=== PATIENT | female | born 1985 | race Caucasian/White ===

== ENCOUNTER 2024-05-28 09:27 | Emergency (ER) | payer OTHER, SELFPAY ==
--- NOTE | ~2024-05-28 | CT_ITS ---
CLINICAL HISTORY: R flank pain CT of the abdomen and pelvis without intravenous contrast. No comparison. Findings: There is mild elevation of the right hemidiaphragm. The liver is enlarged. The gallbladder is distended. No definite gallstones are seen. No pericholecystic inflammatory changes are identified. No renal or ureteral stones are seen. There is no hydronephrosis. The liver is enlarged. The pancreas is unremarkable. No abdominal aortic aneurysm. There is coronary artery calcification. There has been a gastric sleeve. No diverticulitis is identified. There is moderate stool in the colon. The appendix is upper limits of normal in size without adjacent inflammatory change. There is no bowel obstruction. The bladder is nondilated. Hysterectomy. There is prominent L5-S1 degenerative disc disease. Impression: No renal or ureteral stones. Hepatosplenomegaly. Nonspecific gallbladder distention follow-up as clinically warranted. Appendix upper limits of normal in size without adjacent inflammatory change. This is likely incidental but consider follow-up if unexplained symptoms persist. This document has been electronically signed by: Callum Alvarado MD on 05/28/2024 17:38:27
[2024-05-28 09:36] VITALS: BP 146/79; PULSE 114; RESP 20; TEMP 37.8; O2SAT 100; BMI 43.9
[2024-05-28] MEDS: Ibuprofen 600 MG TABLET PO (09:44)
[2024-05-28] MEDS: Ondansetron ODT 4 MG TAB.RAPDIS TRANSLINGU (09:45)
[2024-05-28 10:14] LABS: MANUAL DIFF FLAG NO
[2024-05-28 10:17] LABS: Basophils Absolute Auto 0.1 X10*3/uL (0.0-0.2); Basophils Percent Auto 0.4 % (0-2); Eosinophils Percent Auto 0.3 % (0-4); Hematocrit 42.7 % (37.0-47.0); Hemoglobin 14.3 g/dl (12.0-16.0); Imm Gran Abs Auto 0.09 X10*3/uL (0.00-0.03); Imm Gran Pct Auto 0.7 % (0.0-0.4); Lymphocytes Absolute Auto 1.6 X10*3/uL (1.2-4.9); Lymphocytes Percent Auto 12.4 % (20-40); Mean Corpuscular HGB Conc 33.5 g/dl (31.0-35.0); Mean Corpuscular Hemoglobin 26.2 pg (27.0-33.0); Mean Corpuscular Volume 78.3 fL (80.0-98.0); Mean Platelet Volume 8.7 fL (9.4-12.3); Monocytes Absolute Auto 1.5 X10*3/uL (0.1-1.2); Monocytes Percent Auto 11.2 % (2-11); Neutrophils Absolute Auto 9.9 x10*3/uL (2.0-8.3); Platelet Count 154 X10*3/uL (160-400); Red Blood Count 5.45 X10*6/uL (4.20-5.50); Red Cell Distribution Width 13.7 % (11.0-16.0); White Blood Count 13.2 X10*3/uL (4.8-10.8)
[2024-05-28 10:50] LABS: Alanine Aminotransferase < 6 U/L (0-31); Albumin Level 4.1 g/dL (3.5-5.0); Alkaline Phosphatase 113 U/L (39-117); Anion Gap 15 (12-20); Aspartate Amino Transferase 14 U/L (5-31); Bilirubin Direct 0.3 mg/dL (0.0-0.5); Bilirubin Total 0.9 mg/dL (0.0-1.0); Blood Urea Nitrogen 13 mg/dL (9-16); Calcium 9.5 mg/dL (8.4-10.2); Carbon Dioxide 20 mmol/L (22-29); Chloride 107 mmol/L (96-108); Estimated Glomerular Filt Rate 59; Glucose Random 110 mg/dL (60-115); Lipase 9 U/L (8-78); Sodium 138 mmol/L (135-145); Total Protein 8.1 g/dL (6.5-8.0)
[2024-05-28 10:58] LABS: Influenza A PCR NEGATIVE (Negative); Influenza B PCR NEGATIVE (Negative); Resp Syncy Virus RNA Qual PCR NEGATIVE (Negative); SARS COV2 PCR INHOUSE NEGATIVE (Negative)
--- NOTE | 2024-05-28 16:05 | ED_ITS ---
HPI - Nausea/Vomiting/Diarrhea General Chief complaint: Nausea/Vomiting/Diarrhea Stated complaint: ? Kidney Infection Time Seen by Provider: 05/28/24 15:36 Source: patient and RN notes reviewed Mode of arrival: ambulatory Limitations: no limitations History of Present Illness ED Provider: Bibiana Cadet PA-C HPI Narrative: This is a 38-year-old female, with a history of fibromyalgia, depression, anxiety, ankylosing spondylitis, and hx of kidney infections, who presents emergency department with concerns for nausea, vomiting, urinary urgency, frequency, and dysuria x3 days. Patient states that 3 days ago she was with her friends when she suddenly developed acute onset of nausea, vomiting, urinary symptoms. She states that over the last several days she continues to have nausea, vomiting, and urinary symptoms. She does report some subjective fevers and chills. No chest pain or shortness for breath. She does endorse suprapubic tenderness as well as bilateral flank pain. She has a history of kidney infections in the past and symptoms feel similar. She went to [facility] yesterday however left without completing treatment as the wait time was too long. She went to an urgent care this morning and was told to report back to the emergency room. She is unsure when her last bowel movement was. She does report that she smokes marijuana, no alcohol use. MD elicited complaint: nausea, vomiting and flank pain Onset (ago): day(s) Description of diarrhea: watery Associated nausea: Yes Associated abdominal pain: Yes Location of pain: suprapubic Radiation: left flank and right flank Pain consistency: constant Severity: moderate Quality: cramping Exacerbating factors: none Relieving factors: none Related Data Previous Rx's ?Medication ?Instructions ?Recorded cefpodoxime 200 mg tablet 200 mg PO Q12H 10 days #20 tabs 05/28/24 ondansetron 4 mg disintegrating 4 mg PO Q6H PRN nausea and 05/28/24 tablet vomiting #10 tabs Allergies Allergy/AdvReac Type Severity Reaction Status Date / Time No Known Allergies Allergy Verified 05/28/24 09:38 [No Known Allergies*] Review of Systems 2 Review of Systems: Yes all other systems are reviewed and are negative Constitutional: Constitutional: Reports as per HPI Gastrointestinal: Gastrointestinal: Reports nausea PMFSH Social History Social History Advance Directives: No Advance Directives Information Provided: Yes Do you have a plan to hurt others: No Plan Physical Exam 2 Vital Signs: Vital Signs: Last Vital Signs Temp 98.8 F 05/28/24 16:20 Pulse 94 05/28/24 16:20 Resp 14 05/28/24 16:20 BP 145/94 H 05/28/24 16:20 Pulse Ox 100 05/28/24 16:20 O2 Del Method Room Air 05/28/24 16:20 BMI result Body Mass Index 43.9 Const: General: cooperative, comfortable and no acute distress O rientation/consciousness: patient oriented x3 Limitations: no limitations HEENT: Head: Yes normal to inspection, Yes normocephalic and Yes atraumatic Ears: hearing grossly normal bilaterally General nose exam: Normal external nose present Face and sinus: Yes normal facial exam Mouth: Normal oral and palatal mucosa present, oropharynx normal and moist mucous membranes Throat: Yes posterior oropharynx normal Eyes: General: appearance normal, both eyes and all related structures E yelids: Yes eyelids normal Conjunctivae: conjunctivae normal Sclerae: s clerae normal Pupils: Equal, round and reactive pupils present EOM: EOMs intact bilaterally Neck: Neck: Yes normal visual inspection, Yes full ROM and Yes no lymphadenopathy Lymphatic: no lymphadenopathy noted Chest: Chest palpation & inspection: normal inspection of the chest Resp: Effort & Inspection: normal respiratory effort and able to speak in complete sentences Auscultation: clear to auscultation bilaterally, no crackles, no rales, no rhonchi and no wheezes Cardio: Rate: regular rate Rhythm: regular rhythm Heart sounds: S1 normal heart sound present and S2 normal heart sound present GI: Other: Patient with tenderness palpation in the suprapubic region with guarding. Inspection: Yes normal to inspection : Other: Positive CVA tenderness bilaterally Skin: General skin exam: no rashes or lesions noted Trauma: no lacerations or abrasions Wounds: no wounds Neuro: General: patient oriented x3 and moves all extremities Cranial nerves: Yes Equal, round and reactive pupils present Extrem: General: Yes normal to inspection Right upper extremity: normal to inspection Left upper extremity: normal to inspection Right lower extremity: normal to inspection Left lower extremity: normal to inspection Course Course Course Narrative: orders put in by me in error please see work up from primary provider Reevaluation(s) Reevaluation #1: Patient feeling much better after receiving IV fluids, Zofran, Tylenol as well as Rocephin. She has no lactic acidosis. Will treat as pyelonephritis with course of cefpodoxime. Given strict return precautions. CT scan revealing no renal or ureteral stones, hepatosplenomegaly, nonspecific gallbladder distention, as well as upper limits of normal appendix size. This is all likely incidental. She has no right upper quadrant pain therefore no further evaluation of gallbladder is indicated at today's visit. I discussed these items with patient, she will follow-up with her PCP. She understands and agrees with plan. Patient stable for discharge. Time: 18:44 Medications Administered Discontinued Medications Generic Name Dose Route Start Last Admin Trade Name Freq PRN Reason Stop Dose Admin Ceftriaxone Sodium 1 gm 05/28/24 16:35 05/28/24 16:58 Ceftriaxone Sodium 1 Gm Vial IVPUSH 05/28/24 16:36 1 gm ONCE ONE Administration Lactated Ringer's 1,000 mls @ 999 mls/hr 05/28/24 16:36 05/28/24 17:56 Lr IV 05/28/24 17:36 Infused .Q1H1M ONE Infusion Lactated Ringer's 1,000 mls @ 999 mls/hr 05/28/24 16:36 05/28/24 17:56 Lr IV 05/28/24 17:36 Infused .Q1H1M ONE Infusion Acetaminophen 1,000 mg in 100 mls @ 400 mls/hr 05/28/24 16:37 05/28/24 17:44 Ofirmev IV 05/28/24 16:51 Infused ONCE ONE Infusion Ibuprofen 600 mg 05/28/24 09:41 05/28/24 09:44 Ibuprofen 600 Mg Tablet PO 05/28/24 09:42 600 mg ONCE ONE Administration Ondansetron HCl 4 mg 05/28/24 09:41 05/28/24 09:45 Ondansetron Odt 4 Mg Tab.Rapdis TRANSLINGU 05/28/24 09:42 4 mg ONCE ONE Administration Medical Decision Making Medical Decision Making [facility] Narrative: This is a 38-year-old female who presents emergency department complaints of nausea, vomiting, suprapubic pain, urinary symptoms. I did not assess patient until 1639. Patient already had labs performed, she does have leukocytosis at 13.2, with left shift. Chemistry with no significant electrolyte derangement. Creatinine 1.04, urine revealing small blood, positive nitrites, and moderate leuk esterases. Negative beta quant. Negative flu, RSV, and COVID. Repeat vital signs were performed at 16 20 revealing she is no longer tachycardic, afebrile. Given positive results on urinalysis with leukocytosis, she did have tachycardia earlier, will call sepsis alert at 1645. IV fluids, as well as IV Rocephin, and IV Tylenol was a ordered. Lactic acid was ordered in his pending at this time. Will continue to closely monitor. CT scan was obtained to rule out obstructive pathology. Differential Diagnosis Differential Diagnoses: The differential diagnosis associated with the presentation includes UTI, obstructive uropathy, pyelonephritis, SHANNON Lab Data MDM Lab Attestation statement: I reviewed the patient's lab results. Patient with leukocytosis at 13.2, platelet count slightly low at 154, left shift noted, chemistry with no significant electrolyte derangement. Urine with small blood, positive nitrites, leuk esterases, negative , negative flu, RSV, and COVID. 05/28/24 10:09 05/28/24 10:09 Labs: Lab Results 05/28/24 05/28/24 Range/Units 10:09 16:03 WBC 13.2 H (4.8-10.8) X10*3/uL RBC 5.45 (4.20-5.50) X10*6/uL Hgb 14.3 (12.0-16.0) g/dl Hct 42.7 (37.0-47.0) % MCV 78.3 L (80.0-98.0) fL MCH 26.2 L (27.0-33.0) pg MCHC 33.5 (31.0-35.0) g/dl RDW 13.7 (11.0-16.0) % Plt Count 154 L (160-400) X10*3/uL MPV 8.7 L (9.4-12.3) fL Immature Gran % (Auto) 0.7 H (0.0-0.4) % Neut % (Auto) 75.0 H (45-73) % Lymph % (Auto) 12.4 L (20-40) % [place] % (Auto) 11.2 H (2-11) % Eos % (Auto) 0.3 (0-4) % Baso % (Auto) 0.4 (0-2) % Lymph # (Auto) 1.6 (1.2-4.9) X10*3/uL [place] # (Auto) 1.5 H (0.1-1.2) X10*3/uL Eos # (Auto) 0.0 (0.0-0.4) X10*3/uL Baso # (Auto) 0.1 (0.0-0.2) X10*3/uL Abs Immat Gran (auto) 0.09 H (0.00-0.03) X10*3/uL Absolute Neuts (auto) 9.9 H (2.0-8.3) x10*3/uL Absolute Nucleated RBC 0.000 (0.0-0.012) X10*3/uL Nucleated RBC % (auto) 0.0 (0.0-0.2) /100WBC Sodium 138 (135-145) mmol/L Potassium 4.0 (3.3-5.1) mmol/L Chloride 107 (96-108) mmol/L Carbon Dioxide 20 L (22-29) mmol/L Anion Gap 15 (12-20) BUN 13 (9-16) mg/dL Creatinine 1.04 (0.5-1.4) mg/dL Estim Creat Clear Calc 95.0 Estimated GFR 59 Random Glucose 110 (60-115) mg/dL Lactic Acid 1.2 (0.5-2.0) mmol/L Calcium 9.5 (8.4-10.2) mg/dL Total Bilirubin 0.9 (0.0-1.0) mg/dL Direct Bilirubin 0.3 (0.0-0.5) mg/dL AST 14 (5-31) U/L ALT < 6 (0-31) U/L Alkaline Phosphatase 113 (39-117) U/L Total Protein 8.1 H (6.5-8.0) g/dL Albumin 4.1 (3.5-5.0) g/dL Lipase 9 (8-78) U/L Urine Color Dark Yellow Urine Appearance Turbid Urine pH 5.5 (5.0-9.0) Ur Specific [place] 1.025 (1.005-1.025) Urine Protein 100 (2+) H (Neg-Trace) mg/dL Urine Glucose (UA) Negative (Negative) mg/dL Urine Ketones 15 (Negative) mg/dL Urine Blood Small (1+) H (Negative) Urine Nitrite Positive H (Negative) Ur Leukocyte Esterase Moderate (2+) H (Negative) Urine RBC 0-2 (0-2) /HPF Urine WBC >50 H (0-5) /HPF Ur Squamous Epith Cells >20 (0-2) /HPF Calcium Oxalate Crystal Present Urine Bacteria 4+ (None Seen) Hyaline Casts >20 (0-2) /LPF Urine Test NEGATIVE (NEGATIVE) Influenza Type A (PCR) NEGATIVE (Negative) Influenza Type B (PCR) NEGATIVE (Negative) RSV RNA Qual (PCR) NEGATIVE (Negative) SARS-CoV-2 RNA (RT-PCR) NEGATIVE (Negative) Radiology Impression Discussion of test interpretation with radiology: I have reviewed the radiologist's reading. Radiologist Impression: CLINICAL HISTORY: R flank pain CT of the abdomen and pelvis without intravenous contrast. No comparison. Findings: There is mild elevation of the right hemidiaphragm. The liver is enlarged. The gallbladder is distended. No definite gallstones are seen. No pericholecystic inflammatory changes are identified. No renal or ureteral stones are seen. There is no hydronephrosis. The liver is enlarged. The pancreas is unremarkable. No abdominal aortic aneurysm. There is coronary artery calcification. There has been a gastric sleeve. No diverticulitis is identified. There is moderate stool in the colon. The appendix is upper limits of normal in size without adjacent inflammatory change. There is no bowel obstruction. The bladder is nondilated. Hysterectomy. There is prominent L5-S1 degenerative disc disease. Impression: No renal or ureteral stones. Hepatosplenomegaly. Nonspecific gallbladder distention follow-up as clinically warranted. Appendix upper limits of normal in size without adjacent inflammatory change. This is likely incidental but consider follow-up if unexplained symptoms persist. This document has been electronically signed by: Callum Alvarado MD on 05/28/2024 17:38:27 Discharge Plan Discharge Clinical Impression: Pyelonephritis Patient Disposition: Home, Self-Care Instructions: Kidney Infection (ED) Additional Instructions: You were seen in the emergency department today. You have concerns for a kidney infection therefore we are starting you on antibiotics. You received antibiotics here in the emergency department today. Please take cefpodoxime 200 mg twice a day for the next 10 days. Finish the entire course even if your symptoms improve. Zofran is a nausea medication, take this as needed. Continue drinking plenty of fluids getting plenty of rest. Follow-up with your primary care physician regarding this visit. Your urine sample will be sent out for further testing, we will call you if we need to change your antibiotic. If any new or worsening symptoms occur including but not limited to high fevers not responding to Tylenol or Motrin, inability to eat or drink secondary to intractable nausea and vomiting, worsening abdominal pain, please seek emergent care. Your CT scan report shows gallbladder distention, large liver and spleen, as well as an enlargement appendix. These are all likely incidental however you can follow-up with your primary care physician. Prescriptions: New cefpodoxime 200 mg tablet 200 mg PO Q12H 10 Days Qty: 20 0RF Rx Instructions: must administer with a meal/food ondansetron 4 mg tablet,disintegrating 4 mg PO Q6H PRN (Reason: nausea and vomiting) Qty: 10 0RF Print Language: Latvian
[2024-05-28 16:16] LABS: Appearance Urine Turbid; Color Urine Dark Yellow; Glucose Urine UA Negative (Negative); Leukocyte Esterase Urine Moderate (2+) (Negative); Nitrite Urine Positive (Negative); PH 5.5 (5.0-9.0); Specific Gravity - Urine 1.025 (1.005-1.025); UMIC TRIGGER UACC YES; UPreg QC Valid YES; Urine Blood Small (1+) (Negative); Urine Ketones 15 mg/dL (Negative); Urine Pregnancy NEGATIVE (NEGATIVE); Urine Protein 100 (2+) mg/dL (Neg-Trace)
[2024-05-28 16:20] VITALS: BP 145/94; PULSE 94; RESP 14; TEMP 37.1; O2SAT 100
--- NOTE | 2024-05-28 16:26 | PC.NURSE ---
re delay in fluid/abx- pt taken to CT immediately upon arrival to exam room
[2024-05-28 16:38] LABS: Bacteria Urine 4+ (None Seen); Calcium Oxalate Crystals Urine Present; Hyaline Casts Urine >20 /LPF (0-2); RBC Urine 0-2 /HPF (0-2); Squamous Epithelial Cell Urine >20 /HPF (0-2); UACC Culture Trigger YES; WBC Urine >50 /HPF (0-5)
[2024-05-28 16:50] LABS: Lactic Acid 1.2 mmol/L (0.5-2.0)
[2024-05-28] MEDS: Lactated Ringers 1,000 ML 999 ML IV ×2 (16:55)
[2024-05-28] MEDS: cefTRIAXone sodium 1 GM VIAL IVPUSH (16:58)
[2024-05-28] MEDS: Acetaminophen 1,000 MG/100 ML PIGGYBACK 400 MG IV (17:29)
[2024-05-28 19:19] VITALS: BP 139/75; PULSE 89; RESP 18; TEMP 36.6; O2SAT 98
[2024-05-28 19:47] VITALS: BP 139/75; PULSE 89; RESP 18; TEMP 36.6; O2SAT 98
== END 2024-05-28 19:48 | disposition home or self-care (01) ==
PROVIDERS: Emergency Medicine; Emergency Provider Emergency Medicine
DX: N12 Tubulo-interstitial nephritis, 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 chronic (principal); R11.2 Nausea with vomiting, unspecified; R39.15 Urgency of urination; R30.0 Dysuria; R35.0 Frequency of micturition; R50.9 Fever, unspecified; Z03.818 Encounter for observation for suspected exposure to other biological agents ruled out; Z79.899 Other long term (current) drug therapy
CPT/HCPCS: 0241U; 36415; 74176; 80048; 80076; 81001; 81025; 83605; 83690; 85025; 87040; 87086; 87088; 87186; 96361; 96374; 96375; 99284; J0131; J0696; J7120

== ENCOUNTER → 2024-05-28 15:37 | Outpatient (BNV) | payer OTHER, SELFPAY | PROVIDERS: Emergency Provider Emergency Medicine; Visit Provider Radiology Diagnostic Radiology | DX: R10.813 Right lower quadrant abdominal tenderness (principal) | CPT/HCPCS: 74176 ==

== ENCOUNTER → 2024-11-26 09:15 | Outpatient (BNV) | payer OTHER, SELFPAY | PROVIDERS: Visit Provider Psychiatry & Neurology Psychiatry | DX: F33.2 Major depressive disorder, recurrent severe without psychotic features (principal); F41.1 Generalized anxiety disorder; F90.9 Attention-deficit hyperactivity disorder, unspecified type | CPT/HCPCS: 99214 ==

== ENCOUNTER 2024-11-27 14:05 | Outpatient (REF) | payer MEDICARE, SELFPAY ==
--- OUTSIDE RECORDS SUMMARY | 2024-01-11 05:25 | XMS_ITS | Continuity of Care Document ---
Author Organization [facility] vices Address [address] [place] [address] Phone Care Team Providers Care Technical Writer Name Role Phone Armida Valderrama APRN Unavailable [...] day for hdl 5 MG - Active estradiol 0.5 mg tablet take 1 tablet by oral route every day - Active gabapentin 300 mg capsule take 2 capsule by oral route 3 times every day 600 MG - Active sertraline 100 mg tablet take 1 tablet by oral route 2 times every day 100 MG - Active methocarbamol 750 mg tablet take 1 tablet by oral route 2 times every day 750 MG - Active prazosin 2 mg capsule take 1 capsule by oral route every bedtime 2 MG - Active buspirone 15 mg tablet take 1 tablet by oral route 3 times every day 15 MG - Active Vitamin D3 50 mcg (2,000 unit) capsule take 1 by oral route every day 1 - Active oxybutynin chloride ER 10 mg tablet,extended release 24 hr take 1 tablet by oral route every day 10 MG - Active hydroxyzine HCl 50 mg tablet take 1 tablet by oral route 1-2 times daily prn - Active bupropion HCl XL 300 mg 24 hr tablet, extended release take 1 tablet by oral route every day 300 MG - Active atomoxetine 60 mg capsule take 1 capsule by oral route every day - Active Procedures Procedure Date OFFICE/OUTPT Visit, Established - Telly Andrews, 30 - 39 Minutes [...] Diagnoses Date Provider Providers Copied on Encounter [facility], [address] [place], [place], [facility], [place] tel:[phone] [facility] Adult Medicine No Information 4 Jannie Huffman. [address] [facility] [id number] [address], [address], [place]. tel:[phone] OFFICE/OUTPT Visit, Established - Mod MDM, 30 - 39 Minutes [facility], [address] [place], [place], [facility], [place] tel:[phone] [facility] Adult Medicine [place] hyperlipidemia (chief complaint)occip ital lynph node (chief complaint) Body mass index (BMI) 45.0-49.9, adultHyperlipid emia, unspecified hyperlipidemia typePalpable lymph node 4 Jannie Huffman. [address] [id number] [address], [address], [place]. tel:[phone] Telephone E/M By Provider 11-20 MIN [facility], [address] [place], [address], [place] tel:[phone] [facility] Adult Medicine [place] Telehealth (chief complaint) Iron deficiency anemia, unspecified iron deficiency anemia typeHyperlipide narendra, unspecified hyperlipidemia type 4 Jannie Lackeyyl. [address] [id number] [address], [address], [place]. tel:[phone] OFFICE/OUTPT Visit - Established - Low MDM, 20 - 29 Minutes [facility], [address] [place], [place], [facility], [place] tel:[phone] [facility] Adult Medicine [place] lymph node enlargement (chief complaint)lab results (chief complaint) Body mass index (BMI) 40.0-44.9, adultEnlarged lymph nodeEncounter to discuss test results 4 Jannie Huffman. [address] [id number] [address], [facility], [place]. tel:[phone] OFFICE/OUTPT Visit, [facility], 30 - 44 Minutes [facility], [address] [place] [address], [facility], [place] tel:[phone] [facility] Adult Medicine [place] Establish Care (chief complaint)Influ reynaldo Vaccine (chief complaint) Encounter for screening for diabetes mellitusLipid screeningBody mass index (BMI) 40.0-44.9, adultEncounter for immunizationDep ression, unspecified depression typeFibromyalgi aAnkylosing spondylitis, unspecified site of spine 3 Jannie Huffman. [address] [id number] [address] [place], [facility], [place]. tel:[phone] Family History Family Member Type Diagnosis Age At Onset No Information Immunizations Vaccine Date Status Comments Flulaval or Fluarix administered Source: New Immuniza tion Record Payers Payer name Insurance type Covered green party ID Authoriza tion(s) Aetna [id number] [place] Medicaid - Medicare [facility] [id number] Medicare Part B [id number] [facility] Medicaid - Medicare [facility] [id number] Social History Type Description Quantity Date Captured [...] and counseling completed Referral Ordered: Referrals: Location: [facility] Dental ordered Referral Ordered: Referrals: Location: [facility] ordered Referral Ordered: Referrals: Location: [facility] Optometry ordered History Of Present Illness Encounter [...] of Remicade. Area was evaluated by her clutch mechanic and a ultrasound of area was done on June 08, 2023 at [facility]. Imaging report reveals palpable abnormal corresponding [...] 5.63. Patient is followed by hematology at [facility] Dr. Lupe Osorio. Patient reports that she received iron transfusion last Sunday. Patient reports that she receives iron transfusion once a year and is followed by hematology every 6 months. Patient does not take iron supplement as it irritates her stomach and she is not able to tolerate it. Patient next appointment with acid mixer is in October 2023. Vitamin D deficiency: [...] information was recorded by Armida Valderrama APRN lab results 37-year-old ugo le in today to receive lab results. Patient's labs that were ordered 03/21/2023 were not completed. Patient reports she completed them. [facility] was checked there was no urinalysis done by urgent care. Patient reports she will going to complete the labs this week. Upon completion of labs patient has been scheduled review of labs with this provider. lymph node enlargement At today' s visit patient reports that she has been seen by acid mixer. Patient reports acid mixer did ultrasound of the lymph nodes left occipital area. Patient reports that acid mixer ask her to to have her PCP [...] see what the next steps will be. Establish Care 37 y/o female in today for a establish care visit. Pt denies any recent illness, fever or chills, CP, palpitations/irregular heartbeat or SOB. Patient reports that he recently relocated to the [facility] and is changing providers to this area. 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, ankylosing spondylosis, anxiety, ADD depression, Ruvjam-ieqlrbke-crrsuinZbmy surgical history: Patient reports total hysterectomy in [...] she is followed by heme oncology at [facility] Patient reports she has received iron infusions in the past P atient reports she gets her labs done every 6 to 8 weeks by her rheumatologistDepression: P atvickey on medication F ollowed by [facility] health: MANAGER MARKET INTELLIGENCE -telehealth- start with therapist after new 2023Fibromyalgia-[facility] officeAsthma : E xercise-induced asthma Patient reports controlled on short acting inhaler. Influenza Vaccine Patient in req uesting flu vaccine. 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 Functional Status Date Functional Assessmen t No Information Instructions Date Instruction Additional Infor emily Continue taking Isaac tor 5 mg once a day Encourage patient to continue eating well-balanced low-fat diet Patient is to get exercise in her daily routine Patient is to drink plenty of water 6 to 8 glasses a more Follow-up as needed Related to Hyperlipidemia, unspecified hyperlipidemia type Weight monitoring Related to Bod y mass index [BMI] 45.0-49.9, adult Dietary management e ducation, guidance, and counseling Related to Body mass index [BMI] 45.0-49.9, adult Dietary management [...] Encou nter for screening for diabetes mellitus Dietary management e ducation, guidance, and counseling Related to Body mass index [BMI] 40.0-44.9, adult Weight monitoring Related to Bod y mass index [BMI] 40.0-44.9, adult Assessments Type Assessment Date No Information Patient Care Teams Name Effective Dates (start - stop) Status Members No Information
--- NOTE | 2024-11-27 14:10 | ECG_ITS ---
Test Reason : ck qtc Blood Pressure : */* mmHG Vent. Rate : 88 BPM Atrial Rate : 88 BPM P-R Int : 156 ms QRS Dur : 92 ms QT Int : 398 ms P-R-T Axes : 4 50 46 degrees QTcB Int : 481 ms Normal sinus rhythm Prolonged QT Abnormal ECG No previous ECGs available Referred By: Sirisha Lawton Electronically Signed By: Daryl Mcfadden
[2024-11-27 14:39] LABS: MANUAL DIFF FLAG NO
[2024-11-27 14:47] LABS: Hematocrit 41.4 % (37.0-47.0); Hemoglobin 14.1 g/dl (12.0-16.0); Imm Gran Abs Auto 0.07 X10*3/uL (0.00-0.03); Imm Gran Pct Auto 0.6 % (0.0-0.4); Lymphocytes Absolute Auto 2.8 X10*3/uL (1.2-4.9); Mean Corpuscular HGB Conc 34.1 g/dl (31.0-35.0); Mean Corpuscular Hemoglobin 27.0 pg (27.0-33.0); Mean Corpuscular Volume 79.2 fL (80.0-98.0); NRBC Abs Auto 0.000 X10*3/uL (0.0-0.012); NRBC Pct Auto 0.0 /100WBC (0.0-0.2); Platelet Count 214 X10*3/uL (160-400); Red Blood Count 5.23 X10*6/uL (4.20-5.50); White Blood Count 12.0 X10*3/uL (4.8-10.8)
--- OUTSIDE RECORDS SUMMARY | 2024-11-27 14:54 | XMS_ITS | Encounter Summary ---
Author Organization [facility] Address [address] [place] [id number] Care Team Providers Care City Distribution Clerk Name Role Phone No, Pcp (Do Not Change Name) Primary Care Provid er Unavailable Encounter Details Date Type Department Care Team (Late Contact Info) Description 01/20/2018 Scanned Document Cardiovascular Medicine at [address] [place] [address], [place] [address] External, Provider Social History Tobacco Use Types Packs/Day Years Used Date Smoking Tobacco: Former Cigarettes 1 - 01/14/2014 Smokeless Tobacco: Never Comments:smokes for 15 years Alcohol Use Standard Drinks/Week Comments No 0 (1 standard drink = 0.6 oz pur e alcohol) Comments No Sex and Gender Information Value Date Recorded Sex Assigned at Female 06/08/2021 10:48 PM EST Legal Sex Female 10:11 PM EDT Gender Identity Genderqueer 12/01/2021 6:24 AM EDT Sexual Orientation Bisexual 12/10/2022 11 :34 AM EDT Sexual Orientation Lesbian or Dennis 12/10/2022 11 :34 AM EDT documented as of this encounter Plan of Treatment Upcoming Encounters Date Type Department Care Team (Late Contact Info) Description 12/29/2024 4:00 PM EDT Follow Up Rheumatology at [address] [place] [address] Edward Mak MD [address] [place] [address] documented as of this encounter Procedures Procedure Name Priority Date/Time Associated Diagnosis Comments CARDIAC EKG RESULT SCAN Routine 01/20/2018 documented in this encounter Results * Cardiac EKG Result Scan (01/20/2018) us Provider External CV CARDIAC REPORT (CVR) Final Result documented in this encounter Visit Diagnoses Not on filedocumented in this encounter Additional Health Concerns Infection Onset Date Last Indicated Resolved Time COVID-19 04/22/2021 04/22/2021 05/02/2021 7:19 PM EST Assessment Noted Time PHQ-9 Depression Total Score: 1 10/17/19 18 11:50 AM EDT documented as of this encounter Care Teams City Distribution Clerk Relationship Specialty Start Date End Date No, Pcp (Do Not Change Name) PCP - General 04/21/20 documented as of this encounter
--- OUTSIDE RECORDS SUMMARY | 2024-11-27 14:54 | XMS_ITS | Clinical Summary ---
Author Organization [facility] Address [address] [place] [address] Care Team Providers Care Alarm Installation Technician Name Role Phone Provider, Outside Primary Care Provider Source Comments PLEASE NOTE, if this patient is a minor, it may be UNLAWFUL to discuss sensitive information that is contained in these records (such as FAMILY PLANNING, MENTAL HEALTH or SUBSTANCE ABUSE) with the minor patient's parent or other person without the patient's specific authorization.[facility] Allergies Active Allergy Reactions Criticality Noted Date Comments House Dust Mite 08/07/2022 Mold Medium 02/02/2015 Other reaction(s): Unknown/Patient and Family Unable to Define Pollen Extracts 06/25/2020 Other reaction(s): Unknown Medications albuterol sulfate 90 mcg/actuation inhaler Inhale 2 Puffs into the lungs every 6 (six) hours as needed for shortness of breath or wheezing 8.5 Each 11 2 Active gabapentin (NEURONTIN) 600 mg tablet TAKE 1 TABLET BY MOUTH 3 TIMES DAILY WITH MEALS. 3 Active oxybutynin chloride (DITROPAN-XL) 10 mg 24 hr tablet Take 10 mg by mouth once daily 2 Active estradioL (CLIMARA) 0.05 mg/[address] 1 PATCH ONTO THE SKIN ONCE A WEEK FOR 12 DOSES. 3 Active loratadine (CLARITIN) 10 mg chew Claritin Active amoxicillin-pot clavulanate (AUGMENTIN) 875-125 mg per tabletIndications :Acute cystitis without hematuria Take 1 Tablet by mouth 2 (two) times daily 10 Tablet 3 Active sertraline (ZOLOFT) 100 mg tabletIndications :Major depressive disorder, recurrent episode, moderate (CMS & HHS-HCC),Anxiety disorder, unspecified type TAKE 2 TABLETS BY MOUTH DAILY 60 Tablet 1 3 Active busPIRone (BUSPAR) 15 mg tabletIndications :Anxiety disorder, unspecified type Take 1 Tablet by mouth 3 (three) times daily 90 Tablet 1 3 Active atomoxetine (STRATTERA) 60 mg capsuleIndication s:Attention and concentration deficit Take 1 Capsule by mouth once daily 30 Capsule 1 3 Active buPROPion HCL (WELLBUTRIN XL) 300 mg 24 hr tabletIndications :Major depressive disorder, recurrent episode, moderate (CMS & HHS-HCC) TAKE 1 TABLET BY MOUTH EVERY DAY IN THE MORNING 30 Tablet 1 3 Active prazosin (MINIPRESS) 1 mg capsule Take 1 Capsule by mouth nightly at bedtime X14 days then increase to 2 mg dose 14 Capsule 3 Active prazosin (MINIPRESS) 2 mg capsule Take 1 Capsule by mouth nightly at bedtime After completion of the 1 mg dose 30 Capsule 3 Active hydrOXYzine HCL (ATARAX) 50 mg tabletIndications :Anxiety disorder, unspecified type TAKE 1- 2 TABS NEEDED FOR SLEEP AT BEDTIME 60 Tablet 1 3 Active Active Problems Problem Noted Date Diagnosed Date Pyelonephritis 09/17/2021 Attention and concentration deficit 11/02/2020 Severe obstructive sleep apnea 06/25/2020 Agoraphobia 06/27/2019 Anemia 06/27/2019 Anxiety disorder 06/27/2019 Arthritis 06/27/2019 Sinus trouble 06/27/2019 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 Overview (06/12/2019): Overview Note: Undifferentiated spondyloarthr #[id number]# EXT_ID: [id number] MDD (major depressive disord er), recurrent episode, moderate 03/28/2018 Overview (06/12/2019): Overview Note: MDD (major depressive disorder #[id number]# EXT_ID: [id number] Fibromyalgia 01/29/2018 Overview (06/12/2019): Overview Note: Fibromyalgia #011150# EXT_ID: [id number] Fibromyalgia 01/29/2018 Irritable bowel syndrome 10/16/2012 Overview (06/12/2019): Overview Note: Irritable bowel syndrome #01721# EXT_ID: [id number] Disease of immune system ([facility]) 013 Overview (06/27/2019): Overview Note: Endometriosis #31956# EXT_ID: [id number] Asthma 10/16/2012 Overview (06/12/2019): Overview Note: Asthma #79445# EXT_ID: [id number] Ovarian cyst 10/16/2012 Overview (06/12/2019): Overview Note: Ovarian cyst #57353# EXT_ID: [id number] Immunizations Immunization Administration Dates Next Due Flu, Cell Culture based, Pre servative Free, 6m+, Flucelvax 02/05/2022 Flu, Preservative Free 03/21/2023,01/19/2020 INFLUENZA, SEASONAL, INJECTABLE, PRESERVATIVE FR EE 01/29/2018,02/14/2016 INFLUENZA, UNSPECIFIED 01/22/2024 Social History Tobacco Use Types Packs/Day Years Used Date Smoking Tobacco: Former Smokeless Tobacco: Never Tobacco Cessation:Counseling Given: Not Answered Alcohol Use Standard Drinks/Week Comments Not Currently 0 (1 standard drink = 0.6 oz pur e alcohol) Social Connections Answer Date Recorded Connectedness 0 10/23/2022 Financial Resource Strain Answer Date R ecorded Financial Resource Strain 0 2022 Stress Answer Date Recorded Stress 0 10/23/2022 Physical Activity Answer Date Recorded Physical Activity 0 06/07/2019 Food Insecurity Answer Date Recorded Food 0 10/23/2022 Transportation Needs Answer Date Record ed Transportation 0 10/23/2022 Housing Stability Answer Date Recorded Housing 0 10/23/2022 Safety and Environment Answer Date Kavon rded Safety 0 06/07/2019 Utilities Answer Date Recorded Utilities 0 06/07/2019 Employment Answer Date Recorded Stress 0 10/23/2022 Comments Unknown Sex and Gender Information Value Date Recorded Sex Assigned at Female 12/12/2019 1:15 PM PDT Legal Sex Female 10:43 PM PST Gender Identity Non-binary/genderqueer 11:23 AM PDT Sexual Orientation Queer 03/05/2020 9: 27 AM PST Last Filed Vital Signs Vital Sign Reading Time Taken Comments Blood Pressure 129/98 11/17/2022 11:04 AM EDT Pulse 98 11/17/2022 11:04 AM EDT Temperature 36.7 C (98.1 F) 05/15/2022 1:52 PM EST Respiratory Rate 18 08/24/2022 1:23 PM EDT Oxygen Saturation 100% 08/24/2022 1:23 PM EDT Inhaled Oxygen Concentration - - Weight 117 kg (258 lb) 11/17/2022 11:04 AM EDT Height 165.1 cm (5' 5 ) 05/15/2022 1:52 PM EST Body Mass Index 42.93 05/15/2022 1:52 PM EST Plan of Treatment Health Maintenance Due Date Last Done Comments Anxiety Screening 1985 HPV Screening 1985 LTBI Screening (#3) 1985 04/07/2022, 0 Tobacco Screening 1985 Syphilis Screening 11/11/1999 Relationship Safety Screening/Counseling 2000 Medicare Annual Wellness Visit 11/10/2003 Imm-DTaP/Tdap/Td (1 - Tdap) 2004 Imm-Hepatitis A (1 of 2 - Ri sk 2-dose series) 2004 Imm-Hepatitis B (1 of 3 - 19 + 3-dose series) 2004 Imm-Pneumococcal (1 of 2 - PCV) 2004 Depression Monitoring 02/16/2023 11/16/2022 , 08/24/2022, 07/21/2022, Additional history exists Pap Smear 08/26/2023 08/25/2020 Hypertension Screening (#1) 11/17/2023 Alcohol and Drug Screen 04/16/2024 Imm-Influenza (#1) 2024 01/22/2024, 1 05/22/2022, 02/05/2022, Additional history exists Cervical Cancer Screening 08/25/2025 Pap + HPV 08/25/2025 08/25/2020 Diabetes Screening 05/27/2027 05/27/2024, 0 08/18/2022, 05/24/2022, Additional history exists HIV Screening Completed 03/21/2023, 02/15, 09/15/2020 Hepatitis C Screening Completed 08/24/2023, 020 [id number] Completed 01/22/2024, 01/15, 02/18/2021, Additional history exists Cervical Ablation/Cold-Knife Conization Discontinued Cervical Cryotherapy Discontinued Colposcopy Discontinued Endometrial Biopsy Discontinued Excision/Leep Discontinued HPV Genotyping Discontinued Vaginal Pap Discontinued Vulvoscopy Discontinued Procedures Procedure Name Priority Date/Time Associated Diagnosis Comments COMPREHENSIVE METABOLIC PANEL Routine 05/24/2022 8:32 AM EST Pre-op testing PAP SMEAR W/HPV, ABSTRACTED Routine 08/25/2020 from Last 3 Months or Most Recently Relevant to Health Maintenance Results * (ABNORMAL) COMPREHENSIVE METABOLIC PANEL (05/24/2022 8:32 AM EST) GLUCOSE 105(H) 65 - 99 mg/dL [facility] Comment: Fasting reference interval For someone without known diabetes, a glucose value between 100 and 125 mg/dL is consistent with prediabetes and should be confirmed with a follow-up test. UREA NITROGEN (BUN) 9 7 - 25 mg/dL [facility] CREATININE (blood) 0.97 0.50 - 0.97 mg/dL [facility] EGFR 78 > OR = 60 mL/min/1 .73m2 [facility] Comment: The eGFR is based on the CKD-EPI 202 equation. To calculate the new eGFR from a previous Creatinine or Cystatin C result, go to https://www.kidney.org/professionals/ kdoqi/gfr%5Fcalculator BUN/CREATININE RATIO NOT APPLICABLE 6 - 22 (calc) [facility] SODIUM 136 135 - 146 mmol/L [facility] POTASSIUM 4.2 3.5 - 5.3 mmol/L [facility] CHLORIDE 102 98 - 110 mmol/L [facility] CARBON DIOXIDE 23 20 - 32 mmol/L [facility] CALCIUM 9.5 8.6 - 10.2 mg/dL [facility] PROTEIN, TOTAL 7.3 6.1 - 8.1 g/dL [facility] ALBUMIN 3.9 3.6 - 5.1 g/dL [facility] GLOBULIN 3.4 1.9 - 3.7 g/dL (calc) [facility] ALBUMIN/GLOBULI N RATIO 1.1 1.0 - 2.5 (calc) [facility] BILIRUBIN, TOTAL 0.5 0.2 - 1.2 mg/dL [facility] ALKALINE PHOSPHATASE 83 31 - 125 U/L [facility] AST 13 10 - 30 U/L [facility] ALT 6 6 - 29 U/L [facility] Blood Blood / Unknown 05/24/2022 8 :32 AM EST 05/24/2022 7:18 PM EST Cindi Burns APRN LAB - BLOOD DRAW Final Resul t [facility] [address] [id number], [facility] [address] [phone] * PAP SMEAR W/HPV (08/25/2020) PAP SMEAR INTERPRETATION [facility] 08/25/2020 Provider [facility] - PATHOLOGY AND CYTOLOGY AMB ULATORY Final Result [facility] [address] [place] [id number], from Last 3 Months or Most Recently Relevant to Health Maintenance Insurance [place] Member Subscriber Plan / Payer (Ef fective 2022-Present) Name:Martin Gloria A Relation to Subscriber:Self Name:Gloria Salazar Reg Payer ID:[id number] Group ID:Not on file Type:Medicaid Address: [address] [id number] Care Teams Alarm Installation Technician Relationship Specialty Start Date End Date Provider, Outside N/A N/A PCP - General Specialist - Other Service Providers 09/10/24
--- OUTSIDE RECORDS SUMMARY | 2024-11-27 14:54 | XMS_ITS | Clinical Summary ---
Author Organization [facility] Address [address] [id number] Care Team Providers Care Pony Roll Finisher Name Role Phone , Pcp Primary Care Provider Unavailabl e Social History Tobacco Use Types Packs/Day Years Used Date Smoking Tobacco: Never Assessed Comments Unknown Sex and Gender Information Value Date Recorded Sex Assigned at Not on file Legal Sex Female 6:02 PM EDT Gender Identity Not on file Sexual Orientation Not on file Plan of Treatment Not on file Insurance MEDICARE PART A AND B Care Teams Pony Roll Finisher Relationship Specialty Start Date End Date , Pcp PCP - General 09/09/18
--- OUTSIDE RECORDS SUMMARY | 2024-11-27 14:54 | XMS_ITS | Encounter Summary ---
Author Organization [facility] Address [address] [place] [address] Care Team Providers Care Student Life Dean Name Role Phone Donaldo Villareal MD Primary Care Provider + Donaldo Villareal MD Unavailable [phone] Alfonso George DO Unavailable [phone] Edward Mak MD Unavailable [phone] Lupe Osorio MD Unavailable Lynn Teran MD Unavailable Farhana Rojas PsyD Unavailable [phone] Services-[facility], [facility] Care Provider Dorota Carpenter MD Unavailable Pcp, No Primary Care Provider Unavailabl e System, Provider Not In Primary Care Provider Un available Pcp, No Primary Care Provider Unavailabl e Edward Mak MD Primary Care Provider [phone] Services, [facility] Primary Care Provider Nitza Dial MD Unavailable Janeth Page APRN Unavailable [phone] Encounter Details Date Type Department Care Team (Late st Contact Info) Description 09/11/2017 Scanned Document [facility] [address] [facility] [address] [place] [phone] Janeth Page, CONTRACT DESIGN AGENT [address] [address] Social History Tobacco Use Types Packs/Day Years Used Date Smoking Tobacco: Former Cigarettes Q uit: 2014 Smokeless Tobacco: Never Alcohol Use Standard Drinks/Week Comments Yes 0 (1 standard drink = 0.6 oz pur e alcohol) occasionally Comments No Sex and Gender Information Value Date Recorded Sex Assigned at Female 12/27/2022 11:07 AM EDT Legal Sex Female 3:23 PM EDT Gender Identity Female 04/28/2024 11:36 PM EST Sexual Orientation Choose not to disclose 2023 12:48 PM EDT documented as of this encounter Plan of Treatment Not on file documented as of this encounter Visit Diagnoses Not on filedocumented in this encounter Care Teams Student Life Dean Relationship Specialty Start Date End Date Donaldo Villareal MD PCP - General Family Medicine 02/06/17 07/08/20 [facility] [address] [place] [address] PCP - General 07/09/20 12/26/22 Pcp, No PCP - General General Medicine 12/27/22 01/17/23 System, Provider Not In PCP - General 01/18/23 05/06/23 Pcp, No PCP - General General Medicine 05/07/23 06/26/23 Edward Mak MD PCP - General 06/27/23 07/15/23 [facility], [facility] [address] [place] [address] [address] [place] [address] PCP - General 07/16/23 Nitza Dial MD [address] [address] PCP - [employer] Medicare Attributed 07/16/23 04/15/24 Janeth Page APRN [address] [place] [address] PCP - [employer] Medicare Attributed 04/16/24 07/14/24 Donaldo Villareal MD Family Medicine 02/06/17 Alfonso George DO Service Unit Operator [employer] Cardiovascular Disease 05/15/18 Edward Mak MD Physician Rheumatology 05/15/18 Lupe Osorio MD [address] [place] [phone] Physician Hematology Oncology 05/15/18 Lynn Teran MD [address] [place] [address] Physician Gastroenterology 05/15/18 Farhana Rojas, PsyD [address] [place] [address] Clinical Psychologist Psychology 05/27/18 Dorota Carpenter MD [address] [place] [id number] Urogynecology 12/28/21 documented as of this encounter
--- OUTSIDE RECORDS SUMMARY | 2024-11-27 14:54 | XMS_ITS ---
Author Name [facility] Organization Unknown Results Test Name/Text Value Interpretation Date Range Source Sp Gr Ur Strip 1.026 Normal 02/15/2024 1.003 - 1.03 H [facility] Nitrite Ur Ql Strip Positive Abnormal 02/15/2024 - CCT Bilirub Ur Strip-mCnc Moderate Abnormal 02/15/2024 - CCT Clarity Ur Cloudy Normal 02/15/2024 [facility] Prot Ur Strip-mCnc Large (300 mg/dL) Abnormal 02/15/2024 - CCT Leukocyte esterase Ur Ql Strip Moderate Abnormal 02/15/2024 - CCT Color Ur Lissy Normal 02/15/2024 [facility] Ketones Ur Strip-mCnc Trace Abnormal 02/15/2024 - CCT Hgb Ur Ql Strip Large Abnormal 02/15/2024 - C CT Glucose Ur Strip-mCnc Trace Abnormal 02/15/2024 - CCT pH Ur Strip 6.5 Normal 02/15/2024 5 - 8 [facility] Magnesium SerPl-mCnc 2.0 mg/dL Normal 02/15/2024 1.6 - 2. 7 [facility]CT Bilirub SerPl-mCnc <0.2 mg/dL Below low normal 02/15/2024 0. 2 - 1 [facility] Albumin/Glob SerPl 0.9 Ratio Below low normal 02/15/2024 1 - 3 [facility] Globulin Ser Calc-mCnc 3.8 g/dL Normal 02/15/2024 1.5 - 3.9 H[facility]CT Prot SerPl-mCnc 7.3 g/dL Normal 02/15/2024 6.3 - 8.[address] GFR/BSA.pred SerPlBld [id number] >90.0 Normal 02/15/2024 59 - H[facility]CT Chloride SerPl-sCnc 107.0 mmol/L Normal 02/15/2024 98 - 1 07 [facility] Sodium SerPl-sCnc 141.0 mmol/L Normal 02/15/2024 136 - 14 5 H[facility]CT Calcium SerPl-mCnc 9.0 mg/dL Normal 02/15/2024 8.7 - 10.5 [facility]CT Anion Gap Bld-sCnc 12.0 Normal 02/15/2024 7 - 17 [facility] Potassium SerPl-sCnc 3.9 mmol/L Normal 02/15/2024 3.4 - 5 .3 H[facility]CT CO2 SerPl-sCnc 22.0 mmol/L Normal 02/15/2024 22 - 33 HH CCT AST SerPl-cCnc 16.0 U/L Normal 02/15/2024 10 - 50 [facility] T ALP SerPl-cCnc 127.0 U/L Above high normal 02/15/2024 32 - 1 22 [facility]CT Creat SerPl-mCnc 0.8 mg/dL Normal 02/15/2024 0.4 - 1.1 HH CCT ALT SerPl-cCnc 7.0 U/L Below low normal 02/15/2024 10 - 50 [facility] Glucose SerPl-mCnc 125.0 mg/dL Above high normal 02/15/2024 65 - 99 [facility] Albumin SerPl-mCnc 3.5 g/dL Normal 02/15/2024 3.5 - 5 [facility] BUN/Creat SerPl 10.0 Ratio Normal 02/15/2024 10 - 25 HH CCT BUN SerPl-mCnc 8.0 mg/dL Normal 02/15/2024 8 - 21 [facility] T Lipase SerPl-cCnc 19.0 U/L Normal 02/15/2024 13 - 60 H [facility]CT Eosinophil num Bld Auto 0.67 Thou/uL Normal 02/15/2024 0 - 0.7 H[facility]CT Hct VFr Bld Auto 40.9 % Normal 02/15/2024 35 - 47 HH CCT Neutrophils num Bld Auto 6.02 Thou/uL Normal 02/15/2024 2 - 7.5 [facility]CT Eosinophil/leuk NFr Bld Auto 6.2 % Normal 02/15/2024 H[facility] Imm Granulocytes/leuk NFr Bld Auto 0.7 % Normal 02/15/2024 H[facility]CT WBC num Bld Auto 10.8 Thou/uL Normal 02/15/2024 4 - 11 [facility] Basophils/leuk NFr Bld Auto 0.6 % Normal 02/15/2024 H[facility]CT MCHC RBC Auto-mCnc 34.0 g/dL Normal 02/15/2024 30 - 36 [facility] Platelet num Bld Auto 213.0 Thou/uL Normal 02/15/2024 150 - 450 [facility] MCV RBC Auto 78.0 fL Below low normal 02/15/2024 80 - 100 [facility] RBC num Bld Auto 5.24 Mil/uL Normal 02/15/2024 4 - 5.4 H[facility]CT PMV Bld Auto 8.5 fL Normal 02/15/2024 7.5 - 12.5 [facility] Basophils num Bld Auto 0.06 Thou/uL Normal 02/15/2024 0 - 0.2 [facility]CT Neutrophils/leuk NFr Bld Auto 55.5 % Normal 02/15/2024 [facility] Imm Granulocytes num Bld Auto 0.08 Thou/uL Normal 02/15/2024 0 - 0.1 [facility]CT Lymphocytes/leuk NFr Bld Auto 29.2 % Normal 02/15/2024 H[facility]CT Hgb Bld-mCnc 13.9 g/dL Normal 02/15/2024 11.7 - 15.7 [facility] T Monocytes/leuk NFr Bld Auto 7.8 % Normal 02/15/2024 [facility]CT MCH RBC Qn Auto 26.5 pg Normal 02/15/2024 26 - [address] RDW RBC Auto-Rto 13.2 % Normal 02/15/2024 11.5 - 14.5 [facility]CT Monocytes num Bld Auto 0.85 Thou/uL Normal 02/15/2024 0.2 - 1.5 [facility]CT Lymphocytes num Bld Auto 3.16 Thou/uL Normal 02/15/2024 1.5 - 4.5 [facility]CT POC Glucose 96.0 mg/dL Normal 02/12/2024 65 - 99 [facility] URINE HCG, POC Negative Normal 02/12/2024 - [facility] T M TB tuberc IFN-g Bld Ql Negative Normal 08/26/2023 - [facility] Gamma interferon background Bld IA-aCnc 0.04 IU/mL Normal 08/26/2023 [facility] M TB IFN-g CD4+ bckgrnd cor Bld-aCnc -0.02 IU/mL Normal 08/26/2023 - 0.35 [facility] M TB IFN-g CD4+CD8+ bckgrnd cor Bld-aCnc -0.03 IU/mL Normal 08/26/2023 - 0.35 [facility] Mitogen IGNF bckgrd cor Bld-aCnc 9.96 IU/mL Normal 08/26/2023 [facility] HCV Ab SerPl Ql IA Negative Normal 08/25/2023 - [facility] HAV IgM SerPl Ql IA Negative Normal 08/25/2023 - [facility] HBV surface Ag SerPl Ql IA Negative Normal 08/25/2023 - [facility] HBV core IgM SerPl Ql IA Negative Normal 08/25/2023 [facility] ESR Bld Qn 36.0 mm/hr Above high normal 03/10/2023 0 - 20 [facility] Chloride SerPl-sCnc 107.0 mmol/L Normal 03/10/2023 98 - 1 07 [facility] ALT SerPl w/o P-5'-P-cCnc 8.0 U/L Below low normal 03/10/2023 10 - 35 [facility] Calcium SerPl-mCnc 9.7 mg/dL Normal 03/10/2023 8.8 - 10.2 [facility] Sodium SerPl-sCnc 141.0 mmol/L Normal 03/10/2023 136 - 14 4 [facility] HCO3 SerPl-sCnc 21.0 mmol/L Normal 03/10/2023 20 - 30 [facility] Albumin/Glob SerPl 1.1 Normal 03/10/2023 1 - 2.2 [facility] Glucose SerPl-mCnc 112.0 mg/dL Above high normal 03/10/2023 70 - 100 [facility] GFR/BSA.pred SerPlBld [id number] Normal 03/10/2023 [facility] Bilirub SerPl-mCnc 0.2 mg/dL Normal 03/10/2023 - [facility] AST/ALT SerPl-cRto 2.1 Normal 03/10/2023 - [facility] ALP SerPl-cCnc 119.0 U/L Normal 03/10/2023 9 - 122 [facility] BUN/Creat SerPl 21.3 Normal 03/10/2023 8 - 23 [facility] Potassium SerPl-sCnc 3.8 mmol/L Normal 03/10/2023 3.3 - 5 .3 [facility] Albumin SerPl BCG-mCnc 3.8 g/dL Normal 03/10/2023 3.6 - 4.9 [facility] AST SerPl w P-5'-P-cCnc 17.0 U/L Normal 03/10/2023 10 - 35 [facility] BUN SerPl-mCnc 17.0 mg/dL Normal 03/10/2023 6 - 20 [facility] Creat SerPl-mCnc 0.8 mg/dL Normal 03/10/2023 0.4 - 1.3 [facility] Anion Gap3 SerPl-sCnc 13.0 Normal 03/10/2023 7 - 17 [facility] Prot SerPl-mCnc 7.3 g/dL Normal 03/10/2023 6.6 - 8.7 [facility] Globulin Plas-mCnc 3.5 g/dL Normal 03/10/2023 2.3 - 3.5 [facility] CRP SerPl HS-mCnc 4.7 mg/L Above high normal 03/10/2023 - [facility] Hgb Bld-mCnc 14.6 g/dL Normal 03/10/2023 13.2 - 15.5 [facility] Eosinophil # Bld Auto 0.29 x 1000/uL Normal 03/10/2023 0 - 1 [facility] PMV Bld Auto 9.3 fL Normal 03/10/2023 8 - 12 [facility] T Neutrophils # Bld Auto 5.28 x 1000/uL Normal 03/10/2023 2 - 7.6 [facility] WBC # Bld Auto 9.2 x1000/uL Normal 03/10/2023 4 - 11 [facility] Lymphocytes # Bld Auto 3.03 x 1000/uL Normal 03/10/2023 0.6 - 3.7 [facility] RBC # Bld Auto 5.48 M/uL Normal 03/10/2023 4 - 6 [facility] Monocytes/leuk NFr Bld Auto 5.0 % Normal 03/10/2023 4 - 12 [facility] Lymphocytes/leuk NFr Bld Auto 32.9 % Normal 03/10/2023 17 - 50 [facility] Monocytes # Bld Auto 0.46 x 1000/uL Normal 03/10/2023 0 - 1 [facility] Basophils/leuk NFr Bld Auto 0.7 % Normal 03/10/2023 0 - 1.4 [facility] nRBC # Bld Auto 0.0 x 1000/uL Normal 03/10/2023 0 - 1 [facility] MCV RBC Auto 83.8 fL Normal 03/10/2023 80 - 100 [facility] T Hct VFr Bld Auto 45.9 % Above high normal 03/10/2023 38.5 - 45 [facility] Imm Granulocytes/leuk NFr Bld Auto 1.1 % Above high normal 03/10/2023 0 - 1 [facility] Imm Granulocytes # Bld Auto 0.1 x 1000/uL Normal 03/10/2023 0 - 0.3 [facility] Platelet # Bld Auto 237.0 x1000/uL Normal 03/10/2023 150 - 420 [facility] MCH RBC Qn Auto 26.6 pg Below low normal 03/10/2023 27 - 3 3 [facility] RDW RBC Auto-Rto 14.4 % Normal 03/10/2023 11 - 15 [facility] MCHC RBC Auto-mCnc 31.8 g/dL Normal 03/10/2023 31 - 36 [facility] Eosinophil/leuk NFr Bld Auto 3.1 % Normal 03/10/2023 0 - 5 [facility] BKR WAM BASOPHIL ABSOLUTE COUNT. 0.06 x 1000/uL Normal 03/10/2023 0 - 1 [facility] nRBC/100 WBC Bld Auto-Rto 0.0 % Normal 03/10/2023 0 - 1 [facility] Neutrophils/leuk NFr Bld Auto 57.2 % Normal 03/10/2023 39 - 72 [facility] History of Medication Use Medication Directions Dispensed Refills Start Date End Date Status lamoTRIgine (LaMICtal) 25 MG tablet Take 1 tablet (25 mg total) by mouth every morning. 4 active sulfamethoxazole-trim ethoprim (BACTRIM DS,SEPTRA DS) 800-160 MG per tablet Take 1 tablet by mouth 2 (two) times a day. 4 12/16/19 24 active rosuvastatin (CRESTOR) 5 MG tablet TAKE 1 TABLET BY ORAL ROUTE EVERY DAY FOR HDL 4 active acetaminophen (TYLENOL) 325 MG tablet Take 3 tablets (975 mg total) by mouth 4 times daily (every 6 hours) as needed for mild pain. 4 active cyclobenzaprine (FLEXERIL) 5 MG tablet TAKE 1 TABLET BY MOUTH 3 TIMES DAILY NEEDED FOR MUSCLE SPASMS FOR UP TO 10 DAYS. 4 active estradiol (ESTRACE) 0.5 MG tablet Take 1 tablet (0.5 mg total) by mouth daily. 4 active Vitamin D3 (CHOLECALCIFEROL) 50 MCG (2000 UT) tablet Take 2 tablets (4,000 Units total) by mouth daily. 3 01/30/20 24 active predniSONE (DELTASONE) 20 MG tablet Take 2 tablets (40 mg total) by mouth daily. Take 2 tablets daily for 5 days. With food. 3 07/23/19 24 active methocarbamol (ROBAXIN) 750 MG tablet Take 1 tablet (750 mg total) by mouth 2 times a day. 3 01/30/20 24 active ibuprofen (MOTRIN) 800 mg tablet Take 1 tablet (800 mg total) by mouth 4 times daily (every 6 hours) as needed for mild pain. 3 02/27/20 23 active predniSONE (DELTASONE) 10 MG tablet Take 1 tablet (10 mg total) by mouth daily. Take 4 tabls daily for 3 days, then 3 tabls daily for 3 days, then 2 tabs daily for 3 days, then 1 tab a day for 3 days then stop. #30 2 09/10/19 23 active hydrOXYzine HCl (ATARAX) 50 MG tablet TAKE 1- 3 TABLETS NEEDED FOR SLEEP AT BEDTIME 2 active sertraline (ZOLOFT) 100 MG tablet Take 1.5 tablets by mouth daily. 2 09/10/19 23 active nitrofurantoin monohydrate (MACROBID) 100 MG capsule Take 1 capsule (100 mg total) by mouth 2 (two) times a day with meals. Dispense generic equivalent of MACROBID 2 07/29/19 24 active oxybutynin (DITROPAN-XL) 10 MG 24 hr tablet TAKE 1 TABLET BY MOUTH EVERY DAY 2 11/05/19 24 active hydrOXYzine HCl (ATARAX) 25 MG tablet TAKE 1-2 TABLETS (25 MG- 50 MG) NEEDED FOR ANXIETY AND OR SLEEP ALONG WITH 50 MG TABLET. 2 02/16/20 22 aborted Levonorgest-Eth Estrad -Day 0.1-0.02 & 0.01 MG Tab Take 1 tablet by mouth daily. 2 09/10/19 23 aborted FC2 Female Condom USE NEEDED IN VAGINA 1 08/11/19 23 active azithromycin 250 mg tablet TAKE 2 TABLETS BY MOUTH TODAY, THEN TAKE 1 TABLET DAILY FOR 4 DAYS 08/11/19 23 completed hydroxyzine HCl 25 mg tablet TAKE 1-2 TABS NEEDED FOR ANXIETY AND OR SLEEP 08/11/19 23 completed oxycodone 5 mg tablet TAKE 1 TABLET BY MOUTH EVERY 4 HOURS 08/11/19 23 completed promethazine 25 mg tablet TAKE 1 TABLET BY MOUTH EVERY 6 HOURS NEEDED FOR NAUSEA. 08/11/19 23 completed cefpodoxime 200 mg tablet TAKE 1 TABLET (200 MG TOTAL) BY MOUTH 2 TIMES A DAY. 05/15/19 23 completed sulfamethoxazole 800 mg-trimethoprim 160 mg tablet TAKE 1 TABLET BY MOUTH EVERY 12 HOURS 05/15/19 23 completed Flonase Allergy Relief 50 mcg/actuation nasal spray,suspension 12/21/19 22 completed bupropion HCl XL 150 mg 24 hr tablet, extended release 08/13/19 22 completed sertraline 50 mg tablet TAKE 0.5 TAB FOR 7 DAYS THEN INCREASE TO 1 TAB DAILY 08/13/19 22 completed buspirone 10 mg tablet 07/06/19 22 completed Remicade 08/26/19 21 completed albuterol sulfate HFA 90 mcg/actuation aerosol inhaler PLEASE SEE ATTACHED FOR DETAILED DIRECTIONS active buspirone 15 mg tablet TAKE 1 TABLET BY MOUTH THREE TIMES A DAY active cephalexin 500 mg capsule TAKE 2 CAPSULES (1,000 MG TOTAL) BY MOUTH TWICE A DAY active gabapentin 600 mg tablet TAKE 1 TABLET BY MOUTH 3 TIMES DAILY WITH MEALS. active metronidazole 0.75 % (37.5 mg/5 gram) vaginal gel INSERT 1 APPLICATORFUL VAGINALLY EVERY DAY AT BEDTIME FOR 5 DAYS active nitrofurantoin monohydrate/macrocrys tals 100 mg capsule TAKE 1 CAPSULE BY MOUTH TWICE A DAY WITH MEALS -DISPENSE GENERIC EQUIVALENT OF MACROBID active oxybutynin chloride ER 10 mg tablet,extended release 24 hr TAKE 1 TABLET BY MOUTH EVERY DAY active prednisone 10 mg tablet PLEASE SEE ATTACHED FOR DETAILED DIRECTIONS active sertraline 100 mg tablet TAKE ONE TABLET TWICE DAILY FOR 30 DAYS active albuterol sulfate HFA 90 mcg/actuation aerosol inhaler INHALE 2 PUFFS INTO THE LUNGS EVERY 6 HOURS NEEDED FOR SHORTNESS OF BREATH OR WHEEZING INHALE 2 PUFFS INTO THE LUNGS EVERY 6 HOURS NEEDED FOR SHORTNESS OF BREATH OR WHEEZING completed amoxicillin 875 mg-potassium clavulanate 125 mg tablet TAKE 1 TABLET BY MOUTH TWICE A DAY TAKE 1 TABLET BY MOUTH TWICE A DAY completed atomoxetine 60 mg capsule TAKE 1 CAPSULE BY MOUTH ONCE DAILY TAKE 1 CAPSULE BY MOUTH ONCE DAILY completed bupropion HCl XL 300 mg 24 hr tablet, extended release bupropion HCl XL 300 mg 24 hr tablet, extended release completed Flonase Allergy Relief 50 mcg/actuation nasal spray,suspension Flonase Allergy Relief 50 mcg/actuation nasal spray,suspension completed hydroxyzine HCl 50 mg tablet TAKE 1 TABLET BY MOUTH NIGHTLY AT BEDTIME NEEDED FOR SLEEP WITH THE 25 MG DOSE TAKE 1 TABLET BY MOUTH NIGHTLY AT BEDTIME NEEDED FOR SLEEP WITH THE 25 MG DOSE completed inFLIXimab (REMICADE) 100 MG injection Infuse 5 mg/kg into a venous catheter once. active metronidazole 0.75 % (37.5 mg/5 gram) vaginal gel INSERT 1 APPLICATORFUL VAGINALLY EVERY DAY AT BEDTIME FOR 5 DAYS INSERT 1 APPLICATORFUL VAGINALLY EVERY DAY AT BEDTIME FOR 5 DAYS completed OMEprazole (PriLOSEC OTC) 20 MG tablet Take 1 tablet (20 mg total) by mouth nightly. active oxybutynin chloride ER 10 mg tablet,extended release 24 hr TAKE 1 TABLET BY MOUTH EVERY DAY TAKE 1 TABLET BY MOUTH EVERY DAY completed prednisone 10 mg tablet prednisone 10 mg tablet completed promethazine 25 mg tablet TAKE 1 TABLET BY MOUTH EVERY 6 HOURS NEEDED FOR NAUSEA. TAKE 1 TABLET BY MOUTH EVERY 6 HOURS NEEDED FOR NAUSEA. completed spironolactone 50 mg tablet spironolactone 50 mg tablet completed sulfamethoxazole 800 mg-trimethoprim 160 mg tablet TAKE 1 TABLET BY MOUTH EVERY 12 HOURS TAKE 1 TABLET BY MOUTH EVERY 12 HOURS completed Allergies Allergen Reaction Severity Comment Documented Date Source Statu s POLLEN EXTRACT OTHER (SEE COMMENTS) Other reaction(s): Unknown 06/25/2020 [facility] active MOLDS & SMUTS UNKNOWN/PATIENT AND FAMILY UNABLE TO DEFINE 02/02/2015 [facility] active HOUSE DUST MITE [facility] active Problems Problem Status Onset Date Problem Type Date of Resolution Source OAB (overactive bladder) active ProblemAct [facility] Pyelonephritis active 2021-09-[address] Ankylosing spondylitis active 2024-02-08 ProblemAct [facility] Renal calculus, left active 2023-06-29 ProblemAct [facility] Chronic back pain active 2018-05-15 ProblemAct [facility] S/P laparoscopic sleeve gastrectomy active 2018-11-19 ProblemAct [facility] Atypical chest pain active 2018-05-08 ProblemAct [facility] Calculus of ureter active EncounterDiagnosisAct [facility] 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 ProblemAct [facility] Asthma active 2018-05-15 ProblemAct [facility] Irritable bowel syndrome (IBS) active 2017-01-31 ProblemAct [facility] Arthritis active 2018-05-15 ProblemAct [facility] Depression active 2018-05-15 ProblemAct [facility] Autoimmune disorder active 2018-05-15 ProblemAct [facility] GERD (gastroesophageal reflux disease) active 2017-01-31 ProblemAct [facility] Hepatosplenomegaly active 2023-06-29 ProblemAct [facility] [place]'s syndrome active 2019-01-12 ProblemAct [facility] Bacteremia active 2023-06-27 ProblemAct [facility] Mixed hyperlipidemia active 2018-05-30 ProblemAct [facility] Thrombocytopenia active 2023-06-27 ProblemAct [facility] Morbid obesity due to excess calories active 2017-01-31 ProblemAct [facility] Hyponatremia active 2023-06-27 ProblemAct [facility] VIVEK (obstructive sleep apnea) active 2018-05-15 ProblemAct [facility] Recurrent UTI active ProblemAct [facility] Anxiety disorder active 2018-05-15 ProblemAct H [facility] Learning disability active 2018-05-15 ProblemAct [facility] Anxiety active 2021-07-08 ProblemAct [facility] Depressive disorder active 2021-07-08 ProblemAct [facility] 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 ProblemAct [facility] Hypermobility syndrome active 2021-07-08 ProblemAct [facility] Pain in pelvis active 2022-01-23 ProblemAct [facility] Premenstrual dysphoric disorder active 2021-07-08 ProblemAct [facility] Spondylosis active 2021-07-08 ProblemAct [facility] Fibromyalgia active 2021-07-08 ProblemAct [facility] Posttraumatic stress disorder active 2021-07-08 ProblemAct [facility] Endometriosis (clinical) active 2021-07-08 [facility] Immun[facility] Vaccine Date Source Lot Number Status COVID-19, mRNA, LNP-S, bival ent, PF, 50 mcg/0.5 mL or 25mcg/0.25 mL dose 02/05/2022 [facility] [id number] completed Influenza, injectable, MDCK, preservative free, quadrivalent 02/05/2022 [facility] [id number] completed COVID-19, mRNA, LNP-S, PF, 30 mcg/0.3 mL dose 02/18/2021 [facility] [id number] completed COVID-19, mRNA, LNP-S, PF, 30 mcg/0.3 mL dose 08/10/2020 [facility] [id number] completed COVID-19, mRNA, LNP-S, PF, 30 mcg/0.3 mL dose 07/17/2020 [facility] [id number] completed Encounters Encounter Type Encounter Reason Primary Diagnosis Location Date Ambulatory [facility] 02/18/2024 Ambulatory [facility] [employer] [facility] 02/18/2024 Emergency Unspecified renal colic Unspecified renal colic [facility] 02/15/2024 Ambulatory Urinary tract infection, site not specified Urinary tract infection, site not specified [email or web address] 02/12/2024 Ambulatory Encounter for other preprocedural examination Encounter for other preprocedural examination [facility] 02/08/2024 Ambulatory [facility] 02/05/2024 Ambulatory Calculus of kidney Calculus of kidney [facility] [employer] 01/22/2024 Ambulatory Dysuria Dysuria [facility] 12/08/2023 Ambulatory Dysuria Dysuria [facility] 09/23/2023 Ambulatory Calculus of kidney Calculus of kidney [facility] [employer] 07/23/2023 Ambulatory Hormone replacement therapy (postmenopausal) Hormone replacement therapy (postmenopausal) [facility] 07/03/2023 Inpatient Tubulo-interstitial nephritis, 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, 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 chronic [email or web address] 06/26/2023 Ambulatory Enlarged lymph nodes , unspecified Enlarged lymph nodes, unspecified [facility] 06/08/2023 Ambulatory Moderate persistent asthma, uncomplicated Moderate persistent asthma, uncomplicated [facility] 05/07/2023 Ambulatory Acute cystitis without hematuria Acute cystitis without hematuria [facility] 04/08/2023 Ambulatory Dysuria Dysuria [facility] 02/26/2023 Ambulatory Displaced fracture o f fourth metatarsal bone, right foot, initial encounter for closed fracture Displaced fracture of fourth metatarsal bone, right foot, initial encounter for closed fracture [facility] 02/22/2023 Ambulatory Displaced fracture o f fourth metatarsal bone, right foot, initial encounter for closed fracture Displaced fracture of fourth metatarsal bone, right foot, initial encounter for closed fracture [facility] 02/22/2023 Ambulatory Overactive bladder Overactive bladder [facility] [employer] 01/18/2023 Ambulatory Pain in left ankle and joints of left foot Pain in left ankle and joints of left foot [facility] 01/18/2023 Ambulatory Pain in left ankle and joints of left foot Pain in left ankle and joints of left foot [facility] 01/18/2023 Ambulatory Sprain of other ligament of left ankle, initial encounter Sprain of other ligament of left ankle, initial encounter [facility] 01/01/2023 Ambulatory [facility] 12/27/2022 Ambulatory Unspecified fall, initial encounter Unspecified fall, initial encounter [facility] 12/27/2022 Ambulatory Encntr for f/u exam aft trtmt for cond oth than [facility], [facility] 11/22/2022 Ambulatory [email or web address] 10/02/2022 Ambulatory Radial styloid tenosynovitis (de quervain) [email or web address] 10/02/2022 Ambulatory [email or web address] 09/15/2022 Ambulatory Unspecified inju ry of left lower leg, initial encounter [email or web address] 09/15/2022 Ambulatory [facility] 09/09/2022 Ambulatory Pain in left wrist [email or web address] 09/09/2022 Ambulatory [facility], [facility] 08/10/2022 Ambulatory [facility], [facility] 07/07/2022 Ambulatory [facility], [facility] 05/30/2022 Ambulatory [facility], [facility] 05/18/2022 Ambulatory Stress incontine nce (female) (male) [email or web address] 04/19/2022 Ambulatory [facility], [facility] 03/23/2022 Ambulatory Pelvic muscle wasting [email or web address] 03/22/2022 Ambulatory [facility], [facility] 03/06/2022 Ambulatory Radiculopathy, cervical region [email or web address] 02/15/2022 Ambulatory Overactive bladder [email or web address] 02/09/2022 Ambulatory [facility], [facility] 01/19/2022 Ambulatory Urinary tract infection, site not specified [facility] 01/03/2022 Ambulatory Unspecified symp toms and signs involving the genitourinary system [facility] 12/28/2021 Ambulatory [facility], [facility] 12/20/2021 Ambulatory Urinary tract infection, site not specified [facility] 12/13/2021 Ambulatory Generalized abdominal pain [facility] 10/18/2021 Inpatient Tubulo-interstit ial nephritis, 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 chronic [email or web address] 09/16/2021 Ambulatory Unspecified symp toms and signs involving the genitourinary system [facility] 09/13/2021 Ambulatory [facility] 08/12/2021 Ambulatory [facility] 07/15/2021 Emergency [facility] 07/14/19 Ambulatory [facility] 07/08/2021 Ambulatory [facility] 05/09/2021 Emergency Acute pharyngiti s, unspecified [facility] 04/30/2021 Ambulatory COVID-19 [facility] 04/30/2021 Ambulatory COVID-19 [facility] 04/22/2021 Ambulatory [facility] 03/25/2021 Ambulatory [facility] 03/09/2021 Ambulatory [facility] 02/15/2021 Care Team Organization Name Specialty Phone Email Start Date End [facility] 09/17/2024 09/26/2024 [facility] COMMUNITY SERVICES Primary Care 07/16/2023 [facility] ARGELIACHANDLER PURI Primary Care 06/28/2023 [facility] 05/06/2023 [facility] System,Provider Primary Care 01/18/20232024 [facility] PROVIDER SYSTEM Primary Care 01/18/20232023 [facility] 01/05/2023 024 [facility] PCP,No Primary Care 12/27/2022 07/02/2024 [facility] NO PCP Primary Care 10/02/2022 01/18/2023 [facility], [facility] 03/17/2022 [facility] SERVICES-PLFD,UNI [place] Primary Care 02/15/2022 07/02/2024 [facility] 08/11/202111/14 [facility] 07/13/2021 03 [facility] UNITED SERVICES-PLFD Primary Care 04/30/2021 02/15/2022 [facility] 02/15/202103/06
--- OUTSIDE RECORDS SUMMARY | 2024-11-27 14:54 | XMS_ITS | Encounter Summary ---
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 Name Role Phone Carolina Reynoso MD Primary Care Provider [phone] Reason for Visit * Reason Comments Med Refill Encounter Details Date Type Department Care Team ([facility] Contact Info) Description 11/23/2024 Refill [facility] MEDICAL [address] [place] [address] Carolina Reynoso MD [address] [place] [address] Mild asthma, unspecified whether complicated, unspecified whether persistent Social History Tobacco Use Types Packs/Day Years Used Date Smoking Tobacco: Former Cigarettes Q uit: 1997 Alcohol Use Standard Drinks/Week Comments Not Asked 0 (1 standard drink = 0.6 oz pur e alcohol) Socailly Comments No Sex and Gender Information Value Date Recorded Sex Assigned at Female 09/09/2024 2:50 PM EDT Legal Sex Female 2:48 PM EDT Gender Identity Non-Binary 09/09/2024 2:50 PM EDT Sexual Orientation Queer 09/09/2024 2: 50 PM EDT documented as of this encounter Plan of Treatment Upcoming Encounters Date Type Department Care Team ([facility] Contact Info) Description 12/17/2024 10:40 AM EDT Office Visit [facility] MEDICAL [address] [place] [address] Carolina Reynoso MD [address] [place] [address] 12/23/2024 4:00 PM EDT Office Visit [facility] [address] [place] [address] Leonora Greene [address] [place] [address] documented as of this encounter Visit Diagnoses Diagnosis Mild asthma, unspecified whether complicated, unspecified whether persistent documented in this encounter Care Teams Gymnasium Teacher Relationship Specialty Start Date End Date Carolina Reynoso MD [address] [place] [address] PCP - General Family Medicine 09/10/24 documented as of this encounter
--- OUTSIDE RECORDS SUMMARY | 2024-11-27 14:54 | XMS_ITS | Encounter Summary ---
Author Organization [facility] Address [address] [facility] [address] [place] [id number] Phone Care Team Providers Care Overlock Waistline Joiner Name Role Phone Pcp, Unknown Primary Care Provider Unavailabl e Encounter Details Date Type Department Care Team (Late st Contact Info) Description 05/16/2024 Procedure Pass [facility], Ct Scan - [address] [address] Social History Tobacco Use Types Packs/Day Years Used Date Smoking Tobacco: Never Assessed Education Answer Date Recorded Are you interested in more education? Not on champ e 05/03/2024 Are you concerned about learning? Not on file 05/03/2024 No 05/03/2024 No 05/03/2024 Digital Access Answer Date Recorded No 05/03/2024 No 05/03/2024 Reliable internet access at home? Not on file 05/03/2024 Device with a working camera? Not on file Intimate Partner Violence Answer Date R ecorded Are you denied basic needs s uch as food, clothing, or medical care? No 05/16/2024 In the past 12 months have y ou been in a relationship with a person who hurts, threatens, or tries to control you? No 05/16/2024 Are you denied basic needs s uch as food, clothing, or medical care? No 05/16/2024 In the past 12 months have y ou been in a relationship with a person who hurts, threatens, or tries to control you? No 05/16/2024 Comments Unknown Sex and Gender Information Value Date Recorded Sex Assigned at Female 05/16/2024 9:05 AM EST Legal Sex Female 11:13 AM EST Gender Identity Female 05/16/2024 9:05 AM EST Sexual Orientation Bisexual 05/27/2024 7: 16 PM EST documented as of this encounter Functional Status * Calculated C-SSRS Risk Score (Lifetime/Recent) Answer Date of Assessment Author No Risk Indicated 05/16/2024 9:05 AM Gely Guadarrama, SIMONA * Churchill Suicide Severity Rating Scale (Screener/Recent Self-Report) Question Answer Date of Assessment Author 1. Wish to be (Past 1 Month) No 025 9:05 AM Gely Guadarrama RN 2. Non-Specific Active Suici chuy Thoughts (Past 1 Month) No 05/16/2024 9:05 AM Gely Guadarrama RN 6. Suicidal Behavior (Lifetime) No 5 9:05 AM Gely Guadarrama RN documented as of this encounter Plan of Treatment Not on file documented as of this encounter Visit Diagnoses Not on filedocumented in this encounter Care Teams Overlock Waistline Joiner Relationship Specialty Start Date End Date Pcp, Unknown PCP - General 05/27/24 documented as of this encounter Additional Source Comments The information contained in this document represents components of the legal health record. It is not the complete legal health record.[facility]
--- OUTSIDE RECORDS SUMMARY | 2024-11-27 14:54 | XMS_ITS | Clinical Summary ---
Author Organization [facility] Address [address] [place] [address] Care Team Providers Care Paint Department Supervisor Name Role Phone Unavailable Primary Care Provider Unavailabl e Surgical History Surgery Date Site/Laterality Comments COLONOSCOPY PROCEDURE:COLONOSCOPY UPPER GASTROINTESTINAL ENDOSCOPY PROCEDURE:UPPER GASTROINTESTINAL ENDOSCOPY TUBAL LIGATION PROCEDURE:TUBAL LIGATION BARIATRIC SURGERY 2018 PROCEDURE:BARIATRIC SURGERY;COMMENT:Gastric sleeve EYE SURGERY PROCEDURE:EYE SURGERY;COMMENT:As a toddler WISDOM TOOTH EXTRACTION PROCEDURE:WISDOM TOOTH EXTRACTION OVARIAN CYST REMOVAL Left PROCEDURE:OVARIAN CYST REMOVAL CYSTOSCOPY 05/30/2022 N/A PROCEDURE:CYSTOSCOPY;COMMENT: Procedure: CYSTOSCOPY; Surgeon: Sheba Card DO; Location: [facility]; Service: Gynecology; Laterality: N/A; Medical History Medical History Date Comments Fibromyalgia DX:Fibromyalgia Autoimmune disease ([facility] V24) DX:Autoimmune disease ([facility]) Depression DX:Depression Pre-operative respiratory examination 10/21/2018 DX:Pre-operative respiratory examination Sleep apnea 10/21/2018 DX:Sleep apnea Diverticulitis of colon DX:Diver ticulitis of colon GERD (gastroesophageal reflux disease) DX:GERD (gastroesophageal reflux disease) Asthma DX:Asthma;COMMEN T:Exercise induced asthma Sleep apnea, obstructive DX:Slee p apnea, obstructive;COMMENT:Non compliant with CPAP Kidney stone DX:Kidney stone Migraine headache DX:Migraine he adache PTSD (post-traumatic stress disorder) DX:PTSD (post-traumatic stress disorder) Visual impairment DX:Visual impa irment;COMMENT:Wears glasses Ankylosing spondylitis ([facility] V24, [facility] V28) DX:Ankylosing spondylitis ([facility]) Arthritis DX:Arthritis Adhd DX:ADHD Social History Tobacco Use Types Packs/Day Years Used Date Smoking Tobacco: Former Smokeless Tobacco: Never Alcohol Use Standard Drinks/Week Comments Not Currently 0 (1 standard drink = 0.6 oz pur e alcohol) Comments Unknown Sex and Gender Information Value Date Recorded Sex Assigned at Not on file Legal Sex Female 5:49 PM EST Gender Identity Not on file Sexual Orientation Not on file Obstetrics History Plan of Treatment Health Maintenance Due Date Last Done Comments DTaP,Tdap,and Td Vaccines (1 - Tdap) 2004 Hepatitis B Vaccines (1 of 3 - 19+ 3-dose series) 2004 Cervical Cancer Screening: P ap Smear 2006 HIV Screening 03/18/2022 Hepatitis C Screening 03/18/2022 Social Influencers of Health Screening 03/18/2022 COVID-19 Vaccine (2023-2 5 season) 2023 Depression Screening 04/16/2024 Influenza Vaccine (#1) 2024 HIB Vaccines Aged Out No longer eligi ble based on patient's age to complete this topic HPV Vaccines Aged Out No longer eligi ble based on patient's age to complete this topic Hepatitis A Vaccines Aged Out No long er eligible based on patient's age to complete this topic IPV Vaccines Aged Out No longer eligi ble based on patient's age to complete this topic MMR Vaccines Aged Out No longer eligi ble based on patient's age to complete this topic Meningococcal ACWY Vaccine Aged Out N o longer eligible based on patient's age to complete this topic Meningococcal B Vaccine Aged Out No l onger eligible based on patient's age to complete this topic Pneumococcal Vaccine: Pediat rics (0 to 5 Years) and At-Risk Patients (6 to 49 Years) Aged Out No longer eligible b ased on patient's age to complete this topic RSV Immunization Patients Un alejo 20 months Aged Out No longer eligible b ased on patient's age to complete this topic Varicella Vaccines Aged Out No longer eligible based on patient's age to complete this topic
--- OUTSIDE RECORDS SUMMARY | 2024-11-27 14:54 | XMS_ITS | Clinical Summary ---
Author Organization [facility] Address [address] [place] [address] Care Team Providers Care Bods Developer Name Role Phone Unavailable Primary Care Provider Unavailabl e Allergies No known active allergies Medications Medication Sig Dispensed Refills Start Date End Date Status folic acid (FOLVITE) tablet 1 mg Take 1 tablet (1,000 mcg total) by mouth daily. 4 09/08/2018 Active oxybutynin (DITROPAN-XL) 5 MG 24 hr tablet Take 2 tablets (10 mg total) by mouth daily. 3 08/15/2018 Active buPROPion (WELLBUTRIN XL) 300 MG 24 hr tablet Take 1 tablet (300 mg total) by mouth daily. 0 Active atomoxetine (STRATTERA) 60 MG capsule Take 1 capsule (60 mg total) by mouth daily. 0 Active Sertraline HCl 150 MG CAPS Take 1 capsule by mouth daily. 0 Active gabapentin (NEURONTIN) 600 MG tablet Take 1 tablet (600 mg total) by mouth 3 (three) times a day. 0 Active busPIRone (BUSPAR) 15 MG tablet Take 1 tablet (15 mg total) by mouth 3 (three) times a day. 0 Active omeprazole (PriLOSEC) 20 MG capsule Take 1 capsule (20 mg total) by mouth daily. 0 Active cetirizine (ZyrTEC) 10 MG tablet Take 1 tablet (10 mg total) by mouth daily. 0 Active inFLIXimab (REMICADE IV) Inject into the vein. Every six weeks 0 Active Multiple Vitamins-Minerals (MULTIVITAMIN WOMEN PO) Take 1 tablet by mouth daily. 0 Active acetaminophen (TYLENOL) 325 MG tablet Take 2 tablets (650 mg total) by mouth every 6 (six) hours as needed for pain. 120 tablet 0 05/30/2022 Active docusate sodium 100 MG CAPS Take 100 mg by mouth daily as needed for constipation. 30 capsule 0 05/30/2022 Active oxyCODONE (ROXICODONE) 5 MG immediate release tablet Take 1 tablet (5 mg total) by mouth every 4 (four) hours as needed for pain. 10 tablet 0 05/30/2022 Active Active Problems Problem Noted Date Diagnosed Date Pre-operative respiratory examination 10/21/2018 Sleep apnea 10/21/2018 Social History Tobacco Use Types Packs/Day Years Used Date Smoking Tobacco: Former Cigarettes Smokeless Tobacco: Never Tobacco Cessation:Counseling Given: Not Answered Alcohol Use Standard Drinks/Week Comments Not Currently 0 (1 standard drink = 0.6 oz pur e alcohol) Sex and Gender Information Value Date Recorded Sex Assigned at Female 09/08/2020 11:26 PM EDT Gender Identity Not on file Sexual Orientation Not on file Job Start Date Occupation Industry Not on file Not on file Not on file Last Filed Vital Signs Vital Sign Reading Time Taken Comments Blood Pressure 145/99 05/30/2022 2:20 PM EST Pulse 89 05/30/2022 2:20 PM EST Temperature 36.4 C (97.5 F) 05/30/2022 11:30 AM EST Respiratory Rate 18 05/30/2022 2:20 PM EST Oxygen Saturation 98% 05/30/2022 2:20 PM EST Inhaled Oxygen Concentration - - Weight 129.3 kg (285 lb) 05/25/2022 10:26 AM EST Height 165.1 cm (5' 5 ) 05/25/2022 10:26 AM EST Body Mass Index 47.43 05/25/2022 10:26 AM EST Plan of Treatment Health Maintenance Due Date Last Done Comments Hepatitis B Vaccines (1 of 3 - 3-dose series) 1985 Hepatitis C Screening 1985 Depression Screening 1997 BMI Counseling 11/10/2003 Preventative Health Evaluation 11/10/2003 DTap / Tdap / Td (1 - Tdap) 2004 Cervical Cancer Screening (Pap Smear) 2006 COVID-19 Vaccine () 12/16/2023 02/18/2021, 08/10/2020, 07/17/2020 Influenza Vaccine (#1) 2024 2, 01/19/2020, 03/14/2019, Additional history exists Pneumococcal Vaccine Aged Out No long er eligible based on patient's age to complete this topic RSV Ped < 20 months Aged Out No longe r eligible based on patient's age to complete this topic Advance Directives For more information, please contact: [phone] Latest Code Status on File Code Status Date Activated Date Inactivated Comments Full Code 05/30/2022 10:40 AM 05/30/2022 10:03 PM Thi s code status was ascertained in the following way: discussion with patient .
[2024-11-27 15:03] LABS: Hemoglobin A1C 117.3845 umol/L; Total Hemoglobin (HGBA1C) 3804.4143 umol/L
[2024-11-27 15:14] LABS: Parathyroid Hormone Intact 108.9 pg/mL (8.7-77.1)
[2024-11-27 15:19] LABS: Alanine Aminotransferase 9 U/L (0-31); Albumin Level 4.5 g/dL (3.5-5.0); Alkaline Phosphatase 122 U/L (39-117); Anion Gap 13 (12-20); Aspartate Amino Transferase 24 U/L (5-31); Blood Urea Nitrogen 15 mg/dL (9-16); Calcium 9.6 mg/dL (8.4-10.2); Carbon Dioxide 24 mmol/L (22-29); Chloride 108 mmol/L (96-108); Cholesterol 161 mg/dL (<200); Estimated Glomerular Filt Rate > 60; HDL Cholesterol 45 mg/dL (>40); Magnesium 2.3 mg/dL (1.6-2.6); Potassium 3.7 mmol/L (3.3-5.1); Sodium 141 mmol/L (135-145); Total Protein 7.3 g/dL (6.5-8.0); Triglycerides 139 mg/dL (<150)
[2024-11-27 15:34] LABS: Free T4 (Free Thyroxine) 1.13 ng/dL (0.71-1.85); Thyroid Stimulating Hormone 1.07 uIU/mL (0.32-4.0)
[2024-11-27 15:44] LABS: Folate 15.6 ng/mL (> or = 4.0); Vitamin B12 1548 pg/mL (200-900)
[2024-11-27 16:58] LABS: CT PCR Urine NOT DETECTED (Not Detect.); NG PCR Urine NOT DETECTED (Not Detect.)
[2024-11-28 03:33] LABS: Syphilis Screen Nonreactive (Nonreactive)
[2024-11-28 03:58] LABS: HBS Num1 0.00 mIU/mL (0-7.99); HBc Num1 0.07 S/CO (0.00-0.79); HBsAGNum1 0.42 S/CO (0.00-0.99); HIV Num 1 0.06 S/CO (0.00-0.99); Hepatitis B Surface Antigen Negative (Negative); ~HepC Num1 0.08 S/CO (0.00-0.79); ~Hepatitis B Surface Antibody NONREACTIVE (Nonreactive); ~Hepatitis C Antibody Nonreactive (Nonreactive)
== END 2024-11-27 14:06 | disposition home or self-care (01) ==
LOC: HO.LAB 14:05
PROVIDERS: Visit Provider Psychiatry & Neurology Psychiatry
DX: F41.1 Generalized anxiety disorder (principal); F39 Unspecified mood [affective] disorder; Z13.6 Encounter for screening for cardiovascular disorders; Z13.1 Encounter for screening for diabetes mellitus; Z13.21 Encounter for screening for nutritional disorder; Z11.3 Encounter for screening for infections with a predominantly sexual mode of transmission; Z11.4 Encounter for screening for human immunodeficiency virus [HIV]; Z11.59 Encounter for screening for other viral diseases
CPT/HCPCS: 36415; 80053; 80061; 82306; 82607; 82746; 83036; 83090; 83735; 83970; 84100; 84439; 84443; 85025; 85652; 86704; 86706; 86780; 86803; 87340; 87389; 87491; 87591; 93005

== ENCOUNTER → 2024-11-27 14:10 | Outpatient (BNV) | payer MEDICARE, SELFPAY | PROVIDERS: Visit Provider Internal Medicine Cardiovascular Disease | DX: R94.31 Abnormal electrocardiogram [ECG] [EKG] (principal); Z13.6 Encounter for screening for cardiovascular disorders | CPT/HCPCS: 93010 ==

== ENCOUNTER 2025-01-01 14:43 | Outpatient (REF) | payer MEDICARE, SELFPAY ==
--- OUTSIDE RECORDS SUMMARY | 2022-09-09 13:31 | XMS_ITS | Encounter Summary ---
Author Organization [facility] Address [address] [place] [address] Care Team Providers Care Sales Development Specialist Name Role Phone Donaldo Villareal MD Unavailable [phone] Alfonso George DO Unavailable [phone] Edward Mak MD Unavailable [phone] Lupe Osorio MD Unavailable [phone] Lynn Teran MD Unavailable Farhana Rojas Unavailable Services-[facility] Provider Dorota Carpenter MD Unavailable Encounter Details Date Type Department Care Team (Late st Contact Info) Description 09/09/2022 1:31 PM EDT Hospital Encounter [facility] [address] [place] [phone] [place] [phone] Social History Tobacco Use Types Packs/Day Years Used Date Smoking Tobacco: Former Cigarettes Q uit: 2015 Passive Smoke Exposure: Never Smokeless Tobacco: Never Alcohol Use Standard Drinks/Week Comments Yes 0 (1 standard drink = 0.6 oz pur e alcohol) 1 a year [facility] Utilities Answer Date Recorded In the past 12 months has [employer], gas, oil, or water company threatened to shut off services in your home? No 06/27/2023 AUDIT-C Answer Date Recorded Q1: How often do you have a drink containing alc ohol? Monthly or less 02/12/2024 Q2: How many drinks containi ng alcohol do you have on a typical day when you are drinking? 1 or 2 02/12/2024 Q3: How often do you have si x or more drinks on one occasion? Never 02/12/2024 Hunger Vital Sign Answer Date Recorded Within the past 12 months, y ou worried that your food would run out before you got the money to buy more. Never true 06/27/19 24 Within the past 12 months, t he food you bought just didn't last and you didn't have money to get more. Never true 06/27/2023 PRAPARE - Transportation Answer Date Re corded In the past 12 months, has l ack of transportation kept you from medical appointments or from getting medications? No 06/27/2023 Lack of Transportation (Non-Medical) Not on file 06/27/2023 Housing Stability Vital Sign Answer Vern e Recorded In the last 12 months, was t here a time when you were not able to pay the mortgage or rent on time? Yes 06/27/2023 In the last 12 months, how many places have you lived? 1 06/27/2023 In the last 12 months, was t here a time when you did not have a steady place to sleep or slept in a senior care (including now)? No 06/27/2023 Comments No Sex and Gender Information Value Date Recorded Sex Assigned at Female 12/27/2022 11:07 AM EDT Legal Sex Female 3:23 PM EDT Gender Identity Female 04/28/2024 11:36 PM EST Sexual Orientation Choose not to disclose 2023 12:48 PM EDT COVID-19 Exposure Response Date Recorded In the last 10 days, have yo u been in contact with someone who was confirmed or suspected to have Coronavirus/COVID-19? Unable to assess 10/02/2022 3:47 PM EDT documented as of this encounter Functional Status * Audit-C Score Answer Date of Assessment Author 1 02/12/2024 9:42 AM EDT Effie Collins RN * Question Answer Date of Assessment Author Q1: How often do you have a drink containing alcohol? Monthly or less 02/12/2024 9:42 AM EDT Steffany Collins RN Q2: How many drinks containing alcohol do you have on a typical day when you are drinking? 1 or 2 02/12/2024 9:42 AM EDT Effie Collins R N Q3: How often do you have six or more drinks on one occasion? Never 02/12/2024 9:42 AM EDT Effie Collins R N documented as of this encounter Plan of Treatment Not on file documented as of this encounter Goals Goal Patient Goal Type Associated Problems Recent Progress Patient-Stated? Author Decrease soda or juice intake Diet No Ruma Amezquita RD Increase physical activity Lifestyle No Ruma Amezquita RD documented as of this encounter Procedures Procedure Name Priority Date/Time Associated Diagnosis Comments XR WRIST 3+ VIEWS-LEFT STAT 09/09/2022 1:41 PM EDT Left wrist pain documented in this encounter Results * XR Wrist 3+ views-Left (09/09/2022 1:41 PM EDT) Anatomical Region Laterality Modality Wrist Left Computed Radiogr aphy 09/09/2022 1:45 PM EDT Impressions 09/09/2022 1:46 PM EDT Negative. If there remains significant clinical concern for radiographically occult fracture, CT or MRI should be considered for more definitive evaluation. Narrative 09/09/2022 1:46 PM EDT XR WRIST 3+ VIEWS-LEFT: 09/09/2022 1:32 PM CLINICAL HISTORY: lateral pain. Left wrist pain. FINDINGS: The visualized bones, joints, and soft tissues are unremarkable. Procedure Note Silvano Mosher MD - 09/09/2022 XR WRIST 3+ VIEWS-LEFT: 09/09/2022 1:32 PM CLINICAL HISTORY: lateral pain. Left wrist pain. FINDINGS: The visualized bones, joints, and soft tissues are unremarkable. IMPRESSION: Negative. If there remains significant clinical concern for radiographically occultfracture, CT or MRI should be considered for more definitive evaluation. Lori READ IMG DIAGNOSTIC IMAGING ORDERABL ES Final Result documented in this encounter Visit Diagnoses Not on filedocumented in this encounter Care Teams Sales Development Specialist Relationship Specialty Start Date End Date Services-[facility], [facility] [address] [facility] [place] [address] PCP - General 07/09/20 12/26/22 Donaldo Villareal MD Family Medicine 02/06/17 Alfonso George DO Truck Driver Supervisor Cardiovascular Disease 05/15/18 Edward Mak MD Physician Rheumatology 05/15/18 Lupe Osorio MD [address] [place], [place] [phone] Physician Hematology Oncology 05/15/18 Lynn Teran MD [address] [place] [address] Physician Gastroenterology 05/15/18 Farhana Rojas, PsyD [address] [place] [address] Clinical Psychologist Psychology 05/27/18 Dorota Carpenter MD [address] [place] [address] Urogynecology 12/28/21 documented as of this encounter
--- OUTSIDE RECORDS SUMMARY | 2022-09-15 09:43 | XMS_ITS | Encounter Summary ---
Author Organization [facility] Address [address] [place] [address] Care Team Providers Care Balloon Pilot Name Role Phone Donaldo Villareal MD Unavailable Alfonso George DO Unavailable [phone] Edward Mak MD Unavailable [phone] Lupe Osorio MD Unavailable Lynn Teran MD Unavailable Farhana Rojas Ps Unavailable Services-[facility] Provider Dorota Carpenter MD Unavailable Encounter Details Date Type Department Care Team (Late st Contact Info) Description 09/15/2022 9:43 AM EDT Hospital Encounter [facility] [address] [place] [phone] Silvano Abad MD [address] [place] [address] Social History Tobacco Use Types Packs/Day Years Used Date Smoking Tobacco: Former Cigarettes Q uit: 2014 Passive Smoke Exposure: Never Smokeless Tobacco: Never Alcohol Use Standard Drinks/Week Comments Yes 0 (1 standard drink = 0.6 oz pur e alcohol) [address] [facility] Utilities Answer Date Recorded In the past 12 months has e electric, [employer], oil, or water [employer] threatened to shut off services in your [...] place to sleep or slept in a care home (including now)? No 06/27/2023 Comments No Sex [...] Name Priority Date/Time Associated Diagnosis Comments XR KNEE 3 VIEWS-LEFT STAT 09/15/2022 9:52 AM EDT Left knee injury, initial encounter documented in this encounter Results * XR Knee 3 views-Left (09/15/2022 9:52 AM EDT) Anatomical Region Laterality Modality Knee Computed Radiogr aphy 09/15/2022 9:57 AM EDT Impressions 09/15/2022 9:58 AM EDT No acute fracture seen Narrative 09/15/2022 9:58 AM EDT EXAM: XR KNEE 3 VIEWS-LEFT on 09/15/2022 9:43 AM CLINICAL HISTORY: GLORIA ALANIS is a 36 years old patient with a submitted history of Left anterior knee pain s/p fall;. ADDITIONAL HISTORY: Left knee injury, initial encounter COMPARISONS: January 05, 2018 TECHNIQUE: Multiple views of the knee performed. FINDINGS: Normal bone mineral density Preserved joint spaces No displaced fracture noted No dislocation Procedure Note Rosales Gardner MD - 09/15/2022 EXAM: XR KNEE 3 VIEWS-LEFT on 09/15/2022 9:43 AM CLINICAL HISTORY: GLORIA ALANIS is a 36 years old patient with a submitted history ofLeft anterior knee pain s/p fall;. ADDITIONAL HISTORY: Left knee injury, initial encounter COMPARISONS: January 05, 2018 TECHNIQUE: Multiple views of the knee performed. FINDINGS: Normal bone mineral density Preserved joint spaces No displaced fracture noted No dislocation IMPRESSION: No acute fracture seen RORO Nieves IMG DIAGNOSTIC IMAGING ORDERABL ES Final Result documented in this encounter Visit Diagnoses Not on filedocumented in this encounter Care Teams Balloon Pilot Relationship Specialty Start Date End Date Services-[facility], [facility] [address] [facility] [place] [address] PCP - General 07/09/20 12/26/22 Donaldo Villareal MD Family Medicine 02/06/17 Alfonso George DO Sql Server Dba Developer Cardiovascular Disease 05/15/18 Edward Mak MD Physician Rheumatology 05/15/18 Lupe Osorio MD [address] [place] [phone] Physician Hematology Oncology 05/15/18 Lynn Teran MD [address] [place] [address] Physician Gastroenterology 05/15/18 Farhana Rojas PsyD [address] [place] [address] Clinical Psychologist Psychology 05/27/18 Dorota Carpenter MD [address] [place] [address] Urogynecology 12/28/21 documented as of this encounter
--- OUTSIDE RECORDS SUMMARY | 2022-10-02 16:07 | XMS_ITS | Encounter Summary ---
Author Organization [facility] Address [address] [place] [address] Care Team Providers Care Canoe Maker Name Role Phone Donaldo Villareal MD Unavailable [phone] Alfonso George DO Unavailable Edward Mak MD Unavailable [phone] Lupe Osorio MD Unavailable Lynn Teran MD Unavailable Farhana Rojas Ps Unavailable Services-[facility] Provider Dorota Carpenter MD Unavailable Encounter Details Date Type Department Care Team (Late st Contact Info) Description 10/02/2022 4:07 PM EDT Hospital Encounter [facility] [address] [place], [place] [address] [place] [address] Prince Hill PA-C [address] [place] [id number] Social History Tobacco Use Types Packs/Day Years Used Date Smoking Tobacco: Former Cigarettes Q uit: 2014 Passive Smoke Exposure: Never Smokeless Tobacco: Never Alcohol Use Standard Drinks/Week Comments Yes 0 (1 standard drink = 0.6 oz pur e alcohol) 1 a year [facility] Utilities Answer Date Recorded In the past [...] place to sleep or slept in a alf (including now)? No 06/27/2023 Comments No Sex [...] are unremarkable. IMPRESSION: Negative. Prince Hill PA-C IMO[facility]to DIAGNOSTIC IMAGING CHAR MORE Final Result documented in this encounter Visit Diagnoses Not on filedocumented in this encounter Care Teams Canoe Maker Relationship Specialty Start Date End Date Services-[facility], [facility] [address] [place] [address] PCP - General 07/09/20 12/26/22 Donaldo Villareal MD Family Medicine 02/06/17 Alfonso George DO Desulphurizer Operator Cardiovascular Disease 05/15/18 Edward Mak MD Physician Rheumatology 05/15/18 Lupe Osorio MD [address] [place], [place] [id number] Physician Hematology Oncology 05/15/18 Lynn Teran MD [address] [place] [address] Physician Gastroenterology 05/15/18 Farhana Rojas, Rivera [address] [place] [address] Clinical Psychologist Psychology 05/27/18 Dorota Carpenter MD [address] [place], [place] [id number] Urogynecology 12/28/21 documented as of this encounter
--- OUTSIDE RECORDS SUMMARY | 2022-12-27 18:38 | XMS_ITS | Encounter Summary ---
Author Organization [facility] Address [address] [place] [address] Care Team Providers Care Client Care Representative Name Role Phone Donaldo Villareal MD Unavailable Alfonso George DO Unavailable Edward Mak MD Unavailable [phone] Lupe Osorio MD Unavailable [phone] Lynn Teran MD Unavailable Farhana Rojas PsyD Unavailable Dorota Carpenter MD Unavailable [phone] Pcp, No Primary Care Provider Unavailabl e Encounter Details Date Type Department Care Team (Late st Contact Info) Description 12/27/2022 6:38 PM EDT Hospital Encounter [facility] [address] [facility] [address] [address] Haylee Gonzalez PA-C [address] [place] [address] Social History Tobacco Use Types Packs/Day Years Used Date Smoking Tobacco: Former Cigarettes Q uit: 2015 Passive Smoke Exposure: Never Smokeless Tobacco: Never Alcohol Use Standard Drinks/Week Comments Yes 0 (1 standard drink = 0.6 oz pur e alcohol) 1 a year [facility] Utilities Answer Date Recorded In the past 12 months has [employer], gas, oil, or water company threatened to [...] of Assessment Author 1 02/12/2024 9:42 AM JEREMIET Effie Collins RN * Question Answer Date [...] No radiopaque foreign body identified. Procedure Note Alfonso Riley MD - 12/27/2022 INDICATION: Rule out [...] on filedocumented in this encounter Care Teams Client Care Representative Relationship Specialty Start Date End Date Pcp, No PCP - General General Medicine 12/27/22 01/17/23 Donaldo Villareal MD Family Medicine 02/06/17 Alfonso George DO Tire Bladder Maker Cardiovascular Disease 05/15/18 Edward Mak MD Physician Rheumatology 05/15/18 Lupe Osorio MD [address] [place] [phone] Physician Hematology Oncology 05/15/18 Lynn Teran MD [address] [place] [address] Physician Gastroenterology 05/15/18 Farhana Rojas PsyD [address] [place] [address] Clinical Psychologist Psychology 05/27/18 Dorota Carpenter MD [address] [place] [address] Urogynecology 12/28/21 documented as of this encounter
--- OUTSIDE RECORDS SUMMARY | 2024-12-30 09:00 | XMS_ITS | Encounter Summary ---
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 No scalp sensitivity. No lymphadenopathy Pulmonary: Clear to auscultation bilaterally, Cardiac: Regular rate and rhythm, no murmurs Abdomen: Non-distended, non-tender Skin: No rashes, warm and well perfused Musculoskeletal: Tender and swollen joints documented in homunculus below Hand: Appropriate ROM Elbow: Appropriate ROM Shoulder: Appropriate ROM, Negative Alvarado Spine: Appropriate ROM. Hip: Appropriate ROM, Negative leg roll, Negative Mary-Brett Knee: Appropriate ROM Ankle: Appropriate ROM Feet: Negative MTP squeeze Special testing: Modified Schobers 23 Occiput to wall normal Chest wall expansion - 2 cm Beighton Score: Passive dorsiflexion of 5th MCP 2 Oppose thumb to ipsilateral forearm 2 Hyperextend elbow [address] hands flat on floor w/o bending knees 1 Total Score of 9 of 9 (4 or more consistent with hypermobility) LABS I have personally reviewed the following labs Lab Results Component Value Date WBC 16.00 (H) 05/27/2024 RBC 5.74 (H) 05/27/2024 HGB 15.1 05/27/2024 HCT 44.7 05/27/2024 PLT 172 05/27/2024 MCV 77.9 (L) 05/27/2024 MCH 26.3 (L) 05/27/2024 MCHC 33.8 05/27/2024 RDW 13.6 05/27/2024 MVP 8.7 05/27/2024 NRBCA 0.00 05/27/2024 Lab Results Component Value Date NA 139 05/27/2024 K 3.9 05/27/2024 CL 102 05/27/2024 CO2 24 05/27/2024 BUN 8 05/27/2024 CRE 1.00 05/27/2024 GLU 111 (H) 05/27/2024 CA 9.6 05/27/2024 GFR 74 05/27/2024 ANION 17 05/27/2024 Lab Results Component Value Date ALB 3.9 05/27/2024 TBILI 0.7 05/27/2024 DBILI 0.2 05/27/2024 ALKP 135 (H) 05/27/2024 SGOT 12 05/27/2024 SGPT <5 05/27/2024 TP 8.1 (H) 05/27/2024 GLOB 4.2 05/27/2024 No results found for: CRP , CRPT , HSCRP No results found for: ESR No results found for: STEPHEN No results found for: RF Last hepatitis screening in 2023 negative IMAGING I have personally reviewed the following pertinent imaging: MR Pelvis 01/2017 (just report from [place]): IMPRESSION: Prominent diffuse decrease marrow signal seen throughout the osseous structures and findings may be secondary to red marrow reconversion however marrow infiltrative process cannot be excluded and correlation with hematologic parameters and further evaluation is recommended. Mild sacroiliac joint osteoarthritic changes particularly in the superior left side. Small free fluid of the pelvis with multiple high T2 signal lesions of the ovaries greater on the right side than the left which may represent follicles/cysts but are limitedly evaluated on this exam. Other findings as noted above. XR SI joints 10/2016 (just report from [place]): Findings: The sacroiliac joints appear unremarkable with no radiographic evidence of sacroiliitis. The visualized hips appear unremarkable. No osseous lesions are seen. CT lumbar spine 04/2024: *on my review no syndesmophytes, but some questionable shiny corners noted. Degenerative changes at L5/S1 with osteophyte formation CT pelvis 04/2024: *normal sacroiliac joints Assessment &Plan: Gloria Salazar is a 39 y.o. female with PMH undifferentiated spondyloarthritis, bipolar disorder, ADHD, asthma, HLD who is seen today for a new patient visit. # Ankylosing spondylitis Diagnosed by previous provider, symptoms previously well-controlled on infliximab therapy. Patient actually has mixed features of degenerative and inflammatory arthritis (prolonged AM stiffness, however pain worsens with activity). Overall I suspect a component of her pain is related to fibromyalgia and hypermobility in addition to ankylosing spondylitis. As today is my first time meeting that, I will obtain baseline XR imaging of entire spine and SI joints to evaluate for inflammatory changes as a baseline. I will check hepatitis and QuantiFERON prior to resuming her TNF inhibitor. As she has been off therapy I will check inflammatory markers. Given she has had significant benefit from infliximab previously, I will resume this medication. Wereviewed she is at risk for development of antibodies given her break in therapy. We discussed the importance of vaccines as infliximab is immunosuppressive. She has not yet received Shingrix, pneumococcal, RSV. I recommended these in addition to seasonal vaccines with influenza and COVID - XR entire spine for baseline to look for inflammatory changes - XR SI joints - check Quantiferon GOLD and hepatitis serologies for TNF inhibitor therapy - check CBC, CMP, CRP and ESR for drug monitoring - check fecal calprotectin for worsening diarrhea after stopping infliximab - RESUME infliximab 5 mg/kg every 6 weeks - reviewed importance of vaccinations, recommended Shingrix, Pneumococcal, RSV, influenza and COVID - follow up in 3 months # Fibromyalgia Patient demonstrates features of central pain processing disorder, fibromyalgia including history of trauma, sensitivity to light touch/sound/noise. We reviewed this diagnosis in detail in the officetoday and patient was provided with informational handout. Treatment for fibromyalgia is multifactorial including physical activity (preferably through pool/aquatic therapy), cognitive behavioral therapy, treatment of associated conditions (mood disorders, sleep disturbances, IBS, migraines), and analgesia. Disease management is longitudinal. If patient is not responding to conservative therapy, PCP could trial pharmaceutical therapy with either duloxetine, pregabalin, gabapentin, amitriptyline. We recommend avoiding opioids, and steroidsin patients with fibromyalgia as they have been shown to be ineffective and carry risk of harm. - referral to physical therapy, discussion of aquatic therapy - discussed alternative treatments that can be beneficial including massage, acupuncture - recommended cognitive behavioral therapy - treatment of underlying associated conditions - PCP could consider trial of duloxetine, pregabalin, gabapentin or amitriptyline - recommend continued close follow up with PCP # Hypermobility arthralgia Patient today with Beighton score 9 out of 9. I recommended muscle strengthening around joints for treatment of hypermobility arthralgia. This will be particularly challenging in the setting of comorbid fibromyalgia. I have placed a referral to physical therapy to help with this. - referral to physical therapy - follow up in 3 months Alexa Coulter MD I spent a total of 60 minutes on the day of this patient encounter. This is separate from any procedure performed at the time of this office visit documented in this encounter Plan of Treatment Upcoming Encounters Date Type Department Care Team (Late st Contact Info) Description 03/31/2025 9:00 AM EST Office Visit [facility] Rheumatology [address] [place] [id number] Alexa Coulter MD [address] [place] [address], [address] [place] [address] [email or web address] Scheduled Orders Name Type Priority Associated Diagnoses Orde r Schedule Hepatitis B surface antibody Lab Routine Need for hepatitis B screening test Expected: 12/30/2024, Expires: 12/30/2025 Hepatitis B surface antigen Microbiology Routine Need for hepatitis B screening test Expected: 12/30/2024, Expires: 12/30/2025 Hepatitis B core antibody, total Microbiology Routine Need for hepatitis B screening test Expected: 12/30/2024, Expires: 12/30/2025 Hepatitis C antibody, qualitative Microbiology Routine Need for hepatitis C screening test Expected: 12/30/2024, Expires: 12/30/2025 Quantiferon-TB Gold Lab Routine Ankylosing spondylitis of multiple sites in spine Encounter for long-term (current) use of high-risk medication Expected: 12/30/2024, Expires: 12/30/2025 CBC and differential Lab Routine Ankylosing spondylitis of multiple sites in spine Encounter for long-term (current) use of high-risk medication Expected: 12/30/2024, Expires: 12/30/2025 Comprehensive metabolic panel Lab Routine Ankylosing spondylitis of multiple sites in spine Encounter for long-term (current) use of high-risk medication Expected: 12/30/2024, Expires: 12/30/2025 C-Reactive Protein Lab Routine Ankylosing spondylitis of multiple sites in spine Encounter for long-term (current) use of high-risk medication Expected: 12/30/2024, Expires: 12/30/2025 Sedimentation rate (ESR) Lab Routine Ankylosing spondylitis of multiple sites in spine Encounter for long-term (current) use of high-risk medication Expected: 12/30/2024, Expires: 12/30/2025 XR Lumbar Spine Imaging Routine Ankylosing spondylitis of multiple sites in spine Encounter for long-term (current) use of high-risk medication Expected: 12/30/2024, Expires: 03/31/2025 XR Sacroiliac Joints Imaging Routine Ankylosing spondylitis of multiple sites in spine Encounter for long-term (current) use of high-risk medication Expected: 12/30/2024, Expires: 03/31/2025 XR Thoracic Spine Imaging Routine Ankylosing spondylitis of multiple sites in spine Encounter for long-term (current) use of high-risk medication Expected: 12/30/2024, Expires: 03/31/2025 XR Cervical Spine Imaging Routine Ankylosing spondylitis of multiple sites in spine Encounter for long-term (current) use of high-risk medication Expected: 12/30/2024, Expires: 03/31/2025 Calprotectin, stool Lab Routine Ankylosing spondylitis of multiple sites in spine Encounter for long-term (current) use of high-risk medication Expected: 12/30/2024, Expires: 12/30/2025 Scheduled Referrals Name Type Priority Associated Diagnoses Orde r Schedule Ambulatory referral to [facility] Physical Therapy Outpatient Referral Routine Ankylosing spondylitis of multiple sites in spine Encounter for long-term (current) use of high-risk medication Ordered: 12/30/2024 documented as of this encounter Visit Diagnoses Diagnosis Ankylosing spondylitis of multiple sites in spine- Primary Encounter for long-term (current) use of high-risk medication Encounter for long-term (current) use of other medications Need for hepatitis C screening test Special screening examination for other specified viral diseases Need for hepatitis B screening test Fibromyalgia Unspecified myalgia and myositis Hypermobility arthralgia Pain in joint, site unspecified documented in this encounter Care Teams Frame And Scrap Crusher Relationship Specialty Start Date End Date Carolina Reynoso MD [address] [place] [address] [email or web address] PCP - General Family Medicine 12/30/24 documented as of this encounter Additional Source Comments The information contained in this document represents components of the legal health record. It is not the complete legal health record.[facility]
[2025-01-01 15:32] LABS: MANUAL DIFF FLAG NO
--- OUTSIDE RECORDS SUMMARY | 2025-01-01 16:25 | XMS_ITS | Clinical Summary ---
Author Organization [facility] Address [address] [place] [address] Care Team Providers Care Application Architect Name Role Phone Unavailable Primary Care Provider Unavailabl e Surgical History Surgery Date Site/Laterality Comments COLONOSCOPY PROCEDURE:COLONOSCOPY UPPER GASTROINTESTINAL ENDOSCOPY PROCEDURE:UPPER GASTROINTESTINAL ENDOSCOPY TUBAL LIGATION PROCEDURE:TUBAL LIGATION BARIATRIC SURGERY 2018 PROCEDURE:BARIATRIC SURGERY;COMMENT:Gastric sleeve EYE SURGERY PROCEDURE:EYE SURGERY;COMMENT:As a toddler WISDOM TOOTH EXTRACTION PROCEDURE:WISDOM TOOTH EXTRACTION OVARIAN CYST REMOVAL Left PROCEDURE:OVARIAN CYST REMOVAL CYSTOSCOPY 05/30/2022 N/A PROCEDURE:CYSTOSCOPY;COMMENT: Procedure: CYSTOSCOPY; Surgeon: Sheba Card DO; Location: [facility] MAIN OPERATING ROOM; Service: Gynecology; Laterality: N/A; Medical History Medical History Date Comments Fibromyalgia DX:Fibromyalgia Autoimmune disease ([facility] V24) DX:Autoimmune disease ([facility]) Depression DX:Depression Pre-operative respiratory examination 10/21/2018 DX:Pre-operative [...] impairment DX:Visual impa irment;COMMENT:Wears glasses Ankylosing spondylitis ([facility] V24, [facility] V28) DX:Ankylosing spondylitis ([facility]) Arthritis DX:Arthritis [...] 03/18/2022 Social Influencers of Health Screening 03/18/2022 Depression Screening 04/16/2024 COVID-19 Vaccine (2023-2 5 season) 2024 Influenza Vaccine (#1) 2024 HIB Vaccines Aged [...]
--- OUTSIDE RECORDS SUMMARY | 2025-01-01 16:26 | XMS_ITS | Encounter Summary ---
Author Organization [employer] Address [address] [place] [address] [address] [place] [address] Care Team Providers Care Technician Biological Health Name Role Phone Carolina Reynoso MD Primary Care Provider [phone] Encounter Details Date Type Department Care Team ([facility] Contact Info) Description 12/10/2024 Telephone [facility] ADULT DENTAL [address] [place] [address] Jorge Alberto Costello DDS [address] [place] [address] Social History Tobacco Use Types Packs/Day Years Used Date Smoking Tobacco: Former Cigarettes Q uit: 1997 Smokeless Tobacco: Never Alcohol Use Standard Drinks/Week Comments Not Asked 0 (1 standard drink = 0.6 oz pur e alcohol) Socailly Comments No Sex and Gender Information Value Date Recorded Sex Assigned at Female 09/09/2024 2:50 PM EDT Legal Sex Female 2:48 PM EDT Gender Identity Non-Binary 09/09/2024 2:50 PM EDT Sexual Orientation Queer 09/09/2024 2: 50 PM EDT documented as of this encounter Miscellaneous Notes * Telephone Encounter - Garry Keller - 12/10/2024 8:08 AM EDT Unable to post coverage for todays appt documented in this encounter Plan of Treatment Upcoming Encounters Date Type Department Care Team (Late st Contact Info) Description 02/11/2025 11:20 AM EDT Office Visit [facility] [address] [place] [address] Carolina Reynoso MD [address] [facility] [place] [address] documented as of this encounter Visit Diagnoses Not on filedocumented in this encounter Care Teams Technician Biological Health Relationship Specialty Start Date End Date Carolina Reynoso MD [address] [facility] [place] [address] PCP - General Family Medicine 09/10/24 documented as of this encounter
--- OUTSIDE RECORDS SUMMARY | 2025-01-01 16:26 | XMS_ITS | Encounter Summary ---
Author Organization [employer] Address [address] [place] [address] [address] [place] [address] Care Team Providers Care Knit Goods Mender Name Role Phone Carolina Reynoso MD Primary Care Provider [phone] Encounter Details Date Type Department Care Team ([facility] Contact Info) Description 09/30/2024 Orders Only [facility] [address] [place] [address] Carolina Reynoso MD [address] [place] [address] Social History Tobacco Use Types Packs/Day Years Used Date Smoking Tobacco: Former Cigarettes Q uit: 1998 Alcohol Use Standard Drinks/Week Comments Not Asked [...] Encounters Date Type Department Care Team ([facility] Contact Info) Description 02/11/2025 11:20 AM EDT Office Visit Gianfranco [facility] [address] [place] [address] Carolina Reynoso MD [address] [place] [address] documented as of this encounter Visit Diagnoses Not on filedocumented in this encounter Care Teams Knit Goods Mender Relationship Specialty Start Date End Date Carolina Reynoso MD [address] [place] [address] PCP - General Family Medicine 09/10/24 documented as of this encounter
--- OUTSIDE RECORDS SUMMARY | 2025-01-01 16:26 | XMS_ITS | Clinical Summary ---
Author Organization [address] Address [address] [place] [id number] Care Team Providers Care Region Manager Name Role Phone No, Pcp (Do Not Change Name) Primary Care Provid er Unavailable Allergies Active Allergy Reactions Criticality Noted Date Comments Mold Unknown 02/02/2015 Pollen Extracts Unknown 06/25/2020 Seasonal Allergies Unknown 02/02/2015 Medications folic acid (FOLVITE) 1 MG tablet Take 1 tablet (1 mg total) by mouth daily. Active infliximab (REMICADE IV) Inject into the vein.. Active loratadine (CLARITIN) 10 mg tablet Take 1 tablet (10 mg total) by mouth daily as needed. Active diphenhydrAMINE (BENADRYL) 25 mg tablet Take 1 tablet (25 mg total) by mouth as needed for sleep (prior to infusion). Active cyclobenzaprine (FLEXERIL) 10 MG tablet Take 1 tablet (10 mg total) by mouth 3 (three) times daily as needed for muscle spasms. Active meclizine (ANTIVERT) 25 MG tablet Take 1 tablet (25 mg total) by mouth as needed. Active ibuprofen (ADVIL,MOTRIN) 200 MG tablet Take 1 tablet (200 mg total) by mouth every 6 (six) hours as needed. Active oxybutynin XL (DITROPAN-XL) 10 mg 24 hr tablet Take 15 mg by mouth daily. 3 9 Active multivitamin capsule Take 1 capsule by mouth daily. Active busPIRone (BUSPAR) 5 mg tablet Take 3 tablets (15 mg total) by mouth 3 (three) times daily. Active UNABLE TO FIND Inhale into the lungs. Cannabidiol Non-THC (CBD) Misc Sawyer/Smoke/Vapo r/Oil/Gummies Active atomoxetine (STRATTERA) 60 mg capsule Take 1 capsule (60 mg total) by mouth daily. Active albuterol sulfate 90 mcg/actuation HFA aerosol inhaler INHALE 2 PUFFS INTO THE LUNGS EVERY 6 HOURS NEEDED FOR SHORTNESS OF BREATH OR WHEEZING 2 Active buPROPion XL (WELLBUTRIN XL) 150 mg 24 hr tablet Take 2 tablets (300 mg total) by mouth daily. 2 Active omeprazole (PRILOSEC OTC) 20 mg tablet Take 1 tablet (20 mg total) by mouth daily. Active sertraline (ZOLOFT) 50 mg tablet Take 2 tablets (100 mg total) by mouth daily. 2 Active estradioL (ESTRACE) 0.5 mg tablet Take 1 tablet (0.5 mg total) by mouth daily. Active prazosin (MINIPRESS) 2 mg capsule Take 1 capsule (2 mg total) by mouth nightly. Active lamoTRIgine (LAMICTAL) 100 mg immediate release tablet Take 1 tablet (100 mg total) by mouth daily. Active gabapentin (NEURONTIN) 600 mg tablet Take 1 tablet (600 mg total) by mouth 3 (three) times daily with meals. 270 tablet 1 5 Active Active Problems Problem Noted Date Diagnosed Date Severe obstructive sleep apnea 06/25/2020 Ankylosing spondylitis 09/11/2019 Spondyloarthropathy 08/27/2018 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 Atypical chest pain 05/08/2018 Palpitations 05/08/2018 Class 3 severe obesity witho ut serious comorbidity in adult, unspecified BMI, unspecified obesity type 05/08/2018 Sinus tachycardia 05/08/2018 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 Chronic bilateral low back pain without sciatica 01/23/2017 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 Immunizations Immunization Administration Dates Next Due Influenza, injectable, MDCK, quad, preservative free 02/05/2022 Influenza, injectable, quadrivalent, preservativ e free 01/19/2020,03/14/2019 Influenza, unspecified formulation 01/22/2024 Family History Medical History Relation Name Comments VIVEK Obstructive Sleep Apnea Brother 1 Learning disabilities Brother 2 Heart disease Father VIVEK Obstructive Sleep Apnea Father Diabetes Mother Fibromyalgia Mother VIVEK Obstructive Sleep Apnea Mother Learning disabilities Sister Anxiety disorder Son Relation Name Status Comments Brother 1 Alive Brother 2 Alive Daughter Alive Father (Age 49) 6 YEA RS AGO Mother Alive Sister Alive Son Alive Social History Tobacco Use Types Packs/Day Years Used Date Smoking Tobacco: Former Cigarettes 1 - 01/14/2014 Smokeless Tobacco: Never Comments:smokes for 15 years Alcohol Use Standard Drinks/Week Comments Yes 0 (1 standard drink = 0.6 oz pur e alcohol) 1 drink every 6 months PHQ-2 Answer Date Recorded PHQ-2 Total Score 4 12/21/2020 Interpersonal Safety Answer Date Record ed Is there anyone in your life that is hurting or threatening you in anyway? Not on file 05/09/2024 Physical Indicators of Abuse No evidence of phys ical abuse 05/09/2024 Comments No Sex and Gender Information Value Date Recorded Sex Assigned at Female 06/08/2021 10:48 PM EST Legal Sex Female 10:11 PM EDT Gender Identity Genderqueer 12/01/2021 6:24 AM EDT Sexual Orientation Bisexual 12/10/2022 11 :34 AM EDT Sexual Orientation Lesbian or Dennis 12/10/2022 11 :34 AM EDT Last Filed Vital Signs Vital Sign Reading Time Taken Comments Blood Pressure 119/80 07/01/2024 3:07 PM EDT Pulse 95 07/01/2024 3:07 PM EDT Temperature 36.2 C (97.2 F) 07/01/2024 3:07 PM EDT Respiratory Rate 18 07/01/2024 3:07 PM EDT Oxygen Saturation 100% 07/01/2024 3:07 PM EDT Inhaled Oxygen Concentration - - Weight 118.8 kg (262 lb) 07/01/2024 1:15 AM EDT Height 165.1 cm (5' 5 ) 06/25/2020 12:14 PM EST Body Mass Index 43.6 06/25/2020 12:14 PM EST Plan of Treatment Health Maintenance Due Date Last Done Comments Pneumococcal Vaccine (2 - 49 years) (1 of 2 - PCV) 2004 Tetanus adult (Td q 10,TDAP once) 2005 Influenza vaccine 11/14/2024 01/22/2024, , 03/21/2023, Additional history exists Covid-19 vaccine series ( season) 2024 02/05/2022, 02/18/2021, 08/10/2020, Additional history exists Cervical cancer screening 08/25/2025 08/25/2020 RSV Immunization (1 - 1-dose 75+ series) 2060 HIV screening Completed 10/06/2016 Hepatitis C screening Completed 08/24/2023 , 07/16/2019, 10/06/2016 Meningococcal B Vaccine Aged Out No l onger eligible based on patient's age to complete this topic Meningococcal Vaccine Aged Out No pamela wno eligible based on patient's age to complete this topic Procedures Procedure Name Priority Date/Time Associated Diagnosis Comments HEPATITIS C AB WITH REFLEX TO HCV PCR Routine 08/24/2023 11:54 AM EDT Ankylosing spondylitis, unspecified site of spine (HC Code) HIV-1/HIV-2 ANTIBODY/ANTIGEN SCREEN W/REFLEX ([facility]) Routine 10/06/2016 10:40 AM EDT Polyarthralgia Fatigue, unspecified type Elevated sed rate Irritable bowel syndrome, unspecified type Leukocytosis, unspecified type from Last 3 Months or Most Recently Relevant to Health Maintenance Results * Hepatitis C Ab with reflex to HCV PCR (08/24/2023 11:54 AM EDT) Hepatitis C Antibody Negative Negative 08/24/2023 10:20 PM EDT [facility] DEPARTMENT OF LABORATORY MEDICINE Comment:A negative result do es not exclude HCV infection, since antibodies are not detectable for 4-8 weeks after initial infection, or may not develop in compromised hosts. In high-risk individuals, repeat antibody testing in 2 months and/or HCV RNA PCR should be considered. Blood Venipuncture / Unknown 08/24/2023 11:54 AM EDT 08/24/2023 11:54 AM EDT Edward Mak MD LAB BLOOD ORDERABL ES Final Result Performing Organization Address [facility]/State/[facility] Co de Phone Number [facility] DEPARTMENT OF LABORATORY MEDICINE [address] [place] [phone] [place] [address] * HIV-1/HIV-2 antibody/antigen screen w/reflex ([facility]) (10/06/2016 10:40 AM EDT) HIV 1 and 2 Antibody/Antigen Screen Negative Negative 10/06/2016 5:28 PM EDT [facility] Comment:Interpretation: This specimen is HIV antibody negative. A negative test does not exclude the possibility of infection with HIV. Negative results may be seen in early infection, advanced AIDS and agammaglobulinemic patients. If suspicion is high, submit a sample for HIV nucleic acid testing. Blood specimen (specimen) Venipuncture / Unknown 10/06/2016 10:40 AM EDT 10/06/2016 10:40 AM EDT Edward Mak MD LAB BLOOD ORDERABL ES Final Result Performing Organization Address [facility] Co de Phone Number [facility] [address] [place] [phone], [facility] [phone] from Last 3 Months or Most Recently Relevant to Health Maintenance Insurance MEDICARE MEDICAID [place] MEDIC[place] Care Teams Region Manager Relationship Specialty Start Date End Date No, Pcp (Do Not Change Name) PCP - General 04/21/20
--- OUTSIDE RECORDS SUMMARY | 2025-01-01 16:26 | XMS_ITS | Clinical Summary ---
Author Organization [facility] Address [address] [place] [address] Care Team Providers Care Balling Head Tender Name Role Phone Unavailable Primary Care Provider [...] Cancer Screening (Pap Smear) 2006 COVID-19 Vaccine ( season) 2024 02/18/2021, 08/10/2020, 07/17/2020 Influenza Vaccine (#1) 2024 2, 01/19/2020, 03/14/2019, Additional history exists Pneumococcal Vaccine Aged Out No long er eligible based on patient's age to complete this topic RSV Ped < 20 months Aged Out No longe r eligible based on patient's age to complete this topic Advance Directives For more information, please contact: [phone] Latest Code Status on File Code Status Date Activated Date Inactivated Comments Full Code 05/30/2022 10:40 AM 05/30/2022 10:03 PM Thi s code status was ascertained in the following way: discussion with patient .
--- OUTSIDE RECORDS SUMMARY | 2025-01-01 16:26 | XMS_ITS | Encounter Summary ---
Author Organization [facility] Address [address] [place] [address] Care Team Providers Care Sock Turner Name Role Phone Donaldo Villareal MD Primary Care Provider + Donaldo Villareal MD Unavailable [phone] Alfonso George DO Unavailable [phone] Edward Mak MD Unavailable [phone] Lupe Osorio MD Unavailable [phone] Lynn Teran MD Unavailable Farhana Rojas PsyD Unavailable Services-[facility], [facility] Care Provider Dorota Carpenter MD Unavailable Pcp, No Primary Care Provider Unavailabl e System, Provider Not In Primary Care Provider Un available Pcp, No Primary Care Provider Unavailabl e Edward Mak MD Primary Care Provider Services, [facility] Primary Care Provider Nitza Dial MD Unavailable Janeth Page APRN Unavailable [phone] Encounter Details Date Type Department Care Team (Late st Contact Info) Description 02/06/2017 Scanned Document [facility] RESPIRATORY THERAPIST ASSISTANT [address] [place] [phone] Lisa Contreras MD [address] [place] [address] Social History Tobacco Use Types Packs/Day Years Used Date Smoking Tobacco: Never Assessed Comments No Sex and Gender Information Value [...] on filedocumented in this encounter Care Teams Sock Turner Relationship Specialty Start Date End Date Donaldo Villareal MD PCP - General Family Medicine 02/06/17 07/08/20 Services-[facility] [address] [place] [address] PCP - General 07/09/20 12/26/22 Pcp, No PCP - General General Medicine 12/27/22 01/17/23 System, Provider Not In PCP - General 01/18/23 05/06/23 Pcp, No PCP - General General Medicine 05/07/23 06/26/23 Edward Mak MD PCP - General 06/27/23 07/15/23 [facility], [facility] [address] [facility] [address] [place] [address] PCP - General 07/16/23 Nitza Dial MD [address] [address] PCP - A[employer] Medicare Attributed 07/16/23 04/15/24 Janeth Page APRN [address] [place] [address] PCP - A[employer] Medicare Attributed 04/16/24 07/14/24 Donaldo Villareal MD Family Medicine 02/06/17 Alfonso George DO Sole Cutter Cardiovascular Disease 05/15/18 Edward Mak MD Physician Rheumatology 05/15/18 Lupe Osorio MD [address] [place], [place] [phone] Physician Hematology Oncology 05/15/18 Lynn Teran MD [address] [place] [address] Physician Gastroenterology 05/15/18 Farhana Rojas, PsyD [address] [place] [address] Clinical Psychologist Psychology 05/27/18 Dorota Carpenter MD [address] [place] [address] Urogynecology 12/28/21 documented as of this encounter
--- OUTSIDE RECORDS SUMMARY | 2025-01-01 16:26 | XMS_ITS | Encounter Summary ---
Author Organization [facility] Address [address] [place] [address] Phone Care Team Providers Care Thin Film Technician Name Role Phone Carolina Reynoso MD Primary Care Provider [phone] Encounter Details Date Type Department Care Team ([facility] Contact Info) Description 12/31/2024 Orders Only [facility] Rheumatology [address] [place] [address] Provider, MD Cornell [address] [place], [place] [id number] Social History Tobacco Use Types Packs/Day Years Used Date Smoking Tobacco: Former Cigarettes Q uit: 2016 Smokeless Tobacco: Never Alcohol Use Standard Drinks/Week [...] PM EST documented as of this encounter Plan of Treatment Upcoming Encounters Date Type Department Care Team (Late st Contact Info) Description 03/31/2025 9:00 AM EST Office Visit [facility] Rheumatology [address] [place] [address] Alexa Coulter MD [address] [facility], [address] [place] [address] [email or web address] documented as of this encounter Procedures Procedure Name Priority Date/Time Associated Diagnosis Comments OUTSIDE LAB Routine 11/27/2024 2:44 PM EDT documented in this encounter Results * Outside Lab (11/27/2024 2:44 PM EDT) us Historical Provider LAB BLOOD ORDERABLES Kaela l Result documented in this encounter Visit Diagnoses Not on filedocumented in this encounter Care Teams Thin Film Technician Relationship Specialty Start Date End Date Carolina Reynoso MD [address] [place] [address] PCP - General Family Medicine 12/30/24 documented as of this encounter Additional Source Comments The information contained in this document represents components of the legal health record. It is not the complete legal health record.[facility]
--- OUTSIDE RECORDS SUMMARY | 2025-01-01 16:26 | XMS_ITS | Encounter Summary ---
Author Organization [facility] Address [address] [place] [phone] Care Team Providers Care Policy Value Calculator Name Role Phone No, Pcp (Do Not Change Name) Primary Care Provid er Unavailable Encounter Details Date Type Department Care Team (Late st Contact Info) Description 04/01/2024 Scanned Document INTERFACE DEFAULT [address] [place], [place] [id number] System, Provider Not In Social History Tobacco Use Types Packs/Day Years [...] threatening you in anyway? Not on file 03/28/2024 Physical Indicators of Abuse No evidence of phys ical abuse 03/28/2024 Comments No Sex and Gender Information Value [...] filedocumented in this encounter Additional Health Concerns Assessment Noted Time PHQ-9 Depression Total Score: 17 12/21/ 021 4:23 PM EDT documented as of this encounter Care Teams Policy Value Calculator Relationship Specialty Start Date End Date No, Pcp (Do Not Change Name) PCP - General 04/21/20 documented as of this encounter
--- OUTSIDE RECORDS SUMMARY | 2025-01-01 16:26 | XMS_ITS | Encounter Summary ---
Author Organization [facility] Address [address] [place] [address] Care Team Providers Care Transport Nurse Name Role Phone Donaldo Villareal MD Unavailable [phone] Alfonso George DO Unavailable [phone] Edward Mak MD Unavailable [phone] Lupe Osorio MD Unavailable [phone] Lynn Teran MD Unavailable Farhana Rojas Ps Unavailable [phone] Services-[facility] Care Provider Dorota Carpenter MD Unavailable Pcp, No Primary Care Provider Unavailabl e System, Provider Not In Primary Care Provider Un available Pcp, No Primary Care Provider Unavailabl e Edward Mak MD Primary Care Provider [facility], [facility] Primary Care Provider Nitza Dial MD Unavailable Janeth Page CONSUMER INSIGHT ANALYST Unavailable [phone] Reason for Visit * Reason Comments Medical Complaint Encounter Details Date Type Department Care Team (Late st Contact Info) Description 09/06/2021 Telephone [facility] [place] [address] [facility] [address] [place] [address] Janeth Page, CONSUMER INSIGHT ANALYST [address] [place] [address] Medical Complaint Social History Tobacco Use Types Packs/Day Years [...] encounter Miscellaneous Notes * Telephone Encounter - Kirstie Rodriguez RN - 09/06/2021 11:47 AM EDT Patient called states she was recently given Bactrim DS PO BID X 5 days from PMD. She has one more day and sxs persist. Education on process of adding more days to regimen she will call PMD, she willincrease Po fluids and practice good hygiene. She will call us as needed. documented in this encounter Plan of Treatment Not on file documented as of this encounter Goals Goal Patient Goal Type Associated Problems Recent Progress Patient-Stated? Author Decrease soda or juice intake Diet No Ruma Amezquita RD Increase physical activity Lifestyle No Ruma Amezquita RD documented as of this encounter Visit Diagnoses Not on filedocumented in this encounter Care Teams Transport Nurse Relationship Specialty Start Date End Date Services-[facility], [facility] [address] [place] [address] PCP - General 07/09/20 12/26/22 Pcp, No PCP - General General Medicine 12/27/22 01/17/23 System, Provider Not In PCP - General 01/18/23 05/06/23 Pcp, No PCP - General General Medicine 05/07/23 06/26/23 Edward Mak MD PCP - General 06/27/23 07/15/23 [facility] [address] [facility] [address] [place] [address] PCP - General 07/16/23 Nitza Dial MD [address] [place] [address] PCP - A[employer] Medicare Attributed 07/16/23 04/15/24 Janeth Page, CONSUMER INSIGHT ANALYST [address] [place] [address] PCP - A[employer] Medicare Attributed 04/16/24 07/14/24 Donaldo Villareal MD Family Medicine 02/06/17 Alfonso George DO Wildlife Officer Cardiovascular Disease 05/15/18 Edward Mak MD Physician Rheumatology 05/15/18 Lupe Osorio MD [address] [place] [phone] Physician Hematology Oncology 05/15/18 Lynn Teran MD [address] [place] [address] Physician Gastroenterology 05/15/18 Farhana Rojas PsyD [address] [facility] [address] [place] [address] Clinical Psychologist Psychology 05/27/18 Dorota Carpenter MD [address] [place] [address] [address] [place] [address] Urogynecology 12/28/21 documented as of this encounter
--- OUTSIDE RECORDS SUMMARY | 2025-01-01 16:26 | XMS_ITS | Encounter Summary ---
Author Organization [facility] Address [address] [place] [address] [place] [address] Phone Care Team Providers Care Precision Crop Manager Name Role Phone Carolina Reynoso MD Primary Care Provider [phone] Reason for Visit * Reason Onset Date Comments Medication Prior Authorization 12/30/2024 I nflectra Encounter Details Date Type Department Care Team ([facility] Contact Info) Description 12/30/2024 Telephone [facility] Rheumatology [address] [place] [address] Alexa Coulter MD [address] [facility], [address] [place] [address] [email or web address] Medication Prior Authorization (Inflectra) Social History Tobacco Use Types Packs/Day Years [...] PM EST documented as of this encounter Progress Notes * Diana Chang LPN - 12/30/2024 12:27 PM EDT PA faxed Await response * Diana Chang LPN - 12/30/2024 12:04 PM EDT This patient will need a [facility] PA for Inflectra. No appts scheduled as of yet. PA form filled out awaiting provider signature then to be faxed documented in this encounter Plan of Treatment Upcoming Encounters Date Type Department Care Team (Late st Contact Info) Description 03/31/2025 9:00 AM EST Office Visit [facility] Rheumatology [address] [place] [address] Alexa Coulter MD [address] [place] [address], [address] [place] [address] documented as of this encounter Visit Diagnoses Not on filedocumented in this encounter Care Teams Precision Crop Manager Relationship Specialty Start Date End Date Carolina Reynoso MD [address] [place] [address] [email or web address] PCP - General Family Medicine 12/30/24 documented as of this encounter Additional Source Comments The information contained in this document represents components of the legal health record. It is not the complete legal health record.[facility]
--- OUTSIDE RECORDS SUMMARY | 2025-01-01 16:26 | XMS_ITS | Encounter Summary ---
Author Organization [facility] Address [address] [place] [address] Care Team Providers Care Lead Consultant Name Role Phone Donaldo Villareal MD Unavailable Alfonso George DO Unavailable Edward Mak MD Unavailable Lupe Osorio MD Unavailable [phone] Lynn Teran MD Unavailable Farhana RojasyD Unavailable Dorota Carpenter MD Unavailable System, Provider Not In Primary Care Provider Un available Pcp, No Primary Care Provider UnavailEdward Thapa MD Primary Care Provider [facility] Primary Care Provider Nitza Dial MD Unavailable Janeth Page CORRECTIONAL COUNSELOR/CASE MANAGER Unavailable [phone] Reason for Visit * Reason Comments Med Change Request Encounter Details Date Type Department Care Team (Late st Contact Info) Description 01/25/2023 Refill [facility] [address] [place] [phone] Frida Mejias PA-C [address] [place] [phone] Displaced fracture of fourth metatarsal bone, right foot, initial encounter for closed fracture Social History Tobacco Use Types Packs/Day Years [...] as of this encounter Visit Diagnoses Diagnosis Displaced fracture of fourth metatarsal bone, right foot, initial encounter for closed fracture documented in this encounter Care Teams Lead Consultant Relationship Specialty Start Date End Date System, Provider Not In PCP - General 01/18/23 05/06/23 Pcp, No PCP - General General Medicine 05/07/23 06/26/23 Edward Mak MD PCP - General 06/27/23 07/15/23 Services, [facility] [address] [place] [address] [address] [place] [address] PCP - General 07/16/23 Nitza Dial MD [address] [place] [address] PCP - Aetna Medicare Attributed 07/16/23 04/15/24 Janeth Page APRN [address] [address] PCP - Aetna Medicare Attributed 04/16/24 07/14/24 Donaldo Villareal MD Family Medicine 02/06/17 Alfonso George DO Core Assembly Supervisor Cardiovascular Disease 05/15/18 Edward Mak MD Physician Rheumatology 05/15/18 Lupe Osorio MD [address] [place], [place] [phone] Physician Hematology Oncology 05/15/18 Lynn Teran MD [address] [place] [address] Physician Gastroenterology 05/15/18 Farhana Rojas, Rivera [address] [place] [address] Clinical Psychologist Psychology 05/27/18 Dorota Carpenter MD [address] [place] [address] Urogynecology 12/28/21 documented as of this encounter
--- OUTSIDE RECORDS SUMMARY | 2025-01-01 16:26 | XMS_ITS | Encounter Summary ---
Author Organization [facility] Address [address] [place] [address] [place] [address] Phone Care Team Providers Care Armoured Car Escort Name Role Phone Pcp, Unknown Primary Care Provider Carolina Woodward MD Primary Care Provider [phone] Encounter Details Date Type Department Care Team ([facility] st Contact Info) Description 05/16/2024 Procedure Pass [facility], Ct Scan - [address] [address] Social History Tobacco Use Types Packs/Day Years [...] Author No Risk Indicated 05/16/2024 9:05 AM EST Gely Flores RN * [place] Suicide Severity Rating Scale (Screener/Recent Self-Report) Question Answer Date of Assessment Author 1. Wish to be (Past 1 Month) No 025 9:05 AM Gely Guadarrama RN 2. Non-Specific Active Suici chuy Thoughts (Past 1 Month) No 05/16/2024 9:05 AM Gely Guadarrama RN 6. Suicidal Behavior (Lifetime) No 9:05 AM Gely Guadarrama RN documented as of this encounter Plan of Treatment Upcoming Encounters Date Type Department Care Team (Late st Contact Info) Description 03/31/2025 9:00 AM EST Office Visit [facility] Rheumatology [address] [place] [address] Alexa Coulter MD [address] [place] [address], [address] [place] [address] [email or web address] documented as of this encounter Visit Diagnoses Not on filedocumented in this encounter Care Teams Armoured Car Escort Relationship Specialty Start Date End Date Pcp, Unknown PCP - General 05/27/24 12/29/24 Carolina Reynoso MD [address] [place] [address] [email or web address] PCP - General Family Medicine 12/30/24 documented as of this encounter Additional Source Comments The information contained in this document represents components of the legal health record. It is not the complete legal health record.[facility]
--- OUTSIDE RECORDS SUMMARY | 2025-01-01 16:26 | XMS_ITS | Encounter Summary ---
Author Organization [facility] Address [address] [place] [phone] Care Team Providers Care In Flight Refueling Operator Name Role Phone No, Pcp (Do Not Change Name) Primary Care Provid er Unavailable Encounter Details Date Type Department Care Team (Late st Contact Info) Description 01/20/2018 Scanned Document Cardiovascular Medicine at [address] [place] [address], [address] [place] [address] External, Provider Social History Tobacco Use Types [...] on file documented as of this encounter Procedures Procedure [...] documented as of this encounter Care Teams In Flight Refueling Operator Relationship Specialty Start Date End Date No, Pcp (Do Not Change Name) PCP - General 04/21/20 documented as of this encounter
--- OUTSIDE RECORDS SUMMARY | 2025-01-01 16:26 | XMS_ITS | Clinical Summary ---
Author Organization [facility] Address [address] [place] [id number] Care Team Providers Care High School Football Coach Name Role Phone , Pcp Primary Care [...] MEDICARE PART A AND B Care Teams High School Football Coach Relationship Specialty Start Date End Date , Pcp PCP - General 09/09/18
--- OUTSIDE RECORDS SUMMARY | 2025-01-01 16:26 | XMS_ITS | Encounter Summary ---
Author Organization [facility] Address [address] [place] [address] Care Team Providers Care Ceo Na Name Role Phone Donaldo Villareal MD Primary Care Provider + Donaldo Villareal MD Unavailable [phone] Alfonso George DO Unavailable [phone] Edward Mak MD Unavailable [phone] Lupe Osorio MD Unavailable Lynn Teran MD Unavailable Farhana Rojas PsyD Unavailable [phone] Services-[facility], [facility] Care Provider Dorota Carpenter MD Unavailable Pcp, No Primary Care Provider Unavailabl e System, Provider Not In Primary Care Provider Un available Pcp, No Primary Care Provider Unavailabl e Edward Mak MD Primary Care Provider [phone] Services, [facility] Primary Care Provider Nitza Dial MD Unavailable Janeth Page APRN Unavailable [phone] Encounter Details Date Type Department Care Team (Late st Contact Info) Description 09/11/2017 Scanned Document [facility] [address] [facility] [address] [place] [address] Janeth Page, SENIOR TRAINER [address] [address] Social History Tobacco Use Types Packs/Day Years [...] on filedocumented in this encounter Care Teams Ceo Na Relationship Specialty Start Date End Date Donaldo Villareal MD PCP - General Family Medicine 02/06/17 07/08/20 Services-[facility] [address] [place] [address] PCP - General 07/09/20 12/26/22 Pcp, No PCP - General General Medicine 12/27/22 01/17/23 System, Provider Not In PCP - General 01/18/23 05/06/23 Pcp, No PCP - General General Medicine 05/07/23 06/26/23 Edward Mak MD PCP - General 06/27/23 07/15/23 [facility], [facility] [address] [place] [address] [address] [place] [address] PCP - General 07/16/23 Nitza Dial MD [address] [address] PCP - Aetna Medicare Attributed 07/16/23 04/15/24 Janeth Page APRN [address] [place] [address] PCP - Aetna Medicare Attributed 04/16/24 07/14/24 Donaldo Villareal MD Family Medicine 02/06/17 Alfonso George DO Armed Security Professional Cardiovascular Disease 05/15/18 Edward Mak MD Physician Rheumatology 05/15/18 Lupe Osorio MD [address] [place] [phone] Physician Hematology Oncology 05/15/18 Lynn Teran MD [address] [place] [address] Physician Gastroenterology 05/15/18 Farhana Rojas, PsyD [address] [place] [address] Clinical Psychologist Psychology 05/27/18 Dorota Carpenter MD [address] [place] [address] Urogynecology 12/28/21 documented as of this encounter
--- OUTSIDE RECORDS SUMMARY | 2025-01-01 16:26 | XMS_ITS | Encounter Summary ---
Author Organization [facility] Address [address] [place] [address] [place] [address] Phone Care Team Providers Care Cook Dinner Name Role Phone Pcp, Unknown Primary Care Provider Carolina [place] MD Primary Care Provider [phone] Encounter Details Date Type Department Care Team ([facility] st Contact Info) Description 05/16/2024 Procedure Pass [facility], Ct Scan - [address] [address] Social History Tobacco Use Types Packs/Day Years [...] 9:05 AM EST Gely Flores RN * [place] Suicide Severity Rating Scale (Screener/Recent Self-Report) Question [...] Description 03/31/2025 9:00 AM EST Office Visit [facility] Rheumatology [address] [place] [address] Alexa Coulter MD [address] [place] [address], [address] [place] [address] [email or web address] documented as of this encounter Visit Diagnoses Not on filedocumented in this encounter Care Teams Cook Dinner Relationship Specialty Start Date End Date Pcp, Unknown PCP - General 05/27/24 12/29/24 Carolina Reynoso MD [address] [place] [address] [email or web address] PCP - General Family Medicine 12/30/24 documented as of this encounter Additional Source Comments The information contained in this document represents components of the legal health record. It is not the complete legal health record.[facility]
--- OUTSIDE RECORDS SUMMARY | 2025-01-01 16:26 | XMS_ITS | Clinical Summary ---
Author Organization [employer] Address [address] [place] [address] [address] [place] [address] Care Team Providers Care Human Service Specialist Name Role Phone Carolina Reynoso MD Primary Care Provider [phone] Allergies Active Allergy Reactions Criticality Noted Date Comments Bee Pollen 06/25/2020 Other Reaction(s): Other (See Comments) Other reaction(s): Unknown Dust Mite Extract 08/07/2022 Other Reaction(s): Not available Molds & Smuts Unknown Medium 02/02/2015 Other Reaction(s): Unknown/Patient and Family Unable to Define Other reaction(s): Unknown/Patient and Family Unable to Define Other reaction(s): Unknown/Patient and Family Unable to Define Other 02/02/2015 Other Reaction(s): Unknown Pollen Extract Other,Unknown 02/02/2015 Other reaction(s): Unknown Other Reaction(s): Unknown Other reaction(s): Unknown Medications Cetirizine HCl 10 MG capsule Take 10 mg by mouth Once per day. 024 Active folic acid (Folvite) 1 MG tablet Take 1 mg by mouth Once per day. 019 Active Meclizine HCl 25 MG chewable tablet Chew 25 mg. Active buPROPion XL (Wellbutrin XL) 300 MG 24 hr tabletIndications :Bipolar II disorder major depressive with atypical features (CMS/HCC) Take 1 tablet (300 mg) by mouth Once per day. 90 tablet 2 06/04/2 025 Active gabapentin (Neurontin) 600 MG tabletIndications :Ankylosing spondylitis of lumbosacral region (CMS/HCC) Take 1 tablet (600 mg) by mouth 3 times daily. 90 tablet 5 025 2024 Active oxybutynin XL (Ditropan-XL) 15 MG 24 hr tabletIndications :Overactive bladder Take 1 tablet (15 mg) by mouth Once per day. 90 tablet 1 025 2024 Active rosuvastatin (Crestor) 5 MG tabletIndications :Mixed hyperlipidemia Take 1 tablet (5 mg) by mouth Once per day. 90 tablet 3 025 2025 Active hydrOXYzine HCl (Atarax) 50 MG tabletIndications :PTSD (post-traumatic stress disorder) TAKE 1 TABLET (50 MG) BY MOUTH EVERY 6 (SIX) HOURS IF NEEDED FOR ITCHING. 360 tablet 1 Active prazosin (Minipress) 2 MG capsule TAKE 1 CAPSULE AT BEDTIME FOR 30 DAYS 90 capsule Active guanFACINE (Intuniv) 1 mg 24 hr tablet Take 1 tablet by mouth in the morning. Active lisdexamfetamine (Vyvanse) 10 MG capsule Take 10 mg by mouth in the morning. Active omeprazole (PriLOSEC) [address] capsuleIndication s:Gastroesophagea l reflux disease, unspecified whether esophagitis present TAKE 1 CAPSULE (20 MG) BY MOUTH ONCE PER DAY. 90 capsule Active estradiol (Estrace) 0.5 MG tablet TAKE 1 TABLET BY MOUTH EVERY DAY 30 tablet 2 Active albuterol 108 (90 Base) MCG/ACT inhalerIndication s:Mild asthma, unspecified whether complicated, unspecified whether persistent TAKE 1 PUFF BY MOUTH EVERY 4 HOURS NEEDED WHEEZE 18 g 11 025 2025 Active lamoTRIgine (LaMICtal) 100 MG tabletIndications :Bipolar II disorder major depressive with atypical features (CMS/HCC) Take 2 tablets (200 mg) by mouth Once per day. 180 tablet 1 025 2025 Active ondansetron ODT (Zofran-ODT) 4 MG disintegrating tabletIndications :Nausea Take 1 tablet (4 mg) by mouth every 8 (eight) hours if needed for nausea or vomiting. 20 tablet Active triamcinolone (Kenalog) 0.1 % creamIndications: Dermatitis Apply to affected area 1-2 times daily as needed. Avoid face and groin. 453.6 g 5 025 2025 Active methocarbamol (Robaxin) 750 MG tabletIndications :Ankylosing spondylitis of lumbosacral region (CMS/HCC) TAKE 1 TABLET BY MOUTH TWICE A DAY 60 tablet Active acetaminophen (Tylenol) 325 MG tablet Take 975 mg by mouth every 6 (six) hours if needed. 023 2024 Discontinued busPIRone (Buspar) 15 MG tablet Take 15 mg by mouth 3 times daily. 021 2024 Discontinued Calcium-Magnesium -Zinc 333-133-5 MG tablet 2024 Discontinued cholecalciferol (Vitamin D-3) 50 MCG (2000 UT) tablet TAKE 2 TABLETS (4,000 UNITS TOTAL) BY MOUTH DAILY. 023 2024 Discontinued inFLIXimab (Remicade) 100 MG injection Infuse 5 mg/kg into a venous catheter 1 (one) time. 2024 Discontinued ondansetron ODT (Zofran-ODT) 4 MG disintegrating tablet TAKE 1 TABLET ORALLY EVERY 6 HOURS NEEDED FOR NAUSEA AND VOMITING 024 2024 Discontinued(R eorder (will not trigger notification to Pharmacy)) lamoTRIgine (LaMICtal) 100 MG tabletIndications :Bipolar II disorder major depressive with atypical features (CMS/HCC) Take 1 tablet (100 mg) by mouth Once per day. 90 tablet 1 025 2024 Discontinued omeprazole (PriLOSEC) [address] capsule Take 1 capsule (20 mg) by mouth Once per day. 90 capsule 025 2024 Discontinued estradiol-levonor gestrel (ClimaraPRO) 0.045-0.015 MG/DAYIndications :Gender dysphoria Place 1 patch on the skin 1 (one) time per week. 4 patch 11 025 2024 Discontinued atomoxetine (Strattera) 80 MG capsuleIndication s:Adult ADHD TAKE 1 CAPSULE BY MOUTH ONCE PER DAY. SWALLOW CAPSULE WHOLE DO NOT OPEN. IF OPENED ACCIDENTALLY, DO NOT TOUCH EYES WASH HANDS IMMEDIATELY (PRODUCT IS AN EYE IRRITANT). 90 capsule 025 2024 Discontinued methocarbamol (Robaxin) 750 MG tabletIndications :Ankylosing spondylitis of lumbosacral region (CMS/HCC) TAKE 1 TABLET BY MOUTH TWICE A DAY 60 tablet 025 2024 Discontinued albuterol 108 (90 Base) MCG/ACT inhalerIndication s:Mild asthma, unspecified whether complicated, unspecified whether persistent INHALE 1 PUFF EVERY 4 HOURS NEEDED FOR WHEEZE 18 g 025 2024 Discontinued amoxicillin (Amoxil) 500 MG capsule Take 1 capsule (500 mg) by mouth every 8 (eight) hours for 7 days. 21 capsule 025 2024 acetaminophen (Tylenol) 500 MG tablet Take 1 tablet (500 mg) by mouth every 6 (six) hours if needed for mild pain for up to 10 days. 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 Spondylosis 07/08/2021 Premenstrual dysphoric disorder 07/08/2021 Attention and concentration deficit 11/02/2020 Ankylosing spondylitis 09/11/2019 Anemia 06/27/2019 Agoraphobia 06/27/2019 Sinus trouble 06/27/2019 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 11/19/2018 Sleep apnea 10/21/2018 Pre-operative respiratory examination 10/21/2018 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 Mixed hyperlipidemia 05/30/2018 Chronic back pain 05/15/2018 Depressive disorder 05/15/2018 Anxiety disorder 05/15/2018 Learning disability 05/15/2018 Arthritis 05/15/2018 Obstructive sleep apnea syndrome 05/15/2018 Atypical chest pain 05/08/2018 Sinus tachycardia 05/08/2018 Palpitations 05/08/2018 MDD (major depressive disord er), recurrent episode, moderate 03/28/2018 Overview (12/10/2024): Overview Note: MDD (major depressive disorder #[id number]# EXT_ID: [id number] Fibromyalgia 01/29/2018 Overview (12/10/2024): Overview Note: Fibromyalgia #[id number]# EXT_ID: [id number] 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 Morbid obesity due to excess calories 01/31/2017 GERD (gastroesophageal reflux disease) 7 Chronic bilateral low back pain without sciatica 01/23/2017 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 Irritable bowel syndrome 10/16/2012 Overview (12/10/2024): Overview Note: Irritable bowel syndrome #03704# EXT_ID: [id number] Asthma 10/16/2012 Overview (12/10/2024): Overview Note: Asthma #[id number]# EXT_ID: [id number] Ovarian cyst 10/16/2012 Overview (12/10/2024): Overview Note: Ovarian cyst #[id number]# EXT_ID: [id number] Encounters Date Type Department Care Team Description 12/31/2024 Telephone [facility] MEDICAL [address] [place] [address] Carolina Reynoso MD Possible Kidney infection 12/21/[address] [facility] MEDICAL [address] [place] [address] Carolina Reynoso MD Ankylosing spondylitis of lumbosacral region ([facility]/HCC) 12/17/2024 10:40 AM EDT Office Visit [address] [address] Carolina Reynoso MD PTSD (post-traumatic stress disorder) (Primary Dx); Bipolar II disorder major depressive with atypical features ([facility]); Adult ADHD; Ankylosing spondylitis of lumbosacral region ([facility]); Early onset menopause; Dermatitis; Overflow incontinence; Iron deficiency; Annual physical exam; Family history of alpha 1 antitrypsin deficiency; Weight loss, unintentional; Class 3 severe obesity due to excess calories without serious comorbidity with body mass index (BMI) of 40.0 to 44.9 in adult; Nausea; Family history of breast cancer 12/16/[address] [address] Rebekah Walker CNP Mild asthma, unspecified whether complicated, unspecified whether persistent 12/14/[address] [address] Carolina Reynoso MD 12/11/[address] [address] Carolina Reynoso MD Gastroesophageal reflux disease, unspecified whether esophagitis present (Primary Dx) 12/10/2024 11:30 AM EDT Office Visit [facility] [address] [place] [address] Latonya Miller DDS Rampant dental caries (Primary Dx); Dental calculus; Oral hygiene poor 12/10/2024 Travel 12/10/2024 Telephone [facility] [address] [place] [address] Jorge Alberto Costello DDS 11/23/[address] [address] Carolina Reynoso MD Mild asthma, unspecified whether complicated, unspecified whether persistent 11/20/[address] [address] Carolina Reynoso MD Ankylosing spondylitis of lumbosacral region (CMS/HCC) 11/11/[address] [address] Carolina Reynoso MD 10/21/[address] [address] Carolina Reynoso MD Adult ADHD 10/21/2024 Telephone [facility] [address] [place] [address] Carolina Reynoso MD Hip Pain; Chest Pain; Abdominal Pain; Leg Pain 10/12/[address] [address] Carolina Reynoso MD PTSD (post-traumatic stress disorder) 10/06/2024 Telephone [facility] [address] [place] [address] Carolina Reynoso MD PCP order form from Last 3 Months Family History Medical History Relation Name Comments Heart attack Father Breast cancer Maternal Grandfather Breast cancer Maternal Grandmother Heart attack Mother Relation Name Status Comments Brother Alive Father Maternal Grandfather Maternal Grandmother Mother Social History Tobacco Use Types Packs/Day Years Used Date Smoking Tobacco: Former Cigarettes Q uit: 1998 Smokeless Tobacco: Never Tobacco Cessation:Counseling Given: Not Answered Alcohol Use Standard Drinks/Week Comments Not Asked 0 (1 standard drink = 0.6 oz pur e alcohol) Socailly Comments No Sex and Gender Information Value Date Recorded Sex Assigned at Female 09/09/2024 2:50 PM EDT Legal Sex Female 2:48 PM EDT Gender Identity Non-Binary 09/09/2024 2:50 PM EDT Sexual Orientation Queer 09/09/2024 2: 50 PM EDT Last Filed Vital Signs Vital Sign Reading Time Taken Comments Blood Pressure 112/81 12/17/2024 10:32 AM EDT Pulse 82 12/17/2024 10:32 AM EDT Temperature 37 C (98.6 F) 12/17/2024 10:32 AM EDT Respiratory Rate 20 12/17/2024 10:32 AM EDT Oxygen Saturation 99% 09/17/2024 10:38 AM EDT Inhaled Oxygen Concentration - - Weight 110 kg (243 lb 4.8 oz) 12/17/2024 10:32 A M EDT Height 165.1 cm (5' 5 ) 09/17/2024 10:38 AM EDT Body Mass Index 40.49 09/17/2024 10:38 AM EDT Plan of Treatment Upcoming Encounters Date Type Department Care Team (Late st Contact Info) Description 02/11/2025 11:20 AM EDT Office Visit [facility] MEDICAL [address] [place] [address] Carolina Reynoso MD [address] [place] [address] Health Maintenance Due Date Last Done Comments Dental Oral Exam 1985 Dental Prophylaxis 1985 Dental X-Ray: Bitewings 1985 Dental X-Ray: Full Mouth 1985 Depression Screening 1985 HIV Screening 1985 Lipid Panel 1985 SDOH Screening 1985 Disability Screening 1985 Alcohol/Substance Use Screening 1997 Family Planning (PISQ) 2000 HPV Vaccines (1 - 3-dose series) 2000 Hepatitis C Screening 11/10/2003 DTaP/Tdap/Td Vaccines (1 - Tdap) 2004 Hepatitis A Vaccines (1 of 2 - Risk 2-dose series) 2004 Hepatitis B Vaccines (1 of 3 - 19+ 3-dose series) 2004 Pneumococcal Vaccine: Pediatrics (0 to 5 Years) and At-Risk Patients (6 to 49) Years (1 of 2 - PCV) 2004 COVID-19 Vaccine ( - season) 2024 02/05/2022, 02/18/2021, 08/10/2020, Additional history exists Influenza Vaccine (#1) 2024 4, 03/21/2023, 02/05/2022, Additional history exists Tobacco Screening 12/10/2025 12/10/2024 Zoster Vaccines (1 of 2) 11/10/2035 RSV Patients and Patients Aged 60 years or older (1 - 1-dose 75+ series) 2060 HIB Vaccines Aged Out No longer eligi ble based on patient's age to complete this topic IPV Vaccines Aged Out No longer eligi ble based on patient's age to complete this topic Meningococcal B Vaccine Aged Out No l onger eligible based on patient's age to complete this topic Meningococcal Vaccine Aged Out No pamela won eligible based on patient's age to complete this topic RSV under 20 months Aged Out No longe r eligible based on patient's age to complete this topic Rotavirus Vaccines Aged Out No longer eligible based on patient's age to complete this topic Procedures Procedure Name Priority Date/Time Associated Diagnosis Comments AMB REFERRAL TO RHEUMATOLOGY Routine 12/30/2024 Ankylosing spondylitis of lumbosacral region (CMS/HCC) CASE PRESENTATION, DETAILED AND EXTENSIVE TREATMENT PLANNING Routine 12/10/2024 11:30 AM EDT Rampant dental caries Dental calculus Oral hygiene poor INTRAORAL - PERIAPICAL FIRST RADIOGRAPHIC IMAGE Routine 12/10/2024 11:30 AM EDT Rampant dental caries Dental calculus Oral hygiene poor LIMITED ORAL EVALUATION - PROBLEM FOCUSED Routine 12/10/2024 11:30 AM EDT Rampant dental caries Dental calculus Oral hygiene poor from Last 3 Months Results * Referral to Rheumatology (12/30/2024) Carolina Reynoso MD OUTPATIENT REFERRAL ORDERABLES Final Result from Last 3 Months Insurance [facility] MEDICARE ADVANTAGE [facility] MEDICARE ADVANTAGE [facility] [place] [id number] Care Teams Human Service Specialist Relationship Specialty Start Date End Date Carolina Reynoso MD [address] [place] [address] PCP - General Family Medicine 09/10/24
--- OUTSIDE RECORDS SUMMARY | 2025-01-01 16:26 | XMS_ITS | Encounter Summary ---
Author Organization [employer] Address [address] [facility] [address] [place] [address] Care Team Providers Care Supervisor Lamp Shades Name Role Phone Carolina Reynoso MD Primary Care Provider [phone] Reason for Visit * Reason Onset Date Comments Possible Kidney infection 12/31/2024 Encounter Details Date Type Department Care Team ([facility] st Contact Info) Description 12/31/2024 Telephone [facility] MEDICAL [address] [place] [id number] Carolina Reynoso MD [address] [place] [id number] Possible Kidney infection Social History Tobacco Use Types Packs/Day Years [...] encounter Miscellaneous Notes * Telephone Encounter - Heather Flanagan LPN - 01/01/2025 12:31 PM EDT Spoke with patient who reports increased urgency more accidents painful urination. Orders placed and sent to [facility] lab per patient request. * Telephone Encounter - Esha Jarvsi - 12/31/2024 1:34 PM EDT Patient left a voicemail stating she think she has a possible kidney infection patient states she'sbeen throwing up. Looking for a call from nursing documented in this encounter Plan of Treatment Upcoming Encounters Date Type Department Care Team (Late st Contact Info) Description 02/11/2025 11:20 AM EDT Office Visit [facility] MEDICAL [address] [place] [address] Carolina Reynoso MD [address] [place] [address] Scheduled Orders Name Type Priority Associated Diagnoses Orde r Schedule Urinalysis, Complete, with Reflex to Culture Lab Routine Urinary urgency Expected: 01/01/2025 (Approximate), Expires: 01/01/2026 documented as of this encounter Visit Diagnoses Diagnosis Urinary urgency Urgency of urination documented in this encounter Care Teams Supervisor Lamp Shades Relationship Specialty Start Date End Date Carolina Reynoso MD [address] [place] [address] PCP - General Family Medicine 09/10/24 documented as of this encounter
--- OUTSIDE RECORDS SUMMARY | 2025-01-01 16:26 | XMS_ITS | Encounter Summary ---
Author Organization [facility] Address [address] [place] [id number] Care Team Providers Care Stock Worker Name Role Phone No, Pcp (Do Not Change Name) Primary Care Provid er Unavailable Reason for Visit * Reason Comments Medication Refill Encounter Details Date Type Department Care Team ([facility] Contact Info) Description 12/05/2021 Refill [facility] [address] [place] [address] [address] [place] [address] Edward Mak MD [address] [place] [phone] Medication Refill Social History Tobacco Use Types Packs/Day Years Used Date Smoking Tobacco: Former Cigarettes 1 - 01/14/2014 Smokeless Tobacco: Never Comments:smokes for 15 years Alcohol Use Standard Drinks/Week Comments Yes 0 (1 standard drink = 0.6 oz pur e alcohol) 1 drink every 6 months PHQ-2 Answer Date Recorded PHQ-2 Total Score 4 12/21/2020 Comments No Sex and Gender Information Value Date Recorded Sex Assigned at Female 06/08/2021 10:48 PM EST Legal Sex Female 10:11 PM EDT Gender Identity Genderqueer 12/01/2021 6:24 AM EDT Sexual Orientation Bisexual 12/10/2022 11 :34 AM EDT Sexual Orientation Lesbian or Dennis 12/10/2022 11 :34 AM EDT documented as of this encounter Miscellaneous Notes * Telephone Encounter - Erica Briseno RN - 12/06/2021 8:35 AM EDT Last visit: 08/09/21 Next visit:01/17/22 Last labs: Lab Results Component Value Date WBC 13.4 (H) 12/24/2020 HGB 14.1 12/24/2020 HCT 44.0 12/24/2020 MCV 85.6 12/24/2020 MCH 27.4 12/24/2020 MCHC 32.0 12/24/2020 PLT 298 12/24/2020 MPV 10.4 12/24/2020 NEUTROPHILS 62.5 12/24/2020 LYMPHOCYTES 29.7 12/24/2020 MONOCYTES 4.2 12/24/2020 EOSINOPHILS 1.7 12/24/2020 Lab Results Component Value Date NA 137 12/24/2020 K 4.0 12/24/2020 CL 103 12/24/2020 CO2 19 (L) 12/24/2020 GLU 139 (H) 12/24/2020 BUN 11 12/24/2020 CREATININE 0.70 12/24/2020 EGFRAFRAMER >60 12/24/2020 CALCIUM 9.7 12/24/2020 ALBUMIN 3.7 12/24/2020 PROT 7.8 12/24/2020 BILITOT 0.2 12/24/2020 ALKPHOS 84 12/24/2020 ALT <5 (L) 12/24/2020 AST 15 12/24/2020 GLOB 4.1 (H) 12/24/2020 Lab Results Component Value Date HSCRP 26.9 (H) 12/24/2020 SEDRATE 53 (H) 12/24/2020 documented in this encounter Plan of Treatment Not on file documented as of this encounter Visit Diagnoses Not on filedocumented in this encounter Additional Health Concerns Assessment Noted Time PHQ-9 Depression Total Score: 17 021 4:23 PM EDT documented as of this encounter Care Teams Stock Worker Relationship Specialty Start Date End Date No, Pcp (Do Not Change Name) PCP - General 04/21/20 documented as of this encounter
--- OUTSIDE RECORDS SUMMARY | 2025-01-01 16:26 | XMS_ITS | Clinical Summary ---
Author Organization [facility] Address [address] [place] [address] Phone Care Team Providers Care Director Alliance [employer] Name Role Phone Carolina Reynoso MD Primary Care Provider [phone] Allergies Active Allergy Reactions Criticality Noted Date Comments Bee Pollen 06/25/2020 Other Reaction(s): Other (See Comments) Other reaction(s): Unknown House Dust Mite 08/07/2022 Other Reaction(s): Not available Mold Medium 02/02/2015 Other Reaction(s): Unknown/Patient and Family Unable to Define Other reaction(s): Unknown/Patient and Family Unable to Define Other 02/02/2015 Other Reaction(s): Unknown Pollen Extracts 06/25/2020 Other Reaction(s): Unknown Other reaction(s): Unknown Medications rosuvastatin (CRESTOR) 5 MG tablet Take 20 mg by mouth daily. 4 Active prazosin (MINIPRESS) 1 MG capsule Take 1 mg by mouth 2 (two) times a day. 3 Active omeprazole (PRILOSEC) 20 MG tablet Take 20 mg by mouth nightly at bedtime. Active methocarbamoL (ROBAXIN) 750 MG tablet Take 1 tablet by mouth 2 (two) times a day. 4 Active estradioL (CLIMARA) 0.05 mg/[address] 1 patch onto the skin once a week. 4 Active diphenhydrAMINE (BENADRYL) 25 mg tablet Take 25 mg by mouth nightly at bedtime as needed. Active cetirizine (ZYRTEC) 10 mg capsule Take 10 mg by mouth 2 (two) times a day. 4 Active albuterol 90 mcg/actuation inhaler Inhale 2 puffs into the lungs every 4 (four) hours as needed. 4 Active multivitamin with minerals Cap Take 1 capsule by mouth daily. Active lamoTRIgine (LAMICTAL) 100 MG IMMEDIATE release tablet Take 100 mg by mouth 2 (two) times a day. Active guanFACINE (INTUNIV) 1 mg Tb24 Take 1 tablet by mouth every morning. 5 Active buPROPion (WELLBUTRIN XL) 300 MG ER 24 hr tablet Take 1 tablet by mouth daily. Active estradioL (ESTRACE) 0.5 MG tablet Take 0.5 mg by mouth daily. 5 Active gabapentin (NEURONTIN) 600 MG tablet Take 600 mg by mouth 3 (three) times a day. Active meclizine (ANTIVERT) 25 MG tablet Take 25 mg by mouth. Active ondansetron (ZOFRAN-ODT) 4 MG disintegrating tablet TAKE 1 TABLET ORALLY EVERY 6 HOURS NEEDED FOR NAUSEA AND VOMITING 4 Active oxyBUTYnin (DITROPAN XL) 15 MG 24 hr tablet Take 1 tablet by mouth every morning. 5 Active spironolactone (ALDACTONE) 50 MG tablet Take 50 mg by mouth daily. 4 025 Discontin ued(No longer taking) sertraline 150 mg Cap Take 1 capsule by mouth daily. 025 Discontin ued(No longer taking) sertraline (ZOLOFT) 100 MG tablet Take 100 mg by mouth daily. 3 025 Discontin ued(No longer taking) oxyBUTYnin (DITROPAN-XL) 10 MG 24 hr tablet Take 1 tablet by mouth daily. 4 025 Discontin ued(No longer taking) omeprazole (PRILOSEC) 10 MG capsule Take 10 mg by mouth daily. 4 025 Discontin ued(No longer taking) loratadine 10 mg Chew Take 10 mg by mouth 2 (two) times a day as needed. Discontin ued(No longer taking) lamoTRIgine (LAMICTAL) 25 MG IMMEDIATE release tablet Take 25 mg by mouth every morning. 4 Discontin ued(No longer taking) infliximab (REMICADE IV) Inject 5 mg into the vein once a week. 4 025 Discontin ued(No longer taking) hydrOXYzine (ATARAX) 25 MG tablet Take 25 mg by mouth 2 (two) times a day. 4 025 Discontin ued(No longer taking) gabapentin (NEURONTIN) 300 MG capsule Take 300 mg by mouth 2 (two) times a day. 4 Discontin ued(No longer taking) DULoxetine (CYMBALTA) 20 MG capsule Take 20 mg by mouth 2 (two) times a day. 4 Discontin ued(No longer taking) cholecalciferol (VITAMIN D3) 2,000 unit tablet Take 2 tablets by mouth daily. 3 Discontin ued(No longer taking) busPIRone (BUSPAR) 5 MG tablet 5 mg 3 (three) times a day. Discontin ued(No longer taking) atomoxetine (STRATTERA) 40 MG capsule Take 1 capsule by mouth daily. 4 Discontin ued(No longer taking) diazePAM (VALIUM) 5 MG tablet Take 1 tablet (5 mg total) by mouth every 6 (six) hours as needed for other (free text field) (muscle spasm/pain). 15 tablet 5 Discontin ued(No longer taking) lisdexamfetamine (VYVANSE) 10 mg capsule Take 20 mg by mouth every morning. 5 Discontin ued(No longer taking) Active Problems Problem Noted Date Diagnosed Date Ankylosing spondylitis of multiple sites in spin e 12/30/2024 Encounters Date Type Department Care Team Description 12/31/2024 Orders Only [facility] Rhe[facility]ology [address] [place] [address] ProviderCornell MD 12/30/2024 9:00 AM EDT Office Visit [facility] [address] [place] [address] [place] [address] Alexa Coulter MD Ankylosing spondylitis of multiple sites in spine (Primary Dx); Encounter for long-term (current) use of high-risk medication; Need for hepatitis C screening test; Need for hepatitis B screening test; Fibromyalgia; Hypermobility arthralgia 12/30/2024 Telephone [facility] [address] [place] [address] [place] [address] Alexa Coulter MD Medication Prior Authorization ([employer]) 12/05/2024 3:15 PM EDT - 12/05/2024 11:59 PM EDT Hospital Encounter [facility], X-Ray - [address] [address] Cecilio Shaffer CNP Discharge Disposition: Home or Self Care 12/05/2024 2:10 PM EDT Office Visit [facility] at [address] [address] Cecilio Shaffer CNP Left foot pain (Primary Dx) 11/20/2024 Transcribe Orders [address] [place] [address] Lucy, MD Lucy Ankylosing spondylitis of lumbosacral region (Primary Dx) 11/10/2024 Telephone [facility] [address] [place] [address] [place] [address] Unknown, Unknown, Referral from Last 3 Months Family History Medical History Relation Comments Heart attack Father Heart attack Mother Cancer Paternal Grandmother Relation Status Comments Brother Alive Father Maternal Aunt Alive Maternal Grandfather Mother Paternal Grandfather Paternal Grandmother Sister Alive Son Alive Social History Tobacco [...] Orientation Bisexual 05/27/2024 7: 16 PM EST Last Filed Vital Signs Vital Sign Reading Time Taken Comments Blood Pressure 104/70 12/30/2024 9:01 AM EDT Pulse 92 12/30/2024 9:01 AM EDT Temperature 36.6 C (97.9 F) 12/05/2024 2:26 PM EDT Respiratory Rate 20 12/05/2024 2:26 PM EDT Oxygen Saturation 98% 12/30/2024 9:01 AM EDT Inhaled Oxygen Concentration - - Weight 108.9 kg (240 lb) 12/30/2024 9:01 AM EDT Height 165.1 cm (5' 5 ) 12/30/2024 9:01 AM EDT Body Mass Index 39.94 12/30/2024 9:01 AM EDT Plan of Treatment Upcoming Encounters Date Type Department Care Team (Late st Contact Info) Description 03/31/2025 9:00 AM EST Office Visit [facility] Rheumatology [address] [place] [address] Alexa Coulter MD [address] [place] [address], [address] [place] [address] [email or web address] Due Date Last Done Comments Adult Td,Tdap Booster 1985 DEPRESSION SCREENING 1997 SMOKING Hx and SMOKELESS TOBACCO SCREENING 1998 HIV ONE-TIME SCREENING (18-65 YEARS) 11/10/2003 PAP SMEAR 2006 INFLUENZA VACCINE (#1) 2024 01/22/2024 COVID-19 VACCINE (2023- season) 2024 SCREENING FOR DIABETES 05/27/2027 05/27/2024 HEPATITIS C SCREENING Completed 08/24/2023 , 03/21/2023, 03/10/2022, Additional history exists HEPATITIS A VACCINES Aged Out No long er eligible based on patient's age to complete this topic HIB VACCINES Aged Out No longer eligi ble based on patient's age to complete this topic MENINGOCOCCAL VACCINES (ACWY) Aged Out No longer eligible based on patient's age to complete this topic MENINGOCOCCAL VACCINES (B) Aged Out N o longer eligible based on patient's age to complete this topic PNEUMOCOCCAL VACCINES (0-49 years) Aged Out No longer eligible based on patient's age to complete this topic Medical Devices Not on file Procedures Procedure Name Priority Date/Time Associated Diagnosis Comments XR TOES 2 OR MORE VIEWS (LEFT) Urgent/patient waiting 12/05/2024 3:28 PM EDT Left foot pain OUTSIDE LAB Routine 11/27/2024 2:44 PM EDT from Last 3 Months Results * XR Toes 2 or More Views (Left) (12/05/2024 3:28 PM EDT) Anatomical Region Laterality Modality Foot Left Computed Radiogr aphy 12/05/2024 3:53 PM EDT Impressions 12/05/2024 3:54 PM EDT No acute osseous abnormality of the left great toe. Narrative 12/05/2024 3:54 PM EDT XR TOES 2 OR MORE VIEWS (LEFT) Referring clinician's provided indication for this examination in [facility]: Other Indication (Please use free text); Foreign body in the area of the MCP of the great toe COMPARISON: None FINDINGS: No acute fracture or dislocation. Joint spaces are overall unremarkable. Procedure Note Eileen Champagne MD, PhD - 12/05/2024 XR TOES 2 OR MORE VIEWS (LEFT) Referring clinician's provided indication for this examination in [facility]:Other Indication (Please use free text); Foreign body in the area of theMCP of the great toe COMPARISON: None FINDINGS: No acute fracture or dislocation. Joint spaces are overall unremarkable. IMPRESSION: No acute osseous abnormality of the left great toe. Cecilio Shaffer HAT BRIM CURLER IMG XR LOWER EXTREMITY Final Result * Outside Lab (11/27/2024 2:44 PM EDT) Historical Provider LAB BLOOD ORDERABLES Kaela l Result from Last 3 Months Insurance [employer] PPO MEDICARE REPLACEMENT [facility] MEDICARE REPLACEMENT [facility] MEDICARE REPLACEMENT [facility] MEDICARE REPLACEMENT [facility] MEDICARE [facility]PLACEMENT [facility] MEDICARE REPLACEMENT [facility] MEDICARE REPLACEMENT [facility] MEDICARE REPLACEMENT [facility] MEDICARE [facility]PLACEMENT [facility] MEDICARE REPLACEMENT [facility] MEDICARE REPLACEMENT [facility] MEDICARE REPLACEMENT Member Subscriber Plan / Payer (Ef fective 2024-Present) Name:Gloria Salazar Relation to Subscriber:Self Name:Gloria Salazar Payer ID:[id number] (NAIC) Type:Medicare Address: [place] [phone] Care Teams Director [employer] Relationship Specialty Start Date End Date Carolina Reynoso MD [address] [place] [address] PCP - General Family Medicine 12/30/24 Additional Source Comments The information contained in this document represents components of the legal health record. It is not the complete legal health record.[facility]
--- OUTSIDE RECORDS SUMMARY | 2025-01-01 16:27 | XMS_ITS | Encounter Summary ---
Author Organization [facility] and [facility] Address [address] [place] [phone] Care Team Providers Care Carton Inspector Name Role Phone No, Pcp (Do Not Change Name) Primary Care Provid er Unavailable Reason for Visit * Reason Comments Medication Refill Encounter Details Date Type Department Care Team ([facility] Contact Info) Description 05/13/2020 Refill [facility] [address] [place] [address] [address] [place], [place] [address] Edward Mak MD [address] [place] [phone] Medication Refill Social History Tobacco Use Types Packs/Day Years Used Date Smoking Tobacco: Former Cigarettes 1 - 01/14/2014 Smokeless Tobacco: Never Comments:smokes for 15 years Alcohol Use Standard Drinks/Week Comments No 0 (1 standard drink = 0.6 oz pur e alcohol) PHQ-2 Answer Date Recorded PHQ-2 Score 2 12/13/2018 Comments No Sex and Gender Information Value Date Recorded Sex Assigned at Female 06/08/2021 10:48 PM EST Legal Sex Female 10:11 PM EDT Gender Identity Genderqueer 12/01/2021 6:24 AM EDT Sexual Orientation Bisexual 12/10/2022 11 :34 AM EDT Sexual Orientation Lesbian or Dennis 12/10/2022 11 :34 AM EDT documented as of this encounter Miscellaneous Notes * Telephone Encounter - Aleksandra Dominguez RN - 05/13/2020 10:31 AM EST Last visit: 04/20/2020 Next visit: 07/20/2020 Last labs: Lab Results Component Value Date WBC 11.4 (H) 04/21/2020 HGB 13.4 04/21/2020 HCT 40.2 04/21/2020 MCV 78.5 (L) 04/21/2020 MCH 26.2 (L) 04/21/2020 MCHC 33.3 04/21/2020 PLT 317 04/21/2020 MPV 9.0 04/21/2020 NEUTROPHILS 58.2 04/21/2020 LYMPHOCYTES 32.4 04/21/2020 MONOCYTES 6.7 04/21/2020 EOSINOPHILS 2.0 04/21/2020 Lab Results Component Value Date NA 137 04/21/2020 K 4.0 04/21/2020 CL 104 04/21/2020 CO2 22 04/21/2020 GLU 91 04/21/2020 BUN 12 04/21/2020 CREATININE 0.66 04/21/2020 EGFRAFRAMER 134 04/21/2020 CALCIUM 9.5 04/21/2020 ALBUMIN 3.8 04/21/2020 PROT 7.6 10/23/2019 BILITOT 0.3 04/21/2020 ALKPHOS 113 04/21/2020 ALT 5 (L) 04/21/2020 AST 10 04/21/2020 GLOB 3.4 04/21/2020 Lab Results Component Value Date HSCRP 6.3 (H) 10/23/2019 SEDRATE 29 (H) 04/21/2020 documented in this encounter Plan of Treatment Not on file documented as of this encounter Visit Diagnoses Not on filedocumented in this encounter Additional Health Concerns Infection Onset Date Last Indicated Resolved Time COVID-19 04/22/2021 04/22/2021 05/02/2021 7:19 PM EST Assessment Noted Time PHQ-9 Depression Total Score: 2 07/16/19 20 3:21 PM EDT documented as of this encounter Care Teams Carton Inspector Relationship Specialty Start Date End Date No, Pcp (Do Not Change Name) PCP - General 04/21/20 documented as of this encounter
--- OUTSIDE RECORDS SUMMARY | 2025-01-01 16:27 | XMS_ITS | Encounter Summary ---
Author Organization [facility] and [facility] Address [address] [place] [phone] Care Team Providers Care Supervisor Metal Furniture Fabrication Name Role Phone No, Pcp (Do Not Change Name) Primary Care Provid er Unavailable Reason for Visit * Reason Comments Medication Refill Encounter Details Date Type Department Care Team ([facility] st Contact Info) Description 11/13/2020 Refill Medical Dermatology at [address] [phone] Omar Jose MD [address] [place] [phone] Medication Refill Social History Tobacco Use Types Packs/Day Years Used Date Smoking Tobacco: Former Cigarettes 1 - 01/14/2014 Smokeless Tobacco: Never Comments:smokes for 15 years Alcohol Use Standard Drinks/Week Comments Yes 0 (1 standard drink = 0.6 oz pur e alcohol) 1 drink every 6 months PHQ-2 Answer Date Recorded PHQ-2 Score 2 [...] as of this encounter Visit Diagnoses Diagnosis Acne vulgaris Other acne documented in this encounter Additional Health Concerns Infection Onset Date Last Indicated Resolved Time COVID-19 04/22/2021 04/22/2021 05/02/2021 7:1 9 PM EST Assessment Noted Time PHQ-9 Depression Total Score: 2 07/16/19 20 3:21 PM EDT documented as of this encounter Care Teams Supervisor Metal [employer]rication Relationship Specialty Start Date End Date No, Pcp (Do Not Change Name) PCP - General 04/21/20 documented as of this encounter
--- OUTSIDE RECORDS SUMMARY | 2025-01-01 16:27 | XMS_ITS | Encounter Summary ---
Author Organization [facility] Address [address] [place] [address] Care Team Providers Care Motion Picture Camera Operator Name Role Phone Donaldo Villareal MD Primary Care Provider + Donaldo Villareal MD Unavailable [phone] Alfonso George DO Unavailable [phone] Edward Mak MD Unavailable [phone] Lupe Osorio MD Unavailable Lynn Teran MD Unavailable Farhana Rojas PsyD Unavailable Services-[facility], [facility] Care Provider Dorota Carpenter MD Unavailable [phone] Pcp, No Primary Care Provider Unavailabl e System, Provider Not In Primary Care Provider Un available Pcp, No Primary Care Provider Unavailabl e Edward Mak MD Primary Care Provider Services, [facility] Primary Care Provider Nitza Dial MD Unavailable Janeth Page APRN Unavailable [phone] Encounter Details Date Type Department Care Team (Late st Contact Info) Description 06/28/2019 Telephone [facility] [address] [place] [address] [place] [address] [place], RADHA [address] [place] [address] Social History Tobacco Use Types Packs/Day Years [...] on filedocumented in this encounter Care Teams Motion Picture Camera Operator Relationship Specialty Start Date End Date Donaldo Villareal MD PCP - General Family Medicine 02/06/17 07/08/20 Services-[facility] [address] [place] [address] PCP - General 07/09/20 12/26/22 Pcp, No PCP - General General Medicine 12/27/22 01/17/23 System, Provider Not In PCP - General 01/18/23 05/06/23 Pcp, No PCP - General General Medicine 05/07/23 06/26/23 Edward Mak MD PCP - General 06/27/23 07/15/23 [facility], [facility] [address] [place] [address] [address] [place] [address] PCP - General 07/16/23 Nitza Dial MD [address] [place] [address] PCP - [employer] Medicare Attributed 07/16/23 04/15/24 Janeth Page, DIRECTOR OF ASSESSING [address] [place] [address] PCP - [employer] Medicare Attributed 04/16/24 07/14/24 Donaldo Villareal MD Family Medicine 02/06/17 Alfonso George DO Pricing Coordinator Cardiovascular Disease 05/15/18 Edward Mak MD Physician Rheumatology 05/15/18 Lupe Osorio MD [address] [place], [place] [phone] Physician Hematology Oncology 05/15/18 Lynn Teran MD [address] [place] [address] Physician Gastroenterology 05/15/18 Farhana Rojas PsyD [address] [place] [address] Clinical Psychologist Psychology 05/27/18 Dorota Carpenter MD [address] [place] [address] Urogynecology 12/28/21 documented as of this encounter
--- OUTSIDE RECORDS SUMMARY | 2025-01-01 16:27 | XMS_ITS | Encounter Summary ---
Author Organization [facility] Address [address] [place] [address] Care Team Providers Care Information Management Manager Name Role Phone Donaldo Villareal MD Primary Care Provider + Donaldo Villareal MD Unavailable [phone] Alfonso George DO Unavailable [phone] Edward Mak MD Unavailable [phone] Lupe Osorio MD Unavailable Lynn Teran MD Unavailable Farhana Rojas PsyD Unavailable Services-[facility], [facility] Care Provider Dorota Carpenter MD Unavailable [phone] Pcp, No Primary Care Provider Unavailabl e System, Provider Not In Primary Care Provider Un available Pcp, No Primary Care Provider Unavailabl e Edward Mak MD Primary Care Provider [phone] Services, [facility] Primary Care Provider Nitza Dial MD Unavailable Janeth Page APRN Unavailable [phone] Reason for Visit * Reason Comments Medication Refill Encounter Details Date Type Department Care Team (Late st Contact Info) Description 06/28/2020 Refill [facility] Bariatric Surgery [address] [place] [address] Clotilde Yang PA Needs valid address Gastroesophageal reflux disease without esophagitis Social History Tobacco Use Types Packs/Day Years [...] as of this encounter Visit Diagnoses Diagnosis Gastroesophageal reflux disease without esophagitis Esophageal reflux documented in this encounter Care Teams Information Management Manager Relationship Specialty Start Date End Date Donaldo Villareal MD PCP - General Family Medicine 02/06/17 07/08/20 Services-[facility] [address] [place] [address] PCP - General 07/09/20 12/26/22 Pcp, No PCP - General General Medicine 12/27/22 01/17/23 System, Provider Not In PCP - General 01/18/23 05/06/23 Pcp, No PCP - General General Medicine 05/07/23 06/26/23 Edward Mak MD PCP - General 06/27/23 07/15/23 [facility], [facility] [address] [place] [address] [address] [place] [address] PCP - General 07/16/23 Nitza Dial MD [address] [place] [address] PCP - [employer] Medicare Attributed 07/16/23 04/15/24 Janeth Page, [employer] [address] [place] [address] PCP - [employer] Medicare Attributed 04/16/24 07/14/24 Donaldo Villareal MD Family Medicine 02/06/17 Alfonso George DO Radio Installer Cardiovascular Disease 05/15/18 Edward Mak MD Physician Rheumatology 05/15/18 Lupe Osorio MD [address] [place], [place] [phone] Physician Hematology Oncology 05/15/18 Lynn Teran MD [address] [place] [address] Physician Gastroenterology 05/15/18 Farhana Rojas PsyD [address] [place] [address] Clinical Psychologist Psychology 05/27/18 Dorota Carpenter MD [address] [place] [address] Urogynecology 12/28/21 documented as of this encounter
--- OUTSIDE RECORDS SUMMARY | 2025-01-01 16:27 | XMS_ITS | Encounter Summary ---
Author Organization [facility] and [facility] Address [address] [place] [phone] Care Team Providers Care Prison Guard Name Role Phone No, Pcp (Do Not Change Name) Primary Care Provid er Unavailable Reason for Visit * Reason Comments Medication Refill Encounter Details Date Type Department Care Team (Late Contact Info) Description 07/23/2020 Refill [facility] [address] [place] [address] [address] [place], [place] [address] Edward Mak MD [address] [place] [phone] Medication Refill Social History Tobacco Use Types [...] or Dennis 12/10/2022 11 :34 AM EDT COVID-19 Exposure Response Date Recorded In the last month, have you been in contact with someone who was confirmed or suspected to have Coronavirus / COVID-19? No / Unsure 07/19/2020 2:18 PM EDT documented as of this encounter Miscellaneous Notes * Telephone Encounter - Erica Briseno RN - 07/23/2020 4:41 PM EDT Last visit: 07/20/20 Next visit:11/08/20 Last labs: Lab Results Component Value Date [...] documented as of this encounter Care Teams Prison Guard Relationship Specialty Start Date End Date No, Pcp (Do Not Change Name) PCP - General 04/21/20 documented as of this encounter
--- OUTSIDE RECORDS SUMMARY | 2025-01-01 16:27 | XMS_ITS | Encounter Summary ---
Author Organization [facility] and [facility] Address [address] [place] [phone] Care Team Providers Care Industrial Mechanic Name Role Phone No, Pcp (Do Not Change Name) Primary Care Provid er Unavailable Reason for Visit * Reason Comments Medication Refill Encounter Details Date Type Department Care Team ([facility] Contact Info) Description 04/11/2021 Refill [facility] [address] [place] [address] [address] [place] [address] Edward Mak MD [address] [place] [phone] Medication Refill Social History Tobacco Use Types [...] Telephone Encounter - Aleksandra Dominguez RN - 04/12/2021 8:19 AM EST MARTÍN PT: (on 400 mg TID) Last visit: 12/27/2020 Next visit: 05/03/2021 Last labs: Lab Results Component Value Date [...] documented as of this encounter Care Teams Industrial Mechanic Relationship Specialty Start Date End Date No, Pcp (Do Not Change Name) PCP - General 04/21/20 documented as of this encounter
--- OUTSIDE RECORDS SUMMARY | 2025-01-01 16:27 | XMS_ITS | Encounter Summary ---
Author Organization [facility] Address [address] [place] [phone] Care Team Providers Care Discharge Specialist Name Role Phone No, Pcp (Do Not Change Name) Primary Care Provid er Unavailable Reason for Visit * Reason Comments Medication Refill Encounter Details Date Type Department Care Team ([facility] st Contact Info) Description 05/10/2021 Refill Medical Dermatology at [address] [phone] Omar Jose MD [address] [place] [phone] Medication Refill Social History Tobacco Use [...] documented in this encounter Additional Health Concerns Assessment Noted Time PHQ-9 Depression Total Score: 17 021 4:23 PM EDT documented as of this encounter Care Teams Discharge Specialist Relationship Specialty Start Date End Date No, Pcp (Do Not Change Name) PCP - General 04/21/20 documented as of this encounter
--- OUTSIDE RECORDS SUMMARY | 2025-01-01 16:27 | XMS_ITS | Encounter Summary ---
Author Organization [facility] Address [address] [place] [phone] Care Team Providers Care Scalp Treatment Specialist Name Role Phone No, Pcp (Do Not Change Name) Primary Care Provid er Unavailable Reason for Visit * Reason Comments Medication Refill Encounter Details Date Type Department Care Team ([facility] st Contact Info) Description 12/14/2020 Refill Medical Dermatology at [address] [phone] Omar Jose MD [address] [place] [phone] Medication Refill Social History Tobacco Use [...] documented as of this encounter Care Teams Scalp Treatment Specialist Relationship Specialty Start Date End Date No, Pcp (Do Not Change Name) PCP - General 04/21/20 documented as of this encounter
--- OUTSIDE RECORDS SUMMARY | 2025-01-01 16:27 | XMS_ITS | Encounter Summary ---
Author Organization [facility] Address [address] [place] [phone] Care Team Providers Care Gas Main And Line Fitter Name Role Phone No, Pcp (Do Not Change Name) Primary Care Provid er Unavailable Reason for Visit * Reason Comments Medication Refill Encounter Details Date Type Department Care Team ([facility] st Contact Info) Description 08/17/2020 Refill Medical Dermatology at [address] [address] Omar Jose MD [address] [place] [phone] Medication Refill Social History Tobacco Use [...] documented as of this encounter Care Teams Gas Main And Line Fitter Relationship Specialty Start Date End Date No, Pcp (Do Not Change Name) PCP - General 04/21/20 documented as of this encounter
--- OUTSIDE RECORDS SUMMARY | 2025-01-01 16:27 | XMS_ITS | Encounter Summary ---
Author Organization [facility] Address [address] [place] [address] Care Team Providers Care Pecan Grower Name Role Phone Donaldo Villareal MD Primary Care Provider + Donaldo Villareal MD Unavailable Alfonso George DO Unavailable [phone] Edward Mak MD Unavailable [phone] Lupe Osorio MD Unavailable Lynn Teran MD Unavailable Farhana Rojas PsyD Unavailable Services-[facility], [facility] Care Provider Dorota Carpenter MD Unavailable Pcp, No Primary Care Provider Unavailabl e System, Provider Not In Primary Care Provider Un available Pcp, No Primary Care Provider Unavailabl e Edward Mak MD Primary Care Provider Services, [facility] Primary Care Provider Nitza Dial MD Unavailable Janeth Page APRN Unavailable [phone] Encounter Details Date Type Department Care Team (Late st Contact Info) Description 10/28/2019 Scanned Document [facility] CENTRAL LAB TECHNICIAN [address] [place] [address] Lisa Contreras MD [address] [place] [phone] Social History Tobacco Use Types Packs/Day Years [...] on filedocumented in this encounter Care Teams Pecan Grower Relationship Specialty Start Date End Date Donaldo Villareal MD PCP - General Family Medicine 02/06/17 07/08/20 Services-[facility] [address] [place] [address] PCP - General 07/09/20 12/26/22 Pcp, No PCP - General General Medicine 12/27/22 01/17/23 System, Provider Not In PCP - General 01/18/23 05/06/23 Pcp, No PCP - General General Medicine 05/07/23 06/26/23 Edward Mak MD PCP - General 06/27/23 07/15/23 [facility], [facility] [address] [place] [address] [address] [place] [address] PCP - General 07/16/23 Nitza Dial MD [address] [place] [address] PCP - [employer] Medicare Attributed 07/16/23 04/15/24 Janeth Page, VESSEL TRAFFIC OFFICER [address] [place] [address] PCP - [employer] Medicare Attributed 04/16/24 07/14/24 Donaldo Villareal MD Family Medicine 02/06/17 Alfonso George DO [employer] Flatbed Truck Driver Cardiovascular Disease 05/15/18 Edward Mak MD Physician Rheumatology 05/15/18 Lupe Osorio MD [address] [place] [phone] Physician Hematology Oncology 05/15/18 Lynn Teran MD [address] [place] [address] Physician Gastroenterology 05/15/18 Farhana Rojas PsyD [address] [place] [address] Clinical Psychologist Psychology 05/27/18 Dorota Carpenter MD [address] [place] [phone] Urogynecology 12/28/21 documented as of this encounter
--- OUTSIDE RECORDS SUMMARY | 2025-01-01 16:27 | XMS_ITS | Encounter Summary ---
Author Organization [facility] Address [address] [place] [address] Care Team Providers Care Uncrater Name Role Phone Donaldo Villareal MD Primary Care Provider + Donaldo Villareal MD Unavailable [phone] Alfonso George DO Unavailable [phone] Edward Mak MD Unavailable [phone] Lupe Osorio MD Unavailable Lynn Teran MD Unavailable Farhana Rojas PsyD Unavailable [phone] Services-[facility], [facility] Care Provider Dorota Carpenter MD Unavailable Pcp, No Primary Care Provider Unavailabl e System, Provider Not In Primary Care Provider Un available Pcp, No Primary Care Provider Unavailabl e Edward Mak MD Primary Care Provider Services, [facility] Primary Care Provider Nitza Dial MD Unavailable Jaenth Page APRN Unavailable [phone] Reason for Visit * Reason Comments Medication Refill Encounter Details Date Type Department Care Team (Late st Contact Info) Description 10/16/2019 Refill [facility] Bariatric Surgery [address] [place] [phone] Sarah Mathews, HAIR SPRING CUTTER [address] [address] Gastroesophageal reflux disease without esophagitis Social History [...] reflux documented in this encounter Care Teams Uncrater Relationship Specialty Start Date End Date Donaldo Villareal MD PCP - General Family Medicine 02/06/17 07/08/20 Services-[facility] [address] [place] [address] PCP - General 07/09/20 12/26/22 Pcp, No PCP - General General Medicine 12/27/22 01/17/23 System, Provider Not In PCP - General 01/18/23 05/06/23 Pcp, No PCP - General General Medicine 05/07/23 06/26/23 Edward Mak MD PCP - General 06/27/23 07/15/23 [facility], [facility] [address] [place], [place] [address] PCP - General 07/16/23 Nitza Dial MD [address] [place] [address] PCP - [employer] Medicare Attributed 07/16/23 04/15/24 Janeth Page, HAIR SPRING CUTTER [address] [place] [address] PCP - [employer] Medicare Attributed 04/16/24 07/14/24 Donaldo Villareal MD Family Medicine 02/06/17 Alfonso George DO Cord Tire Builder Cardiovascular Disease 05/15/18 Edward Mak MD Physician Rheumatology 05/15/18 Lupe Osorio MD [address] [place] [phone] Physician Hematology Oncology 05/15/18 Lynn Teran MD [address] [place] [address] Physician Gastroenterology 05/15/18 Farhana Rojas, PsBonita [address] [place] [address] Clinical Psychologist Psychology 05/27/18 Dorota Carpenter MD [address] [place] [address] Urogynecology 12/28/21 documented as of this encounter
--- OUTSIDE RECORDS SUMMARY | 2025-01-01 16:27 | XMS_ITS | Encounter Summary ---
Author Organization [facility] Address [address] [place] [phone] Care Team Providers Care Clearing Distribution Clerk Name Role Phone No, Pcp (Do Not Change Name) Primary Care Provid er Unavailable Reason for Visit * Reason Comments Medication Refill Encounter Details Date Type Department Care Team ([facility] st Contact Info) Description 07/13/2020 Refill Medical Dermatology at [address] [address] Omar Jose MD [address] [place] [phone] Medication Refill Social History Tobacco Use [...] have Coronavirus / COVID-19? No / Unsure 06/25/2020 12:13 PM EST documented as of this encounter [...] documented as of this encounter Care Teams Clearing Distribution Clerk Relationship Specialty Start Date End Date No, Pcp (Do Not Change Name) PCP - General 04/21/20 documented as of this encounter
--- OUTSIDE RECORDS SUMMARY | 2025-01-01 16:27 | XMS_ITS | Encounter Summary ---
Author Organization [facility] Address [address] [place] [phone] Care Team Providers Care Insurance Agency Owner Name Role Phone No, Pcp (Do Not Change Name) Primary Care Provid er Unavailable Reason for Visit * Reason Comments Medication Refill Encounter Details Date Type Department Care Team ([facility] Contact Info) Description 11/13/2020 Refill [facility] at [address] [place] [address] [address] [place] [address] Edward Mak MD [address] [place] [phone] Medication Refill Social History Tobacco Use Types [...] encounter Miscellaneous Notes * Telephone Encounter - Calderoni, Aleksandra, RN - 11/15/2020 8:01 AM EDT Last visit: 07/20/2020 Next visit: 12/21/2020 Last labs: Lab Results Component Value Date [...] documented as of this encounter Care Teams Insurance Agency Owner Relationship Specialty Start Date End Date No, Pcp (Do Not Change Name) PCP - General 04/21/20 documented as of this encounter
--- OUTSIDE RECORDS SUMMARY | 2025-01-01 16:27 | XMS_ITS | Encounter Summary ---
Author Organization [facility] Address [address] [place] [phone] Care Team Providers Care Bariatric Program Coordinator Name Role Phone No, Pcp (Do Not Change Name) Primary Care Provid er Unavailable Reason for Visit * Reason Comments Medication Refill Encounter Details Date Type Department Care Team ([facility] st Contact Info) Description 02/03/2021 Refill Medical Dermatology at [address] [phone] Omar Jose MD [address] [place] [phone] Medication Refill Social History Tobacco Use [...] Assessment Noted Time PHQ-9 Depression Total Score: 021 4:23 PM EDT documented as of this encounter Care Teams Bariatric Program Coordinator Relationship Specialty Start Date End Date No, Pcp (Do Not Change Name) PCP - General 04/21/20 documented as of this encounter
--- OUTSIDE RECORDS SUMMARY | 2025-01-01 16:27 | XMS_ITS | Clinical Summary ---
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# EXT_ID: [id number] MDD (major depressive disord er), recurrent episode, moderate 03/28/2018 Overview (06/12/2019): Overview Note: MDD (major depressive disorder #410536# EXT_ID: [id number] Fibromyalgia 01/29/2018 Overview (06/12/2019): Overview Note: Fibromyalgia #035785# EXT_ID: [id number] Fibromyalgia 01/29/2018 Irritable bowel syndrome 10/16/2012 Overview (06/12/2019): Overview Note: Irritable bowel syndrome #39743# EXT_ID: [id number] Disease of immune system ([facility]) 013 Overview (06/27/2019): Overview Note: Endometriosis #41731# EXT_ID: [id number] Asthma 10/16/2012 Overview (06/12/2019): Overview Note: Asthma #21801# EXT_ID: [id number] Ovarian cyst 10/16/2012 Overview (06/12/2019): Overview Note: Ovarian cyst #85341# EXT_ID: [id number] Immunizations Immunization Administration Dates Next Due Flu, [...] Imm-Pneumococcal (1 of 2 - PCV) 2004 Imm-HPV (1 - 3-dose SCDM series) 2012 Depression Monitoring 02/16/2023 11/16/2022 , 08/24/2022, 07/21/2022, [...] 09/15/2020 Hepatitis C Screening Completed 08/24/2023, 020 [id number] Completed 01/22/2024, 01/15, 02/18/2021, Additional history exists [...] EST) GLUCOSE 105(H) 65 - 99 mg/dL [facility] Comment: Fasting reference interval For someone without known diabetes, a glucose value between 100 and 125 mg/dL is consistent with prediabetes and should be confirmed with a follow-up test. UREA NITROGEN (BUN) 9 7 - 25 mg/dL [facility] CREATININE (blood) 0.97 0.50 - 0.97 mg/dL [facility] EGFR 78 > OR = 60 mL/min/1 .73m2 [facility] Comment: The eGFR is based on the CKD-EPI 2020 equation. To calculate the new eGFR from a previous Creatinine or Cystatin C result, go to https://www.kidney.org/professionals/ kdoqi/gfr%5Fcalculator BUN/CREATININE RATIO NOT APPLICABLE 6 - 22 (calc) [facility] SODIUM 136 135 - 146 mmol/L [facility] POTASSIUM 4.2 3.5 - 5.3 mmol/L [facility] CHLORIDE 102 98 - 110 mmol/L [facility] CARBON DIOXIDE 23 20 - 32 mmol/L [facility] CALCIUM 9.5 8.6 - 10.2 mg/dL [facility] PROTEIN, TOTAL 7.3 6.1 - 8.1 g/dL [facility] ALBUMIN 3.9 3.6 - 5.1 g/dL [facility] GLOBULIN 3.4 1.9 - 3.7 g/dL (calc) [facility] ALBUMIN/GLOBULI N RATIO 1.1 1.0 - 2.5 (calc) [facility] BILIRUBIN, TOTAL 0.5 0.2 - 1.2 mg/dL [facility] ALKALINE PHOSPHATASE 83 31 - 125 U/L [facility] AST 13 10 - 30 U/L [facility] ALT 6 6 - 29 U/L [email or web address] Blood Blood / Unknown 05/24/2022 8 :32 AM EST 05/24/2022 7:18 PM EST Cindi Burns COLORIST FORMULATOR LAB - BLOOD DRAW Final Resul t [facility] [address] [address], [facility] [address] [address] * PAP SMEAR W/HPV (08/25/2020) PAP SMEAR INTERPRETATION NORMAL [facility] Swab 08/25/2020 Provider [facility] - PATHOLOGY AND CYTOLOGY AMB ULATORY Final Result [facility] [address] [place] [phone], from Last 3 Months or Most Recently Relevant to Health Maintenance Insurance [place] Member Subscriber Plan / Payer (Ef fective 2022-Present) Name:Gloria Salazar Relation to Subscriber:Self Name:Gloria Salazar Payer ID:[id number] Group ID:Not on file Type:Medicaid Address: [address] [address] Commissioner Relationship Specialty Start Date End Date Provider, Outside N/A N/A PCP - General Specialist - Other Service Providers 09/10/24
--- OUTSIDE RECORDS SUMMARY | 2025-01-01 16:27 | XMS_ITS | Clinical Summary ---
Author Organization [facility] Address [address] [place] [address] Care Team Providers Care Correctional Nurse Name Role Phone Donaldo Villareal MD Unavailable Alfonso George DO Unavailable [phone] Edward Mak MD Unavailable [phone] Lupe Osorio MD Unavailable [phone] Lynn Teran MD Unavailable Farhana oRjasyD Unavailable Dorota Carpenter MD Unavailable [facility], [facility] Primary Care Provider Allergies Active Allergy Reactions Criticality Noted Date Comments Molds & Smuts Unknown/Patient and Family Unable to Define Medium 02/02/2015 Pollen Extract Other (See Comments) 06/25/2020 Other reaction(s): Unknown Medications * This document contains information received from the source organization and may not represent a complete record from that organization. Multiple Vitamins-Minerals (MULTIVITAMIN WITH MINERALS) tablet Take 1 tablet by mouth every morning. Active Cannabidiol Non-THC (CBD) Misc [place]/Smoke/Vapor/ Oil Inhale as needed. Active gabapentin (NEURONTIN) 300 MG capsule Take 2 capsules (600 mg total) by mouth 3 (three) times a day with meals. 06/16/19 20 Active busPIRone (BUSPAR) 15 MG tablet Take 1 tablet (15 mg total) by mouth 3 (three) times a day. 11/08/19 Active OMEprazole (PriLOSEC OTC) 20 MG tablet Take 1 tablet (20 mg total) by mouth nightly. Active atomoxetine (STRATTERA) 60 MG capsule Take 1 capsule (60 mg total) by mouth every morning. 09/05/19 Active buPROPion (WELLBUTRIN XL) 300 MG 24 hr tablet Take 1 tablet (300 mg total) by mouth every morning. 08/28/19 Active sertraline (ZOLOFT) 100 MG tablet Take 1 tablet (100 mg total) by mouth 2 (two) times a day before lunch and dinner. TAKE 1.5 TABLETS (150 MG) BY MOUTH EVERY DAY WITH FOOD. 09/06/19 Active albuterol (PROVENTIL HFA; VENTOLIN HFA) 108 (90 Base) MCG/ACT inhaler Inhale 2 puffs 4 times daily (every 6 hours) as needed for wheezing or shortness of breath. Active hydrOXYzine HCl (ATARAX) 50 MG tablet TAKE 1- 3 TABLETS NEEDED FOR SLEEP AT BEDTIME 01/28/20 Active inFLIXimab (REMICADE) 100 MG injection Infuse 5 mg/kg into a venous catheter once. Active spacer for MDI (Aerochamber/Breat heRite/Ellipse) DeviceIndications: Moderate persistent asthma without complication Use as instructed 1 each 05/07/19 Active acetaminophen (TYLENOL) 325 MG tabletIndications: Pyelonephritis Take 3 tablets (975 mg total) by mouth 4 times daily (every 6 hours) as needed for mild pain. 06/29/19 24 Active rosuvastatin (CRESTOR) 5 MG tablet Take 1 tablet (5 mg total) by mouth nightly. 07/18/19 Active estradiol (ESTRACE) 0.5 MG tablet Take 1 tablet (0.5 mg total) by mouth every morning. 06/26/19 24 Active prazosin (MINIPRESS) 2 MG capsule TAKE 1 CAPSULE AT BEDTIME FOR 30 DAYS 05/09/19 Active cyclobenzaprine (FLEXERIL) 5 MG tablet TAKE 1 TABLET BY MOUTH 3 TIMES DAILY NEEDED FOR MUSCLE SPASMS FOR UP TO 10 DAYS. 06/29/19 Active lamoTRIgine (LaMICtal) 25 MG tablet Take 1 tablet (25 mg total) by mouth every morning. 01/22/20 24 Active ondansetron (ZOFRAN-ODT) 4 MG disintegrating tabletIndications: Pain due to ureteral stent, initial encounter Take 2 tablets (8 mg total) by mouth 3 times daily (every 8 hours) as needed for nausea or vomiting. Place tablet on tongue to dissolve. 15 tablet 02/12/20 24 Active oxyCODONE-acetamin ophen (PERCOCET) 5-325 mg per tablet Take 1 tablet by mouth Every 4 (four) to 6 (six) hours as needed for severe pain. Max Daily Amount: 6 tablets 12 tablet 02/15/20 24 Active ibuprofen (MOTRIN) 600 MG tablet Take 1 tablet (600 mg total) by mouth 4 times daily (every 6 hours) as needed for moderate pain, fever or headaches. 30 tablet 02/15/20 24 Active phenazopyridine (PYRIDIUM) 200 MG tablet Take 1 tablet (200 mg total) by mouth 3 (three) times a day as needed for bladder spasms (urinary discomfort). 10 tablet 02/15/20 24 Active oxybutynin (DITROPAN XL) 15 MG 24 hr tabletIndications: Urinary urgency Take 1 tablet (15 mg total) by mouth daily. 90 tablet 1 04/03/20 24 Active cefpodoxime (VANTIN) 200 MG tabletIndications: Pyelonephritis Take 1 tablet (200 mg total) by mouth 2 (two) times a day. 8 tablet 09/21/19 22 022 Discontin ued(Stop Taking at Discharge ) Active Problems Problem Noted Date Diagnosed Date Preoperative examination 02/08/2024 Assessment & Plan (02/08/2024 12:31 PM EDT): Proceed with surgery / procedure with known risks Deep vein thrombosis prophylaxis regimen to be chosen by surgical team Patient to follow-up postoperatively for continued chronic disease management with their primary care and appropriate specialists Ankylosing spondylitis 02/08/2024 Assessment & Plan (02/08/2024 12:30 PM EDT): Managed on Remicade, hold 5 weeks Associated chronic pain managed with gabapentin, cyclobenzaprine and Tylenol Follows with rheumatology, Dr. 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 Mixed hyperlipidemia 05/30/2018 Anxiety disorder 05/15/2018 Arthritis 05/15/2018 Asthma 05/15/2018 Chronic back pain 05/15/2018 Depression 05/15/2018 Assessment & Plan (02/08/2024 12:28 PM EDT): Managed on Zoloft, buspirone, Wellbutrin, atomoxetine and lamotrigine Mood stable VIVEK (obstructive sleep apnea) 05/15/2018 Autoimmune disorder 05/15/2018 Learning disability 05/15/2018 Atypical chest pain 05/08/2018 GERD (gastroesophageal reflux disease) 7 Assessment & Plan (02/08/2024 12:31 PM EDT): Managed on omeprazole Morbid obesity due to excess calories 01/31/2017 Assessment & Plan (02/08/2024 12:29 PM EDT): Status post laparoscopic sleeve procedure 2018 BMI 45.7 Due to diet/sedentary lifestyle. Irritable bowel syndrome (IBS) 01/31/2017 OAB (overactive bladder) Assessment & Plan (02/08/2024 12:30 PM EDT): Managed on oxybutynin and prazosin Recurrent UTI Resolved Problems Problem Noted Date Diagnosed Date Resolved Date Anemia 05/15/2018 09/18/2018 Constipation 01/31/2017 05/15/2018 Family History Medical History Relation Name Comments Neurological Disorders Brother Diabetes Father Heart disease Father Hypertension Father Neurological Disorders Father Obesity Father Stroke Father Thyroid disease Father Colon cancer Maternal Grandfather Heart disease Maternal Grandfather Hypertension Maternal Grandfather Obesity Maternal Grandfather Bleeding Disorder Maternal Grandmother Blood Clots Maternal Grandmother Breast cancer Maternal Grandmother Hyperlipidemia Maternal Grandmother Obesity Maternal Grandmother Diabetes Mother Hypertension Mother Neurological Disorders Mother Obesity Mother Stroke Mother Thyroid disease Mother Heart disease Paternal Grandfather Hypertension Paternal Grandfather Obesity Paternal Grandfather Breast cancer Paternal Grandmother Lung cancer Paternal Grandmother Neurological Disorders Son Relation Name Status Comments Brother Father Maternal Grandfather Maternal Grandmother Mother Paternal Grandfather Paternal Grandmother Son Social History Tobacco Use Types Packs/Day Years Used Date Smoking Tobacco: Former Cigarettes Q uit: 2015 Passive Smoke Exposure: Never Smokeless Tobacco: Never Tobacco Cessation:Counseling Given: Not Answered Alcohol Use Standard Drinks/Week Comments Yes 0 (1 standard drink = 0.6 oz pur e alcohol) 1 a year [facility] [employer] Answer Date Recorded In the past 12 months has th e [employer], gas, oil, or water company threatened to [...] place to sleep or slept in a intermediate (including now)? No 06/27/2023 Comments No Sex and Gender Information Value Date Recorded Sex Assigned at Female 12/27/2022 11:07 AM EDT Legal Sex Female 3:23 PM EDT Gender Identity Female 04/28/2024 11:36 PM EST Sexual Orientation Choose not to disclose 2023 12:48 PM EDT Last Filed Vital Signs Vital Sign Reading Time Taken Comments Blood Pressure 133/85 02/15/2024 10:06 PM EDT Pulse 80 02/15/2024 10:06 PM EDT Temperature 36.8 C (98.2 F) 02/15/2024 10:06 PM EDT Respiratory Rate 18 02/15/2024 10:06 PM EDT Oxygen Saturation 100% 02/15/2024 10:06 PM EDT Inhaled Oxygen Concentration - - Weight 126 kg (277 lb 11.2 oz) 02/12/2024 9:18 A M EDT Height 165.1 cm (5' 5 ) 02/12/2024 9:18 AM EDT Body Mass Index 46.21 02/12/2024 9:18 AM EDT Plan of Treatment Health Maintenance Due Date Last Done Comments Quantiferon Gold TB 11/10/1995 DTaP/Tdap/Td Vaccines (1 - Tdap) 2004 Hepatitis B Vaccines (1 of 3 - 19+ 3-dose series) 2004 Pneumococcal Vaccine: Pediat carmine (0-5 Years) and At-Risk Patients (6 to 49 Years) (1 of 2 - PCV) 2004 HPV Vaccines (1 - 3-dose SCD M series) 2012 Pap Smear (Ages 21-65) 08/26/2023 08/25/2020 Influenza Vaccine 11/14/2024 01/22/2024, , 02/05/2022, Additional history exists COVID-19 Vaccine (6 - Pfizer risk 2023- season) 2024 01/22/2024, 02/05/2022, 02/18/2021, Additional history exists HIV Screening Completed 03/21/2023, 02/15, 09/15/2020 Hepatitis C Virus Screening Completed 09/2022, 03/10/2022, 09/15/2020 Goals Goal Patient Goal Type Associated Problems Recent Progress Patient-Stated? Author Decrease soda or juice intake Diet No Ruma Amezquita RD Increase physical activity Lifestyle No Ruma Amezquita RD Medical Devices Explanted Type Area Skill Training Program Coordinator Device Identifier Shelf Expiration Date Model / Serial / Lot [id number] Stent Ureteral 6fr 26cm Pigtail Curve Taper Tip Bldr [employer] - [id number] Implanted:Qty : 1 on 02/12/2024 by Bin Almaguer MD at [facility] Explanted:Qty : 1 on 02/14/2024 by Jd Johnston MD Stent N/A: Ureter GeoOP JAIRO [id number] 09/30/2026 [id number] Procedures Procedure Name Priority Date/Time Associated Diagnosis Comments HIV 1/2 AG/AB CMIA REFLEX TO CONFIRMATION Routine 03/21/2023 2:28 PM EST HEPATITIS C VIRUS (HCV) ANTIBODY Routine 03/21/2023 2:28 PM EST THINPREP PAP TEST (INDUSTRIAL CHEMISTRY TEACHER) WITH HPV REFLEX, GC/CT Routine 08/25/2020 4:54 PM EDT from Last 3 Months or Most Recently Relevant to Health Maintenance Results * HIV 1/2 Ag/Ab CMIA Reflex to Confirmation (03/21/2023 2:28 PM EST) HIV Ag/Ab, 4th Gen Non-Reacti ve Non-Reacti ve [facility] Comment: Results show no evidence of infection by HIV 1/2. If clinically indicated, repeat CMIA or test by nucleic acid amplification. 03/21/2023 2:28 PM EST 03/22/2023 1:29 AM EST Carolina Akers [facility] BLOOD ORDERABLES Final R esult [facility] [address], [place] * HEPATITIS C VIRUS (HCV) ANTIBODY (03/21/2023 2:28 PM EST) Hepatitis C Antibody 0.33 Non-Reacti ve Non-Reacti ve S/CO [facility] 03/21/2023 2:28 PM EST 03/22/2023 1:29 AM EST Carolinaabdulkadir Akers CNM LAB BLOOD ORDERABLES Final R esult Performing Organization Address [facility]/ZIP Co de Phone Number [facility] [address], [place] * ThinPrep Pap Test (Resolute Professional) with HPV Reflex, GC/CT (08/25/2020 4:54 PM EDT) Report Report [facility] Comment: Final Gynecological Cytology Report ThinPrep Pap Test with HPV Reflex, GC/Chlamydia SPECIMEN ADEQUACY: SATISFACTORY FOR EVALUATION; ENDOCERVICAL/TRANSFORMATION ZONE COMPONENT PRESENT. INTERPRETATION: NEGATIVE FOR INTRAEPITHELIAL LESION OR MALIGNANCY. Electronically Signed: Maggie Jane CT (ASCP) CLINICAL INFORMATION: LMP: NG Specimen Source: Cervix, Endocervix CPT Codes: 28339 ICD Codes: Z01.419 Other 08/25/2020 4:54 PM EDT 08/26/2020 4:15 AM EDT Farnaz Lyles APRN LAB AMB PATH/CYTO ORDERABLES Fi nal Result Performing Organization Address City/[facility]/ZIP Co de Phone Number [facility] [address], [place] from Last 3 Months or Most Recently Relevant to Health Maintenance Insurance [facility] MEDICARE [facility] MEDICARE [facility] AETNA MGD MEDICARE [facility] AETNA MGD MEDICARE [facility] Advance Directives * Full Code (Latest Code Status on File) Date Activated Date Inactivated Comments 06/26/2023 1:47 PM 02/12/2024 8:53 AM * Full Code Date Activated Date Inactivated Comments 09/17/2021 12:07 AM 06/26/2023 8:59 AM * Full Code Date Activated Date Inactivated Comments 01/12/2019 7:36 AM 12/07/2019 3:06 PM * Full Code Date Activated Date Inactivated Comments 11/05/2018 8:51 AM 11/23/2018 10:25 PM Care Teams Correctional Nurse Relationship Specialty Start Date End Date Services, [facility] [address] [place] [address] PCP - General 07/16/23 Donaldo Villareal MD Family Medicine 02/06/17 Alfonso George DO Periodicals Library Assistant Cardiovascular Disease 05/15/18 Edward Mak MD Physician Rheumatology 05/15/18 Lupe Osorio MD [address] [place] [phone] Physician Hematology Oncology 05/15/18 Lynn Teran MD [address] [place] [address] Physician Gastroenterology 05/15/18 Farhana Rojas PsyD [address] [place] [address] Clinical Psychologist Psychology 05/27/18 Dorota Carpenter MD [address] [place] [address] Urogynecology 12/28/21
--- OUTSIDE RECORDS SUMMARY | 2025-01-01 16:27 | XMS_ITS | Encounter Summary ---
Author Organization [facility] Address [address] [place] [id number] Care Team Providers Care Suction Plate Roller Hand Name Role Phone No, Pcp (Do Not Change Name) Primary Care Provid er Unavailable Reason for Visit * Reason Comments Medication Refill Encounter Details Date Type Department Care Team (Late Contact Info) Description 12/14/2020 Refill [facility] [address] [place] [address] [address] [place] [address] Edward Mak MD [address] [place] [phone] Medication Refill Social History Tobacco Use Types [...] documented as of this encounter Care Teams Suction Plate Roller Hand Relationship Specialty Start Date End Date No, Pcp (Do Not Change Name) PCP - General 04/21/20 documented as of this encounter
--- OUTSIDE RECORDS SUMMARY | 2025-01-01 16:27 | XMS_ITS | Encounter Summary ---
Author Organization [facility] Address [address] [place] [address] Care Team Providers Care Route Delivery Manager Name Role Phone Donaldo Villareal MD Primary Care Provider + Donaldo Villareal MD Unavailable [phone] Alfonso George DO Unavailable [phone] Edward Mak MD Unavailable [phone] Lupe Osorio MD Unavailable [phone] Lynn Teran MD Unavailable Farhana Rojas PsyD Unavailable Services-[facility], [facility] Care Provider Dorota Carpenter MD Unavailable Pcp, No Primary Care Provider Unavailabl e System, Provider Not In Primary Care Provider Un available Pcp, No Primary Care Provider Unavailabl e Edward Mak MD Primary Care Provider Services, [facility] Primary Care Provider Nitza Dial MD Unavailable Janeth Page APRN Unavailable [phone] Encounter Details Date Type Department Care Team (Late st Contact Info) Description 05/07/2020 Scanned Document [facility] Bariatric Surgery [address] [place] [address] Sarah Mathews, LEAD TECHNICAL WRITER [address] [address] Social History Tobacco Use Types Packs/Day Years [...] have Coronavirus / COVID-19? No / Unsure 05/10/2020 4:03 PM EST documented as of this encounter Plan of Treatment Not on file documented as of this encounter Goals Goal Patient Goal Type Associated Problems Recent Progress Patient-Stated? Author Decrease soda or juice intake Diet No Ruma Amezquita RD Increase physical activity Lifestyle No Ruma Amezquita RD documented as of this encounter Visit Diagnoses Not on filedocumented in this encounter Care Teams Route Delivery Manager Relationship Specialty Start Date End Date Donaldo Villareal MD PCP - General Family Medicine 02/06/17 07/08/20 Services-[facility], [facility] [address] [place] [address] PCP - General 07/09/20 12/26/22 Pcp, No PCP - General General Medicine 12/27/22 01/17/23 System, Provider Not In PCP - General 01/18/23 05/06/23 Pcp, No PCP - General General Medicine 05/07/23 06/26/23 Edward Mak MD PCP - General 06/27/23 07/15/23 [facility], [facility] [address] [facility] [address] [place], [place] [address] [phone] PCP - General 07/16/23 Nitza Dial MD [address] [place] [address] PCP - [employer] Medicare Attributed 07/16/23 04/15/24 Janeth Page, LEAD TECHNICAL WRITER [address] [place] [address] PCP - [employer] Medicare Attributed 04/16/24 07/14/24 Donaldo Villareal MD Family Medicine 02/06/17 Alfonso George DO Snow Maker Cardiovascular Disease 05/15/18 Edward Mak MD Physician Rheumatology 05/15/18 Lupe Osorio MD [address] [place] [phone] Physician Hematology Oncology 05/15/18 Lynn Teran MD [address] [place] [address] Physician Gastroenterology 05/15/18 Farhana Rojas, PsyD [address] [place] [phone] Clinical Psychologist Psychology 05/27/18 Dorota Carpenter MD [address] [place] [phone] Urogynecology 12/28/21 documented as of this encounter
--- OUTSIDE RECORDS SUMMARY | 2025-01-01 16:27 | XMS_ITS | Encounter Summary ---
Author Organization [facility] Address [address] [place] [address] Care Team Providers Care Post Form Remover Name Role Phone Donaldo Villareal MD Primary Care Provider + Donaldo Villareal MD Unavailable [phone] Alfonso George DO Unavailable [phone] Edward Mak MD Unavailable [phone] Lupe Osorio MD Unavailable Lynn Teran MD Unavailable Farhana Rojas PsyD Unavailable Services-[facility], [facility] Care Provider Dorota Carpenter MD Unavailable Pcp, No Primary Care Provider Unavailabl e System, Provider Not In Primary Care Provider Un available Pcp, No Primary Care Provider Unavailabl e Edward Mak MD Primary Care Provider Services, [facility] Primary Care Provider Nitza Dial MD Unavailable Janeth Page APRN Unavailable [phone] Encounter Details Date Type Department Care Team (Late st Contact Info) Description 11/11/2018 Scanned Document [facility] Bariatric Surgery [address] [place] [address] Charity Wakefield MD [address] [place] [address] [phone] Social History Tobacco Use Types Packs/Day Years [...] on filedocumented in this encounter Care Teams Post Form Remover Relationship Specialty Start Date End Date Donaldo Villareal MD PCP - General Family Medicine 02/06/17 07/08/20 Services-[facility] [address] [place], [place] [address] PCP - General 07/09/20 12/26/22 Pcp, No PCP - General General Medicine 12/27/22 01/17/23 System, Provider Not In PCP - General 01/18/23 05/06/23 Pcp, No PCP - General General Medicine 05/07/23 06/26/23 Edward Mak MD PCP - General 06/27/23 07/15/23 Services, [facility] [address] [place] [address] [address] [place], [place] [phone] PCP - General 07/16/23 Nitza Dial MD [address] [place] [address] PCP - A[employer] Medicare Attributed 07/16/23 04/15/24 Janeth Page, SUBSTATION TECHNICIAN [address] [place] [address] PCP - A[employer] Medicare Attributed 04/16/24 07/14/24 Donaldo Villareal MD Family Medicine 02/06/17 Alfonso George DO Bowling Ball Weigher And Packer Cardiovascular Disease 05/15/18 Edward Mak MD Physician Rheumatology 05/15/18 Lupe Osorio MD [address] [place] [phone] Physician Hematology Oncology 05/15/18 Lynn Teran MD [address] [place] [address] Physician Gastroenterology 05/15/18 Farhana Rojas PsyD [address] [place] [address] Clinical Psychologist Psychology 05/27/18 Dorota Carpenter MD [address] [address] Urogynecology 12/28/21 documented as of this encounter
--- OUTSIDE RECORDS SUMMARY | 2025-01-01 16:27 | XMS_ITS | Encounter Summary ---
Author Organization [facility] Address [address] [place] [address] Care Team Providers Care Biomass Production Manager Name Role Phone Donaldo Villareal MD Primary Care Provider + Donaldo Villareal MD Unavailable [phone] Alfonso George DO Unavailable [phone] Edward Mak MD Unavailable [phone] Lupe Osorio MD Unavailable Lynn Teran MD Unavailable Farhana Rojas PsyD Unavailable Services-[facility], [facility] Care Provider Dorota Carpenter MD Unavailable Pcp, No Primary Care Provider Unavailabl e System, Provider Not In Primary Care Provider Un available Pcp, No Primary Care Provider Unavailabl e Edward Mak MD Primary Care Provider Services, [facility] Primary Care Provider Nitza Dial MD Unavailable Janeth Page APRN Unavailable [phone] Encounter Details Date Type Department Care Team (Late st Contact Info) Description 05/04/2020 Scanned Document [facility] RADIOLOGICAL TECHNOLOGIST [address] [place] [phone] Lisa Contreras MD [address] [place] [phone] Social History Tobacco Use Types Packs/Day Years [...] on filedocumented in this encounter Care Teams Biomass Production Manager Relationship Specialty Start Date End Date Donaldo Vilalreal MD PCP - General Family Medicine 02/06/17 07/08/20 Services-[facility] [address] [place] [address] PCP - General 07/09/20 12/26/22 Pcp, No PCP - General General Medicine 12/27/22 01/17/23 System, Provider Not In PCP - General 01/18/23 05/06/23 Pcp, No PCP - General General Medicine 05/07/23 06/26/23 Edward Mak MD PCP - General 06/27/23 07/15/23 [facility], [facility] [address] [place] [address] [address] [place] [address] PCP - General 07/16/23 Nitza Dial MD [address] [place] [address] PCP - A[employer] Medicare Attributed 07/16/23 04/15/24 Janeth Page, A P SUPERVISOR [address] [place] [address] PCP - A[employer] Medicare Attributed 04/16/24 07/14/24 Donaldo Villareal MD Family Medicine 02/06/17 Alfonso George DO Plaster Foreman Cardiovascular Disease 05/15/18 Edward Mak MD Physician Rheumatology 05/15/18 Lupe Osorio MD [address] [place] [phone] Physician Hematology Oncology 05/15/18 Lynn Teran MD [address] [place] [address] Physician Gastroenterology 05/15/18 Farhana Rojas PsyD [address] [place] [address] Clinical Psychologist Psychology 05/27/18 Dorota Carpenter MD [address] [place] [phone] Urogynecology 12/28/21 documented as of this encounter
--- OUTSIDE RECORDS SUMMARY | 2025-01-01 16:27 | XMS_ITS | Encounter Summary ---
Author Organization [facility] Address [address] [place] [phone] Care Team Providers Care Mechanical Engineering Director Name Role Phone No, Pcp (Do Not Change Name) Primary Care Provid er Unavailable Reason for Visit * Reason Comments Medication Refill Encounter Details Date Type Department Care Team ([facility] Contact Info) Description 08/31/2021 Refill [facility] [address] [place] [address] [address] [place] [address] Edward Mak MD [address] [place] [phone] Medication Refill Social History Tobacco Use Types [...] Telephone Encounter - Aleksandra Dominguez RN - 08/31/2021 9:20 AM EDT Last visit: 08/09/2021 Next visit: Asked PFAS to schedule f/u appt Last labs: Lab Results Component Value Date [...] documented as of this encounter Care Teams Mechanical Engineering Director Relationship Specialty Start Date End Date No, Pcp (Do Not Change Name) PCP - General 04/21/20 documented as of this encounter
--- OUTSIDE RECORDS SUMMARY | 2025-01-01 16:27 | XMS_ITS | Encounter Summary ---
Author Organization [facility] Address [address] [place] [address] Care Team Providers Care Nozzleman Name Role Phone Donaldo Villareal MD Primary Care Provider + Donaldo Villareal MD Unavailable [phone] Alfonso George DO Unavailable [phone] Edward Mak MD Unavailable [phone] Lupe Osorio MD Unavailable Lynn Teran MD Unavailable Farhana Rojas PsyD Unavailable Services-[facility], [facility] Care Provider Dorota Carpenter MD Unavailable [phone] Pcp, No Primary Care Provider Unavailabl e System, Provider Not In Primary Care Provider Un available Pcp, No Primary Care Provider Unavailabl e Edward Mak MD Primary Care Provider Services, [facility] Primary Care Provider Nitza Dail MD Unavailable Janeth Page APRN Unavailable [phone] Encounter Details Date Type Department Care Team (Late st Contact Info) Description 08/11/2019 Scanned Document CC [facility] [employer] BUILDING MAINTENANCE SUPERINTENDENT [address] [place] [address] Lisa Contreras MD [address] [place] [id number] Social History Tobacco Use Types Packs/Day Years [...] on filedocumented in this encounter Care Teams Nozzleman Relationship Specialty Start Date End Date Donaldo Villareal MD PCP - General Family Medicine 02/06/17 07/08/20 Services-[facility] [address] [place] [address] PCP - General 07/09/20 12/26/22 Pcp, No PCP - General General Medicine 12/27/22 01/17/23 System, Provider Not In PCP - General 01/18/23 05/06/23 Pcp, No PCP - General General Medicine 05/07/23 06/26/23 Edward Mak MD PCP - General 06/27/23 07/15/23 [facility], [facility] [address] [place] [address] [address] [place] [address] PCP - General 07/16/23 Nitza Dial MD [address] [place] [address] PCP - [employer] Medicare Attributed 07/16/23 04/15/24 Janeth Page, VEHICLE CHECK IN CLERK [address] [place] [address] PCP - [employer] Medicare Attributed 04/16/24 07/14/24 Donaldo Villareal MD Family Medicine 02/06/17 Alfonso George DO Buggy Runner Cardiovascular Disease 05/15/18 Edward Mak MD Physician Rheumatology 05/15/18 Lupe Osorio MD [address] [place] [phone] Physician Hematology Oncology 05/15/18 Lynn Teran MD [address] [place] [address] Physician Gastroenterology 05/15/18 Farhana Rojas PsyD [address] [place] [address] Clinical Psychologist Psychology 05/27/18 Dorota Carpenter MD [address] [place] [address] Urogynecology 12/28/21 documented as of this encounter
[2025-01-01 17:01] LABS: Hematocrit 42.9 % (37.0-47.0); Hemoglobin 14.2 g/dl (12.0-16.0); Imm Gran Abs Auto 0.07 X10*3/uL (0.00-0.03); Imm Gran Pct Auto 0.6 % (0.0-0.4); Lymphocytes Absolute Auto 3.4 X10*3/uL (1.2-4.9); Mean Corpuscular HGB Conc 33.1 g/dl (31.0-35.0); Mean Corpuscular Hemoglobin 27.2 pg (27.0-33.0); Mean Corpuscular Volume 82.0 fL (80.0-98.0); NRBC Abs Auto 0.000 X10*3/uL (0.0-0.012); NRBC Pct Auto 0.0 /100WBC (0.0-0.2); Platelet Count 247 X10*3/uL (160-400); Red Blood Count 5.23 X10*6/uL (4.20-5.50); White Blood Count 11.5 X10*3/uL (4.8-10.8)
[2025-01-01 17:37] LABS: Alanine Aminotransferase 9 U/L (0-31); Albumin Level 4.3 g/dL (3.5-5.0); Alkaline Phosphatase 125 U/L (39-117); Anion Gap 12 (12-20); Aspartate Amino Transferase 18 U/L (5-31); Blood Urea Nitrogen 9 mg/dL (9-16); Calcium 9.4 mg/dL (8.4-10.2); Carbon Dioxide 27 mmol/L (22-29); Chloride 110 mmol/L (96-108); Estimated Glomerular Filt Rate 60; Potassium 3.5 mmol/L (3.3-5.1); Sodium 145 mmol/L (135-145); Total Protein 7.2 g/dL (6.5-8.0)
[2025-01-01 17:53] LABS: Ferritin 235 ng/mL (10-122)
[2025-01-02 03:17] LABS: CT PCR Urine NOT DETECTED (Not Detect.); NG PCR Urine NOT DETECTED (Not Detect.)
[2025-01-02 08:57] LABS: HIV Num 1 0.05 S/CO (0.00-0.99)
[2025-01-02 09:38] LABS: Syphilis Screen Nonreactive (Nonreactive)
== END 2025-01-01 14:44 | disposition home or self-care (01) ==
LOC: HO.LAB 14:43
PROVIDERS: PCP Family Medicine; Visit Provider Family Medicine
DX: Z00.00 Encounter for general adult medical examination without abnormal findings (principal); Z13.29 Encounter for screening for other suspected endocrine disorder; Z11.4 Encounter for screening for human immunodeficiency virus [HIV]; R39.15 Urgency of urination; E61.1 Iron deficiency; E66.813 Obesity, class 3; Z68.41 Body mass index [BMI] 40.0-44.9, adult; Z83.49 Family history of other endocrine, nutritional and metabolic diseases
CPT/HCPCS: 80053; 82728; 84443; 85025; 86780; 87086; 87389; 87491; 87591

== ENCOUNTER 2025-01-05 17:16 | Emergency (ER) | payer MEDICARE, MEDICAID, SELFPAY ==
--- OUTSIDE RECORDS SUMMARY | 2022-09-09 13:31 | XMS_ITS | Encounter Summary ---
Author Organization [facility] Address [address] [place] [address] Care Team Providers Care Balance Clerk Name Role Phone Donaldo Villareal MD Unavailable [phone] Alfonso George DO Unavailable Edward Mak MD Unavailable [phone] Lupe Osorio MD Unavailable [phone] Lynn Teran MD Unavailable Farhana Rojas Unavailable Services-[facility] Provider Dorota Carpenter MD Unavailable Encounter Details Date Type Department Care Team (Late st Contact Info) Description 09/09/2022 1:31 PM EDT Hospital Encounter [facility] [address] [place] [phone] [place] [phone] Social History Tobacco Use Types Packs/Day Years Used Date Smoking Tobacco: Former Cigarettes Q uit: 2015 Passive Smoke Exposure: Never Smokeless Tobacco: Never Alcohol Use Standard Drinks/Week Comments Yes 0 (1 standard drink = 0.6 oz pur e alcohol) 1 a year [facility] Utilities Answer Date Recorded In the past 12 months has [employer], gas, oil, or water company threatened to [...] on filedocumented in this encounter Care Teams Balance Clerk Relationship Specialty Start Date End Date Services-[facility], [facility] [address] [facility] [place] [address] PCP - General 07/09/20 12/26/22 Donaldo Villareal MD Family Medicine 02/06/17 Alfonso George DO Freelance Digital Project Manager Cardiovascular Disease 05/15/18 Edward Mak MD Physician Rheumatology 05/15/18 Lupe Osorio MD [address] [place], [place] [phone] Physician Hematology Oncology 05/15/18 Lynn Teran MD [address] [place] [address] Physician Gastroenterology 05/15/18 Farhana Rojas, PsyD [address] [place] [address] Clinical Psychologist Psychology 05/27/18 Dorota Carpenter MD [address] [place] [address] Urogynecology 12/28/21 documented as of this encounter
--- OUTSIDE RECORDS SUMMARY | 2022-09-15 09:43 | XMS_ITS | Encounter Summary ---
Author Organization [facility] Address [address] [place] [address] Care Team Providers Care Hedis Analyst Name Role Phone Donaldo Villareal MD Unavailable [phone] Alfonso George DO Unavailable Edward Mak MD Unavailable [phone] Lupe Osorio MD Unavailable Lynn Teran MD Unavailable Farhana Rojas Ps Unavailable [phone] Services-[facility] Provider Dorota Carpenter MD Unavailable [phone] Encounter Details Date Type Department Care Team (Late st Contact Info) Description 09/15/2022 9:43 AM EDT Hospital Encounter [facility] [address] [place] [phone] Silvano Abad MD [address] [place] [address] Social History Tobacco Use Types Packs/Day Years Used Date Smoking Tobacco: Former Cigarettes Q uit: 2014 Passive Smoke Exposure: Never Smokeless Tobacco: Never Alcohol Use Standard Drinks/Week Comments Yes 0 (1 standard drink = 0.6 oz pur e alcohol) 1 a year [facility] Utilities Answer Date Recorded In the past 12 months has e electric, [employer], oil, or water [employer] threatened to shut off services in your [...] place to sleep or slept in a long term (including now)? No 06/27/2023 Comments No Sex [...] on filedocumented in this encounter Care Teams Hedis Analyst Relationship Specialty Start Date End Date Services-[facility], [facility] [address] [facility] [place] [address] PCP - General 07/09/20 12/26/22 Donaldo Villareal MD Family Medicine 02/06/17 Alfonso George DO Waiter/Waitress Cafeteria Cardiovascular Disease 05/15/18 Edward Mak MD Physician Rheumatology 05/15/18 Lupe Osorio MD [address] [place] [phone] Physician Hematology Oncology 05/15/18 Lynn Teran MD [address] [place] [address] Physician Gastroenterology 05/15/18 Farhana Rojas PsyD [address] [place] [address] Clinical Psychologist Psychology 05/27/18 Dorota Carpenter MD [address] [place] [address] Urogynecology 12/28/21 documented as of this encounter
--- OUTSIDE RECORDS SUMMARY | 2022-10-02 16:07 | XMS_ITS | Encounter Summary ---
Author Organization [facility] Address [address] [place] [address] Care Team Providers Care Air And Hydronic Balancing Technician Name Role Phone Donaldo Villareal MD Unavailable Alfonso George DO Unavailable Edward Mak MD Unavailable [phone] Lupe Osorio MD Unavailable Lynn Teran MD Unavailable Farhana Rojas Ps Unavailable [phone] Services-[facility] Provider Dorota Carpenter MD Unavailable Encounter Details Date Type Department Care Team (Late st Contact Info) Description 10/02/2022 4:07 PM EDT Hospital Encounter [facility] [address] [place], [place] [address] [place] [address] Prince Hill PA-C [address] [place] [address] Social History Tobacco Use Types Packs/Day Years Used Date Smoking Tobacco: Former Cigarettes Q uit: 2014 Passive Smoke Exposure: Never Smokeless Tobacco: Never Alcohol Use Standard Drinks/Week Comments Yes 0 (1 standard drink = 0.6 oz pur e alcohol) 1 a year [facility] Utilities Answer Date Recorded In the [...] place to sleep or slept in a group home (including now)? No 06/27/2023 Comments No [...] on filedocumented in this encounter Care Teams Air And Hydronic Balancing Technician Relationship Specialty Start Date End Date Services-[facility], [facility] [address] [facility] [place] [address] PCP - General 07/09/20 12/26/22 Donaldo Villareal MD Family Medicine 02/06/17 Alfonso George DO Superintendent [employer] Cardiovascular Disease 05/15/18 Edward Mak MD Physician Rheumatology 05/15/18 Lupe Osorio MD [address] [place], [place] [phone] Physician Hematology Oncology 05/15/18 Lynn Teran MD [address] [place] [address] Physician Gastroenterology 05/15/18 Farhana Rojas, Rivera [address] [place] [address] Clinical Psychologist Psychology 05/27/18 Dorota Carpenter MD [address] [place], [place] [phone] Urogynecology 12/28/21 documented as of this encounter
--- OUTSIDE RECORDS SUMMARY | 2022-12-27 18:38 | XMS_ITS | Encounter Summary ---
Author Organization [facility] Address [address] [place] [address] Care Team Providers Care Trouble Lineman Name Role Phone Donaldo Villareal MD Unavailable Alfonso George DO Unavailable Edward Mak MD Unavailable [phone] Lupe Osorio MD Unavailable Lynn Teran MD Unavailable Farhana Rojas PsyD Unavailable Dorota Carpenter MD Unavailable [phone] Pcp, No Primary Care Provider Unavailabl e Encounter Details Date Type Department Care Team (Late st Contact Info) Description 12/27/2022 6:38 PM EDT Hospital Encounter [facility] [address] [facility] [address] [address] Haylee Gonzalez PA-C [address] [place] [address] Social History Tobacco Use Types Packs/Day Years Used Date Smoking Tobacco: Former Cigarettes Q uit: 2015 Passive Smoke Exposure: Never Smokeless Tobacco: Never Alcohol Use Standard Drinks/Week Comments Yes 0 (1 standard drink = 0.6 oz pur e alcohol) 1 a year [facility] Utilities Answer Date Recorded In the past 12 months has [employer], gas, oil, or water company threatened to [...] place to sleep or slept in a long-term (including now)? No 06/27/2023 Comments No Sex [...] on filedocumented in this encounter Care Teams Trouble Lineman Relationship Specialty Start Date End Date Pcp, No PCP - General General Medicine 12/27/22 01/17/23 Donaldo Villareal MD Family Medicine 02/06/17 Alfonso George DO Process Description Writer Cardiovascular Disease 05/15/18 Edward Mak MD Physician Rheumatology 05/15/18 Lupe Osorio MD [address] [place] [phone] Physician Hematology Oncology 05/15/18 Lynn Teran MD [address] [place] [address] Physician Gastroenterology 05/15/18 Farhana Rojas PsyD [address] [place] [address] Clinical Psychologist Psychology 05/27/18 Dorota Carpenter MD [address] [place] [address] Urogynecology 12/28/21 documented as of this encounter
--- OUTSIDE RECORDS SUMMARY | 2024-01-11 05:25 | XMS_ITS | Continuity of Care Document ---
Author Organization [facility] vices Address [address] [place] [address] Phone Care Team Providers Care Offset Press Operator Helper Name Role Phone Armida Valderrama APRN Unavailable [...] day for hdl 5 MG - Active gabapentin 300 mg capsule take 2 capsule by oral route 3 times every day 600 MG - Active estradiol 0.5 mg tablet take 1 tablet by oral route every day - Active methocarbamol 750 mg tablet take [...] by oral route every day - Active sertraline 100 mg tablet take 1 tablet by oral route 2 times every day 100 MG - Active Procedures Procedure Date OFFICE/OUTPT Visit, [...] Diagnoses Date Provider Providers Copied on Encounter [facility], [address], [place], [facility], [place] tel:[phone] [facility] Adult Medicine No Information 4 Jannie Huffman. [address] [id number] [address], [place], [address], [place]. tel:[phone] OFFICE/OUTPT Visit, Established - Mod MDM, 30 - 39 Minutes [facility], [address], [place], [facility], [place] tel:[phone] [facility] Adult Medicine [place] hyperlipidemia (chief complaint)occip ital lynph node (chief complaint) Body mass index (BMI) 45.0-49.9, adultHyperlipid emia, unspecified hyperlipidemia typePalpable lymph node 4 Jannie Huffman. [address] [id number] [address], [place], [address], [place]. tel:[phone] Telephone E/M By Provider 11-20 MIN [facility], [address] [place], [address], [place] tel:[phone] [facility] Adult Medicine [place] [facility] (chief complaint) Iron deficiency anemia, unspecified iron deficiency anemia typeHyperlipide narendra, unspecified hyperlipidemia type 4 Jannie Lackeyyl. [address] [id number] [address], [place], [address], [place]. tel:[phone] OFFICE/OUTPT Visit - Established - Low MDM, 20 - 29 Minutes [facility], [address], [place], [facility], [place] tel:[phone] [facility] Adult Medicine [place] lymph node enlargement (chief complaint)lab results (chief complaint) Body mass index (BMI) 40.0-44.9, adultEnlarged lymph nodeEncounter to discuss test results 4 Jannie Huffman. [address] [id number] [address], [place], [facility], [place]. tel:[phone] OFFICE/OUTPT Visit, [facility], 30 - 44 Minutes [facility], [address] [place] [address], [facility], [place] tel:[phone] [facility] Adult Medicine [place] Establish Care (chief complaint)Influ reynaldo Vaccine (chief complaint) Encounter for screening for diabetes mellitusLipid screeningBody mass index (BMI) 40.0-44.9, adultEncounter for immunizationDep ression, unspecified depression typeFibromyalgi aAnkylosing spondylitis, unspecified site of spine 3 Jannie Huffman. [address] [id number] [address], [place], [facility], [place]. tel:[phone] Family History Family Member Type Diagnosis Age At Onset No Information Immunizations Vaccine Date Status Comments Flulaval or Fluarix administered Source: New Immuniza tion Record Payers Payer name Insurance type Covered democrat ID Authoriza tion(s) A[employer]na [id number] [facility] Medicaid - Medicare [facility] access hospital Services [id number] Medicare Part B [id number] [facility] Medicaid - Medicare Critical access hospital Services [id number] Social History Type Description Quantity Date Captured [...] and counseling completed Referral Ordered: Referrals: Location: [facility] Optometry ordered Referral Ordered: Referrals: Location: [facility] Dental ordered Referral Ordered: Referrals: Location: [facility] LOCK EXPERT ordered History Of Present Illness Encounter Date [...] of Remicade. Area was evaluated by her staff climate scientist and a ultrasound of area was done on June 08, 2023 at [facility]. Imaging report reveals palpable abnormal corresponding [...] 5.63. Patient is followed by hematology at [facility] Dr. Lupe Osorio. Patient reports that she received iron transfusion last Sunday. Patient reports that she receives iron transfusion once a year and is followed by hematology every 6 months. Patient does not take iron supplement as it irritates her stomach and she is not able to tolerate it. Patient next appointment with heel dipper is in October 2023. Vitamin D deficiency: [...] reports that she has been seen by heel dipper. Patient reports heel dipper did ultrasound of the lymph nodes left occipital area. Patient reports that heel dipper ask her to to have her PCP [...] scheduled review of labs with this provider. Influenza Vaccine Patient in req uesting flu vaccine. 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 Establish Care 37 y/o female in today for a establish care visit. Pt denies any recent illness, fever or chills, CP, palpitations/irregular heartbeat or SOB. Patient reports that he recently relocated to the [facility] and is changing providers to this area. Patient filled out medical release form to order medical records given symptoms [facility] for reviewPast Medical History:; Patient reports medical history of autoimmune fibromyalgia, ankylosing spondylosis, anxiety, ADD depression, Uilkeh-xigxjznq-ncjcnvuNhac surgical history: Patient reports total hysterectomy in [...] she is followed by heme oncology at [facility] Patient reports she has received iron infusions in the past P atient reports she gets her labs done every 6 to 8 weeks by her rheumatologistDepression: P atient on medication F ollowed by [facility]: LEGAL MEDIATOR -telehealth- start with therapist after new 2023Fibromyalgia-[facility] officeAsthma : E xercise-induced asthma Patient reports controlled on short acting inhaler. Functional Status Date Functional Assessmen t No [...]
--- NOTE | ~2025-01-05 | CT_ITS ---
CLINICAL HISTORY: RLQ pain CT abdomen and pelvis with contrast Comparison: CT/SR - CT ABDOMEN PELVIS WO IV CON - 05/28/24 16:21 EST Findings: No consolidation or effusion. The gallbladder and solid organs are within normal limits. No renal stones. Prior gastric surgery. Hepatomegaly, 23.1 cm. The appendix is not identified. Nonetheless, no pericecal inflammatory changes identified. Diverticulosis. Prior hysterectomy. The bones are intact. IMPRESSION: 1. No acute intraabdominal or pelvic pathology. 2. Diverticulosis. 3. Status post prior gastric surgery and hysterectomy. This document has been electronically signed by: Mohsen Bowen MD on 01/05/2025 23:53:00
--- NOTE | ~2025-01-05 | XR_ITS ---
CLINICAL HISTORY: shortness of breath 2 view chest x-ray Comparison: None provided Findings: No consolidation or effusion. Normal size heart. No acute fracture. Multiple surgical clips in the left upper quadrant/epigastric region. IMPRESSION: 1. No acute cardiopulmonary findings. 2. Multiple surgical clips in the left upper quadrant/epigastric region. This document has been electronically signed by: Mohsen Bowen MD on 01/05/2025 23:26:12
--- NOTE | 2025-01-05 17:17 | ECG_ITS ---
Test Reason : CP Blood Pressure : */* mmHG Vent. Rate : 103 BPM Atrial Rate : 103 BPM P-R Int : 120 ms QRS Dur : 80 ms QT Int : 338 ms P-R-T Axes : 0 44 44 degrees QTcB Int : 442 ms Sinus tachycardia Otherwise normal ECG When compared with ECG of 27-Nov-2024 14:15, No significant change was found Referred By: Generic ED Physician Electronically Signed By: Daryl Mcfadden
[2025-01-05 17:34] VITALS: BP 142/88; PULSE 95; RESP 18; TEMP 36.6; O2SAT 96; BMI 39.9
--- NOTE | 2025-01-05 17:35 | ED.CHESTPAIN ---
HPI - Chest Pain General Chief Complaint: Chest Pain Stated Complaint: chest pain, high heart rate Time Seen by Provider: 01/05/25 21:57 Source: patient, RN notes reviewed and old records reviewed Mode of arrival: ambulatory Limitations: no limitations History of Present Illness ED Provider: Melinda HPI narrative: 39-year-old female past medical history significant for fibromyalgia, depression, anxiety, ankylosing spondylitis presents for evaluation of multiple complaints. She reports about an hour and a half prior to arrival she developed midsternal chest pain with palpitations. She reports her heart rate was as high as 148 as her smart watch detected She reports this lasted for about 2 hours before improving pain She still has some pain but her heart rate is back to her baseline She also endorses abdominal pain with nausea and vomiting. She reports she is had diarrhea for the last 3 months She is had a previous total hysterectomy She reports pain with urination and frequent urinary infections. She reports associated shortness of breath but denies cough or fevers Related Data Home Medications ?Medication ?Instructions ?Recorded ?Confirmed albuterol sulfate 90 mcg/actuation 90 mcg inhalation Q4H PRN SOB 11/12/24 11/12/24 aerosol inhaler bupropion HCl 300 mg 24 hr tablet, 300 mg PO DAILY 11/12/24 11/12/24 extended release estradiol 0.045 mg-levonorgestrel 1 patch topical QWEEK 11/12/24 11/12/24 0.015 mg/24hr weekly transderm patch (Climara Pro) estradiol 0.5 mg tablet 0.5 mg PO DAILY 11/12/24 11/12/24 gabapentin 600 mg tablet 600 mg PO TID 11/12/24 11/12/24 hydroxyzine HCl 50 mg tablet 50 mg PO Q6H PRN Itching 11/12/24 11/12/24 methocarbamol 750 mg tablet 750 mg PO BID 11/12/24 11/12/24 multivitamin 1 tab PO DAILY 11/12/24 11/12/24 omeprazole 20 mg capsule,delayed 20 mg PO DAILY 11/12/24 11/12/24 release oxybutynin chloride 15 mg 15 mg PO DAILY 11/12/24 11/12/24 tablet,extended release 24 hr prazosin 2 mg capsule 2 mg PO BEDTIME 11/12/24 11/12/24 rosuvastatin 5 mg tablet 5 mg PO DAILY 11/12/24 11/12/24 Previous Rx's ?Medication ?Instructions ?Recorded lamotrigine 100 mg tablet 100 mg PO BID #60 tabs 11/17/24 atomoxetine 25 mg capsule 50 mg (2 x 25 mg) PO QAM plan to 11/27/24 taper off #20 caps guanfacine 1 mg tablet,extended 1 mg PO DAILY #30 tabs 12/08/24 release 24 hr lisdexamfetamine 20 mg capsule 20 mg PO QAM #30 caps 12/08/24 Allergies Allergy/AdvReac Type Severity Reaction Status Date / Time No Known Allergies (No Known Allergy Verified 01/05/25 17:36 Allergies*) Review of Systems Constitutional: Constitutional: Denies body ache(s), Denies chills, Denies fever(s) and Denies headache(s) Eyes: Eyes: Denies blurry vision ENT: Denies dizziness, Denies dry mouth and Denies headache(s) Cardiovascular: Cardiovascular: Reports chest pain and Denies dyspnea on exertion Respiratory: Respiratory: Denies cough and Denies dyspnea on exertion Gastrointestinal: Gastrointestinal: Reports abdominal pain, Denies melena, Denies hematochezia, Reports loose stools, Reports nausea, Reports vomiting and Denies hematemesis Genitourinary: Genitourinary: Denies abnormal menses, Reports dysuria and Denies pelvic pain Musculoskeletal: Musculoskeletal: Denies back pain Integumentary/Breasts: Skin/Breast: Denies rash Neurologic: Denies dizziness and Denies headache(s) [facility] Past Medical History Medical History (Updated 01/05/25 @ 22:43 by Biju Lawrence) Kidney stones Hyperlipidemia Kidney infection History of concussion Nerve pain IBS (irritable bowel syndrome) Overactive bladder Anemia Hypermobility syndrome Fibromyalgia GERD (gastroesophageal reflux disease) Ankylosing spondylitis Surgical History (Updated 11/12/24 @ 13:21 by Madie Ureña RN) H/O sinus surgery H/O gastric sleeve H/O tubal ligation History of removal of both ovaries H/O: hysterectomy Social History Social History Household Members: Other Household Members Other:: Poly-amorous relationships Patient Tobacco Use Status: Former Tobacco user Tobacco use type: Cigarette Smoked in Last 30 Days: No Use of substances other than those prescribed or required for medical reasons: Yes Substance Use Type: Marijuana Advance Directives: No Advance Directives Information Provided: No Patient : No Physical Exam Vital Signs: Vital Signs: Last Vital Signs Temp 98.6 F 01/05/25 22:52 Pulse 90 01/05/25 22:52 Resp 16 01/05/25 22:52 BP 143/94 H 01/05/25 22:52 Pulse Ox 99 01/05/25 22:52 O2 Del Method Room Air 01/05/25 22:52 BMI result Body Mass Index 39.9 Const: General: healthy appearing, comfortable, no acute distress, alert and awake Nutritional Appearance: well nourished Orientation/consciousness: patient oriented x3 HEENT: Head: Yes normocephalic and Yes atraumatic Eyes: Eyelids: Yes eyelids normal Conjunctivae: conjunctivae normal Sclerae: sclerae normal Corneas: corneas normal Pupils: Equal, round and reactive pupils present EOM: EOMs intact bilaterally Neck: Neck: Yes full ROM Resp: Effort & Inspection: normal respiratory effort, able to speak in complete sentences and not labored GI: Inspection: No distended Palpation (GI): Soft to palpation, not firm, Tenderness to palpation present (GI) in the RLQ, Guarding due to palpation present (GI) (No rebound tenderness) in the RLQ and not rigid Skin: General skin exam: elasticity normal Neuro: General: patient oriented x3 Cranial nerves: Yes Equal, round and reactive pupils present and Yes Bilaterally intact EOM present Cognition (Neuro): normal cognition Course Course Course Narrative: This is a Rapid Medical Examination (RME) performed by Eligio Hayden PA-C in triage. Full HPI, ROS, assessment and treatment plan per primary provider in the Main ED. Hx: 39 yo F here for eval of sternal chest pain x 1.5 hours. no radiation. no URI sx. recent vomiting. Plan: labs, ekg Medications Administered Discontinued Medications Generic Name Dose Route Start Last Admin Trade Name Freq PRN Reason Stop Dose Admin Iohexol 85 ml 01/05/25 23:04 01/05/25 23:04 Iohexol 350 Mg/Ml 100 Ml Infus..Btl IV 01/05/25 23:05 85 ml ONCE ONE Administration Medical Decision Making Medical Decision Making MDM Narrative: 39-year-old female presents for evaluation of multiple complaints including chest pain, abdominal pain, nausea vomiting and diarrhea. Her chest pain started about an hour and a half prior to arrival. She is had abdominal pain for the last few days with associated nausea and vomiting. As far as her chest pain goes, her EKG showed sinus tachycardia rate of [address] segment elevation or depressions. She is had a troponin is negative and a repeat troponin that was also negative, she rules out for ACS. She has a mild leukocytosis to 14.6 without a significant shift. On the previous 3 lab draws prior to that she always had a leukocytosis in his may be her baseline. However get a chest x-ray to evaluate for pneumonia abdominal CT scan to evaluate for acute appendicitis given her abdominal pain with change in his symptoms and leukocytosis. Urinalysis is clear. The patient had a total hysterectomy, so PID, ovarian torsion and ovarian cysts are all not likely Differential Diagnosis Differential Diagnoses: The differential diagnosis associated with the presentation includes Acute abdominal pain Constipation Appendicitis ACS Pneumonia Bronchitis Anxiety Hyperthyroidism Lab Data MDM Lab Attestation statement: I reviewed the patient's lab results. Mild leukocytosis, no significant anemia. Normal platelet count. No electrolyte abnormalities warranting intervention 01/05/25 17:47 01/05/25 17:47 Labs: Lab Results 01/05/25 01/05/25 01/05/25 Range/Units 17:47 21:09 21:14 WBC 14.6 H (4.8-10.8) X10*3/uL RBC 5.44 (4.20-5.50) X10*6/uL Hgb 14.7 (12.0-16.0) g/dl Hct 42.6 (37.0-47.0) % MCV 78.3 L (80.0-98.0) fL MCH 27.0 (27.0-33.0) pg MCHC 34.5 (31.0-35.0) g/dl RDW 13.8 (11.0-16.0) % Plt Count 262 (160-400) X10*3/uL MPV 8.8 L (9.4-12.3) fL Immature Gran % (Auto) 0.3 (0.0-0.4) % Neut % (Auto) 59.9 (45-73) % Lymph % (Auto) 29.9 (20-40) % Josephine % (Auto) 6.6 (2-11) % Eos % (Auto) 3.0 (0-4) % Baso % (Auto) 0.3 (0-2) % Lymph # (Auto) 4.4 (1.2-4.9) X10*3/uL Josephine # (Auto) 1.0 (0.1-1.2) X10*3/uL Eos # (Auto) 0.4 (0.0-0.4) X10*3/uL Baso # (Auto) 0.1 (0.0-0.2) X10*3/uL Abs Immat Gran (auto) 0.05 H (0.00-0.03) X10*3/uL Absolute Neuts (auto) 8.7 H (2.0-8.3) x10*3/uL Absolute Nucleated RBC 0.000 (0.0-0.012) X10*3/uL Nucleated RBC % (auto) 0.0 (0.0-0.2) /100WBC Sodium 143 (135-145) mmol/L Potassium 3.8 (3.3-5.1) mmol/L Chloride 113 H (96-108) mmol/L Carbon Dioxide 22 (22-29) mmol/L Anion Gap 12 (12-20) BUN 7 L (9-16) mg/dL Creatinine 0.81 (0.5-1.4) mg/dL Estim Creat Clear Calc 114.4 Estimated GFR > 60 Random Glucose 91 (60-115) mg/dL Calcium 9.8 (8.4-10.2) mg/dL Magnesium 2.1 (1.6-2.6) mg/dL Total Bilirubin 0.3 (0.0-1.0) mg/dL AST 18 (5-31) U/L ALT 8 (0-31) U/L Alkaline Phosphatase 132 H (39-117) U/L Troponin I High Sens < 2.7 < 2.7 (<3.5-17.0) ng/L Total Protein 7.2 (6.5-8.0) g/dL Albumin 4.3 (3.5-5.0) g/dL Lipase 23 (8-78) U/L TSH 0.92 (0.32-4.0) uIU/mL Urine Color Yellow Urine Appearance Clear Urine pH 6.5 (5.0-9.0) Ur Specific Ideal 1.015 (1.005-1.025) Urine Protein Negative (Neg-Trace) mg/dL Urine Glucose (UA) Negative (Negative) mg/dL Urine Ketones Negative (Negative) mg/dL Urine Blood Negative (Negative) Urine Nitrite Negative (Negative) Ur Leukocyte Esterase Negative (Negative) Urine RBC 0-2 (0-2) /HPF Urine WBC 0-5 (0-5) /HPF Ur Squamous Epith Cells 0-2 (0-2) /HPF Urine Bacteria None Seen (None Seen) Hyaline Casts 0-2 (0-2) /LPF Radiology Impression Discussion of test interpretation with radiology: I have reviewed the radiologist's reading. Radiologist Impression: Findings: No consolidation or effusion. The gallbladder and solid organs are within normal limits. No renal stones. Prior gastric surgery. Hepatomegaly, 23.1 cm. The appendix is not identified. Nonetheless, no pericecal inflammatory changes identified. Diverticulosis. Prior hysterectomy. The bones are intact. IMPRESSION: 1. No acute intraabdominal or pelvic pathology. 2. Diverticulosis. 3. Status post prior gastric surgery and hysterectomy. This document has been electronically signed by: Mohsen Bowen MD on 01/05/2025 23:53:00 Discharge Plan Discharge Clinical Impression: Chest pain, Abdominal pain Patient Disposition: Home, Self-Care Instructions: Abdominal Pain (ED), Chest Pain (ED) Additional Instructions: Your workup in the ER today was reassuring. This includes your blood work, EKG, chest x-ray, CT scan of the abdomen pelvis as well as your urinalysis I recommend that you follow up with your primary doctor, return for new or worsening symptoms Prescriptions: No Action gabapentin 600 mg tablet 600 mg PO TID methocarbamol 750 mg tablet 750 mg PO BID omeprazole 20 mg capsule,delayed release(DR/EC) 20 mg PO DAILY albuterol sulfate 90 mcg/actuation HFA aerosol inhaler 90 mcg inhalation Q4H PRN (Reason: SOB) oxybutynin chloride 15 mg tablet extended release 24hr 15 mg PO DAILY hydroxyzine HCl 50 mg tablet 50 mg PO Q6H PRN (Reason: Itching) estradiol 0.5 mg tablet 0.5 mg PO DAILY prazosin 2 mg Capsule 2 mg PO BEDTIME rosuvastatin 5 mg tablet 5 mg PO DAILY bupropion HCl 300 mg tablet extended release 24 hr 300 mg PO DAILY Climara Pro 0.045-0.015 mg/24 hr patch weekly 1 patch topical QWEEK multivitamin Tablet 1 tab PO DAILY lamotrigine 100 mg tablet 100 mg PO BID Qty: 60 0RF atomoxetine 25 mg capsule 50 mg PO QAM Qty: 20 0RF lisdexamfetamine 20 mg capsule 20 mg PO QAM Qty: 30 0RF Rx Instructions: Partial Fill upon patient request. guanfacine 1 mg tablet extended release 24 hr 1 mg PO DAILY Qty: 30 0RF Print Language: Canadian
[2025-01-05 17:59] LABS: MANUAL DIFF FLAG NO
[2025-01-05 18:01] LABS: Hematocrit 42.6 % (37.0-47.0); Hemoglobin 14.7 g/dl (12.0-16.0); Imm Gran Abs Auto 0.05 X10*3/uL (0.00-0.03); Imm Gran Pct Auto 0.3 % (0.0-0.4); Lymphocytes Absolute Auto 4.4 X10*3/uL (1.2-4.9); Mean Corpuscular HGB Conc 34.5 g/dl (31.0-35.0); Mean Corpuscular Hemoglobin 27.0 pg (27.0-33.0); Mean Corpuscular Volume 78.3 fL (80.0-98.0); NRBC Abs Auto 0.000 X10*3/uL (0.0-0.012); NRBC Pct Auto 0.0 /100WBC (0.0-0.2); Platelet Count 262 X10*3/uL (160-400); Red Blood Count 5.44 X10*6/uL (4.20-5.50); White Blood Count 14.6 X10*3/uL (4.8-10.8)
[2025-01-05 18:29] LABS: Alanine Aminotransferase 8 U/L (0-31); Albumin Level 4.3 g/dL (3.5-5.0); Alkaline Phosphatase 132 U/L (39-117); Anion Gap 12 (12-20); Aspartate Amino Transferase 18 U/L (5-31); Blood Urea Nitrogen 7 mg/dL (9-16); Calcium 9.8 mg/dL (8.4-10.2); Carbon Dioxide 22 mmol/L (22-29); Chloride 113 mmol/L (96-108); Creatinine Clr Calc Pharmacy 114.4; Estimated Glomerular Filt Rate > 60; Lipase 23 U/L (8-78); Magnesium 2.1 mg/dL (1.6-2.6); Potassium 3.8 mmol/L (3.3-5.1); Sodium 143 mmol/L (135-145); Total Protein 7.2 g/dL (6.5-8.0)
[2025-01-05 18:40] LABS: Troponin-I High Sensitivity < 2.7 ng/L (<3.5-17.0)
--- NOTE | 2025-01-05 21:01 | PC.NURSE ---
pt came up to triage requesting urine sample test as has had uti sx and was recently seen at providers office, urine results were inconclusive. urine test ordered.
[2025-01-05 21:14] LABS: PH 6.5 (5.0-9.0)
[2025-01-05 21:25] LABS: Appearance Urine Clear; Glucose Urine UA Negative (Negative); Specific Gravity - Urine 1.015 (1.005-1.025)
--- OUTSIDE RECORDS SUMMARY | 2025-01-05 21:36 | XMS_ITS | Clinical Summary ---
Author Organization [address] Address [address] [place] [id number] Care Team Providers Care Bar Helper Name Role Phone No, Pcp (Do Not [...] into the lungs. Cannabidiol Non-THC (CBD) Misc Scio/Smoke/Vapo r/Oil/Gummies Active atomoxetine (STRATTERA) 60 mg capsule [...] spine (HC Code) HIV-1/HIV-2 ANTIBODY/ANTIGEN SCREEN W/REFLEX ([facility]) Routine 10/06/2016 10:40 AM EDT Polyarthralgia Fatigue, unspecified type Elevated sed rate Irritable bowel syndrome, unspecified type Leukocytosis, unspecified type from Last 3 Months or Most Recently Relevant to Health Maintenance Results * Hepatitis C Ab with reflex to HCV PCR (08/24/2023 11:54 AM EDT) Hepatitis C Antibody Negative Negative 08/24/2023 10:20 PM EDT [facility]IC[facility] Comment:A negative result [...] ORDERABL ES Final Result Performing Organization Address [facility]/State/[facility] Co de Phone Number [facility]IC[facility] [address] [place] [id number] [place] [address] * HIV-1/HIV-2 antibody/antigen screen w/reflex ([facility]) (10/06/2016 10:40 AM EDT) HIV 1 and 2 Antibody/Antigen Screen Negative Negative 10/06/2016 5:28 PM EDT [facility] Comment:Interpretation: This specimen is HIV [...] ORDERABL ES Final Result Performing Organization Address [facility] Co de Phone Number [facility] [address] [place] [address], [facility] [phone] from Last 3 Months or Most Recently Relevant to Health Maintenance Insurance MEDICARE MEDICAID [place] MED[place] Care Teams Bar Helper Relationship Specialty Start Date End Date No, Pcp (Do Not Change Name) PCP - General 04/21/20
--- OUTSIDE RECORDS SUMMARY | 2025-01-05 21:36 | XMS_ITS | Encounter Summary ---
Author Organization [employer] Address [address] [facility] [address] [place] [address] Care Team Providers Care Handyman Name Role Phone Carolina Reynoso MD Primary Care Provider [phone] Reason for Visit * Reason Onset Date Comments Possible Kidney infection 12/31/2024 Encounter Details Date Type Department Care Team ([facility] st Contact Info) Description 12/31/2024 Telephone [facility] MEDICAL [address] [place] [phone] Carolina Reynoso MD [address] [place] [phone] Possible Kidney infection Social History Tobacco Use [...] painful urination. Orders placed and sent to [facility] lab per patient request. * Telephone Encounter - Esha Jarvis - 12/31/2024 1:34 PM EDT Patient left a voicemail stating she think she has a possible kidney infection patient states she'sbeen throwing up. Looking for a call from nursing documented in this encounter Plan of Treatment Upcoming Encounters Date Type Department Care Team (Late st Contact Info) Description 02/11/2025 11:20 AM EDT Office Visit Gian[facility]anco [facility] MEDICAL [address] [place] [address] Carolina Reynoso MD [address] [place] [address] documented as of this encounter Procedures Procedure Name Priority Date/Time Associated Diagnosis Comments URINALYSIS, COMPLETE, WITH R EFLEX TO CULTURE Routine 01/01/2025 Urinary urgency documented in this encounter Results * Urinalysis, Complete, with Reflex to Culture (01/01/2025) Urine Carolina Reynoso MD LAB URINE ORDERABLES Final Res ult [facility] [address] [place] [address], [place] [phone] documented in this encounter Visit Diagnoses Diagnosis Urinary urgency Urgency of urination documented in this encounter Care Teams Handyman Relationship Specialty Start Date End Date Carolina Reynoso MD [address] [place] [address] PCP - General Family Medicine 09/10/24 documented as of this encounter
--- OUTSIDE RECORDS SUMMARY | 2025-01-05 21:36 | XMS_ITS | Clinical Summary ---
Author Organization [facility] Address [address] [place] [address] Care Team Providers Care Warehouse Foreman Name Role Phone Unavailable Primary Care Provider [...] Advance Directives For more information, please contact: [phone] Latest Code Status on File Code Status Date Activated Date Inactivated Comments Full Code 05/30/2022 10:40 AM 05/30/2022 10:03 PM Thi s code status was ascertained in the following way: discussion with patient .
--- OUTSIDE RECORDS SUMMARY | 2025-01-05 21:36 | XMS_ITS | Encounter Summary ---
Author Organization [facility] Address [address] [place] [address] Care Team Providers Care Director Of Managed Services Name Role Phone Donaldo Villareal MD Primary Care Provider + Donaldo Villareal MD Unavailable [phone] Alfonso George DO Unavailable [phone] Edward Mak MD Unavailable [phone] Lupe Osorio MD Unavailable Lynn Teran MD Unavailable Farhana Rojas PsyD Unavailable Services-[facility], [facility] Care Provider Dorota Carpenter MD Unavailable Pcp, No Primary Care Provider Unavailabl e System, Provider Not In Primary Care Provider Un available Pcp, No Primary Care Provider Unavailabl e Edward Mak MD Primary Care Provider Services, [facility] Primary Care Provider Nitza Dial MD Unavailable Janeth Page APRN Unavailable [phone] Encounter Details Date Type Department Care Team (Late st Contact Info) Description 02/06/2017 Scanned Document CC [facility] [employer] P[employer]TER [address] [place] [phone] Lisa Contreras MD [address] [place] [address] Social History Tobacco Use Types Packs/Day Years [...] filedocumented in this encounter Care Teams Director Of Managed Services Relationship Specialty Start Date End Date Donaldo Villareal MD PCP - General Family Medicine 02/06/17 07/08/20 Services-[facility] [address] [place] [address] PCP - General 07/09/20 12/26/22 Pcp, No PCP - General General Medicine 12/27/22 01/17/23 System, Provider Not In PCP - General 01/18/23 05/06/23 Pcp, No PCP - General General Medicine 05/07/23 06/26/23 Edward Mak MD PCP - General 06/27/23 07/15/23 [facility], [facility] [address] [facility] [address] [place] [address] PCP - General 07/16/23 Nitza Dial MD [address] [address] PCP - [employer] Medicare Attributed 07/16/23 04/15/24 Janeth Page APRN [address] [place] [address] PCP - [employer] Medicare Attributed 04/16/24 07/14/24 Donaldo Villareal MD Family Medicine 02/06/17 Alfonso George DO Insurance Loss Assessor Cardiovascular Disease 05/15/18 Edward Mak MD Physician Rheumatology 05/15/18 Lupe Osorio MD [address] [place] [phone] Physician Hematology Oncology 05/15/18 Lynn Teran MD [address] [place] [address] Physician Gastroenterology 05/15/18 Farhana Rojas, PsyD [address] [place] [address] Clinical Psychologist Psychology 05/27/18 Dorota Carpenter MD [address] [place] [address] Urogynecology 12/28/21 documented as of this encounter
--- OUTSIDE RECORDS SUMMARY | 2025-01-05 21:36 | XMS_ITS | Encounter Summary ---
Author Organization [facility] Address [address] [place] [phone] Care Team Providers Care Blender/Braze Applicator Name Role Phone No, Pcp (Do Not Change Name) Primary Care Provid er Unavailable Encounter Details Date Type Department Care Team (Late st Contact Info) Description 01/20/2018 Scanned Document Cardiovascular Medicine at [address] [place] [address], [address] [place] [address] External, Provider Social History Tobacco Use Types [...] documented as of this encounter Care Teams Blender/Braze Applicator Relationship Specialty Start Date End Date No, Pcp (Do Not Change Name) PCP - General 04/21/20 documented as of this encounter
--- OUTSIDE RECORDS SUMMARY | 2025-01-05 21:36 | XMS_ITS | Clinical Summary ---
Author Organization [facility] Address [address] [place] [address] Care Team Providers Care Radiator Cleaner Name Role Phone Unavailable Primary Care Provider Unavailabl e Surgical History Surgery Date Site/Laterality Comments COLONOSCOPY PROCEDURE:COLONOSCOPY UPPER GASTROINTESTINAL ENDOSCOPY PROCEDURE:UPPER GASTROINTESTINAL ENDOSCOPY TUBAL LIGATION PROCEDURE:TUBAL LIGATION BARIATRIC SURGERY 2018 PROCEDURE:BARIATRIC SURGERY;COMMENT:Gastric sleeve EYE SURGERY PROCEDURE:EYE SURGERY;COMMENT:As a toddler WISDOM TOOTH EXTRACTION PROCEDURE:WISDOM TOOTH EXTRACTION OVARIAN CYST REMOVAL Left PROCEDURE:OVARIAN CYST REMOVAL CYSTOSCOPY 05/30/2022 N/A PROCEDURE:CYSTOSCOPY;COMMENT: Procedure: CYSTOSCOPY; Surgeon: Sheba Card DO; Location: [facility] MAIN OPERATING ROOM; Service: Gynecology; Laterality: N/A; Medical History Medical History Date Comments Fibromyalgia DX:Fibromyalgia Autoimmune disease ([facility] V24) DX:Autoimmune disease ([facility]) Depression DX:Depression Pre-operative respiratory examination 10/21/2018 DX:Pre-operative [...] impairment DX:Visual impa irment;COMMENT:Wears glasses Ankylosing spondylitis ([facility] V24, [facility] V28) DX:Ankylosing spondylitis ([facility]) Arthritis DX:Arthritis [...]
--- OUTSIDE RECORDS SUMMARY | 2025-01-05 21:36 | XMS_ITS | Encounter Summary ---
Author Organization [employer] Address [address] [place] [address] 7[address] [place] [address] Care Team Providers Care Drier And Pulverizer Tender Name Role Phone Carolina Reynoso MD Primary Care Provider [phone] Encounter Details Date Type Department Care Team ([facility] Contact Info) Description 12/10/2024 Telephone [facility] [address] [place] [address] Jorge Alberto Costello DDS [address] [place] [address] Social History Tobacco Use Types Packs/Day Years [...] [facility] [address] [place] [address] Carolina Reynoso MD 70 [facility] [place] [address] documented as of this encounter Visit Diagnoses Not on filedocumented in this encounter Care Teams Drier And Pulverizer Tender Relationship Specialty Start Date End Date Carolina Reynoso MD 70 [facility] [place] [address] PCP - General Family Medicine 09/10/24 documented as of this encounter
--- OUTSIDE RECORDS SUMMARY | 2025-01-05 21:36 | XMS_ITS | Encounter Summary ---
Author Organization [facility] Address [address] [place] [address] Care Team Providers Care Financial Reserve Clerk Name Role Phone Donaldo Villareal MD Unavailable Alfonso George DO Unavailable Edward Mak MD Unavailable [phone] Lupe Osorio MD Unavailable [phone] Lynn Teran MD Unavailable Farhana RojasyD Unavailable [phone] Dorota Carpenter MD Unavailable System, Provider Not In Primary Care Provider Un available Pcp, No Primary Care Provider UnavailEdward Thapa MD Primary Care Provider [phone] [facility] Primary Care Provider Nitza Dial MD Unavailable Janeth Page ACQUISITION MARKETING COORDINATOR Unavailable [phone] Reason for Visit * Reason Comments Med Change Request Encounter Details Date Type Department Care Team (Late st Contact Info) Description 01/25/2023 Refill [facility] [address] [place] [phone] Frida Mejias PA-C [address] [place] [phone] Displaced fracture of fourth metatarsal bone, right [...] fracture documented in this encounter Care Teams Financial Reserve Clerk Relationship Specialty Start Date End Date System, Provider Not In PCP - General 01/18/23 05/06/23 Pcp, No PCP - General General Medicine 05/07/23 06/26/23 Edward Mak MD PCP - General 06/27/23 07/15/23 Services, [facility] [address] [place] [address] [address] [place] [address] PCP - General 07/16/23 Nitza Dial MD [address] [place] [address] PCP - Aetna Medicare Attributed 07/16/23 04/15/24 Janeth Page APRN [address] [address] PCP - Aetna Medicare Attributed 04/16/24 07/14/24 Donaldo Villareal MD Family Medicine 02/06/17 Alfonso George DO Warp Tester Cardiovascular Disease 05/15/18 Edward Mak MD Physician Rheumatology 05/15/18 Lupe Osorio MD [address] [place], [place] [phone] Physician Hematology Oncology 05/15/18 Lynn Teran MD [address] [place] [address] Physician Gastroenterology 05/15/18 Farhana Rojas, Rivera [address] [place] [address] Clinical Psychologist Psychology 05/27/18 Dorota Carpenter MD [address] [place] [address] Urogynecology 12/28/21 documented as of this encounter
--- OUTSIDE RECORDS SUMMARY | 2025-01-05 21:36 | XMS_ITS | Encounter Summary ---
Author Organization [facility] Address [address] [place] [address] Care Team Providers Care Visual Training Aide Name Role Phone Donaldo Villareal MD Primary Care Provider + Donaldo Villareal MD Unavailable [phone] Alfonso George DO Unavailable [phone] Edward Mak MD Unavailable [phone] Lupe Osorio MD Unavailable Lynn Teran MD Unavailable Farhana Rojas PsyD Unavailable [phone] Services-[facility], [facility] Care Provider Dorota Carpenter MD Unavailable Pcp, No Primary Care Provider Unavailabl e System, Provider Not In Primary Care Provider Un available Pcp, No Primary Care Provider Unavailabl e Edward Mak MD Primary Care Provider [phone] Services, [facility] Primary Care Provider Nitza Dial MD Unavailable Janeth Page APRN Unavailable [phone] Encounter Details Date Type Department Care Team (Late st Contact Info) Description 09/11/2017 Scanned Document [facility] 330 [facility] [address] [place] [address] Janeth Page, USER SUPPORT ANALYST SUPERVISOR [address] [address] Social History Tobacco Use Types Packs/Day Years [...] on filedocumented in this encounter Care Teams Visual Training Aide Relationship Specialty Start Date End Date Donaldo Villareal MD PCP - General Family Medicine 02/06/17 07/08/20 [facility] [address] [place] [address] PCP - General 07/09/20 12/26/22 Pcp, No PCP - General General Medicine 12/27/22 01/17/23 System, Provider Not In PCP - General 01/18/23 05/06/23 Pcp, No PCP - General General Medicine 05/07/23 06/26/23 Edward Mak MD PCP - General 06/27/23 07/15/23 [facility], [facility] [address] [place] [address] [address] [place] [address] PCP - General 07/16/23 Nitza Dial MD [address] [address] PCP - Aetna Medicare Attributed 07/16/23 04/15/24 Janeth Page APRN [address] [place] [address] PCP - Aetna Medicare Attributed 04/16/24 07/14/24 Donaldo Villareal MD Family Medicine 02/06/17 Alfonso George DO Door Slinger Cardiovascular Disease 05/15/18 Edward Mak MD Physician Rheumatology 05/15/18 Lupe Osorio MD [address] [place] [phone] Physician Hematology Oncology 05/15/18 Lynn Teran MD [address] [place] [address] Physician Gastroenterology 05/15/18 Farhana Rojas, PsyD [address] [place] [address] Clinical Psychologist Psychology 05/27/18 Dorota Carpenter MD [address] [place] [address] Urogynecology 12/28/21 documented as of this encounter
--- OUTSIDE RECORDS SUMMARY | 2025-01-05 21:36 | XMS_ITS | Encounter Summary ---
Author Organization [facility] Address [address] [place] [phone] Care Team Providers Care Clinical Business Manager Name Role Phone No, Pcp (Do Not Change Name) Primary Care Provid er Unavailable Encounter Details Date Type Department Care Team (Late st Contact Info) Description 04/01/2024 Scanned Document INTERFACE DEFAULT [address] [place] [address] [phone] System, Provider Not In Social History Tobacco [...] documented as of this encounter Care Teams Clinical Business Manager Relationship Specialty Start Date End Date No, Pcp (Do Not Change Name) PCP - General 04/21/20 documented as of this encounter
--- OUTSIDE RECORDS SUMMARY | 2025-01-05 21:37 | XMS_ITS | Encounter Summary ---
Author Organization [facility] Address [address] [place] [address] Care Team Providers Care Scheduling Representative Name Role Phone Donaldo Villareal MD Unavailable [phone] Alfonso George DO Unavailable [phone] Edward Mak MD Unavailable [phone] Lupe Osorio MD Unavailable Lynn Teran MD Unavailable Farhana Rojas Ps Unavailable Services-[facility] Care Provider Dorota Carpenter MD Unavailable [phone] Pcp, No Primary Care Provider Unavailabl e System, Provider Not In Primary Care Provider Un available Pcp, No Primary Care Provider Unavailabl e Edward Mak MD Primary Care Provider Services, [facility] Primary Care Provider Nitza Dial MD Unavailable Janeth Page MANAGER SOCIAL MEDIA Unavailable [phone] Reason for Visit * Reason Comments Medical Complaint Encounter Details Date Type Department Care Team (Late st Contact Info) Description 09/06/2021 Telephone [facility] Urologic Surgery [place] [address] [facility] [address] [place] [address] Janeth Page, MANAGER SOCIAL MEDIA [address] [place] [address] Medical Complaint Social History Tobacco Use Types [...] on filedocumented in this encounter Care Teams Scheduling Representative Relationship Specialty Start Date End Date Services-[facility], [facility] [address] [place] [address] PCP - General 07/09/20 12/26/22 Pcp, No PCP - General General Medicine 12/27/22 01/17/23 System, Provider Not In PCP - General 01/18/23 05/06/23 Pcp, No PCP - General General Medicine 05/07/23 06/26/23 Edward Mak MD PCP - General 06/27/23 07/15/23 [facility], [facility] [address] [facility] [address] [place] [address] PCP - General 07/16/23 Nitza Dial MD [address] [place] [address] PCP - Aetna Medicare Attributed 07/16/23 04/15/24 Janeth Page, MANAGER SOCIAL MEDIA [address] [place] [address] PCP - Aetna Medicare Attributed 04/16/24 07/14/24 Donaldo Villareal MD Family Medicine 02/06/17 Alfonso George DO Deep Tissue Massage Therapist Cardiovascular Disease 05/15/18 Edward Mak MD Physician Rheumatology 05/15/18 Lupe Osorio MD [address] [place] [phone] Physician Hematology Oncology 05/15/18 Lynn Teran MD [address] [place] [address] Physician Gastroenterology 05/15/18 Farhana Rojas PsyD [address] [facility] [address] [place] [address] Clinical Psychologist Psychology 05/27/18 Dorota Carpenter MD [address] [place] [address] [address] [place] [address] Urogynecology 12/28/21 documented as of this encounter
--- OUTSIDE RECORDS SUMMARY | 2025-01-05 21:37 | XMS_ITS | Encounter Summary ---
Author Organization [facility] Address [address] [place] [address] Phone Care Team Providers Care Director Building Name Role Phone Carolina Reynoso MD Primary Care Provider [phone] Encounter Details Date Type Department Care Team ([facility] Contact Info) Description 12/31/2024 Orders Only [facility] Rheumatology [address] [place] [address] Provider, MD Cornell [address] [place], [place] [phone] Social History Tobacco Use Types Packs/Day Years [...] Description 03/31/2025 9:00 AM EST Office Visit [facility] Rheumatology [address] [place] [address] Alexa Coulter MD [address] [facility], [address] [place] [address] [email or web address] documented as of this encounter Procedures Procedure Name Priority Date/Time Associated Diagnosis Comments OUTSIDE LAB Routine 11/27/2024 2:44 PM EDT documented in this encounter Results * Outside Lab (11/27/2024 2:44 PM EDT) us Historical Provider LAB BLOOD ORDERABLES Kaela l Result documented in this encounter Visit Diagnoses Not on filedocumented in this encounter Care Teams Director Building Relationship Specialty Start Date End Date Carolina Reynoso MD [address] [place] [address] PCP - General Family Medicine 12/30/24 documented as of this encounter Additional Source Comments The information contained in this document represents components of the legal health record. It is not the complete legal health record.[facility]
--- OUTSIDE RECORDS SUMMARY | 2025-01-05 21:37 | XMS_ITS | Encounter Summary ---
Author Organization [facility] Address [address] [place] [phone] Care Team Providers Care Cast Iron Dipper Name Role Phone No, Pcp (Do Not Change Name) Primary Care Provid er Unavailable Reason for Visit * Reason Comments Medication Refill Encounter Details Date Type Department Care Team ([facility] Contact Info) Description 04/11/2021 Refill [facility] [address] [place] [address] [address] [place] [address] Edward Mak MD [address] [place] [phone] Medication Refill Social History Tobacco Use Types [...] documented as of this encounter Care Teams Cast Iron Dipper Relationship Specialty Start Date End Date No, Pcp (Do Not Change Name) PCP - General 04/21/20 documented as of this encounter
--- OUTSIDE RECORDS SUMMARY | 2025-01-05 21:37 | XMS_ITS | Encounter Summary ---
Author Organization [facility] Address [address] [place] [address] Care Team Providers Care Manufacturer'S Representative Name Role Phone Donaldo Villareal MD Primary Care Provider + Donaldo Villareal MD Unavailable [phone] Alfonso George DO Unavailable [phone] Edward Mak MD Unavailable [phone] Lupe Osorio MD Unavailable Lynn Teran MD Unavailable Farhana Rojas PsyD Unavailable Services-[facility], [facility] Care Provider Dorota Carpenter MD Unavailable Pcp, No Primary Care Provider Unavailabl e System, Provider Not In Primary Care Provider Un available Pcp, No Primary Care Provider Unavailabl e Edward Mak MD Primary Care Provider [phone] Services, [facility] Primary Care Provider Nitza Dial MD Unavailable Janeth Page APRN Unavailable [phone] Reason for Visit * Reason Comments Medication Refill Encounter Details Date Type Department Care Team (Late st Contact Info) Description 06/28/2020 Refill [facility] Bariatric Surgery [address] [place] [address] Clotilde Yang PA Needs valid address Gastroesophageal [...] reflux documented in this encounter Care Teams Manufacturer'S Representative Relationship Specialty Start Date End Date Donaldo Villareal MD PCP - General Family Medicine 02/06/17 07/08/20 Services-[facility] [address] [place] [address] PCP - General 07/09/20 12/26/22 Pcp, No PCP - General General Medicine 12/27/22 01/17/23 System, Provider Not In PCP - General 01/18/23 05/06/23 Pcp, No PCP - General General Medicine 05/07/23 06/26/23 Edward Mak MD PCP - General 06/27/23 07/15/23 [facility], [facility] [address] [place] [address] [address] [place] [address] PCP - General 07/16/23 Nitza Dial MD [address] [place] [address] PCP - Aetna Medicare Attributed 07/16/23 04/15/24 Janeth Page, WHOLESALE ACCOUNT MANAGER [address] [place] [address] PCP - Aetna Medicare Attributed 04/16/24 07/14/24 Donaldo Villareal MD Family Medicine 02/06/17 Alfonso George DO Fruit Raiser Cardiovascular Disease 05/15/18 Edward Mak MD Physician Rheumatology 05/15/18 Lupe Osorio MD [address] [place], [place] [phone] Physician Hematology Oncology 05/15/18 Lynn Teran MD [address] [place] [address] Physician Gastroenterology 05/15/18 Farhana Rojas PsyD [address] [place] [address] Clinical Psychologist Psychology 05/27/18 Dorota Carpenter MD [address] [place] [address] Urogynecology 12/28/21 documented as of this encounter
--- OUTSIDE RECORDS SUMMARY | 2025-01-05 21:37 | XMS_ITS | Encounter Summary ---
Author Organization [facility] Address [address] [place] [address] Care Team Providers Care Electron Microscopist Name Role Phone No, Pcp (Do Not Change Name) Primary Care Provid er Unavailable Reason for Visit * Reason Comments Medication Refill Encounter Details Date Type Department Care Team ([facility] Contact Info) Description 05/13/2020 [facility]ill [facility] [address] [place] [address] [address] [place] [address] Edward Mak MD [address] [place] [phone] Medication Refill Social History Tobacco Use Types [...] documented as of this encounter Care Teams Electron Microscopist Relationship Specialty Start Date End Date No, Pcp (Do Not Change Name) PCP - General 04/21/20 documented as of this encounter
--- OUTSIDE RECORDS SUMMARY | 2025-01-05 21:37 | XMS_ITS | Encounter Summary ---
Author Organization [facility] Address [address] [place] [phone] Care Team Providers Care Song Plugger Name Role Phone No, Pcp (Do Not Change Name) Primary Care Provid er Unavailable Reason for Visit * Reason Comments Medication Refill Encounter Details Date Type Department Care Team (Late Contact Info) Description 07/23/2020 [facility]ill [facility] [address] [place] [address] [address] [place], [place] [address] Edward Mak MD [address] [place] [phone] Medication Refill Social History Tobacco Use Types [...] documented as of this encounter Care Teams Song Plugger Relationship Specialty Start Date End Date No, Pcp (Do Not Change Name) PCP - General 04/21/20 documented as of this encounter
--- OUTSIDE RECORDS SUMMARY | 2025-01-05 21:37 | XMS_ITS | Encounter Summary ---
Author Organization [facility] Address [address] [place] [address] Care Team Providers Care Labor Supervisor Name Role Phone Donaldo Villareal MD Primary Care Provider + Donaldo Villareal MD Unavailable [phone] Alfonso George DO Unavailable [phone] Edward Mak MD Unavailable [phone] Lupe Osorio MD Unavailable [phone] Lynn Teran MD Unavailable Farhana Rojas PsyD Unavailable Services-[facility], [facility] Care Provider Dorota Carpenter MD Unavailable Pcp, No Primary Care Provider Unavailabl e System, Provider Not In Primary Care Provider Un available Pcp, No Primary Care Provider Unavailabl e Edward Mak MD Primary Care Provider [phone] Services, [facility] Primary Care Provider Nitza Dial MD Unavailable Janeth Page APRN Unavailable [phone] Encounter Details Date Type Department Care Team (Late st Contact Info) Description 06/28/2019 Telephone [facility] [address] [place] [address] [place] [address] [place], RADHA [address] [place] [address] Social History Tobacco Use Types Packs/Day Years [...] on filedocumented in this encounter Care Teams Labor Supervisor Relationship Specialty Start Date End Date Donaldo Villareal MD PCP - General Family Medicine 02/06/17 07/08/20 [facility] [address] [place] [address] PCP - General 07/09/20 12/26/22 Pcp, No PCP - General General Medicine 12/27/22 01/17/23 System, Provider Not In PCP - General 01/18/23 05/06/23 Pcp, No PCP - General General Medicine 05/07/23 06/26/23 Edward Mak MD PCP - General 06/27/23 07/15/23 [facility], [facility] [address] [place] [address] [address] [place] [address] PCP - General 07/16/23 Nitza Dial MD [address] [place] [address] PCP - Aetna Medicare Attributed 07/16/23 04/15/24 Janeth Page, CREATIVE ASSISTANT [address] [place] [address] PCP - Aetna Medicare Attributed 04/16/24 07/14/24 Donaldo Villareal MD Family Medicine 02/06/17 Alfonso George DO Cap Sizer Cardiovascular Disease 05/15/18 Edward Mak MD Physician Rheumatology 05/15/18 Lupe Osorio MD [address] [place], [place] [phone] Physician Hematology Oncology 05/15/18 Lynn Teran MD [address] [place] [address] Physician Gastroenterology 05/15/18 Farhana Rojas PsyD [address] [place] [address] Clinical Psychologist Psychology 05/27/18 Dorota Carpenter MD [address] [place] [address] Urogynecology 12/28/21 documented as of this encounter
--- OUTSIDE RECORDS SUMMARY | 2025-01-05 21:37 | XMS_ITS | Encounter Summary ---
Author Organization [facility] Address [address] [place] [address] Care Team Providers Care Communications Program Manager Name Role Phone No, Pcp (Do Not Change Name) Primary Care Provid er Unavailable Reason for Visit * Reason Comments Medication Refill Encounter Details Date Type Department Care Team (Late Contact Info) Description 12/14/2020 [facility]ill [facility] [address] [place] [address] [address] [place] [address] Edward Mak MD [address] [place] [phone] Medication Refill Social History Tobacco Use Types [...] documented as of this encounter Care Teams Communications Program Manager Relationship Specialty Start Date End Date No, Pcp (Do Not Change Name) PCP - General 04/21/20 documented as of this encounter
--- OUTSIDE RECORDS SUMMARY | 2025-01-05 21:37 | XMS_ITS | Encounter Summary ---
Author Organization [facility] Address [address] [place] [address] Care Team Providers Care Cleaning Custodian Name Role Phone No, Pcp (Do Not Change Name) Primary Care Provid er Unavailable Reason for Visit * Reason Comments Medication Refill Encounter Details Date Type Department Care Team (Late Contact Info) Description 11/13/2020 [facility]ill [facility] [address] [place] [address] [address] [place] [address] Edward Mak MD [address] [place] [phone] Medication Refill Social History Tobacco Use Types [...] documented as of this encounter Care Teams Cleaning Custodian Relationship Specialty Start Date End Date No, Pcp (Do Not Change Name) PCP - General 04/21/20 documented as of this encounter
--- OUTSIDE RECORDS SUMMARY | 2025-01-05 21:37 | XMS_ITS | Clinical Summary ---
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: [id number] MDD (major depressive disord er), recurrent episode, moderate 03/28/2018 Overview (06/12/2019): Overview Note: MDD (major depressive disorder #[id number]# EXT_ID: [id number] Fibromyalgia 01/29/2018 Overview (06/12/2019): Overview Note: Fibromyalgia #772285# EXT_ID: [id number] Fibromyalgia 01/29/2018 Irritable bowel syndrome 10/16/2012 Overview (06/12/2019): Overview Note: Irritable bowel syndrome #37261# EXT_ID: [id number] Disease of immune system ([facility]) 013 Overview (06/27/2019): Overview Note: Endometriosis #57629# EXT_ID: [id number] Asthma 10/16/2012 Overview (06/12/2019): Overview Note: Asthma #45997# EXT_ID: [id number] Ovarian cyst 10/16/2012 Overview (06/12/2019): Overview Note: Ovarian cyst #28871# EXT_ID: [id number] Immunizations Immunization Administration Dates Next Due Flu, [...] 09/15/2020 Hepatitis C Screening Completed 08/24/2023, 020 Agt-FEYES-15 Completed 01/22/2024, 01/15, 02/18/2021, Additional history exists [...] EST) GLUCOSE 105(H) 65 - 99 mg/dL [employer] Comment: Fasting reference interval For someone without known diabetes, a glucose value between 100 and 125 mg/dL is consistent with prediabetes and should be confirmed with a follow-up test. UREA NITROGEN (BUN) 9 7 - 25 mg/dL [employer] CREATININE (blood) 0.97 0.50 - 0.97 mg/dL [employer] EGFR 78 > OR = 60 mL/min/1 .73m2 [employer] Comment: The eGFR is based on the CKD-EPI 2020 equation. To calculate the new eGFR from a previous Creatinine or Cystatin C result, go to https://www.kidney.org/professionals/ kdoqi/gfr%5Fcalculator BUN/CREATININE RATIO NOT APPLICABLE 6 - 22 (calc) [employer] SODIUM 136 135 - 146 mmol/L [employer] POTASSIUM 4.2 3.5 - 5.3 mmol/L [employer] [employer] [facility] CHLORIDE 102 98 - 110 mmol/L [employer] [facility] CARBON DIOXIDE 23 20 - 32 mmol/L [employer] CALCIUM 9.5 8.6 - 10.2 mg/dL [facility] [employer] [facility] PROTEIN, TOTAL 7.3 6.1 - 8.1 g/dL [facility] [employer] ALBUMIN 3.9 3.6 - 5.1 g/dL [facility] [employer] GLOBULIN 3.4 1.9 - 3.7 g/dL (calc) [facility] ALBUMIN/GLOBULI N RATIO 1.1 1.0 - 2.5 (calc) [facility] [employer] BILIRUBIN, TOTAL 0.5 0.2 - 1.2 mg/dL [facility] ALKALINE PHOSPHATASE 83 31 - 125 U/L [facility] [employer] [facility] AST 13 10 - 30 U/L [facility] [employer] [facility] ALT 6 6 - 29 U/L [facility] [employer] Blood Blood / Unknown 05/24/2022 8 :32 AM EST 05/24/2022 7:18 PM EST Cindi Burns SUPERVISOR [facility] - BLOOD DRAW Final Resul t [facility] [address] [phone], [facility] [address] [phone] * PAP SMEAR W/HPV (08/25/2020) PAP SMEAR INTERPRETATION [facility]ORMAL [facility] 08/25/2020 Provider [facility] - PATHOLOGY AND CYTOLOGY AMB ULATORY Final Result [facility] [address] [place] [phone], from Last 3 Months or Most Recently Relevant to Health Maintenance Insurance [place] MEDICA[place] Member Subscriber Plan / Payer (Ef fective 2022-Present) Name:Gloria Salazar Relation to Subscriber:Self Name:Gloria Salazar Payer ID:[id number] Group ID:Not on file Type:Medicaid Address: [address] [address] Care Teams Doubling Machine Operator Relationship Specialty Start Date End Date Provider, Outside N/A N/A PCP - General Specialist - Other Service Providers 09/10/24
--- OUTSIDE RECORDS SUMMARY | 2025-01-05 21:37 | XMS_ITS | Encounter Summary ---
Author Organization [facility] Address [address] [place] [phone] Care Team Providers Care Kitchen Work Supervisor Name Role Phone No, Pcp (Do Not Change Name) Primary Care Provid er Unavailable Reason for Visit * Reason Comments Medication Refill Encounter Details Date Type Department Care Team ([facility] st Contact Info) Description 02/03/2021 Refill Medical Dermatology at [address] [phone] Omar Jose MD [address] [place] [phone] Medication Refill Social History Tobacco Use [...] documented as of this encounter Care Teams Kitchen Work Supervisor Relationship Specialty Start Date End Date No, Pcp (Do Not Change Name) PCP - General 04/21/20 documented as of this encounter
--- OUTSIDE RECORDS SUMMARY | 2025-01-05 21:37 | XMS_ITS | Encounter Summary ---
Author Organization [facility] Address [address] [place] [address] Care Team Providers Care Pickle Cutter Name Role Phone Donaldo Villareal MD Primary Care Provider + Donaldo Villareal MD Unavailable [phone] Alfonso George DO Unavailable [phone] Edward Mak MD Unavailable [phone] Lupe Osorio MD Unavailable Lynn Teran MD Unavailable Farhana Rojas PsyD Unavailable [phone] Services-[facility], [facility] Care Provider Dorota Carpenter MD Unavailable Pcp, No Primary Care Provider Unavailabl e System, Provider Not In Primary Care Provider Un available Pcp, No Primary Care Provider Unavailabl e Edward Mak MD Primary Care Provider [phone] Services, [facility] Primary Care Provider Nitza Dial MD Unavailable Janeth Page APRN Unavailable [phone] Reason for Visit * Reason Comments Medication Refill Encounter Details Date Type Department Care Team (Late st Contact Info) Description 10/16/2019 Refill [facility] Bariatric Surgery [address] [place] [phone] Sarah Mathews, FOOD AND BEVERAGE DIRECTOR [address] [address] Gastroesophageal reflux disease without esophagitis Social History [...] reflux documented in this encounter Care Teams Pickle Cutter Relationship Specialty Start Date End Date Donaldo Villareal MD PCP - General Family Medicine 02/06/17 07/08/20 Services-[facility] [address] [place] [address] PCP - General 07/09/20 12/26/22 Pcp, No PCP - General General Medicine 12/27/22 01/17/23 System, Provider Not In PCP - General 01/18/23 05/06/23 Pcp, No PCP - General General Medicine 05/07/23 06/26/23 Edward Mak MD PCP - General 06/27/23 07/15/23 [facility], [facility] [address] [place], [place] [address] PCP - General 07/16/23 Nitza Dial MD [address] [place] [address] PCP - Aetna Medicare Attributed 07/16/23 04/15/24 Janeth Page, FOOD AND BEVERAGE DIRECTOR [address] [place] [address] PCP - A[employer] Medicare Attributed 04/16/24 07/14/24 Donaldo Villareal MD Family Medicine 02/06/17 Alfonso George DO A/C Technician Cardiovascular Disease 05/15/18 Edward Mak MD Physician Rheumatology 05/15/18 Lupe Osorio MD [address] [place] [phone] Physician Hematology Oncology 05/15/18 Lynn Teran MD [address] [place] [address] Physician Gastroenterology 05/15/18 Farhana Rojas, PsBonita [address] [place] [address] Clinical Psychologist Psychology 05/27/18 Dorota Carpenter MD [address] [place] [address] Urogynecology 12/28/21 documented as of this encounter
--- OUTSIDE RECORDS SUMMARY | 2025-01-05 21:37 | XMS_ITS | Encounter Summary ---
Author Organization [facility] Address [address] [place] [address] [place] [address] Phone Care Team Providers Care Legal Contracts Specialist Name Role Phone Carolina Reynoso MD Primary Care Provider + [phone] Reason for Visit * Reason Onset Date Comments Medication Prior Authorization 12/30/2024 I nflectra Encounter Details Date Type Department Care Team ([facility] Contact Info) Description 12/30/2024 Telephone [facility] Rheumatology [address] [place] [address] Alexa Coulter MD [address] [facility], [address] [place] [address] [email or web address] Medication Prior Authorization (Inflectra) Social History Tobacco [...] PM EDT This patient will need a [facility] PA for Inflectra. No appts scheduled as of yet. PA form filled out awaiting provider signature then to be faxed documented in this encounter Plan of Treatment Upcoming Encounters Date Type Department Care Team (Late st Contact Info) Description 03/31/2025 9:00 AM EST Office Visit [facility] Rheumatology [address] [place] [address] Alexa Coulter MD [address] [place] [address], [address] [place] [address] documented as of this encounter Visit Diagnoses Not on filedocumented in this encounter Care Teams Legal Contracts Specialist Relationship Specialty Start Date End Date Carolina Reynoso MD [address] [place] [address] [email or web address] PCP - General Family Medicine 12/30/24 documented as of this encounter Additional Source Comments The information contained in this document represents components of the legal health record. It is not the complete legal health record.[facility]
--- OUTSIDE RECORDS SUMMARY | 2025-01-05 21:37 | XMS_ITS | Encounter Summary ---
Author Organization [facility] Address [address] [place] [address] Care Team Providers Care Tractor Mechanic Apprentice Name Role Phone Donaldo Villareal MD Primary Care Provider + Donaldo Villareal MD Unavailable [phone] Alfonso George DO Unavailable [phone] Edward Mak MD Unavailable [phone] Lupe Osorio MD Unavailable Lynn Teran MD Unavailable Farhana Rojas PsyD Unavailable Services-[facility], [facility] Care Provider Dorota Carpenter MD Unavailable Pcp, No Primary Care Provider Unavailabl e System, Provider Not In Primary Care Provider Un available Pcp, No Primary Care Provider Unavailabl e Edward Mak MD Primary Care Provider Services, [facility] Primary Care Provider Nitza Dial MD Unavailable Janeth Page APRN Unavailable [phone] Encounter Details Date Type Department Care Team (Late st Contact Info) Description 05/04/2020 Scanned Document [facility] CHILDCARE ATTENDANT [address] [place] [phone] Lisa Contreras MD [address] [place] [phone] Social History Tobacco Use Types Packs/Day Years [...] on filedocumented in this encounter Care Teams Tractor Mechanic Apprentice Relationship Specialty Start Date End Date Donaldo Villareal MD PCP - General Family Medicine 02/06/17 07/08/20 Services-[facility] [address] [place] [address] PCP - General 07/09/20 12/26/22 Pcp, No PCP - General General Medicine 12/27/22 01/17/23 System, Provider Not In PCP - General 01/18/23 05/06/23 Pcp, No PCP - General General Medicine 05/07/23 06/26/23 Edward Mak MD PCP - General 06/27/23 07/15/23 [facility], [facility] [address] [place] [address] [address] [place] [address] PCP - General 07/16/23 Nitza Dial MD [address] [place] [address] PCP - Aetna Medicare Attributed 07/16/23 04/15/24 Janeth Page, PAINTING TRADES WORKER [address] [place] [address] PCP - A[employer] Medicare Attributed 04/16/24 07/14/24 Donaldo Villareal MD Family Medicine 02/06/17 Alfonso George DO Stick Inserter Cardiovascular Disease 05/15/18 Edward Mak MD Physician Rheumatology 05/15/18 Lupe Osorio MD [address] [place] [phone] Physician Hematology Oncology 05/15/18 Lynn Teran MD [address] [place] [address] Physician Gastroenterology 05/15/18 Farhana Rojas PsyD [address] [place] [address] Clinical Psychologist Psychology 05/27/18 Dorota Carpenter MD [address] [place] [address] Urogynecology 12/28/21 documented as of this encounter
--- OUTSIDE RECORDS SUMMARY | 2025-01-05 21:37 | XMS_ITS | Encounter Summary ---
Author Organization [facility] Address [address] [place] [address] Care Team Providers Care Concrete Mixer Name Role Phone Donaldo Villareal MD Primary Care Provider + Donaldo Villareal MD Unavailable [phone] Alfonso George DO Unavailable Edward Mak MD Unavailable [phone] Lupe Osorio MD Unavailable Lynn Teran MD Unavailable Farhana Rojas PsyD Unavailable Services-[facility], [facility] Care Provider Dorota Carpenter MD Unavailable Pcp, No Primary Care Provider Unavailabl e System, Provider Not In Primary Care Provider Un available Pcp, No Primary Care Provider Unavailabl e Ewdard Mak MD Primary Care Provider Services, [facility] Primary Care Provider Nitza Dial MD Unavailable Janeth Page APRN Unavailable [phone] Encounter Details Date Type Department Care Team (Late st Contact Info) Description 10/28/2019 Scanned Document [facility] GREASE MAKER HEAD [address] [place] [address] Lisa Contreras MD [address] [place] [address] Social History Tobacco Use Types Packs/Day Years [...] on filedocumented in this encounter Care Teams Concrete Mixer Relationship Specialty Start Date End Date Donaldo Villareal MD PCP - General Family Medicine 02/06/17 07/08/20 Services-[facility] [address] [place] [address] PCP - General 07/09/20 12/26/22 Pcp, No PCP - General General Medicine 12/27/22 01/17/23 System, Provider Not In PCP - General 01/18/23 05/06/23 Pcp, No PCP - General General Medicine 05/07/23 06/26/23 Edward Mak MD PCP - General 06/27/23 07/15/23 [facility], [facility] [address] [place] [address] [address] [place] [address] PCP - General 07/16/23 Nitza Dial MD [address] [place] [address] PCP - Aetna Medicare Attributed 07/16/23 04/15/24 Janeth Page, SOFTWARE CONSULTANT [address] [place] [address] PCP - Aetna Medicare Attributed 04/16/24 07/14/24 Donaldo Villareal MD Family Medicine 02/06/17 Alfonso George DO Rib Sawyer Cardiovascular Disease 05/15/18 Edward Mak MD Physician Rheumatology 05/15/18 Lupe Osorio MD [address] [place] [phone] Physician Hematology Oncology 05/15/18 Lynn Teran MD [address] [place] [address] Physician Gastroenterology 05/15/18 Farhana Rojas PsyD [address] [place] [address] Clinical Psychologist Psychology 05/27/18 Dorota Carpenter MD [address] [place] [address] Urogynecology 12/28/21 documented as of this encounter
--- OUTSIDE RECORDS SUMMARY | 2025-01-05 21:37 | XMS_ITS | Encounter Summary ---
Author Organization [facility] Address [address] [place] [phone] Care Team Providers Care Oncology Research Rn Name Role Phone No, Pcp (Do Not Change Name) Primary Care Provid er Unavailable Reason for Visit * Reason Comments Medication Refill Encounter Details Date Type Department Care Team ([facility] st Contact Info) Description 05/10/2021 Refill Medical Dermatology at [address] [phone] Omar Jose MD [address] [place] [phone] Medication Refill Social History Tobacco Use [...] documented as of this encounter Care Teams Oncology Research Rn Relationship Specialty Start Date End Date No, Pcp (Do Not Change Name) PCP - General 04/21/20 documented as of this encounter
--- OUTSIDE RECORDS SUMMARY | 2025-01-05 21:37 | XMS_ITS | Clinical Summary ---
Author Organization [facility] Address [address] [place] [address] Care Team Providers Care Arson And Bomb Investigator Name Role Phone Donaldo Villareal MD Unavailable [phone] Alfonso George DO Unavailable Edward Mak MD Unavailable [phone] Lupe Osorio MD Unavailable [phone] Lynn Teran MD Unavailable Farhana RojasyD Unavailable Dorota Carpenter MD Unavailable [facility], [facility] Primary Care Provider Allergies Active Allergy [...] every morning. Active Cannabidiol Non-THC (CBD) Misc Vowinckel/Smoke/Vapor/ Oil Inhale as needed. Active gabapentin (NEURONTIN) [...] e alcohol) 1 a year [facility] Alcrestaities Answer Date Recorded In the past 12 months has th e [employer], gas, oil, or water company threatened to [...] place to sleep or slept in a custodial (including now)? No 06/27/2023 Comments No Sex [...] Years) (1 of 2 - PCV) 2004 Pap Smear (Ages 21-65) 08/26/2023 08/25/2020 Influenza Vaccine 11/14/2024 01/22/2024, , 02/05/2022, Additional history exists COVID-19 Vaccine (6 - Pfizer risk 2023- season) 2024 01/22/2024, 02/05/2022, 02/18/2021, Additional history exists HIV Screening Completed 03/21/2023, 02/15, 09/15/2020 Hepatitis C Virus Screening Completed 09/2022, 03/10/2022, 09/15/2020 HPV Vaccines (No Doses Required) Completed Goals Goal Patient Goal Type Associated Problems Recent Progress Patient-Stated? Author Decrease soda or juice intake Diet No Ruma Amezquita RD Increase physical activity Lifestyle No Ruma Amezquita RD Medical Devices Explanted Type Area Sports Doctor Device Identifier Shelf Expiration Date Model / Serial / Lot [id number] Stent Ureteral 6fr 26cm Pigtail Curve Taper Tip Bldr Patrick Lp - [id number] Implanted:Qty : 1 on 02/12/2024 by Bin Almaguer MD at [facility] Explanted:Qty : 1 on 02/14/2024 by Jd Johnston MD Stent N/A: [employer] JAIRO [id number] 09/30/2026 [id number] Procedures Procedure Name Priority Date/Time Associated Diagnosis Comments HIV 1/2 AG/AB CMIA REFLEX TO CONFIRMATION Routine 03/21/2023 2:28 PM EST HEPATITIS C VIRUS (HCV) ANTIBODY Routine 03/21/2023 2:28 PM EST THINPREP PAP TEST (TRADE RECRUITER) WITH HPV REFLEX, GC/CT Routine 08/25/2020 4:54 PM EDT from Last 3 Months or Most Recently Relevant to Health Maintenance Results * HIV 1/2 Ag/Ab CMIA Reflex to Confirmation (03/21/2023 2:28 PM EST) HIV Ag/Ab, 4th Gen Non-Reacti ve Non-Reacti ve [facility] Comment: Results show no evidence of infection by HIV 1/2. If clinically indicated, repeat CMIA or test by nucleic acid amplification. 03/21/2023 2:28 PM EST 03/22/2023 1:29 AM EST us Carolina SORTO LAB BLOOD ORDERABLES Final R esult [facility] [address] [place], [place] * HEPATITIS C VIRUS (HCV) ANTIBODY (03/21/2023 2:28 PM EST) Hepatitis C Antibody 0.33 Non-Reacti ve Non-Reacti ve S/CO [facility] 03/21/2023 2:28 PM EST 03/22/2023 1:29 AM EST Carolina Akers CNM LAB BLOOD ORDERABLES Final R esult Performing Organization Address [facility]/ZIP Co de Phone Number [facility] [address], [place] * ThinPrep Pap Test (Procedural Nurse) with HPV Reflex, GC/CT (08/25/2020 4:54 PM EDT) Report Report [facility] Comment: Final Gynecological Cytology Report ThinPrep Pap Test with HPV Reflex, GC/Chlamydia SPECIMEN ADEQUACY: SATISFACTORY FOR EVALUATION; ENDOCERVICAL/TRANSFORMATION ZONE COMPONENT PRESENT. INTERPRETATION: NEGATIVE FOR INTRAEPITHELIAL LESION OR MALIGNANCY. Electronically Signed: Maggie Jane CT (ASCP) CLINICAL INFORMATION: LMP: NG Specimen Source: Cervix, Endocervix CPT Codes: 41336 ICD Codes: Z01.419 Other 08/25/2020 4:54 PM EDT 08/26/2020 4:15 AM EDT Farnaz Lyles APRN LAB AMB PATH/CYTO ORDERABLES Fi nal Result Performing Organization Address City/[facility]/ZIP Co de Phone Number [facility] [address], [place] from Last 3 Months or Most Recently Relevant to Health Maintenance Insurance [facility] MEDICARE [facility] MEDICARE [facility] AETNA MGD MEDICARE [facility] AETNA MGD MEDICARE [facility] Advance Directives * Full Code (Latest Code [...] 8:51 AM 11/23/2018 10:25 PM Care Teams Arson And Bomb Investigator Relationship Specialty Start Date End Date Services, [facility] [address] [place], [place] [address]r [facility] [address] [place] [address] PCP - General 07/16/23 Donaldo Villareal MD Family Medicine 02/06/17 Alfonso George DO Canoe Builder Cardiovascular Disease 05/15/18 Edward Mak MD Physician Rheumatology 05/15/18 Lupe Osorio MD [address] [place] [phone] Physician Hematology Oncology 05/15/18 Lynn Teran MD [address] [place] [address] Physician Gastroenterology 05/15/18 Farhana Rojas, Rivera [address] [place] [address] Clinical Psychologist Psychology 05/27/18 Dorota Carpenter MD [address] [place] [address] Urogynecology 12/28/21
--- OUTSIDE RECORDS SUMMARY | 2025-01-05 21:37 | XMS_ITS | Encounter Summary ---
Author Organization [employer] Address [address] [place] [address] [address] [place] [address] Care Team Providers Care Instrument Repair Specialist Name Role Phone Carolina Reynoso MD Primary Care Provider [phone] Encounter Details Date Type Department Care Team ([facility] Contact Info) Description 09/30/2024 Orders Only [facility] [address] [place] [address] Carolina Reynoso MD [address] [place] [address] Social History Tobacco Use Types Packs/Day Years [...] Upcoming Encounters Date Type Department Care Team ([facility] Contact Info) Description 02/11/2025 11:20 AM EDT Office Visit [facility] [address] [place] [address] Carolina Reynoso MD [address] [place] [address] documented as of this encounter Visit Diagnoses Not on filedocumented in this encounter Care Teams Instrument Repair Specialist Relationship Specialty Start Date End Date Carolina Reynoso MD [address] [place] [address] PCP - General Family Medicine 09/10/24 documented as of this encounter
--- OUTSIDE RECORDS SUMMARY | 2025-01-05 21:37 | XMS_ITS | Encounter Summary ---
Author Organization [facility] Address [address] [place] [phone] Care Team Providers Care Autocutter Name Role Phone No, Pcp (Do Not Change Name) Primary Care Provid er Unavailable Reason for Visit * Reason Comments Medication Refill Encounter Details Date Type Department Care Team ([facility] Contact Info) Description 12/05/2021 Refill [facility] at [address] [place] [address] [address] [place] [address] Edward Mak MD [address] [place] [phone] Medication Refill Social History Tobacco Use Types [...] encounter Miscellaneous Notes * Telephone Encounter - Ercia Briseno RN - 12/06/2021 8:35 AM EDT [...] documented as of this encounter Care Teams Autocutter Relationship Specialty Start Date End Date No, Pcp (Do Not Change Name) PCP - General 04/21/20 documented as of this encounter
--- OUTSIDE RECORDS SUMMARY | 2025-01-05 21:37 | XMS_ITS | Clinical Summary ---
Author Organization [facility] Address [address] [place] [address] Phone Care Team Providers Care Bread Racker Name Role Phone Carolina Reynoso MD Primary Care Provider [phone] Allergies Active Allergy Reactions Criticality Noted Date [...] Department Care Team Description 12/31/2024 Orders Only [facility] Rheumatology [address] [place] [address] ProviderCornell MD 12/30/2024 9:00 AM EDT Office Visit [facility] Rheumatology [address] [place] [address] [place] [address] Alexa Coulter MD Ankylosing spondylitis of multiple sites in spine (Primary Dx); Encounter for long-term (current) use of high-risk medication; Need for hepatitis C screening test; Need for hepatitis B screening test; Fibromyalgia; Hypermobility arthralgia 12/30/2024 Telephone [facility] Rheumatology [address] [place] [address] [place] [address] Alexa Coulter MD Medication Prior Authorization ([employer]lect[employer]) 12/05/2024 3:15 PM EDT - 12/05/2024 11:59 PM EDT Hospital [facility] - [address] [address] Cecilio Shaffer CNP Discharge Disposition: Home or Self Care 12/05/2024 2:10 PM EDT Office Visit [facility] Urgent Care at [address] [address] Cecilio Shaffer CNP Left foot pain (Primary Dx) 11/20/2024 Transcribe Orders [address] [place] [address] Lucy, MD Lucy Ankylosing spondylitis of lumbosacral region (Primary Dx) 11/10/2024 Telephone [facility] Rheumatology [address] [place] [address] [place] [address] Unknown, Unknown, Referral from Last 3 Months [...] 03/31/2025 9:00 AM EST Office Visit [facility] Rheumatology [address] [place] [address] Alexa Coulter MD [address] [place] [address], [address] [place] [address] [email or web address] Health Maintenance Due Date Last Done Comments [...] clinician's provided indication for this examination in [facility]: Other Indication (Please use free text); Foreign body in the area of the MCP of the great toe COMPARISON: None FINDINGS: No acute fracture or dislocation. Joint spaces are overall unremarkable. Procedure Note Eileen Champagne MD, PhD - 12/05/2024 XR TOES 2 OR MORE VIEWS (LEFT) Referring clinician's provided indication for this examination in [facility]:Other Indication (Please use free text); Foreign body in the area of theMCP of the great toe COMPARISON: None FINDINGS: No acute fracture or dislocation. Joint spaces are overall unremarkable. IMPRESSION: No acute osseous abnormality of the left great toe. Cecilio Shaffer CHILD WELFARE COUNSELOR IMG XR LOWER EXTREMITY Final Result * Outside Lab (11/27/2024 2:44 PM EDT) Historical Provider LAB BLOOD ORDERABLES Kaela l Result from Last 3 Months Insurance [employer] PPO MEDICARE REPLACEMENT [facility] MEDICARE REPLACEMENT [facility] MEDICARE [facility]PLACEMENT [facility] MEDICARE [facility]PLACEMENT [facility] MEDICARE REPLACEMENT [facility] MEDICARE REPLACEMENT [facility] MEDICARE [facility]PLACEMENT [facility] MEDICARE REPLACEMENT [facility] MEDICARE [facility]PLACEMENT [facility] MEDICARE [facility] RE[facility] MEDICARE REPLACEMENT Member Subscriber Plan / Payer (Ef fective 2024-Present) Name:Gloria Salazar Relation to Subscriber:Self Name:Gloria Salazar Payer ID:[id number] (NAIC) Type:Medicare Address: [place] [phone] Care Teams Bread Racker Relationship Specialty Start Date End Date Carolina Reynoso MD [address] [place] [address] PCP - General Family Medicine 12/30/24 Additional Source Comments The information contained in this document represents components of the legal health record. It is not the complete legal health record.[facility]
--- OUTSIDE RECORDS SUMMARY | 2025-01-05 21:37 | XMS_ITS | Encounter Summary ---
Author Organization [facility] Address [address] [place] [phone] Care Team Providers Care Enroute Controller Name Role Phone No, Pcp (Do Not Change Name) Primary Care Provid er Unavailable Reason for Visit * Reason Comments Medication Refill Encounter Details Date Type Department Care Team ([facility] st Contact Info) Description 08/17/2020 Refill Medical Dermatology at [address] [phone] Omar Jose MD [address] [place] [phone] Medication Refill Social History Tobacco Use [...] documented as of this encounter Care Teams Enroute Controller Relationship Specialty Start Date End Date No, Pcp (Do Not Change Name) PCP - General 04/21/20 documented as of this encounter
--- OUTSIDE RECORDS SUMMARY | 2025-01-05 21:37 | XMS_ITS | Encounter Summary ---
Author Organization [facility] Address [address] [place] [phone] Care Team Providers Care Recovery Operator Name Role Phone No, Pcp (Do Not Change Name) Primary Care Provid er Unavailable Reason for Visit * Reason Comments Medication Refill Encounter Details Date Type Department Care Team ([facility] st Contact Info) Description 07/13/2020 Refill Medical Dermatology at [address] [address] Omar Jose MD [address] [place] [phone] Medication Refill Social History Tobacco Use [...] documented as of this encounter Care Teams Recovery Operator Relationship Specialty Start Date End Date No, Pcp (Do Not Change Name) PCP - General 04/21/20 documented as of this encounter
--- OUTSIDE RECORDS SUMMARY | 2025-01-05 21:37 | XMS_ITS | Encounter Summary ---
Author Organization [facility] Address [address] [place] [address] [place] [address] Phone Care Team Providers Care Sales Consulting Director Name Role Phone Pcp, Unknown Primary Care Provider Carolina Woodward MD Primary Care Provider [phone] Encounter Details Date Type Department Care Team ([facility] st Contact Info) Description 05/16/2024 Procedure Pass [facility], Ct Scan - [address] [address] Social History Tobacco Use Types Packs/Day Years [...] 9:05 AM EST Gely Flores RN * [place] Suicide Severity Rating Scale (Screener/Recent Self-Report) Question [...] Description 03/31/2025 9:00 AM EST Office Visit [facility] Rheumatology [address] [place] [address] Alexa Coulter MD [address] [place] [address], [address] [place] [address] [email or web address] documented as of this encounter Visit Diagnoses Not on filedocumented in this encounter Care Teams Sales Consulting Director Relationship Specialty Start Date End Date Pcp, Unknown PCP - General 05/27/24 12/29/24 Carolina Reynoso MD [address] [place] [address] [email or web address] PCP - General Family Medicine 12/30/24 documented as of this encounter Additional Source Comments The information contained in this document represents components of the legal health record. It is not the complete legal health record.[facility]
--- OUTSIDE RECORDS SUMMARY | 2025-01-05 21:37 | XMS_ITS | Encounter Summary ---
Author Organization [facility] Address [address] [place] [phone] Care Team Providers Care Policy Writer Name Role Phone No, Pcp (Do Not Change Name) Primary Care Provid er Unavailable Reason for Visit * Reason Comments Medication Refill Encounter Details Date Type Department Care Team ([facility] st Contact Info) Description 11/13/2020 Refill Medical Dermatology at [address] [phone] Omar Jose MD [address] [place] [phone] Medication Refill Social History Tobacco Use [...] as of this encounter Care Teams Policy Writer Relationship Specialty Start Date End Date No, Pcp (Do Not Change Name) PCP - General 04/21/20 documented as of this encounter
--- OUTSIDE RECORDS SUMMARY | 2025-01-05 21:37 | XMS_ITS | Encounter Summary ---
Author Organization [facility] Address [address] [place] [phone] Care Team Providers Care Antichecking Iron Worker Name Role Phone No, Pcp (Do Not Change Name) Primary Care Provid er Unavailable Reason for Visit * Reason Comments Medication Refill Encounter Details Date Type Department Care Team ([facility] st Contact Info) Description 12/14/2020 Refill Medical Dermatology at [address] [phone] Omar Jose MD [address] [place] [phone] Medication Refill Social History Tobacco Use [...] documented as of this encounter Care Teams Antichecking Iron Worker Relationship Specialty Start Date End Date No, Pcp (Do Not Change Name) PCP - General 04/21/20 documented as of this encounter
--- OUTSIDE RECORDS SUMMARY | 2025-01-05 21:37 | XMS_ITS | Encounter Summary ---
Author Organization [facility] Address [address] [place] [address] Care Team Providers Care Test Eng Name Role Phone Donaldo Villareal MD Primary Care Provider + Donaldo Villareal MD Unavailable [phone] Alfonso George DO Unavailable [phone] Edward Mak MD Unavailable [phone] Lupe Osorio MD Unavailable [phone] Lynn Teran MD Unavailable Farhana Rojas PsyD Unavailable Services-[facility], [facility] Care Provider Dorota Carpenter MD Unavailable Pcp, No Primary Care Provider Unavailabl e System, Provider Not In Primary Care Provider Un available Pcp, No Primary Care Provider Unavailabl e Edward Mak MD Primary Care Provider Services, [facility] Primary Care Provider Nitza Dial MD Unavailable Janeth Page APRN Unavailable [phone] Encounter Details Date Type Department Care Team (Late st Contact Info) Description 11/11/2018 Scanned Document [facility] [place] Bariatric Surgery [address] [place] [address] Charity Wakefield MD [address] [place] [phone] Social History Tobacco Use Types Packs/Day Years [...] on filedocumented in this encounter Care Teams Test Eng Relationship Specialty Start Date End Date Donaldo Villareal MD PCP - General Family Medicine 02/06/17 07/08/20 Services-[facility] [address] [place], [place] [phone] PCP - General 07/09/20 12/26/22 Pcp, No PCP - General General Medicine 12/27/22 01/17/23 System, Provider Not In PCP - General 01/18/23 05/06/23 Pcp, No PCP - General General Medicine 05/07/23 06/26/23 Edward Mak MD PCP - General 06/27/23 07/15/23 Services, [facility] [address] [place] [address] [address] [place], [place] [phone] PCP - General 07/16/23 Nitza Dial MD [address] [place] [address] PCP - [employer] Medicare Attributed 07/16/23 04/15/24 Janeth Page, PNEUMATIC DRUM SANDER [address] [place] [address] PCP - [employer] Medicare Attributed 04/16/24 07/14/24 Donaldo Villareal MD Family Medicine 02/06/17 Alfonso George DO Workers' Compensation Magistrate Cardiovascular Disease 05/15/18 Edward Mak MD Physician Rheumatology 05/15/18 Lupe Osorio MD [address] [place] [phone] Physician Hematology Oncology 05/15/18 Lynn Teran MD [address] [place] [address] Physician Gastroenterology 05/15/18 Farhana Rojas PsyD [address] [place] [address] Clinical Psychologist Psychology 05/27/18 Dorota Carpenter MD [address] [address] Urogynecology 12/28/21 documented as of this encounter
--- OUTSIDE RECORDS SUMMARY | 2025-01-05 21:37 | XMS_ITS | Clinical Summary ---
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 Morbid obesity due to excess calories 01/31/2017 GERD (gastroesophageal reflux disease) 7 Chronic bilateral low back pain without sciatica 01/23/2017 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 Irritable bowel syndrome 10/16/2012 Overview (12/10/2024): Overview Note: Irritable bowel syndrome #35998# EXT_ID: [id number] Asthma 10/16/2012 Overview (12/10/2024): Overview Note: Asthma #70283# EXT_ID: [id number] Ovarian cyst 10/16/2012 Overview (12/10/2024): Overview Note: Ovarian cyst #04082# EXT_ID: [id number] Encounters Date Type Department Care Team Description 12/31/2024 Telephone [facility] MEDICAL [address] [place] [address] Carolina Reynoso MD Possible Kidney infection 12/21/2024 Refill [facility] MEDICAL [address] [place] [address] Carolina Reynoso MD Ankylosing spondylitis of lumbosacral region ([facility]/HCC) 12/17/2024 10:40 AM EDT Office Visit [address] [address] Carolina Reynoso MD PTSD (post-traumatic stress disorder) (Primary Dx); Bipolar II disorder major depressive with atypical features ([facility]); Adult ADHD; Ankylosing spondylitis of lumbosacral region ([facility]); Early onset menopause; Dermatitis; Overflow incontinence; Iron deficiency; Annual physical exam; Family history of alpha 1 antitrypsin deficiency; Weight loss, unintentional; Class 3 severe obesity due to excess calories without serious comorbidity with body mass index (BMI) of 40.0 to 44.9 in adult; Nausea; Family history of breast cancer 12/16/[address] [address] Rebekah Walker CNP Mild asthma, unspecified whether complicated, unspecified whether persistent 12/14/[address] [address] Carolina Reynoso MD 12/11/[address] [address] Carolina Reynoso MD Gastroesophageal reflux disease, unspecified whether esophagitis present (Primary Dx) 12/10/2024 11:30 AM EDT Office Visit [facility] [address] [place] [address] Latonya [place] DDS Rampant dental caries (Primary Dx); Dental calculus; Oral hygiene poor 12/10/2024 Travel 12/10/2024 Telephone [facility] [address] [place] [address] Jorge Alberto Costello DDS 11/23/[address] [address] Carolina Reynoso MD Mild asthma, unspecified whether complicated, unspecified whether persistent 11/20/[address] [address] Carolina Reynoso MD Ankylosing spondylitis of lumbosacral region (CMS/HCC) 11/11/[address] [address] Carolina Reynoso MD 10/21/[address] [address] Carolina Reynoso MD Adult ADHD 10/21/2024 Telephone [facility] [address] [place] [address] Carolina Reynoso MD Hip Pain; Chest Pain; Abdominal Pain; Leg Pain 10/12/[address] [address] Carolina Reynoso MD PTSD (post-traumatic stress disorder) 10/06/2024 Telephone [facility] [address] [place] [address] Carolina Reynoso MD PCP order form from [...] 02/11/2025 11:20 AM EDT Office Visit [facility] MEDICAL [address] [place] [address] Carolina Reynoso MD [address] [place] [address] Health Maintenance Due Date Last Done Comments Dental Oral Exam 1985 Dental Prophylaxis 1985 Dental X-Ray: Bitewings 1985 Dental X-Ray: Full Mouth 1985 Depression Screening 1985 Lipid Panel 1985 SDOH Screening [...] older (1 - 1-dose 75+ series) 2060 HIV Screening Completed 01/01/2025 HIB Vaccines Aged Out No longer eligi [...] Procedure Name Priority Date/Time Associated Diagnosis Comments CHLAMYDIA TRACHOMATIS,NEISSERIA GONORRHOEAE, AND TRICH Routine 01/01/2025 High risk bisexual behavior URINALYSIS, COMPLETE, WITH REFLEX TO CULTURE Routine 01/01/2025 Urinary urgency COMPREHENSIVE METABOLIC PANEL Routine 01/01/2025 Annual physical exam Family history of alpha 1 antitrypsin deficiency TSH W/REFLEX TO FT4 Routine 01/01/2025 Class 3 severe obesity due to excess calories without serious comorbidity with body mass index (BMI) of 40.0 to 44.9 in adult CBC WITH AUTO DIFFERENTIAL Routine 01/01/2025 Dermatitis Iron deficiency Weight loss, unintentional RPR QUANTITATIVE WITH TREPONEMA PALLIDUM ANTIBODIES Routine 01/01/2025 High risk bisexual behavior HIV P24 ANTIGEN/ANTIBODY WITH REFLEX TO CONFIRMATION Routine 01/01/2025 High risk bisexual behavior AMB REFERRAL TO RHEUMATOLOGY Routine 12/30/2024 Ankylosing [...] poor from Last 3 Months Results * Chlamydia, gonorrhea and trichomonas, urine [[id number]] (01/01/2025) Urine us Carolina Reynoso MD LAB CYTOLOGY ORDERABLES Final Result Performing Organization Address [facility] de Phone Number [facility] [address] [place] [address], * RPR Quantitative w/Treponema Pallidum Antibodies [[id number]] (01/01/2025) Blood Venous blood specimen / Unknown us Carolina Reynoso MD LAB BLOOD ORDERABLES Final Res ult Performing Organization Address [facility] Phone Number [facility] [address] [place] [address], [place] [phone] * Urinalysis, Complete, with Reflex to Culture (01/01/2025) Urine us Carolina Reynoso MD LAB URINE ORDERABLES Final Res ult Performing Organization Address [facility] de Phone Number [facility] [address] [place] [address], [place] [phone] * TSH with Reflex to Free T4 [[id number]] (01/01/2025) Blood Venous blood specimen / Unknown us Carolina Reynoso MD LAB BLOOD ORDERABLES Final Res ult Performing Organization Address [facility] de Phone Number [facility] [address] [place] [address], [place] [phone] * CBC auto differential [[id number]] (01/01/2025) Blood Venous blood specimen / Unknown us Carolina Reynoso MD LAB BLOOD ORDERABLES Final Res ult Performing Organization Address [facility] Co de Phone Number [facility] [address] [place] [address], [place] [phone] * HIV p24 Antigen/Antibody With Reflex to Confirmation [id number] (01/01/2025) Blood Venous blood specimen / Unknown Carolina Reynoso MD LAB BLOOD ORDERABLES Final Res ult Performing Organization Address [facility] Co de Phone Number [facility] [address] [place] [address], [place] [phone] * Comprehensive Metabolic Panel [[id number]] (01/01/2025) Blood Venous blood specimen / Unknown Carolina Reynoso MD LAB BLOOD ORDERABLES Final Res ult Performing Organization Address [facility] Co de Phone Number [facility] [address] [place] [address], [place] [phone] * Referral to Rheumatology (12/30/2024) us Carolina Reynoso MD OUTPATIENT REFERRAL ORDERABLES Final Result from Last 3 Months Insurance [facility] ST[facility] MEDICARE ADVANTAGE [facility] STANDARD UHC MEDICARE ADVANTAGE D[facility]AL [facility] Care Teams Physical Education Instructor Relationship Specialty Start Date End Date Carolina Reynoso MD [address] [place] [address] PCP - General Family Medicine 09/10/24
--- OUTSIDE RECORDS SUMMARY | 2025-01-05 21:37 | XMS_ITS | Encounter Summary ---
Author Organization [facility] Address [address] [place] [address] [place] [address] Phone Care Team Providers Care Correction Lieutenant Name Role Phone Pcp, Unknown Primary Care Provider Carolina Woodward MD Primary Care Provider [phone] Encounter Details Date Type Department Care Team ([facility] st Contact Info) Description 05/16/2024 Procedure Pass [facility], Ct Scan - [address] [address] Social History Tobacco Use Types Packs/Day Years [...] 9:05 AM EST Gely Flores RN * [place] Suicide Severity Rating Scale (Screener/Recent Self-Report) Question [...] Description 03/31/2025 9:00 AM EST Office Visit [facility] Rheumatology [address] [place] [address] Alexa Coulter MD [address] [place] [address], [address] [place] [address] [email or web address] documented as of this encounter Visit Diagnoses Not on filedocumented in this encounter Care Teams Correction Lieutenant Relationship Specialty Start Date End Date Pcp, Unknown PCP - General 05/27/24 12/29/24 Carolina Reynoso MD [address] [place] [address] [email or web address] PCP - General Family Medicine 12/30/24 documented as of this encounter Additional Source Comments The information contained in this document represents components of the legal health record. It is not the complete legal health record.[facility]
--- OUTSIDE RECORDS SUMMARY | 2025-01-05 21:37 | XMS_ITS | Encounter Summary ---
Author Organization [facility] Address [address] [place] [address] Care Team Providers Care Waiter/Waitress Cocktail Lounge Name Role Phone Donaldo Villareal MD Primary Care Provider + Donaldo Villareal MD Unavailable [phone] Alfonso George DO Unavailable [phone] Edward Mak MD Unavailable [phone] Lupe Osorio MD Unavailable Lynn Teran MD Unavailable Farhana Rojas PsyD Unavailable [phone] Services-[facility], [facility] Care Provider Dorota Carpenter MD Unavailable Pcp, No Primary Care Provider Unavailabl e System, Provider Not In Primary Care Provider Un available Pcp, No Primary Care Provider Unavailabl e Edward Mak MD Primary Care Provider Services, [facility] Primary Care Provider Nitza Dial MD Unavailable Janteh Page APRN Unavailable [phone] Encounter Details Date Type Department Care Team (Late st Contact Info) Description 05/07/2020 Scanned Document [facility] Bariatric Surgery [address] [place] [address] Sarah Mathews, BOILER ROOM HELPER [address] [address] Social History Tobacco Use Types Packs/Day Years [...] on filedocumented in this encounter Care Teams Waiter/Waitress Cocktail Lounge Relationship Specialty Start Date End Date Donaldo Villareal MD PCP - General Family Medicine 02/06/17 07/08/20 Services-[facility], [facility] [place] [address] [place] [address] PCP - General 07/09/20 12/26/22 Pcp, No PCP - General General Medicine 12/27/22 01/17/23 System, Provider Not In PCP - General 01/18/23 05/06/23 Pcp, No PCP - General General Medicine 05/07/23 06/26/23 Edward Mak MD PCP - General 06/27/23 07/15/23 [facility], [facility] [address] [facility] [address] [place], [place] [address] [phone] PCP - General 07/16/23 Nitza Dial MD [address] [place] [address] PCP - [employer] Medicare Attributed 07/16/23 04/15/24 Janeth Page, BOILER ROOM HELPER [address] [place] [address] PCP - [employer] Medicare Attributed 04/16/24 07/14/24 Donaldo Villareal MD Family Medicine 02/06/17 Alfonso George DO Sex Offender Treatment Professional Cardiovascular Disease 05/15/18 Edward Mak MD Physician Rheumatology 05/15/18 Lupe Osorio MD [address] [place] [phone] Physician Hematology Oncology 05/15/18 Lynn Teran MD [address] [place] [address] Physician Gastroenterology 05/15/18 Farhana Rojas, PsyD [address] [place] [address] Clinical Psychologist Psychology 05/27/18 Dorota Carpenter MD [address] [place] [address] Urogynecology 12/28/21 documented as of this encounter
--- OUTSIDE RECORDS SUMMARY | 2025-01-05 21:37 | XMS_ITS | Encounter Summary ---
Author Organization [facility] Address [address] [place] [address] Care Team Providers Care Medical Equipment Sales Name Role Phone Donaldo Villareal MD Primary Care Provider + Donaldo Villareal MD Unavailable [phone] Alfonso George DO Unavailable [phone] Edward Mak MD Unavailable [phone] Lupe Osorio MD Unavailable [phone] Lynn Teran MD Unavailable Farhana Rojas PsyD Unavailable Services-[facility], [facility] Care Provider Dorota Carpenter MD Unavailable Pcp, No Primary Care Provider Unavailabl e System, Provider Not In Primary Care Provider Un available Pcp, No Primary Care Provider Unavailabl e Edward Mak MD Primary Care Provider [phone] Services, [facility] Primary Care Provider Nitza Dial MD Unavailable Jnaeth Page APRN Unavailable [phone] Encounter Details Date Type Department Care Team (Late st Contact Info) Description 08/11/2019 Scanned Document [facility] INTERIOR DESIGN PROFESSIONAL [address] [place] [address] Lisa Contreras MD [address] [place] [address] Social History Tobacco Use Types Packs/Day Years [...] on filedocumented in this encounter Care Teams Medical Equipment Sales Relationship Specialty Start Date End Date Donaldo Villareal MD PCP - General Family Medicine 02/06/17 07/08/20 Services-[facility] [address] [place] [address] PCP - General 07/09/20 12/26/22 Pcp, No PCP - General General Medicine 12/27/22 01/17/23 System, Provider Not In PCP - General 01/18/23 05/06/23 Pcp, No PCP - General General Medicine 05/07/23 06/26/23 Edward Mak MD PCP - General 06/27/23 07/15/23 [facility], [facility] [address] [place] [address] [address] [place] [address] PCP - General 07/16/23 Nitza Dial MD [address] [place] [address] PCP - A[employer] Medicare Attributed 07/16/23 04/15/24 Janeth Page, SIGNAL OPERATOR LINGUIST [address] [place] [address] PCP - A[employer] Medicare Attributed 04/16/24 07/14/24 Donaldo Villareal MD Family Medicine 02/06/17 Alfonso George DO Computer Forensics Analyst Cardiovascular Disease 05/15/18 Edward Mak MD Physician Rheumatology 05/15/18 Lupe Osorio MD [address] [place] [phone] Physician Hematology Oncology 05/15/18 Lynn Teran MD [address] [place] [address] Physician Gastroenterology 05/15/18 Farhana Rojas PsyD [address] [place] [address] Clinical Psychologist Psychology 05/27/18 Dorota Carpenter MD [address] [place] [address] Urogynecology 12/28/21 documented as of this encounter
--- OUTSIDE RECORDS SUMMARY | 2025-01-05 21:37 | XMS_ITS | Encounter Summary ---
Author Organization [facility] Address [address] [place] [address] Care Team Providers Care Second Class Welder Name Role Phone No, Pcp (Do Not Change Name) Primary Care Provid er Unavailable Reason for Visit * Reason Comments Medication Refill Encounter Details Date Type Department Care Team ([facility] Contact Info) Description 08/31/2021 Refill [facility] [address] [place] [address] [address] [place] [address] Edward Mak MD [address] [place] [phone] Medication Refill Social History Tobacco Use Types [...] documented as of this encounter Care Teams Second Class Welder Relationship Specialty Start Date End Date No, Pcp (Do Not Change Name) PCP - General 04/21/20 documented as of this encounter
[2025-01-05 21:43] LABS: Troponin-I High Sensitivity < 2.7 ng/L (<3.5-17.0)
[2025-01-05 22:52] VITALS: BP 143/94; PULSE 90; RESP 16; TEMP 37; O2SAT 99
[2025-01-05] MEDS: iohexoL 350 MG/ML 100 ML INFUS..BTL 85 ML IV (23:04)
[2025-01-06 00:26] VITALS: BP 143/94; PULSE 90; RESP 16; TEMP 37; O2SAT 99
== END 2025-01-06 00:35 | disposition home or self-care (01) ==
PROVIDERS: Physician Assistant; Physician Assistant Medical; Emergency Provider Emergency Medicine; PCP Family Medicine
DX: R07.9 Chest pain, unspecified (principal); R10.9 Unspecified abdominal pain; R19.7 Diarrhea, unspecified; R06.02 Shortness of breath
CPT/HCPCS: 36415; 71046; 74177; 80053; 81001; 83690; 83735; 84443; 84484; 85025; 93005; 99284; 99285; Q9967

== ENCOUNTER → 2025-01-05 17:17 | Outpatient (BNV) | payer MEDICARE, MEDICAID, SELFPAY | PROVIDERS: Emergency Provider Emergency Medicine; PCP Family Medicine; Visit Provider Internal Medicine Cardiovascular Disease | DX: R00.0 Tachycardia, unspecified (principal) | CPT/HCPCS: 93010 ==

== ENCOUNTER → 2025-01-05 22:32 | Outpatient (BNV) | payer MEDICARE, MEDICAID, SELFPAY | PROVIDERS: Emergency Provider Emergency Medicine; PCP Family Medicine; Visit Provider Radiology Diagnostic Radiology | DX: K57.30 Diverticulosis of large intestine without perforation or abscess without bleeding (principal); R10.31 Right lower quadrant pain; R06.02 Shortness of breath | CPT/HCPCS: 71046; 74177 ==

== ENCOUNTER → 2025-02-09 11:28 | Outpatient (REF) | payer OTHER, MEDICARE, SELFPAY ==
--- OUTSIDE RECORDS SUMMARY | 2022-09-09 13:31 | XMS_ITS | Encounter Summary ---
Author Organization [facility] Address [address] [place] [address] Care Team Providers Care Leaf Stripper Name Role Phone Donaldo Villareal MD Unavailable [phone] Alfonso George DO Unavailable Edward Mak MD Unavailable [phone] Lupe Osorio MD Unavailable Lynn Teran MD Unavailable Farhana Rojas Unavailable [phone] Services-[facility] Provider Dorota Carpenter MD Unavailable [phone] Encounter Details Date Type Department Care Team (Late st Contact Info) Description 09/09/2022 1:31 PM EDT Hospital Encounter [facility] [address] [place] [phone] [place] [phone] Social History Tobacco Use Types Packs/Day Years Used Date Smoking Tobacco: Former Cigarettes Q uit: 2015 Passive Smoke Exposure: Never Smokeless Tobacco: Never Alcohol Use Standard Drinks/Week Comments Yes 0 (1 standard drink = 0.6 oz pur e alcohol) 1 a year [facility] Utilities Answer Date Recorded In the past 12 months has [employer], gas, oil, or water company threatened to [...] place to sleep or slept in a jail (including now)? No 06/27/2023 Comments No Sex [...] as of this encounter Functional Status * AUDIT-C Score Answer Date of Assessment Author 1 02/12/2024 9:42 AM EDT Effie Collins RN * Question Answer Date of Assessment Author AUDIT-C Total Score - Male 1 02/12/2024 9:4 2 AM EDT Effie Collins RN AUDIT-C Total Score - Female 1 02/12/2024 9:42 AM EDT Effie Collins R N Q1: How often do you have a [...] 9:42 AM EDT Effie Collins R N * Level of Risk per Screen Answer Date of Assessment Author Low Risk 02/12/2024 9:42 AM JEREMIET Effie Collins RN documented as of this encounter Plan of [...] on filedocumented in this encounter Care Teams Leaf Stripper Relationship Specialty Start Date End Date Services-[facility], [facility] [address] [place] [address] PCP - General 07/09/20 12/26/22 Donaldo Villareal MD Family Medicine 02/06/17 Alfonso George DO Assignment Officer Cardiovascular Disease 05/15/18 Edward Mak MD Physician Rheumatology 05/15/18 Lupe Osorio MD [address] [place] [phone] Physician Hematology Oncology 05/15/18 Lynn Teran MD [address] [place] [address] Physician Gastroenterology 05/15/18 Farhana Rojas PsyD [address] [place] [address] Clinical Psychologist Psychology 05/27/18 Dorota Carpenter MD [address] [address] Urogynecology 12/28/21 documented as of this encounter
--- OUTSIDE RECORDS SUMMARY | 2022-09-15 09:43 | XMS_ITS | Encounter Summary ---
Author Organization [facility] Address [address] [place] [address] Care Team Providers Care Herpetology Teacher Name Role Phone Donaldo Villareal MD Unavailable [phone] Alfonso George DO Unavailable Edward Mak MD Unavailable [phone] Lupe Osorio MD Unavailable [phone] Lynn Teran MD Unavailable Farhana Rojas Ps Unavailable Services-[facility] Provider Dorota Carpenter MD Unavailable [phone] Encounter Details Date Type Department Care Team (Late st Contact Info) Description 09/15/2022 9:43 AM EDT Hospital Encounter [facility] [address] [place] [phone] Silvano Abad MD [address] [place] [address] Social History Tobacco Use Types Packs/Day Years Used Date Smoking Tobacco: Former Cigarettes Q uit: 2014 Passive Smoke Exposure: Never Smokeless Tobacco: Never Alcohol Use Standard Drinks/Week Comments Yes 0 (1 standard drink = 0.6 oz pur e alcohol) 1 a year [facility] Utilities Answer Date Recorded In the past 12 months has e electric, [employer], oil, or water [employer] threatened to shut off services in your [...] place to sleep or slept in a usp (including now)? No 06/27/2023 Comments No Sex [...] - Male 1 02/12/2024 9:4 2 AM JEREMIET Effie Collins RN AUDIT-C Total Score - [...] on filedocumented in this encounter Care Teams Herpetology Teacher Relationship Specialty Start Date End Date Services-[facility], [facility] [address] [facility] [place] [address] PCP - General 07/09/20 12/26/22 Donaldo Villareal MD Family Medicine 02/06/17 Alfonso George DO Nurse Orthopaedic Cardiovascular Disease 05/15/18 Edward Mak MD Physician Rheumatology 05/15/18 Lupe Osorio MD [address] [place] [address] [address] [place] [phone] Physician Hematology Oncology 05/15/18 Lynn Teran MD [address] [place] [address] Physician Gastroenterology 05/15/18 Farhana Rojas PsyD [address] [facility] [address] [place] [address] Clinical Psychologist Psychology 05/27/18 Dorota Carpenter MD [address] [place] [address] [address] [place] [address] Urogynecology 12/28/21 documented as of this encounter
--- OUTSIDE RECORDS SUMMARY | 2022-10-02 16:07 | XMS_ITS | Encounter Summary ---
Author Organization [facility] Address [address] [place] [address] Care Team Providers Care Director Labor Standards Name Role Phone Donaldo Villareal MD Unavailable [phone] Alfonso George DO Unavailable Edward Mak MD Unavailable [phone] Lupe Osorio MD Unavailable Lynn Teran MD Unavailable Farhana Rojas Ps Unavailable [phone] Services-[facility] Provider Dorota Carpenter MD Unavailable Encounter Details Date Type Department Care Team (Late st Contact Info) Description 10/02/2022 4:07 PM EDT Hospital Encounter [facility] [address] [place], [place] [address] [place] [address] Prince Hill PA-C [address] [place] [address] Social History Tobacco Use Types Packs/Day Years Used Date Smoking Tobacco: Former Cigarettes Q uit: 2014 Passive Smoke Exposure: Never Smokeless Tobacco: Never Alcohol Use Standard Drinks/Week Comments Yes 0 (1 standard drink = 0.6 oz pur e alcohol) 1 a year [facility] Utilities Answer Date Recorded In the past 12 months has th e electric, gas, oil, or water company threatened to [...] place to sleep or slept in a mcc (including now)? No 06/27/2023 Comments No Sex [...] Author 1 02/12/2024 9:42 AM EDT Effie Collins, SIMONA * Question Answer Date of Assessment Author [...] Date/Time Associated Diagnosis Comments XR WRIST 3+ VIEWS-RIGHT Routine 10/02/2022 4:12 PM EDT De Quervain's tenosynovitis, right documented in this encounter Results * XR Wrist 3+ views-Right (10/02/2022 4:12 PM EDT) Anatomical Region Laterality Modality Wrist Right Computed Radiogr aphy 10/02/2022 4:21 PM EDT Impressions 10/02/2022 4:22 PM EDT Negative. Narrative 10/02/2022 4:22 PM EDT XR WRIST 3+ VIEWS-RIGHT: 10/02/2022 4:07 PM CLINICAL HISTORY: Right wrist pain from fall 2 weeks ago. Right wrist pain. COMPARISON: None FINDINGS: The visualized bones, joints, and soft tissues are unremarkable. Procedure Note Vaishali Khalil MD - 10/02/2022 XR WRIST 3+ VIEWS-RIGHT: 10/02/2022 4:07 PM CLINICAL HISTORY: Right wrist pain from fall 2 weeks ago. Right wrist pain. COMPARISON: None FINDINGS: The visualized bones, joints, and soft tissues are unremarkable. IMPRESSION: Negative. Prince Hill PA-C IMG DIAGNOSTIC IMAGING CHAR MORE Final Result documented in this encounter Visit Diagnoses Not on filedocumented in this encounter Care Teams Director Labor Standards Relationship Specialty Start Date End Date Services-[facility], [facility] [address] [place] [address] PCP - General 07/09/20 12/26/22 Donaldo Villareal MD Family Medicine 02/06/17 Alfonso George DO Filter Plant Operator Cardiovascular Disease 05/15/18 Edward Mak MD Physician Rheumatology 05/15/18 Lupe Osorio MD [address] [place] [phone] Physician Hematology Oncology 05/15/18 Lynn Teran MD [address] [place] [address] Physician Gastroenterology 05/15/18 Farhana Rojas PsyD [address] [place] [address] Clinical Psychologist Psychology 05/27/18 Dorota Carpenter MD [address] [place] [address] Urogynecology 12/28/21 documented as of this encounter
--- OUTSIDE RECORDS SUMMARY | 2022-12-27 18:38 | XMS_ITS | Encounter Summary ---
Author Organization [facility] Address [address] [place] [address] Care Team Providers Care Calendar Control Clerk Blood Bank Name Role Phone Donaldo Villareal MD Unavailable Alfonso George DO Unavailable Edward Mak MD Unavailable [phone] Lupe Osorio MD Unavailable [phone] Lynn Teran MD Unavailable Farhana Rojas PsyD Unavailable Dorota Carpenter MD Unavailable Pcp, No Primary Care Provider Unavailabl e Encounter Details Date Type Department Care Team (Late st Contact Info) Description 12/27/2022 6:38 PM EDT Hospital Encounter [facility] [address] [facility] [address] [address] Haylee Gonzalez PA-C [address] [place] [address] Social History Tobacco Use Types Packs/Day Years Used Date Smoking Tobacco: Former Cigarettes Q uit: 2015 Passive Smoke Exposure: Never Smokeless Tobacco: Never Alcohol Use Standard Drinks/Week Comments Yes 0 (1 standard drink = 0.6 oz pur e alcohol) 1 a year [facility] Utilities Answer Date Recorded In the past 12 months has [employer], gas, oil, or water company threatened to [...] place to sleep or slept in a assisted (including now)? No 06/27/2023 Comments No Sex and Gender Information Value Date Recorded Sex Assigned at Female 12/27/2022 11:07 AM EDT Legal Sex Female 3:23 PM EDT Gender Identity Female 04/28/2024 11:36 PM EST Sexual Orientation Choose not to disclose 2023 12:48 PM EDT documented as of this encounter [...] Assessment Author Low Risk 02/12/2024 9:42 AM EDT Effie Collins RN documented as of this encounter Plan of Treatment Not on file documented as of this encounter Goals Goal Patient Goal Type Associated Problems Recent Progress Patient-Stated? Author Decrease soda or juice intake Diet No Ruma Amezquita RD Increase physical activity Lifestyle No Ruma Amezquita RD documented as of this encounter Procedures Procedure Name Priority Date/Time Associated Diagnosis Comments XR ANKLE 3+ VIEWS-LEFT STAT 12/27/2022 6:51 PM EDT Fall, initial encounter documented in this encounter Results * XR Ankle 3+ views-Left (12/27/2022 6:51 PM EDT) Anatomical Region Laterality Modality Ankle Left Computed Radiogr aphy 12/27/2022 6:56 PM EDT Impressions 12/27/2022 7:02 PM EDT 1. Transverse minimally displaced inferior lateral malleolar avulsion fracture with associated soft tissue swelling and small ankle joint effusion. 2. Mild degenerative changes. Narrative 12/27/2022 7:02 PM EDT INDICATION: Rule out fracture. COMPARISON: Left ankle radiographs 01/05/2018. TECHNIQUE: 3 views of the left ankle. FINDINGS: Transverse minimally displaced inferior lateral malleolar or avulsion fracture with associated soft tissue swelling. No other acute osseous abnormality identified. Talar dome appears intact. The joint spaces appear grossly maintained. No suspicious sclerotic or lytic osseous lesions identified. Bone mineralization appears intact. Mild degenerative changes seen about the midfoot with subtle subchondral sclerotic changes. Small ankle joint effusion. No radiopaque foreign body identified. Procedure Note Alfosno Riley MD - 12/27/2022 INDICATION: Rule out fracture. COMPARISON: Left ankle radiographs 01/05/2018. TECHNIQUE: 3 views of the left ankle. FINDINGS: Transverse minimally displaced inferior lateral malleolar or avulsionfracture with associated soft tissue swelling. No other acute osseousabnormality identified. Talar dome appears intact. The joint spaces appeargrossly maintained. No suspicious sclerotic or lytic osseous lesions identified. Bone mineralization appearsintact. Mild degenerative changes seen about the midfoot with subtlesubchondral sclerotic changes. Small ankle joint effusion. No radiopaqueforeign body identified. IMPRESSION: 1. Transverse minimally displaced inferior lateral malleolar avulsionfracture with associated soft tissue swelling and small ankle jointeffusion. 2. Mild degenerative changes. Haylee Gonzalez PA-C IMG DIAGNOSTIC IMAGING ORDERABL ES Final Result documented in this encounter Visit Diagnoses Not on filedocumented in this encounter Care Teams Calendar Control Clerk Blood Bank Relationship Specialty Start Date End Date Pcp, No PCP - General General Medicine 12/27/22 01/17/23 Donaldo Villareal MD Family Medicine 02/06/17 Alfonso George DO Finance Professor Cardiovascular Disease 05/15/18 Edward Mak MD Physician Rheumatology 05/15/18 Lupe Osorio MD [address] [place] [address] [address] [place] [phone] Physician Hematology Oncology 05/15/18 Lynn Teran MD [address] [place] [address] Physician Gastroenterology 05/15/18 Farhana Rojas PsyD [address] [facility] [address] [place] [address] Clinical Psychologist Psychology 05/27/18 Dorota Carpenter MD [address] [facility] [address] [place] [address] Urogynecology 12/28/21 documented as of this encounter
--- OUTSIDE RECORDS SUMMARY | 2024-01-11 05:25 | XMS_ITS | Continuity of Care Document ---
Author Organization [facility] vices Address [address] [place] [address] Phone Care Team Providers Care Assistant Passenger Locomotive Engineer Name Role Phone Armida Valderrama APRN Unavailable Unavailable Allergies, Adverse Reactions, Alerts Substance Reaction Status Criticality No Known Allergies Active No Inform ation Medications Medication Instructions Dosage Effective Dates (start - stop) Status Comments rosuvastatin 5 mg tablet take 1 tablet by oral route every day 5 MG - Active Crestor 5 mg tablet take 1 tablet by ora l route every day for hdl 5 MG - Active sertraline 100 mg tablet take 1 tablet by oral route 2 times every day 100 MG - Active atomoxetine 60 mg capsule take 1 capsule by oral route every day - Active bupropion HCl XL 300 mg 24 hr tablet, extended release take 1 tablet by oral route every day 300 MG - Active hydroxyzine HCl 50 mg tablet take 1 tablet by oral route 1-2 times daily prn - Active oxybutynin chloride ER 10 mg tablet,extended release 24 hr take 1 tablet by oral route every day 10 MG - Active Vitamin D3 50 mcg (2,000 unit) capsule take 1 by oral route every day 1 - Active buspirone 15 mg tablet take 1 tablet by oral route 3 times every day 15 MG - Active prazosin 2 mg capsule take 1 capsule by oral route every bedtime 2 MG - Active methocarbamol 750 mg tablet take 1 tablet by oral route 2 times every day 750 MG - Active gabapentin 300 mg capsule take 2 capsule by oral route 3 times every day 600 MG - Active estradiol 0.5 mg tablet take 1 tablet by oral route every day - Active Procedures Procedure Date OFFICE/OUTPT Visit, Swati - Telly Andrews, 30 - 39 Minutes Telephone E/M By Provider 11-20 MIN OFFICE/OUTPT Visit - Established - Low M DM, 20 - 29 Minutes Admin influenza virus vac Influenza Vaccine,Quad IIV4,Split, PresF ree, 0.5mL, IM OFFICE/OUTPT Visit, NEW- Low MDM, 30 - 4 4 Minutes Medicare [facility] Medical New Patient Advance Directives Directive Yes / No Effective Date File Name No Information Encounters Encounter Description Practice Location Reason(s) For Visit Diagnoses Date Provider Providers Copied on Encounter [facility], [address] [place], [place], [facility], [place] tel:[phone] [facility] Adult Medicine No Information 4 Jannie Huffman. [address] [facility] [id number] [address], [place], [address], [place]. tel:[phone] OFFICE/OUTPT Visit, Established - Mod MDM, 30 - 39 Minutes [facility], [address] [place], [place], [facility], [place] tel:[phone] [facility] Adult Medicine [place] hyperlipidemia (chief complaint)occip ital lynph node (chief complaint) Body mass index (BMI) 45.0-49.9, adultHyperlipid emia, unspecified hyperlipidemia typePalpable lymph node 4 Jannie Huffman. [address] [id number] [address], [place], [address], [place]. tel:[phone] Telephone E/M By Provider 11-20 MIN [facility], [address] [place], [address], [place] tel:[phone] [facility] Adult Medicine [place] Telehealth (chief complaint) Iron deficiency anemia, unspecified iron deficiency anemia typeHyperlipide narendra, unspecified hyperlipidemia type 4 Jannie Lackeyyl. [address] [id number] [address], [place], [address], [place]. tel:[phone] OFFICE/OUTPT Visit - Established - Low MDM, 20 - 29 Minutes [facility], [address] [place], [place], [facility], [place] tel:[phone] [facility] Adult Medicine [place] lymph node enlargement (chief complaint)lab results (chief complaint) Body mass index (BMI) 40.0-44.9, adultEnlarged lymph nodeEncounter to discuss test results 4 Jannie Huffman. [address] [id number] [address] [place], [facility], [place]. tel:[phone] OFFICE/OUTPT Visit, [facility], 30 - 44 Minutes [facility], [address] [place] [address], [facility], [place] tel:[phone] [facility] Adult Medicine [place] Establish Care (chief complaint)Influ reynaldo Vaccine (chief complaint) Encounter for screening for diabetes mellitusLipid screeningBody mass index (BMI) 40.0-44.9, adultEncounter for immunizationDep ression, unspecified depression typeFibromyalgi aAnkylosing spondylitis, unspecified site of spine 3 Jannie Huffman. [address] [id number] [address] [place], [facility], [place]. tel:[phone] Family History Family Member Type Diagnosis Age At Onset No Information Immunizations Vaccine Date Status Comments Flulaval or Fluarix administered Source: New Immuniza tion Record Payers Payer name Insurance type Covered democrat ID Authoriza tion(s) Aetna [id number] [place] Medicaid - Medicare [facility] [id number] Medicare Part B [id number] [facility] Medicaid - Medicare [facility] [id number] Social History Type Description Quantity Date Captured Comments Sex Female Smoking Status No Information Sexual Orientation Straight or heterosexual Mar Gender Identity Female Chief Complaint And Reason For Visit No Information Reason For Referral Reason For Referral No Information Plan Of Treatment Date Type Action Status Goal Dietary management education , guidance, and counseling completed Goal Dietary management education , guidance, and counseling completed Goal Dietary management education , guidance, and counseling completed Referral Ordered: Referrals: Location: [facility]ESMAN ordered Referral Ordered: Referrals: Location: [facility] Dental ordered Referral Ordered: Referrals: Location: [facility] Optometry ordered History Of Present Illness Encounter Date Complaint History Of Prese nt Illness hyperlipidemia The client is ad monika to medication and diet for their hyperlipidemia. The client is not adhering to exercise for their hyperlipidemia. Pertinent negatives include chest pain, dizziness, myalgia, transient weakness. Additional information: Patient reporting she is taking Crestor as prescribed. Patient due for repeat labs. occipital lynph node 37-year-old female in today with complaint of recurrent palpable nodule left side of occipital base adjacent to mastoid bone. Patient report that she periodically notices it occurs when she is due for her infusion of Remicade. Area was evaluated by her chief procurement officer and a ultrasound of area was done on June 08, 2023 at [facility]. Imaging report reveals palpable abnormal corresponding to a normal-appearing left occipital lymph node. Occipital lymph node measures 10 x 6 x 9 mm. Adjacent to this are 2 other small lymph nodes measuring 6 x 5 mm and 5 x 3 mm. These also normal in appearance. Patient is followed by hematology who is aware of these nodules. She sees hematology for iron infusion. Minute today's visit able to palpate 1 nodule. No acute distress or pain. Considering just watching and waiting if they will resolve on their own. Telehealth Patient or Guard silvia has given consent and understands they can opt out and refuse services at any time. Patient identification was confirmed at start of visit. Type of call (Audio or Video/Audio):Start Time: 10:40Stop Time: 10:55 aWhat was discussed lab results and treatmentAnd initiation of telehealth call patient identified herself full name and date of . Provider identified herself full name and credentials. Labs done on 07/13/2023 reviewed patient. CBC: Essentially within normal limits MCH 36.3 MCV 79.8 R RBCs 5.63. Patient is followed by hematology at [facility] Dr. Lupe Osorio. Patient reports that she received iron transfusion last Sunday. Patient reports that she receives iron transfusion once a year and is followed by hematology every 6 months. Patient does not take iron supplement as it irritates her stomach and she is not able to tolerate it. Patient next appointment with director of search engine optimization is in October 2023. Vitamin D deficiency: Patient is on vitamin D supplement. Vitamin D level was within normal limits. Hyperlipidemia patient has mixed hyperlipidemia. Discussed with patient statin therapy. Patient reports that she is not an active but tries to eat healthy. Patient has lower heart disease in her family. Shared decision to statin therapy. Patient will take Crestor 5 mg once a day with repeat labs in 4 to 6 months. A ll labs were within normal limits.This information was recorded by Armida Valderrama APRN lymph node enlargement At today' s visit patient reports that she has been seen by director of search engine optimization. Patient reports director of search engine optimization did ultrasound of the lymph nodes left occipital area. Patient reports that director of search engine optimization ask her to to have her PCP refer her to general surgeon for removal of lymph nodes. At this visit this provider explained to patient that she needs to get a copy of that report I will review with. And contact her about next steps. Unsure at this time if patient needs referral. This provider will review again the ultrasound and see what the next steps will be. lab results 37-year-old ugo le in today to receive lab results. Patient's labs that were ordered 03/21/2023 were not completed. Patient reports she completed them. [facility] was checked there was no urinalysis done by urgent care. Patient reports she will going to complete the labs this week. Upon completion of labs patient has been scheduled review of labs with this provider. Establish Care 37 y/o female in today for a establish care visit. Pt denies any recent illness, fever or chills, CP, palpitations/irregular heartbeat or SOB. Patient reports that he recently relocated to the [facility] and is changing providers to this area. 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 Provider discussed PrEP treatment. Patient and her will consider.Use of protection: yesFamily history: -Mother: heart disease, 11/06/22-Father: 13 yrs ago Psychosocial History: -Alcohol on occasion-Smoking q uit 8 yrs ago D enies cocaine/heroin Patient uses medical marijuana-Lives with -Employment: disabled-Exercise: None-Diet patterns: regularHealth maintenanceFlu vaccine received 03/21/2023OVID-vaccine:Allergies: OnionsCurrent Medications: Pt taking medications as noted under the med list. No herbal supplements.Pending: PHQ9 and Learning assessmentProblemsIron deficiency anemia: Patient reports she is followed by heme oncology at [facility] Patient reports she has received iron infusions in the past P atient reports she gets her labs done every 6 to 8 weeks by her rheumatologistDepression: P atvickey on medication F ollowed by [facility] health: GRAIN INSPECTOR -telehealth- start with therapist after new 2023Fibromyalgia-[facility] officeAsthma : E xercise-induced asthma Patient reports controlled on short acting inhaler. Influenza Vaccine Patient in req uesting flu vaccine. 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 Functional Status Date Functional Assessmen t No Information Instructions Date Instruction Additional Infor emily Continue taking Isaac tor 5 mg once a day Encourage patient to continue eating well-balanced low-fat diet Patient is to get exercise in her daily routine Patient is to drink plenty of water 6 to 8 glasses a more Follow-up as needed Related to Hyperlipidemia, unspecified hyperlipidemia type Dietary management e ducation, guidance, and counseling Related to Body mass index [BMI] 45.0-49.9, adult Weight monitoring Related to Bod y mass index [BMI] 45.0-49.9, adult Dietary management e ducation, guidance, and counseling Related to Body mass index [BMI] 40.0-44.9, adult Weight monitoring Related to Bod y mass index [BMI] 40.0-44.9, adult Flu Vaccine was admi Bhaveshu may have soreness, redness, warmth, and in some cases, slight swelling at the injection site. These effects usually last less than two days.You can also experience headaches and body for first two daysMotrin and Tylenol can be used for relief of symptomsIf you develop a fever, shortness of breath difficult breathing, Please seek medical attention. Related to Encounter for immunization Complete labs Related to Lipid screening Complete labs Related to Encou nter for screening for diabetes mellitus Weight monitoring Related to Bod y mass index [BMI] 40.0-44.9, adult Dietary management e ducation, guidance, and counseling Related to Body mass index [BMI] 40.0-44.9, adult Assessments Type Assessment Date No Information Patient Care Teams Name Effective Dates (start - stop) Status Members No Information
--- NOTE | 2025-02-09 | HM_ITS ---
* Total monitoring time 2 days. * Underlying rhythm is sinus with an average rate of 88/Min. About 27% of the time, rate > 100/Min. * Rare ventricular ectopy. * No significant pauses or high-grade AV blocks. * Symptoms in patient diary including chest discomfort, flutter, dizziness associated with sinus rhythm and sinus tachycardia. MTDD
--- OUTSIDE RECORDS SUMMARY | 2025-02-09 14:50 | XMS_ITS | Encounter Summary ---
Author Organization [facility] Address [address] [place] [address] [address] [place] [address] Care Team Providers Care Imaging Clerk Name Role Phone Carolina Reynoso MD Primary Care Provider [phone] Encounter Details Date Type Department Care Team ([facility] Contact Info) Description 01/06/2025 Orders Only [facility] [address] [place] [address] Carolina Reynoso MD [address] [place] [address] Social History Tobacco Use Types Packs/Day Years [...] Upcoming Encounters Date Type Department Care Team ([facility] Contact Info) Description 02/11/2025 11:20 AM EDT Office Visit [facility] [address] [place] [address] Carolina Reynoso MD [address] [place] [address] documented as of this encounter Procedures Procedure Name Priority Date/Time Associated Diagnosis Comments ECG 12-LEAD Routine 01/05/2025 12:23 PM EDT XR CHEST 2 VIEWS Routine 01/05/2025 10:[address] ABDOMEN PELVIS W CONTRAST Routine 01/05/2025 10:50 AM EDT documented in this encounter Results * ECG 12 lead (01/05/2025 12:23 PM EDT) Carolina Reynoso MD ECG ORDERABLES Final Result * XR Chest 2 Views (01/05/2025 10:51 AM EDT) Anatomical Region Laterality Modality Chest Radiographic Naye ging Carolina Reynoso MD IMG XR PROCEDURES Final Result * CT Abdomen Pelvis w/ Contrast (01/05/2025 10:50 AM EDT) Anatomical Region Laterality Modality Body, Pelvis, Abdomen Computed T omography Carolina Reynoso MD IMG CT PROCEDURES Final Result documented in this encounter Visit Diagnoses Not on filedocumented in this encounter Care Teams Imaging Clerk Relationship Specialty Start Date End Date Carolina Reynoso MD [address] [place] [address] PCP - General Family Medicine 09/10/24 documented as of this encounter
--- OUTSIDE RECORDS SUMMARY | 2025-02-09 14:50 | XMS_ITS | Clinical Summary ---
Author Organization [facility] Address [address] [place] [address] Care Team Providers Care Chemistry Account Manager Name Role Phone Donaldo Villareal MD Unavailable [phone] Alfonso George DO Unavailable Edward Mak MD Unavailable [phone] Lupe Osorio MD Unavailable [phone] Lynn Teran MD Unavailable Farhana RojasyD Unavailable [phone] Dorota Carpenter MD Unavailable [facility] Primary Care Provider Allergies Active Allergy [...] every morning. Active Cannabidiol Non-THC (CBD) Misc [place]/Smoke/Vapor/ Oil Inhale as needed. Active gabapentin (NEURONTIN) [...] e alcohol) 1 a year [facility] Medical Depotities Answer Date Recorded In the past 12 months has th e [employer], gas, oil, or water company threatened to [...] Amezquita RD Medical Devices Explanted Type Area Kitchen Operator Device Identifier Shelf Expiration Date Model / Serial / Lot [id number] Stent Ureteral 6fr 26cm Pigtail Curve Taper Tip Bldr Patrick [employer]p - [id number] Implanted:Qty : 1 on 02/12/2024 by Bin Almaguer MD at [facility] Explanted:Qty : 1 on 02/14/2024 by Jd Johnston MD Stent N/A: Ureter Relify JAIRO [id number] 09/30/2026 [id number] Procedures Procedure Name Priority Date/Time Associated Diagnosis Comments HIV 1/2 AG/AB CMIA REFLEX TO CONFIRMATION Routine 03/21/2023 2:28 PM EST HEPATITIS C VIRUS (HCV) ANTIBODY Routine 03/21/2023 2:28 PM EST THINPREP PAP TEST (FLIGHT SERVICE SPECIALIST) WITH HPV REFLEX, GC/CT Routine 08/25/2020 4:54 PM EDT from Last 3 Months or Most Recently Relevant to Health Maintenance Results * HIV 1/2 Ag/Ab CMIA Reflex to Confirmation (03/21/2023 2:28 PM EST) HIV Ag/Ab, 4th Gen Non-Reacti ve Non-Reacti ve [facility] Comment: Results show no evidence of infection by HIV 1/2. If clinically indicated, repeat CMIA or test by nucleic acid amplification. 03/21/2023 2:28 PM EST 03/22/2023 1:29 AM EST us Carolina SORTO LAB BLOOD ORDERABLES Final R esult [facility] [address] [place], [place] * HEPATITIS C VIRUS (HCV) ANTIBODY (03/21/2023 2:28 PM EST) Hepatitis C Antibody 0.33 Non-Reacti ve Non-Reacti ve S/CO [facility] 03/21/2023 2:28 PM EST 03/22/2023 1:29 AM EST Carolina Akers CNM LAB BLOOD ORDERABLES Final R esult Performing Organization Address [facility]/ZIP Co de Phone Number [facility] [address] [place], [place] * ThinPrep Pap Test (Station Mechanic Helper) with HPV Reflex, GC/CT (08/25/2020 4:54 PM EDT) Report Report [facility] Comment: Final Gynecological Cytology Report ThinPrep Pap Test with HPV Reflex, GC/Chlamydia SPECIMEN ADEQUACY: SATISFACTORY FOR EVALUATION; ENDOCERVICAL/TRANSFORMATION ZONE COMPONENT PRESENT. INTERPRETATION: NEGATIVE FOR INTRAEPITHELIAL LESION OR MALIGNANCY. Electronically Signed: Maggie Jane CT (ASCP) CLINICAL INFORMATION: LMP: NG Specimen Source: Cervix, Endocervix CPT Codes: 59265 ICD Codes: Z01.419 Other 08/25/2020 4:54 PM EDT 08/26/2020 4:15 AM EDT Farnaz Lyles APRN LAB AMB PATH/CYTO ORDERABLES Fi nal Result Performing Organization Address City/[facility]/ZIP Co de Phone Number [facility] [address] [place], [place] from Last 3 Months or Most Recently Relevant to Health Maintenance Insurance [facility] MEDICARE [facility]IC[facility] AETNA MGD MEDICARE [facility] AETNA MGD MEDICARE [facility] Advance Directives * Full Code (Latest Code [...] 8:51 AM 11/23/2018 10:25 PM Care Teams Chemistry Account Manager Relationship Specialty Start Date End Date Services, [facility] [address] [place], [place] [address]r [facility] [address] [place] [address] PCP - General 07/16/23 Donaldo Villareal MD Family Medicine 02/06/17 Alfonso George DO Mainframe Software Developer Cardiovascular Disease 05/15/18 Edward Mak MD Physician Rheumatology 05/15/18 Lupe Osorio MD [address] [place] [id number] Physician Hematology Oncology 05/15/18 Lynn Teran MD [address] [place] [address] Physician Gastroenterology 05/15/18 Farhana Rojas, Rivera [address] [place] [address] Clinical Psychologist Psychology 05/27/18 Dorota Carpenter MD [address] [place] [address] Urogynecology 12/28/21
--- OUTSIDE RECORDS SUMMARY | 2025-02-09 14:50 | XMS_ITS | Encounter Summary ---
Author Organization [facility] Address [address] [place] [address] Care Team Providers Care Billing Clinician Name Role Phone Donaldo Villareal MD Primary Care Provider + Donaldo Villareal MD Unavailable [phone] Alfonso George DO Unavailable [phone] Edward Mak MD Unavailable [phone] Lupe Osorio MD Unavailable [phone] Lynn Teran MD Unavailable Farhana Rojas PsyD Unavailable Services-[facility], [facility] Care Provider Dorota Carpenter MD Unavailable Pcp, No Primary Care Provider Unavailabl e System, Provider Not In Primary Care Provider Un available Pcp, No Primary Care Provider Unavailabl e Edward Mak MD Primary Care Provider [phone] Services, [facility] Primary Care Provider Nitza Dial MD Unavailable Janeth Page APRN Unavailable [phone] Encounter Details Date Type Department Care Team (Late st Contact Info) Description 09/11/2017 Scanned Document [facility] [address] [facility] [address] [place] [address] Janeth Page, CUSTOMER LOYALTY REPRESENTATIVE [address] [address] Social History Tobacco Use Types Packs/Day Years [...] on filedocumented in this encounter Care Teams Billing Clinician Relationship Specialty Start Date End Date Donaldo Villareal MD PCP - General Family Medicine 02/06/17 07/08/20 Services-[facility] [address] [place] [address] PCP - General 07/09/20 12/26/22 Pcp, No PCP - General General Medicine 12/27/22 01/17/23 System, Provider Not In PCP - General 01/18/23 05/06/23 Pcp, No PCP - General General Medicine 05/07/23 06/26/23 Edward Mak MD PCP - General 06/27/23 07/15/23 [facility], [facility] [address] [place] [address] [address] [place] [address] PCP - General 07/16/23 Nitza Dial MD [address] [address] PCP - A[employer] Medicare Attributed 07/16/23 04/15/24 Janeth Page APRN [address] [place] [address] PCP - A[employer] Medicare Attributed 04/16/24 07/14/24 Donaldo Villareal MD Family Medicine 02/06/17 Alfonso George DO Absorption And Adsorption Engineer Cardiovascular Disease 05/15/18 Edward Mak MD Physician Rheumatology 05/15/18 Lupe Osorio MD [address] [place] [phone] Physician Hematology Oncology 05/15/18 Lynn Teran MD [address] [place] [address] Physician Gastroenterology 05/15/18 Farhana Rojas, PsyD [address] [place] [address] Clinical Psychologist Psychology 05/27/18 Dorota Carpenter MD [address] [place] [address] Urogynecology 12/28/21 documented as of this encounter
--- OUTSIDE RECORDS SUMMARY | 2025-02-09 14:50 | XMS_ITS | Encounter Summary ---
Author Organization [facility] Address [address] [place] [address] Care Team Providers Care Classifier Operator Name Role Phone Donaldo Villareal MD Primary Care Provider + Donaldo Villareal MD Unavailable [phone] Alfonso George DO Unavailable [phone] Edward Mak MD Unavailable [phone] Lupe Osorio MD Unavailable Lynn Teran MD Unavailable Farhana Rojas PsyD Unavailable Services-[facility], [facility] Care Provider Dorota Carpenter MD Unavailable Pcp, No Primary Care Provider Unavailabl e System, Provider Not In Primary Care Provider Un available Pcp, No Primary Care Provider Unavailabl e Edward Mak MD Primary Care Provider [phone] Services, Pending Sale To [facility] Primary Care Provider Nitza Dial MD Unavailable Janeth Page APRN Unavailable [phone] Encounter Details Date Type Department Care Team (Late st Contact Info) Description 11/11/2018 Scanned Document [facility] [address] [place] [address] Charity Wakefield MD [address] [place] [phone] Social History Tobacco Use Types Packs/Day Years [...] on filedocumented in this encounter Care Teams Classifier Operator Relationship Specialty Start Date End Date Donaldo Villareal MD PCP - General Family Medicine 02/06/17 07/08/20 Services-[facility] [address] [place], [place] [address] PCP - General 07/09/20 12/26/22 Pcp, No PCP - General General Medicine 12/27/22 01/17/23 System, Provider Not In PCP - General 01/18/23 05/06/23 Pcp, No PCP - General General Medicine 05/07/23 06/26/23 Edward aMk MD PCP - General 06/27/23 07/15/23 Services, Pending Sale To [facility] [address] [place] [address] [address] [place], [place] [id number] PCP - General 07/16/23 Nitza Dial MD [address] [place] [address] PCP - Aetna Medicare Attributed 07/16/23 04/15/24 Janeth Page, TUMBLING BARREL PAINTER [address] [place] [address] PCP - Aetna Medicare Attributed 04/16/24 07/14/24 Donaldo Villareal MD Family Medicine 02/06/17 Alfonso George DO Baker Apprentice Cardiovascular Disease 05/15/18 Edward Mak MD Physician Rheumatology 05/15/18 Lupe Osorio MD [address] [place] [phone] Physician Hematology Oncology 05/15/18 Lynn Teran MD [address] [place] [address] Physician Gastroenterology 05/15/18 Farhana Rojas PsyD [address] [place] [address] Clinical Psychologist Psychology 05/27/18 Dorota Carpenter MD [address] [address] Urogynecology 12/28/21 documented as of this encounter
--- OUTSIDE RECORDS SUMMARY | 2025-02-09 14:50 | XMS_ITS | Clinical Summary ---
Author Organization [facility] Address [address] [place] [address] Care Team Providers Care Psychiatric Therapist Name Role Phone Unavailable Primary Care Provider [...] Advance Directives For more information, please contact: [phone] Latest Code Status on File Code Status Date Activated Date Inactivated Comments Full Code 05/30/2022 10:40 AM 05/30/2022 10:03 PM Thi s code status was ascertained in the following way: discussion with patient .
--- OUTSIDE RECORDS SUMMARY | 2025-02-09 14:50 | XMS_ITS | Encounter Summary ---
Author Organization [facility] Address [address] [place] [address] Care Team Providers Care Cleaners Name Role Phone Donaldo Villareal MD Primary Care Provider + Donaldo Villareal MD Unavailable [phone] Alfonso George DO Unavailable [phone] Edward Mak MD Unavailable [phone] Lupe Osorio MD Unavailable Lynn Teran MD Unavailable Farhana Rojas PsyD Unavailable Services-[facility], [facility] Care Provider Dorota Carpenter MD Unavailable Pcp, No Primary Care Provider Unavailabl e System, Provider Not In Primary Care Provider Un available Pcp, No Primary Care Provider Unavailabl e Edward Mak MD Primary Care Provider Services, [facility] Primary Care Provider Nitza Dial MD Unavailable Janeth Page APRN Unavailable [phone] Encounter Details Date Type Department Care Team (Late st Contact Info) Description 06/28/2019 Telephone [facility] [address] [place] [address] [place], RADHA [address] [place] [address] Social History Tobacco Use Types Packs/Day Years [...] on filedocumented in this encounter Care Teams Cleaners Relationship Specialty Start Date End Date Donaldo Villareal MD PCP - General Family Medicine 02/06/17 07/08/20 Services-[facility] [address] [place] [address] PCP - General 07/09/20 12/26/22 Pcp, No PCP - General General Medicine 12/27/22 01/17/23 System, Provider Not In PCP - General 01/18/23 05/06/23 Pcp, No PCP - General General Medicine 05/07/23 06/26/23 Edward Mak MD PCP - General 06/27/23 07/15/23 Services, [facility] [address] [place] [address] [address] [place] [address] PCP - General 07/16/23 Nitza Dial MD [address] [place] [address] PCP - A[employer] Medicare Attributed 07/16/23 04/15/24 Janeth Page, A CLASS LINEMAN [address] [place] [address] PCP - A[employer] Medicare Attributed 04/16/24 07/14/24 Donaldo Villareal MD Family Medicine 02/06/17 Alfonso George DO Carbon Rod Inserter Cardiovascular Disease 05/15/18 Edward Mak MD Physician Rheumatology 05/15/18 Lupe Osorio MD [address] [place], [place] [phone] Physician Hematology Oncology 05/15/18 Lynn Teran MD [address] [place] [address] Physician Gastroenterology 05/15/18 Farhana Rojas PsyD [address] [place] [address] Clinical Psychologist Psychology 05/27/18 Dorota Carpenter MD [address] [place] [address] Urogynecology 12/28/21 documented as of this encounter
--- OUTSIDE RECORDS SUMMARY | 2025-02-09 14:50 | XMS_ITS | Encounter Summary ---
Author Organization [facility] Address [address] [place] [address] Phone Care Team Providers Care Scarf Gluer Name Role Phone Carolina Reynoso MD Primary Care Provider + [phone] Reason for Referral * MRI/CAT Scan - Closed Specialty Diagnoses / Procedures Referred By Contac t Referred To Contact Radiology Procedures Outside CT Abd/pelvis Report Only [facility] Rheumatology [address] [place] [address] [place] [address] Phone: tel: fax: Referral ID Status Reason Start Date Expiration Date Visits Re quested Visits Authorized [id number] Closed 01/09/2025 1 1 Encounter Details Date Type Department Care Team ([facility] st Contact Info) Description 01/09/2025 Orders Only [facility] Rheumatology [address] [place] [address] ProviderCornell MD [address] [place] [address] Social History Tobacco Use Types Packs/Day Years [...] Care Team (Late st Contact Info) Description 02/23/2025 10:15 AM EST Office Visit [address] [place] [address] Alexa Coulter MD [address] [place] [address] Janeth Lewis, PT 8 [place] [address] 03/04/2025 10:45 AM EST Office Visit [address] [place] [address] Alexa Coulter MD [address] [place] [address] Janeth Lewis, PT 8 [place] [address] 03/09/2025 11:45 AM EST Office Visit [facility] [address] [place] [address] Alexa Coulter MD [address] [place] [address], [address] [address] Janeth Lewis, PT 8 [place] [address] 03/10/2025 11:00 AM EST Telemedicine [facility] Early Detection Center [address] [facility] [place] [address] Leonora Sifuentes NP [address] [place] [address] [place] [address] 03/11/2025 11:30 AM EST Office Visit [address] [place] [address] Alexa Coulter MD [address] [place] [address], [address] [address] Janeth Lewis, PT 8 [place] [address] 03/16/2025 10:15 AM EST Office Visit [facility] [address] [place] [address] Alexa Coulter MD [address] [place] [address], [address] [address] Janeth Lewis, PT 8 [place] [address] 03/19/2025 10:00 AM EST Office Visit [facility] [address] [place] [address] Alexa Coulter MD [address] [place] [address] Janeth Lewis, PT 8 [place] [address] 03/24/2025 10:15 AM EST Office Visit [address] [place] [address] Alexa Coulter MD [address] [place] [address] Janeth Lewis, PT 8 [place] [address] 03/26/2025 10:00 AM EST Office Visit [address] [place] [address] Alexa Coulter MD [address] [place] [address] Janeth Lewis, PT 8 [place] [address] 03/31/2025 9:00 AM EST Office Visit [facility] Rheumatology [address] [place] [address] [place] [address] Alexa Coulter MD [address] [place] [address] documented as of this encounter Procedures Procedure Name Priority Date/Time Associated Diagnosis Comments OUTSIDE XR CHEST REPORT ONLY Routine 01/05/2025 1:[address] ABD/PELVIS REPORT ONLY Routine 01/05/2025 1:07 PM EDT documented in this encounter Results * Outside CT Abd/pelvis Report Only (01/05/2025 1:07 PM EDT) Historical Provider MD LAU CT ABD/PELVIS Final R esult * Outside XR??Chest Report Only (01/05/2025 1:07 PM EDT) Historical Provider MD LAU XR CHEST Final Res ult documented in this encounter Visit Diagnoses Not on filedocumented in this encounter Care Teams Scarf Gluer Relationship Specialty Start Date End Date Carolina Reynoso MD [address] [place] [address] [email or web address] PCP - General Family Medicine 12/30/24 documented as of this encounter Additional Source Comments The information contained in this document represents components of the legal health record. It is not the complete legal health record.[facility]
--- OUTSIDE RECORDS SUMMARY | 2025-02-09 14:50 | XMS_ITS | Clinical Summary ---
Author Organization [facility] Address [address] [place] [address] Care Team Providers Care Swimming Pool Salesperson Name Role Phone Unavailable Primary Care Provider Unavailabl e Surgical History Surgery Date Site/Laterality Comments COLONOSCOPY PROCEDURE:COLONOSCOPY UPPER GASTROINTESTINAL ENDOSCOPY PROCEDURE:UPPER GASTROINTESTINAL ENDOSCOPY TUBAL LIGATION PROCEDURE:TUBAL LIGATION BARIATRIC SURGERY 2018 PROCEDURE:BARIATRIC SURGERY;COMMENT:Gastric sleeve EYE SURGERY PROCEDURE:EYE SURGERY;COMMENT:As a toddler WISDOM TOOTH EXTRACTION PROCEDURE:WISDOM TOOTH EXTRACTION OVARIAN CYST REMOVAL Left PROCEDURE:OVARIAN CYST REMOVAL CYSTOSCOPY 05/30/2022 N/A PROCEDURE:CYSTOSCOPY;COMMENT: Procedure: CYSTOSCOPY; Surgeon: Sheba Card DO; Location: [facility] MAIN OPERATING ROOM; Service: Gynecology; Laterality: N/A; Medical History Medical History Date Comments Fibromyalgia DX:Fibromyalgia Autoimmune disease ([facility] V24) DX:Autoimmune disease ([facility]) Depression DX:Depression Pre-operative respiratory examination [...] impairment DX:Visual impa irment;COMMENT:Wears glasses Ankylosing spondylitis ([facility]/ [facility] V24, [facility] V28) DX:Ankylosing spondylitis ([facility]) [...] Cervical Cancer Screening: P ap Smear 2006 HPV Vaccines (1 - 3-dose SCD M series) 2012 HIV Screening 03/18/2022 Hepatitis C Screening 03/18/2022 Social Influencers of Health Screening 03/18/2022 Depression Screening 04/16/2024 COVID-19 Vaccine (1 - 2023-2 5 season) 2024 Influenza Vaccine (#1) 2024 RSV Immunization Adult Patie nts (1 - 1-dose 75+ series) 2060 HIB [...]
--- OUTSIDE RECORDS SUMMARY | 2025-02-09 14:50 | XMS_ITS | Encounter Summary ---
Author Organization [facility] Address [address] [place] [address] Care Team Providers Care Medical Terminologist Name Role Phone Donaldo Villareal MD Unavailable [phone] Alfonso George DO Unavailable Edward Mak MD Unavailable [phone] Lupe Osorio MD Unavailable Lynn Teran MD Unavailable Farhana RojasyD Unavailable Dorota Carpenter MD Unavailable [phone] System, Provider Not In Primary Care Provider Un available Pcp, No Primary Care Provider UnavailEdward Thapa MD Primary Care Provider [phone] [facility] Primary Care Provider Nitza Dial MD Unavailable Janeth Page COMMUNITY REPRESENTATIVE Unavailable [phone] Reason for Visit * Reason Comments Med Change Request Encounter Details Date Type Department Care Team (Late st Contact Info) Description 01/25/2023 Refill [facility] [address] [place] [phone] Frida Mejias PA-C [address] [place] [phone] Displaced fracture of fourth metatarsal bone, right [...] fracture documented in this encounter Care Teams Medical Terminologist Relationship Specialty Start Date End Date System, Provider Not In PCP - General 01/18/23 05/06/23 Pcp, No PCP - General General Medicine 05/07/23 06/26/23 Edward Mak MD PCP - General 06/27/23 07/15/23 Services, [facility], [facility] [address] [place] [address] [address] [place] [address] PCP - General 07/16/23 Nitza Dial MD [address] [place] [address] PCP - Aetna Medicare Attributed 07/16/23 04/15/24 Janeth Page APRN [address] [address] PCP - Aetna Medicare Attributed 04/16/24 07/14/24 Donaldo Villareal MD Family Medicine 02/06/17 Alfonso George DO Automotive Product Specialist Cardiovascular Disease 05/15/18 Edward Mak MD Physician Rheumatology 05/15/18 Lupe Osorio MD [address] [place], [place] [phone] Physician Hematology Oncology 05/15/18 Lynn Teran MD [address] [place] [address] Physician Gastroenterology 05/15/18 Farhana Rojas, Rivera [address] [place] [address] Clinical Psychologist Psychology 05/27/18 Dorota Carpenter MD [address] [place] [address] Urogynecology 12/28/21 documented as of this encounter
--- OUTSIDE RECORDS SUMMARY | 2025-02-09 14:50 | XMS_ITS | Encounter Summary ---
Author Organization [facility] Address [address] [place] [address] Care Team Providers Care Hair Colorist Name Role Phone Donaldo Villareal MD Primary Care Provider + Donaldo Villareal MD Unavailable [phone] Alfonso George DO Unavailable [phone] Edward Mak MD Unavailable [phone] Lupe Osorio MD Unavailable Lynn Teran MD Unavailable Farhana Rojas PsyD Unavailable [phone] Services-[facility], [facility] Care Provider Dorota Carpenter MD Unavailable Pcp, No Primary Care Provider Unavailabl e System, Provider Not In Primary Care Provider Un available Pcp, No Primary Care Provider Unavailabl e Edward Mak MD Primary Care Provider [phone] Services, [facility] Primary Care Provider Nitza Dial MD Unavailable Janeth Page APRN Unavailable [phone] Reason for Visit * Reason Comments Medication Refill Encounter Details Date Type Department Care Team (Late st Contact Info) Description 10/16/2019 Refill [facility] Bariatric Surgery [address] [place] [phone] Sarah Mathews, SWEATER OPERATOR [address] [address] Gastroesophageal reflux disease without esophagitis Social History [...] reflux documented in this encounter Care Teams Hair Colorist Relationship Specialty Start Date End Date Donaldo Villareal MD PCP - General Family Medicine 02/06/17 07/08/20 Services-[facility] [address] [place] [address] PCP - General 07/09/20 12/26/22 Pcp, No PCP - General General Medicine 12/27/22 01/17/23 System, Provider Not In PCP - General 01/18/23 05/06/23 Pcp, No PCP - General General Medicine 05/07/23 06/26/23 Edward Mak MD PCP - General 06/27/23 07/15/23 [facility], [facility] [address] [place], [place] [address] PCP - General 07/16/23 Nitza Dial MD [address] [place] [address] PCP - Aetna Medicare Attributed 07/16/23 04/15/24 Janeth Page, SWEATER OPERATOR [address] [place] [address] PCP - Aetna Medicare Attributed 04/16/24 07/14/24 Donaldo Villareal MD Family Medicine 02/06/17 Alfonso George DO Director Retail Brand Development Cardiovascular Disease 05/15/18 Edward Mak MD Physician Rheumatology 05/15/18 Lupe Osorio MD [address] [place] [phone] Physician Hematology Oncology 05/15/18 Lynn Teran MD [address] [place] [address] Physician Gastroenterology 05/15/18 Farhana Rojas, PsBonita [address] [place] [address] Clinical Psychologist Psychology 05/27/18 Dorota Carpenter MD 7 [place] [address] Urogynecology 12/28/21 documented as of this encounter
--- OUTSIDE RECORDS SUMMARY | 2025-02-09 14:50 | XMS_ITS | Clinical Summary ---
Author Organization [facility] Address [address] [id number] Care Team Providers Care Supervisor Blast Furnace Name Role Phone , Pcp Primary Care [...] MEDICARE PART A AND B Care Teams Supervisor Blast Furnace Relationship Specialty Start Date End Date , Pcp PCP - General 09/09/18
--- OUTSIDE RECORDS SUMMARY | 2025-02-09 14:50 | XMS_ITS | Encounter Summary ---
Author Organization [facility] Address [address] [place] [address] [place] [address] Phone Care Team Providers Care Band Instrument Maker Name Role Phone Pcp, Unknown Primary Care Provider Carolina Woodward MD Primary Care Provider [phone] Encounter Details Date Type Department Care Team ([facility] st Contact Info) Description 05/16/2024 Procedure Pass [facility], Ct Scan - [address] [address] Social History Tobacco Use Types Packs/Day Years [...] 9:05 AM EST Gely Flores RN * [place] Suicide Severity Rating Scale (Screener/Recent Self-Report) Question [...] Description 02/23/2025 10:15 AM EST Office Visit [address] [place] [address] Alexa Coulter MD [address] [place] [address] Janeth Lewis, PT 8 [place] [address] 03/04/2025 10:45 AM EST Office Visit [facility] [address] [place] [address] Alexa Coulter MD [address] [place] [address] Janeth Lewis, PT 8 [place] [address] 03/09/2025 11:45 AM EST Office Visit [facility] [address] [place] [address] Alexa Coulter MD [address] [place] [address], [address] [address] Janeth Lewis, PT 8 [place] [address] 03/10/2025 11:00 AM EST Telemedicine [facility] Early Detection Center [address] [place] [address] Leonora Sifuentes NP [address] [place] [address] [place] [address] 03/11/2025 11:30 AM EST Office Visit [address] [place] [address] Alexa Coulter MD [address] [place] [address] Janeth Lewis, PT 8 [place] [address] 03/16/2025 10:15 AM EST Office Visit [facility] [address] [place] [address] Alexa Coulter MD [address] [place] [address], [address] [address] Janeth Lewis, PT 8 [place] [address] 03/19/2025 10:00 AM EST Office Visit [address] [place] [address] Alexa Couletr MD [address] [place] [address] Janeth Lewis, PT 8 [place] [address] 03/24/2025 10:15 AM EST Office Visit [facility] 8 [place] [address] Alexa Coulter MD [address] [place] [address] Janeth Lewis, PT 8 [place] [address] 03/26/2025 10:00 AM EST Office Visit [address] [place] [address] Alexa Coulter MD [address] [place] [address] Janeth Lewis, PT 8 [place] [address] 03/31/2025 9:00 AM EST Office Visit [facility] Rheumatology [address] [place] [address] Alexa Coulter MD [address] [place] [address] documented as of this encounter Visit Diagnoses Not on filedocumented in this encounter Care Teams Band Instrument Maker Relationship Specialty Start Date End Date Pcp, Unknown PCP - General 05/27/24 12/29/24 Carolina Reynoso MD [address] [place] [address] [email or web address] PCP - General Family Medicine 12/30/24 documented as of this encounter Additional Source Comments The information contained in this document represents components of the legal health record. It is not the complete legal health record.[facility]
--- OUTSIDE RECORDS SUMMARY | 2025-02-09 14:50 | XMS_ITS | Encounter Summary ---
Author Organization [facility] Address [address] [place] [address] Care Team Providers Care Tool And Die Maker Apprentice Name Role Phone Donaldo Villareal MD Primary Care Provider + Donaldo Villareal MD Unavailable [phone] Alfonso George DO Unavailable [phone] Edward Mak MD Unavailable [phone] Lupe Osorio MD Unavailable Lynn Teran MD Unavailable Farhana Rojas PsyD Unavailable Services-[facility], [facility] Care Provider Dorota Carpenter MD Unavailable [phone] Pcp, No Primary Care Provider Unavailabl e System, Provider Not In Primary Care Provider Un available Pcp, No Primary Care Provider Unavailabl e Edward Mak MD Primary Care Provider [phone] Services, Replaced By [facility] Primary Care Provider Nitza Dial MD Unavailable Janeth Page APRN Unavailable [phone] Encounter Details Date Type Department Care Team (Late st Contact Info) Description 08/11/2019 Scanned Document CC [facility] [place] [facility] TRACTOR TRAILER TRUCK DRIVER [address] [place] [address] Lisa Contreras MD [address] [place] [address] Social History Tobacco Use Types Packs/Day Years [...] on filedocumented in this encounter Care Teams Tool And Die Maker Apprentice Relationship Specialty Start Date End Date Donaldo Villareal MD PCP - General Family Medicine 02/06/17 07/08/20 [facility] [address] [place] [address] PCP - General 07/09/20 12/26/22 Pcp, No PCP - General General Medicine 12/27/22 01/17/23 System, Provider Not In PCP - General 01/18/23 05/06/23 Pcp, No PCP - General General Medicine 05/07/23 06/26/23 Edward Mak MD PCP - General 06/27/23 07/15/[address] [facility], Replaced By [facility] [address] [place] [address] [address] [place] [address] PCP - General 07/16/23 Nitza Dial MD [address] [place] [address] PCP - Aetna Medicare Attributed 07/16/23 04/15/24 Janeth Page, INSPECTOR OUTSIDE STEAM DISTRIBUTION [address] [place] [address] PCP - Aetna Medicare Attributed 04/16/24 07/14/24 Donaldo Villareal MD Family Medicine 02/06/17 Alfonso George DO Body Shop Estimator Cardiovascular Disease 05/15/18 Edward Mak MD Physician Rheumatology 05/15/18 Lupe Osorio MD [address] [place] [phone] Physician Hematology Oncology 05/15/18 Lynn Teran MD [address] [place] [address] Physician Gastroenterology 05/15/18 Farhana Rojas PsyD [address] [place] [address] Clinical Psychologist Psychology 05/27/18 Dorota Carpenter MD [address] [place] [address] Urogynecology 12/28/21 documented as of this encounter
--- OUTSIDE RECORDS SUMMARY | 2025-02-09 14:50 | XMS_ITS | Encounter Summary ---
Author Organization [facility] Address [address] [place] [address] Care Team Providers Care Business Operations Consultant Name Role Phone Donaldo Villareal MD Primary Care Provider + Donaldo Villareal MD Unavailable [phone] Alfonso George DO Unavailable [phone] Edward Mak MD Unavailable [phone] Lupe Osorio MD Unavailable Lynn Teran MD Unavailable Farhana Rojas PsyD Unavailable Services-[facility], [facility] Care Provider Dorota Carpenter MD Unavailable Pcp, No Primary Care Provider Unavailabl e System, Provider Not In Primary Care Provider Un available Pcp, No Primary Care Provider Unavailabl e Edward Mak MD Primary Care Provider Services, [facility] Primary Care Provider Nitza Dial MD Unavailable Janeth Page APRN Unavailable [phone] Encounter Details Date Type Department Care Team (Late st Contact Info) Description 05/04/2020 Scanned Document CC [facility] [facility] LATHMAKER [address] [place] [phone] Lisa Contreras MD [address] [place] [address] Social History Tobacco Use Types Packs/Day Years [...] on filedocumented in this encounter Care Teams Business Operations Consultant Relationship Specialty Start Date End Date Donaldo Villareal MD PCP - General Family Medicine 02/06/17 07/08/20 Services-[facility] [address] [place] [address] PCP - General 07/09/20 12/26/22 Pcp, No PCP - General General Medicine 12/27/22 01/17/23 System, Provider Not In PCP - General 01/18/23 05/06/23 Pcp, No PCP - General General Medicine 05/07/23 06/26/23 Edward Mak MD PCP - General 06/27/23 07/15/23 [facility], [facility] [address] [place] [address] [address] [place] [address] PCP - General 07/16/23 Nitza Dial MD [address] [place] [address] PCP - Aetna Medicare Attributed 07/16/23 04/15/24 Janeth Page, JORDAN MAN [address] [place] [address] PCP - Aetna Medicare Attributed 04/16/24 07/14/24 Donaldo Villareal MD Family Medicine 02/06/17 Alfonso George DO Cut Off Man Cardiovascular Disease 05/15/18 Edward Mak MD Physician Rheumatology 05/15/18 Lupe Osorio MD [address] [place] [phone] Physician Hematology Oncology 05/15/18 Lynn Teran MD [address] [place] [address] Physician Gastroenterology 05/15/18 Farhana Rojas PsyD [address] [place] [address] Clinical Psychologist Psychology 05/27/18 Dorota Carpenter MD [address] [place] [address] Urogynecology 12/28/21 documented as of this encounter
--- OUTSIDE RECORDS SUMMARY | 2025-02-09 14:50 | XMS_ITS | Encounter Summary ---
Author Organization [facility] Address [address] [place] [address] Care Team Providers Care Concrete Mixing Plant Superintendent Name Role Phone Donaldo Villareal MD Primary Care Provider + Donaldo Villareal MD Unavailable [phone] Alfonso George DO Unavailable [phone] Edward Mak MD Unavailable [phone] Lupe Osorio MD Unavailable [phone] Lynn Teran MD Unavailable Farhana Rojas PsyD Unavailable Services-[facility], [facility] Care Provider Dorota Carpenter MD Unavailable Pcp, No Primary Care Provider Unavailabl e System, Provider Not In Primary Care Provider Un available Pcp, No Primary Care Provider Unavailabl e Edward Mak MD Primary Care Provider Services, [facility] Primary Care Provider Nitza Dial MD Unavailable Janeth Page APRN Unavailable [phone] Encounter Details Date Type Department Care Team (Late st Contact Info) Description 02/06/2017 Scanned Document CC [facility] [place] [facility] TRUCK DISPATCHER [address] [place] [phone] Lisa Contreras MD [address] [place] [address] Social History Tobacco Use Types Packs/Day Years [...] filedocumented in this encounter Care Teams Concrete Mixing Plant Superintendent Relationship Specialty Start Date End Date Donaldo Villareal MD PCP - General Family Medicine 02/06/17 07/08/20 Services-[facility] [address] [place] [address] PCP - General 07/09/20 12/26/22 Pcp, No PCP - General General Medicine 12/27/22 01/17/23 System, Provider Not In PCP - General 01/18/23 05/06/23 Pcp, No PCP - General General Medicine 05/07/23 06/26/23 Edward Mak MD PCP - General 06/27/23 07/15/23 [facility], [facility] [address] [place] [address] PCP - General 07/16/23 Nitza Dial MD [address] [address] PCP - Aetna Medicare Attributed 07/16/23 04/15/24 Janeth Page APRN [address] [place] [address] PCP - Aetna Medicare Attributed 04/16/24 07/14/24 Donaldo Villareal MD Family Medicine 02/06/17 Alfonso George DO Player Development Manager Cardiovascular Disease 05/15/18 Edward Mak MD Physician Rheumatology 05/15/18 Lupe Osorio MD [address] [place], [place] [phone] Physician Hematology Oncology 05/15/18 Lynn Teran MD [address] [place] [address] Physician Gastroenterology 05/15/18 Farhana Rojas, PsyD [address] [place] [address] Clinical Psychologist Psychology 05/27/18 Dorota Carpenter MD [address] [place] [address] Urogynecology 12/28/21 documented as of this encounter
--- OUTSIDE RECORDS SUMMARY | 2025-02-09 14:50 | XMS_ITS | Encounter Summary ---
Author Organization [facility] Address [address] [place] [address] [place] [address] Phone Care Team Providers Care Fishing Line Winding Machine Operator Name Role Phone Pcp, Unknown Primary Care Provider Carolina Woodward MD Primary Care Provider [phone] Encounter Details Date Type Department Care Team ([facility] st Contact Info) Description 05/16/2024 Procedure Pass [facility], Ct Scan - [address] [address] Social History Tobacco Use Types Packs/Day Years [...] 9:05 AM EST Gely Flores RN * Grady Suicide Severity Rating Scale (Screener/Recent Self-Report) Question [...] Description 02/23/2025 10:15 AM EST Office Visit [address] [place] [address] Alexa Coulter MD [address] [place] [address] Janeth Lewis, PT 8 [place] [address] 03/04/2025 10:45 AM EST Office Visit [facility] [address] [place] [address] Alexa Coulter MD [address] [place] [address] Janeth Lewis, PT 8 [place] [address] 03/09/2025 11:45 AM EST Office Visit [facility] [address] [place] [address] Alexa Coulter MD [address] [place] [address], [address] [address] Janeth Lewis, PT 8 [place] [address] 03/10/2025 11:00 AM EST Telemedicine [facility] [address] [place] [address] Leonora Sifuentes NP [address] [place] [address] [place] [address] 03/11/2025 11:30 AM EST Office Visit [address] [place] [address] Alexa Coulter MD [address] [place] [address] Janeth Lewis, PT 8 [place] [address] 03/16/2025 10:15 AM EST Office Visit [facility] [address] [place] [address] Alexa Coulter MD [address] [place] [address], [address] [address] Janeth Lewis, PT 8 [place] [address] 03/19/2025 10:00 AM EST Office Visit [address] [place] [address] Alexa Coulter MD [address] [place] [address] Janeth Lewis, PT 8 [place] [address] 03/24/2025 10:15 AM EST Office Visit [facility] 8 [place] [address] Alexa Coulter MD [address] [place] [address] Janeth Lewis, PT 8 [place] [address] 03/26/2025 10:00 AM EST Office Visit [address] [place] [address] Alexa Coulter MD [address] [place] [address] Janeth Lewis, PT 8 [place] [address] 03/31/2025 9:00 AM EST Office Visit [facility] Rheumatology 22 [place] [address] Alexa Coulter MD [address] [place] [address] documented as of this encounter Visit Diagnoses Not on filedocumented in this encounter Care Teams Fishing Line Winding Machine Operator Relationship Specialty Start Date End Date Pcp, Unknown PCP - General 05/27/24 12/29/24 [place] Reynoso MD 70 [place] [address] [email or web address] PCP - General Family Medicine 12/30/24 documented as of this encounter Additional Source Comments The information contained in this document represents components of the legal health record. It is not the complete legal health record.[facility]
--- OUTSIDE RECORDS SUMMARY | 2025-02-09 14:50 | XMS_ITS | Encounter Summary ---
Author Organization [facility] Address [address] [place] [address] Care Team Providers Care Digital Publishing Specialist Name Role Phone Donaldo Villareal MD Primary Care Provider + Donaldo Villareal MD Unavailable [phone] Alfonso George DO Unavailable [phone] Edward Mak MD Unavailable [phone] Lupe Osorio MD Unavailable [phone] Lynn Teran MD Unavailable Farhana Rojas PsyD Unavailable Services-[facility], [facility] Care Provider Dorota Carpenter MD Unavailable Pcp, No Primary Care Provider Unavailabl e System, Provider Not In Primary Care Provider Un available Pcp, No Primary Care Provider Unavailabl e Edward Mak MD Primary Care Provider Services, Pending Sale To [facility] Primary Care Provider Nitza Dial MD Unavailable Janeth Page APRN Unavailable [phone] Encounter Details Date Type Department Care Team (Late st Contact Info) Description 05/07/2020 Scanned Document [facility] Bariatric Surgery [address] [place] [address] Sarah Mathews, CONE BAKER MACHINE [address] [address] Social History Tobacco Use Types Packs/Day Years [...] on filedocumented in this encounter Care Teams Digital Publishing Specialist Relationship Specialty Start Date End Date Donaldo Villareal MD PCP - General Family Medicine 02/06/17 07/08/20 Services-[facility], [facility] [address] [place] [address] PCP - General 07/09/20 12/26/22 Pcp, No PCP - General General Medicine 12/27/22 01/17/23 System, Provider Not In PCP - General 01/18/23 05/06/23 Pcp, No PCP - General General Medicine 05/07/23 06/26/23 Edward Mak MD PCP - General 06/27/23 07/15/23 [facility], Pending Sale To [facility] [address] [facility] [address] [place], [place] [address] [phone] PCP - General 07/16/23 Nitza Dial MD [address] [place] [address] PCP - A[employer] Medicare Attributed 07/16/23 04/15/24 Janeth Page, CONE BAKER MACHINE [address] [place] [address] PCP - A[employer] Medicare Attributed 04/16/24 07/14/24 Donaldo Villareal MD Family Medicine 02/06/17 Alfonso George DO Emergency Medicine Specialist Cardiovascular Disease 05/15/18 Edward Mak MD Physician Rheumatology 05/15/18 Lupe Osorio MD [address] [place] [phone] Physician Hematology Oncology 05/15/18 Lynn Teran MD [address] [place] [address] Physician Gastroenterology 05/15/18 Farhana Rojas, PsyD [address] [place] [address] Clinical Psychologist Psychology 05/27/18 Dorota Carpenter MD [address] [place] [address] Urogynecology 12/28/21 documented as of this encounter
--- OUTSIDE RECORDS SUMMARY | 2025-02-09 14:50 | XMS_ITS | Encounter Summary ---
Author Organization [facility] Address [address] [place] [address] Care Team Providers Care Credit Analysis Manager Name Role Phone Donaldo Villareal MD Primary Care Provider + Donaldo Villareal MD Unavailable [phone] Alfonso George DO Unavailable [phone] Edward Mak MD Unavailable [phone] Lupe Osorio MD Unavailable Lynn Teran MD Unavailable Farhana Rojas PsyD Unavailable Services-[facility], [facility] Care Provider Dorota Carpenter MD Unavailable Pcp, No Primary Care Provider Unavailabl e System, Provider Not In Primary Care Provider Un available Pcp, No Primary Care Provider Unavailabl e Edward Mak MD Primary Care Provider [phone] Services, [facility] Primary Care Provider Nitza Dial MD Unavailable Janeth Page APRN Unavailable [phone] Encounter Details Date Type Department Care Team (Late st Contact Info) Description 10/28/2019 Scanned Document [facility] BURLAP ROLL COVERER [address] [place] [address] Lisa Contreras MD [address] [place] [address] Social History Tobacco Use Types Packs/Day Years [...] on filedocumented in this encounter Care Teams Credit Analysis Manager Relationship Specialty Start Date End Date Donaldo Villareal MD PCP - General Family Medicine 02/06/17 07/08/20 Services-[facility] [address] [place] [address] PCP - General 07/09/20 12/26/22 Pcp, No PCP - General General Medicine 12/27/22 01/17/23 System, Provider Not In PCP - General 01/18/23 05/06/23 Pcp, No PCP - General General Medicine 05/07/23 06/26/23 Edward Mak MD PCP - General 06/27/23 07/15/23 [facility], [facility] [address] [place] [address] [address] [place] [address] PCP - General 07/16/23 Nitza Dial MD [address] [place] [address] PCP - A[employer] Medicare Attributed 07/16/23 04/15/24 Janeth Page, PRODUCTION MACHINE TENDER [address] [place] [address] PCP - A[employer] Medicare Attributed 04/16/24 07/14/24 Donaldo Villareal MD Family Medicine 02/06/17 Alfonso George DO Senior Qa Automation Engineer Cardiovascular Disease 05/15/18 Edward Mak MD Physician Rheumatology 05/15/18 Lupe Osorio MD [address] [place] [phone] Physician Hematology Oncology 05/15/18 Lynn Teran MD [address] [place] [address] Physician Gastroenterology 05/15/18 Farhana Rojas PsyD [address] [place] [address] Clinical Psychologist Psychology 05/27/18 Dorota Carpenter MD [address] [place] [address] Urogynecology 12/28/21 documented as of this encounter
--- OUTSIDE RECORDS SUMMARY | 2025-02-09 14:50 | XMS_ITS | Encounter Summary ---
Author Organization [employer] Address [address] [place] [address] 7t [place] [address] Care Team Providers Care Java Application Engineer Name Role Phone [place] Reynoso MD Primary Care Provider [phone] Encounter Details Date Type Department Care Team ([facility] Contact Info) Description 01/07/2025 Results Follow-[facility] [place] [place] [facility] [address] [place] [address] [place] Reynoso MD [address] [place] [address] CBC auto differential [[id number]] Social History Tobacco Use Types Packs/Day Years [...] Upcoming Encounters Date Type Department Care Team ([facility] Contact Info) Description 02/11/2025 11:20 AM EDT Office Visit [facility] [place] [facility] 70 [place] [address] [place] Reynoso MD [address] [place] [address] documented as of this encounter Visit Diagnoses Not on filedocumented in this encounter Care Teams Java Application Engineer Relationship Specialty Start Date End Date [place] Reynoso MD [address] [place] [address] PCP - General Family Medicine 09/10/24 documented as of this encounter
--- OUTSIDE RECORDS SUMMARY | 2025-02-09 14:50 | XMS_ITS | Encounter Summary ---
Author Organization [employer] Address [address] [place] [address] 7t [place] [address] Care Team Providers Care Shrimp Peeling Machine Tender Name Role Phone [place] Reynoso MD Primary Care Provider [phone] Encounter Details Date Type Department Care Team ([facility] Contact Info) Description 12/10/2024 Telephone [facility] ADULT DENTAL [address] [place] [address] Jorge Alberto Costello DDS [address] [place] [address] Social History Tobacco Use Types Packs/Day Years [...] 02/11/2025 11:20 AM EDT Office Visit [facility]anco [facility] [address] [place] [address] [place] Reynoso MD 70 [facility] [place] [address] documented as of this encounter Visit Diagnoses Not on filedocumented in this encounter Care Teams Shrimp Peeling Machine Tender Relationship Specialty Start Date End Date [place] Reynoso MD 70 [facility] [place] [address] PCP - General Family Medicine 09/10/24 documented as of this encounter
--- OUTSIDE RECORDS SUMMARY | 2025-02-09 14:50 | XMS_ITS | Encounter Summary ---
Author Organization [facility] Address [address] [place] [address] Care Team Providers Care Registered Dental Assistant Rda Name Role Phone Donaldo Villareal MD Unavailable [phone] Alfonso George DO Unavailable [phone] Edward Mak MD Unavailable [phone] Lupe Osorio MD Unavailable [phone] Lynn Teran MD Unavailable Farhana Rojas Ps Unavailable Services-[facility] Care Provider Dorota Carpenter MD Unavailable Pcp, No Primary Care Provider Unavailabl e System, Provider Not In Primary Care Provider Un available Pcp, No Primary Care Provider Unavailabl e Edward Mak MD Primary Care Provider Services, [facility] Primary Care Provider Nitza Dial MD Unavailable Janeth Page TRASH COLLECTOR SUPERVISOR Unavailable [phone] Reason for Visit * Reason Comments Medical Complaint Encounter Details Date Type Department Care Team (Late st Contact Info) Description 09/06/2021 Telephone [facility] Urologic Surgery [place] [address] [facility] [address] [place] [address] Janeth Page, TRASH COLLECTOR SUPERVISOR [address] [place] [address] Medical Complaint Social History Tobacco Use Types [...] on filedocumented in this encounter Care Teams Registered Dental Assistant Rda Relationship Specialty Start Date End Date Services-[facility], [facility] [address] [place] [address] PCP - General 07/09/20 12/26/22 Pcp, No PCP - General General Medicine 12/27/22 01/17/23 System, Provider Not In PCP - General 01/18/23 05/06/23 Pcp, No PCP - General General Medicine 05/07/23 06/26/23 Edward Mak MD PCP - General 06/27/23 07/15/23 [facility], [facility] [address] [facility] [address] [place] [address] PCP - General 07/16/23 Nitza Dial MD [address] [place] [address] PCP - Aetna Medicare Attributed 07/16/23 04/15/24 Janeth Page, TRASH COLLECTOR SUPERVISOR [address] [place] [address] PCP - Aetna Medicare Attributed 04/16/24 07/14/24 Donaldo Villareal MD Family Medicine 02/06/17 Alfonso George DO Steward[facility] Cardiovascular Disease 05/15/18 Edward Mak MD Physician Rheumatology 05/15/18 Lupe Osorio MD [address] [place] [phone] Physician Hematology Oncology 05/15/18 Lynn Teran MD [address] [place] [address] Physician Gastroenterology 05/15/18 Farhana Rojas PsyD [address] [facility] [address] [place] [address] Clinical Psychologist Psychology 05/27/18 Dorota Carpenter MD [address] [place] [address] [address] [place] [address] Urogynecology 12/28/21 documented as of this encounter
--- OUTSIDE RECORDS SUMMARY | 2025-02-09 14:50 | XMS_ITS | Encounter Summary ---
Author Organization [facility] Address [address] [place] [address] Care Team Providers Care Furniture Refinisher Name Role Phone Donaldo Villareal MD Primary Care Provider + Donaldo Villareal MD Unavailable [phone] Alfonso George DO Unavailable [phone] Edward Mak MD Unavailable [phone] Lupe Osorio MD Unavailable [phone] Lynn Teran MD Unavailable Farhana Rojas PsyD Unavailable Services-[facility], [facility] Care Provider Dorota Carpenter MD Unavailable Pcp, No Primary Care Provider Unavailabl e System, Provider Not In Primary Care Provider Un available Pcp, No Primary Care Provider Unavailabl e Edward Mak MD Primary Care Provider [phone] Services, [facility] Primary Care Provider Nitza Dial MD Unavailable Janeth Page APRN Unavailable [phone] Reason for Visit * Reason Comments Medication Refill Encounter Details Date Type Department Care Team (Late st Contact Info) Description 06/28/[address] [facility] Bariatric Surgery [address] [place] [address] Clotilde Yang PA Needs valid address Gastroesophageal [...] reflux documented in this encounter Care Teams Furniture Refinisher Relationship Specialty Start Date End Date Donaldo Villareal MD PCP - General Family Medicine 02/06/17 07/08/20 [facility] [address] [place] [address] PCP - General 07/09/20 12/26/22 Pcp, No PCP - General General Medicine 12/27/22 01/17/23 System, Provider Not In PCP - General 01/18/23 05/06/23 Pcp, No PCP - General General Medicine 05/07/23 06/26/23 Edward Mak MD PCP - General 06/27/23 07/15/23 [facility], [facility] [address] [place] [address] [address] [place] [address] PCP - General 07/16/23 Nitza Dial MD [address] [place] [address] PCP - Aetna Medicare Attributed 07/16/23 04/15/24 Janeth Page, INSPECTOR PLUMBING [address] [place] [address] PCP - Aetna Medicare Attributed 04/16/24 07/14/24 Donaldo Villareal MD Family Medicine 02/06/17 Alfonso George DO Director Of Curriculum Cardiovascular Disease 05/15/18 Edward Mak MD Physician Rheumatology 05/15/18 Lupe Osorio MD [address] [place], [place] [phone] Physician Hematology Oncology 05/15/18 Lynn Teran MD [address] [place] [address] Physician Gastroenterology 05/15/18 Farhana Rojas PsyD [address] [place] [address] Clinical Psychologist Psychology 05/27/18 Dorota Carpenter MD [address] [place] [address] Urogynecology 12/28/21 documented as of this encounter
--- OUTSIDE RECORDS SUMMARY | 2025-02-09 14:50 | XMS_ITS | Encounter Summary ---
Author Organization [employer] Address [address] [place] [address] 7t [place] [address] Care Team Providers Care Branch Operations Manager Name Role Phone [place] Reynoso MD Primary Care Provider [phone] Encounter Details Date Type Department Care Team (Latest Contact Info) Description 02/04/2025 Travel Social History Tobacco Use Types Packs/Day Years [...] 02/11/2025 11:20 AM EDT Office Visit [facility]anco [facility] [address] [place], [place] [phone] [place] Reynoso MD 70 [place], [place] documented as of this encounter Visit Diagnoses Not on filedocumented in this encounter Care Teams Branch Operations Manager Relationship Specialty Start Date End Date [place] Reynoso MD [address] [place] [address] PCP - General Family Medicine 09/10/24 documented as of this encounter
--- OUTSIDE RECORDS SUMMARY | 2025-02-09 14:51 | XMS_ITS | Encounter Summary ---
Author Organization [employer] Address [address] [place] [address] 7[address] [place] [address] Care Team Providers Care Business Process Manager Name Role Phone [place] Reynoso MD Primary Care Provider [phone] Encounter Details Date Type Department Care Team ([facility] Contact Info) Description 09/30/2024 Orders Only Gianfranco [facility] MED[facility] [address] [place] [address] [place] Reynoso MD 70 [place] [address] Social History Tobacco Use Types Packs/Day Years [...] Upcoming Encounters Date Type Department Care Team ([facility] Contact Info) Description 02/11/2025 11:20 AM EDT Office Visit Gianfranco [facility] [address] [place] [address] [place] Reynoso MD [address] [place] [address] documented as of this encounter Visit Diagnoses Not on filedocumented in this encounter Care Teams Business Process Manager Relationship Specialty Start Date End Date [place] Reynoso MD 70 [place] [address] PCP - General Family Medicine 09/10/24 documented as of this encounter
--- OUTSIDE RECORDS SUMMARY | 2025-02-09 14:51 | XMS_ITS | Clinical Summary ---
Author Organization [facility] Address [address] [place] [address] Care Team Providers Care Wall Attendant Name Role Phone Provider, Outside Primary Care Provider [phone] Source Comments PLEASE NOTE, if this patient [...] mg tabletIndications :Major depressive disorder, recurrent episode, moderate,Anxiety disorder, unspecified type TAKE 2 TABLETS BY [...] tabletIndications :Major depressive disorder, recurrent episode, moderate TAKE 1 TABLET BY MOUTH EVERY DAY [...] 10/07/2018 Overview (06/12/2019): Overview Note: Undifferentiated spondyloarthr #780233# EXT_ID: [id number] MDD (major depressive disord er), recurrent episode, moderate 03/28/2018 Overview (06/12/2019): Overview Note: MDD (major depressive disorder #952920# EXT_ID: [id number] Fibromyalgia 01/29/2018 Overview (06/12/2019): Overview Note: Fibromyalgia #082148# EXT_ID: [id number] Fibromyalgia 01/29/2018 Irritable bowel syndrome 10/16/2012 Overview (06/12/2019): Overview Note: Irritable bowel syndrome #04266# EXT_ID: [id number] Disease of immune system 10/16/2012 Overview (06/27/2019): Overview Note: Endometriosis #57392# EXT_ID: [id number] Asthma 10/16/2012 Overview (06/12/2019): Overview Note: Asthma #63794# EXT_ID: [id number] Ovarian cyst 10/16/2012 Overview (06/12/2019): Overview Note: Ovarian cyst #48140# EXT_ID: [id number] Immunizations Immunization Administration Dates Next Due Flu, [...] Done Comments Anxiety Screening 1985 HPV Screening (self-collect) 1985 HPV Screening 1985 LTBI Screening (#3) [...] (#1) 11/17/2023 Alcohol and Drug Screen 04/16/2024 [id number] ( season) 2024 01/22/2024, 02/05/2022, 02/18/2021, Additional history exists Imm-Influenza (#1) 2024 01/22/2024, 1 05/22/2022, 02/05/2022, Additional history exists Cervical Cancer Screening 08/25/2025 Pap + HPV 08/25/2025 08/25/2020 Diabetes Screening 05/27/2027 05/27/2024, 0 08/18/2022, 05/24/2022, Additional history exists HIV Screening Completed 03/21/2023, 02/15, 09/15/2020 Hepatitis C Screening Completed 08/24/2023, 020 Cervical Ablation/Cold-Knife Conization Discontinued Cervical Cryotherapy Discontinued Colposcopy Discontinued Excision/Leep Discontinued HPV Genotyping Discontinued Vaginal Pap Discontinued Vulvoscopy Discontinued Procedures Procedure Name Priority Date/Time Associated Diagnosis Comments COMPREHENSIVE METABOLIC PANEL Routine 05/24/2022 8:32 AM EST Pre-op testing PAP SMEAR W/HPV, ABSTRACTED Routine 08/25/2020 from Last 3 Months or Most Recently Relevant to Health Maintenance Results * (ABNORMAL) COMPREHENSIVE METABOLIC PANEL (05/24/2022 8:32 AM EST) GLUCOSE 105(H) 65 - 99 mg/dL [facility] Comment: Fasting reference interval For someone without known diabetes, a glucose value between 100 and 125 mg/dL is consistent with prediabetes and should be confirmed with a follow-up test. UREA NITROGEN (BUN) 9 7 - 25 mg/dL [facility] CREATININE (blood) 0.97 0.50 - 0.97 mg/dL [facility] EGFR 78 > OR = 60 mL/min/1 .73m2 [facility] Comment: The eGFR is based on the CKD-EPI 2020 equation. To calculate the new eGFR from a previous Creatinine or Cystatin C result, go to https://www.kidney.org/professionals/ kdoqi/gfr%5Fcalculator BUN/CREATININE RATIO NOT APPLICABLE 6 - 22 (calc) [facility] SODIUM 136 135 - 146 mmol/L [facility] POTASSIUM 4.2 3.5 - 5.3 mmol/L [facility] CHLORIDE 102 98 - 110 mmol/L [facility] CARBON DIOXIDE 23 20 - 32 mmol/L [facility] CALCIUM 9.5 8.6 - 10.2 mg/dL [facility] PROTEIN, TOTAL 7.3 6.1 - 8.1 g/dL [facility] ALBUMIN 3.9 3.6 - 5.1 g/dL [facility] GLOBULIN 3.4 1.9 - 3.7 g/dL (calc) [facility] ALBUMIN/GLOBULI N RATIO 1.1 1.0 - 2.5 (calc) [facility] BILIRUBIN, TOTAL 0.5 0.2 - 1.2 mg/dL [facility] ALKALINE PHOSPHATASE 83 31 - 125 U/L [facility] AST 13 10 - 30 U/L [facility] ALT 6 6 - 29 U/L [facility] [employer] Blood Blood / Unknown 05/24/2022 8 :32 AM EST 05/24/2022 7:18 PM EST Cindi Burns [facility] OFFICE ASSISTANT LAB - BLOOD DRAW Final Resul t [facility] [address] [address], [facility] [address] [address] * PAP SMEAR W/HPV (08/25/2020) PAP SMEAR INTERPRETATION NORMAL N[facility]AL [facility] Swab 08/25/2020 Provider [facility] - PATHOLOGY AND CYTOLOGY AMB ULATORY Final Result [facility] [address] [place] [address], from Last 3 Months or Most Recently Relevant to Health Maintenance Insurance [place] Member Subscriber Plan / Payer (Ef fective 2022-Present) Name:Gloria Salazar Relation to Subscriber:Self Name:Gloria Salazar Payer ID:[id number] Group ID:Not on file Type:Medicaid Address: [address] [address] Care Teams Wall Attendant Relationship Specialty Start Date End Date Provider, Outside N/A N/A PCP - General Specialist - Other Service Providers 09/10/24
--- OUTSIDE RECORDS SUMMARY | 2025-02-09 14:51 | XMS_ITS | Clinical Summary ---
Author Organization [employer] Address [address] [place] [address] [address] [place] [address] Care Team Providers Care State Farm Agent Team Member Name Role Phone Carolina Reynoso MD Primary Care Provider [phone] Allergies Active Allergy Reactions Criticality Noted Date [...] 10 mg by mouth Once per day. 07/05/19 24 Active folic acid (Folvite) 1 MG tablet Take 1 mg by mouth Once per day. 09/09/19 19 Active Meclizine HCl 25 MG chewable tablet Chew 25 mg. Active buPROPion XL (Wellbutrin XL) 300 MG 24 hr tabletIndications :Bipolar II disorder major depressive with atypical features (CMS/HCC) (HCC) Take 1 tablet (300 mg) by mouth Once per day. 90 tablet 2 09/18/19 25 Active gabapentin (Neurontin) 600 MG tabletIndications :Ankylosing spondylitis of lumbosacral region (HCC) Take 1 tablet (600 mg) by mouth 3 times daily. 90 tablet 5 09/18/19 25 025 Active oxybutynin XL (Ditropan-XL) 15 MG 24 hr tabletIndications :Overactive bladder Take 1 tablet (15 mg) by mouth Once per day. 90 tablet 1 09/18/19 25 025 Active rosuvastatin (Crestor) 5 MG tabletIndications :Mixed hyperlipidemia Take 1 tablet (5 mg) by mouth Once per day. 90 tablet 3 09/18/19 25 026 Active hydrOXYzine HCl (Atarax) 50 MG tabletIndications :PTSD (post-traumatic stress disorder) TAKE 1 TABLET (50 MG) BY MOUTH EVERY 6 (SIX) HOURS IF NEEDED FOR ITCHING. 360 tablet 1 10/14/19 25 Active prazosin (Minipress) 2 MG capsule TAKE 1 CAPSULE AT BEDTIME FOR 30 DAYS 90 capsule 11/13/19 25 Active lisdexamfetamine (Vyvanse) 10 MG capsule Take 10 mg by mouth in the morning. 11/22/19 25 Active omeprazole (PriLOSEC) [address] capsuleIndication s:Gastroesophagea l reflux disease, unspecified whether esophagitis present TAKE 1 CAPSULE (20 MG) BY MOUTH ONCE PER DAY. 90 capsule 12/12/19 25 Active estradiol (Estrace) 0.5 MG tablet TAKE 1 TABLET BY MOUTH EVERY DAY 30 tablet 2 12/18/19 25 Active albuterol 108 (90 Base) MCG/ACT inhalerIndication s:Mild asthma, unspecified whether complicated, unspecified whether persistent TAKE 1 PUFF BY MOUTH EVERY 4 HOURS NEEDED WHEEZE 18 g 11 12/18/19 25 026 Active lamoTRIgine (LaMICtal) 100 MG tabletIndications :Bipolar II disorder major depressive with atypical features (CMS/HCC) (HCC) Take 2 tablets (200 mg) by mouth Once per day. 180 tablet 1 01/01/20 25 026 Active ondansetron ODT (Zofran-ODT) 4 MG disintegrating tabletIndications :Nausea Take 1 tablet (4 mg) by mouth every 8 (eight) hours if needed for nausea or vomiting. 20 tablet 01/01/20 25 Active triamcinolone (Kenalog) 0.1 % creamIndications: Dermatitis Apply to affected area 1-2 times daily as needed. Avoid face and groin. 453.6 g 5 01/01/20 25 026 Active guanFACINE (Intuniv) 1 mg 24 hr tabletIndications :Adult ADHD Take 1 tablet (1 mg) by mouth in the morning. 90 tablet 01/17/20 25 Active methocarbamol (Robaxin) 750 MG tabletIndications :Ankylosing spondylitis of lumbosacral region (HCC) TAKE 1 TABLET BY MOUTH TWICE A DAY 60 tablet 01/24/20 25 Active guanFACINE (Intuniv) 1 mg 24 hr tablet Take 1 tablet by mouth in the morning. 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 Mixed hyperlipidemia 05/30/2018 Chronic back pain 05/15/2018 Depressive disorder 05/15/2018 Anxiety disorder 05/15/2018 Learning disability 05/15/2018 Arthritis 05/15/2018 Obstructive sleep apnea syndrome 05/15/2018 Atypical chest pain 05/08/2018 Sinus tachycardia 05/08/2018 Palpitations 05/08/2018 MDD (major depressive disord er), recurrent episode, moderate (CMS/HCC) 03/28/2018 Overview (12/10/2024): Overview Note: MDD (major depressive disorder #[id number]# EXT_ID: [id number] Fibromyalgia 01/29/2018 Overview (12/10/2024): Overview Note: Fibromyalgia #668974# EXT_ID: [id number] 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 Morbid obesity due to excess calories (CMS/HCC) 01/31/2017 GERD (gastroesophageal reflux disease) 7 Chronic bilateral low back pain without sciatica 01/23/2017 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 Irritable bowel syndrome 10/16/2012 Overview (12/10/2024): Overview Note: Irritable bowel syndrome #97662# EXT_ID: [id number] Asthma 10/16/2012 Overview (12/10/2024): Overview Note: Asthma #35740# EXT_ID: [id number] Ovarian cyst 10/16/2012 Overview (12/10/2024): Overview Note: Ovarian cyst #51782# EXT_ID: [id number] Encounters Date Type Department Care Team Description 02/04/2025 Travel 01/23/2025 Refill [facility] MED[facility] [address] [place] [address] Carolina Reynoso MD Ankylosing spondylitis of lumbosacral region (HCC) 01/19/2025 Telephone [facility] MEDICAL [address] [place] [address] Carolina Reynoso MD ongoing bladder and kidney pain 01/16/2025 2:40 PM EDT Office Visit [address] [address] Carolina Reynoso MD Palpitations (Primary Dx); Adult ADHD; Diverticulosis; Acute cystitis with hematuria; Medication management 01/12/2025 Travel 01/07/2025 Results Follow-Up [address] [address] Carolina Reynoso MD CBC auto differential [[id number]] 01/06/2025 Orders Only [facility] Information Management [address] [place] [address] Carolina Reynoso MD 12/31/2024 Telephone [facility] MEDICAL [address] [place] [address] Carolina Reynoso MD Possible Kidney infection 12/21/[address] [address] Carolina Reynoso MD Ankylosing spondylitis of lumbosacral region ([facility]/HCC) 12/17/2024 10:40 AM EDT Office Visit [address] [address] Carolina Reynoso MD PTSD (post-traumatic stress disorder) (Primary Dx); Bipolar II disorder major depressive with atypical features ([facility]/HCC); Adult ADHD; Ankylosing spondylitis of lumbosacral region ([facility]/HCC); Early onset menopause; Dermatitis; Overflow incontinence; Iron deficiency; Annual physical exam; Family history of alpha 1 antitrypsin deficiency; Weight loss, unintentional; Class 3 severe obesity due to excess calories without serious comorbidity with body mass index (BMI) of 40.0 to 44.9 in adult; Nausea; Family history of breast cancer 12/16/[address] [address] Rebekah Walker CNP Mild asthma, unspecified whether complicated, unspecified whether persistent 12/14/2024 Refill [facility] [address] [address] Carolina Reynoso MD 12/11/2024 [facility] [address] [address] Carolina Reynoso MD Gastroesophageal reflux disease, unspecified whether esophagitis present (Primary Dx) 12/10/2024 11:30 AM EDT Office Visit [facility] [address] [place] [address] MarceAcLatonya pabon, DDS Rampant dental caries (Primary Dx); Dental calculus; Oral hygiene poor 12/10/2024 Travel 12/10/2024 Telephone [facility] [address] [place] [address] Jorge Alberto Costello DDCamila 11/23/2024 Refill [facility] [address] [address] Carolina Reynoso MD Mild asthma, unspecified whether complicated, unspecified whether persistent 11/20/2024 Refill [facility] [address] [address] Carolina Reynoso MD Ankylosing spondylitis of lumbosacral region ([facility]) 11/11/2024 Refill [facility] [address] [address] Carolina Reynoso MD from Last 3 Months Family History Medical [...] Sign Reading Time Taken Comments Blood Pressure 115/78 01/16/2025 3:01 PM EDT Pulse 96 01/16/2025 3:01 PM EDT Temperature 37.3 C (99.2 F) 01/16/2025 3:01 PM EDT Respiratory Rate 20 01/16/2025 3:01 PM EDT Oxygen Saturation 99% 09/17/2024 10:38 AM EDT Inhaled Oxygen Concentration - - Weight 109 kg (239 lb 12.8 oz) 01/16/2025 3:01 P M EDT Height 165.1 cm (5' 5 ) 09/17/2024 10:38 AM EDT Body Mass Index 39.9 09/17/2024 10:38 AM EDT Plan of Treatment Upcoming Encounters Date Type Department Care Team (Late st Contact Info) Description 02/11/2025 11:20 AM EDT Office Visit [facility] MED[facility] [address] [place] [address] Carolina Reynoso MD [address] [place] [address] Health Maintenance Due Date Last Done Comments Dental Oral Exam 1985 Dental Prophylaxis 1985 Dental X-Ray: Bitewings 1985 Dental X-Ray: Full Mouth 1985 Depression Screening 1985 Lipid Panel 1985 SDOH Screening 1985 Alcohol/Substance Use Screening 1997 Family [...] of 2 - PCV) 2004 COVID-19 Vaccine (5 - season) 2024 02/05/2022, 02/18/2021, 08/10/2020, Additional history exists Influenza Vaccine (#1) 2024 , 03/21/2023, 02/05/2022, Additional history exists Tobacco Screening 12/10/2025 12/10/2024 Disability Screening 02/04/2026 02/04/2025 Zoster Vaccines (1 of 2) 11/10/2035 RSV [...] EDT XR CHEST 2 VIEWS Routine 01/05/2025 10:[address] ABDOMEN PELVIS W CONTRAST Routine 01/05/2025 10:50 AM EDT CHLAMYDIA TRACHOMATIS,NEISSERIA GONORRHOEAE, AND TRICH Routine 01/01/2025 [...] poor from Last 3 Months Results * ECG 12 lead (01/05/2025 12:23 PM EDT) us Carolina Reynoso MD ECG ORDERABLES Final Result * XR Chest 2 Views (01/05/2025 10:51 AM EDT) Anatomical Region Laterality Modality Chest Radiographic Naye ging us Carolina Reynoso MD IMG XR PROCEDURES Final Result * CT Abdomen Pelvis w/ Contrast (01/05/2025 10:50 AM EDT) Anatomical Region Laterality Modality Body, Pelvis, Abdomen Computed T omography us Carolina Reynoos MD IMG CT PROCEDURES Final Result * Chlamydia, gonorrhea and trichomonas, urine [[id number]] (01/01/2025) Urine us Carolina Reynoso MD LAB CYTOLOGY ORDERABLES Final Result [facility] [address] [place] [address], [place] [phone] * RPR Quantitative w/Treponema Pallidum Antibodies [[id number]] (01/01/2025) Blood Venous blood specimen / Unknown us Carolina Reynoso MD LAB BLOOD ORDERABLES Final Res ult [facility] [address] [place] [address], [place] [phone] * Urinalysis, Complete, with Reflex to Culture (01/01/2025) Urine us Carolina Reynoso MD LAB URINE ORDERABLES Final Res ult Performing Organization Address [facility] de Phone Number [facility] [address] [place] [address], [place] [phone] * TSH with Reflex to Free T4 [[id number]] (01/01/2025) Blood Venous blood specimen / Unknown us Carolina Reynoso MD LAB BLOOD ORDERABLES Final Res ult Performing Organization Address [facility] Phone Number [facility] [address] [place] [address], [place] [phone] * CBC auto differential [[id number]] (01/01/2025) Blood Venous blood specimen / Unknown us Carolina Reynoso MD LAB BLOOD ORDERABLES Final Res ult Performing Organization Address [facility] de Phone Number [facility] [address] [place] [address], [place] [phone] * HIV p24 Antigen/Antibody With Reflex to Confirmation [id number] (01/01/2025) Blood Venous blood specimen / Unknown us Carolina Reynoso MD LAB BLOOD ORDERABLES Final Res ult Performing Organization Address [facility] de Phone Number [facility] [address] [place] [address], [place] [phone] * Comprehensive Metabolic Panel [[id number]] (01/01/2025) Blood Venous blood specimen / Unknown Carolina Reynoso MD LAB BLOOD ORDERABLES Final Res ult [facility] [address] [place] [address], * Referral to Rheumatology (12/30/2024) Carolina Reynoso MD OUTPATIENT REFERRAL ORDERABLES Final Result from Last 3 Months Insurance Com[employer] [facility] MEDIC[facility] ADVANTAGE DENTAL [facility] Care Teams State Farm Agent Team Member Relationship Specialty Start Date End Date Carolina Reynoso MD [address] [place] [address] PCP - General Family Medicine 09/10/24
--- OUTSIDE RECORDS SUMMARY | 2025-02-09 14:51 | XMS_ITS | Clinical Summary ---
Author Organization [facility] Address [address] [place] [id number] Phone Care Team Providers Care Gun Tester Name Role Phone Carolina Reynoso MD Primary Care Provider [phone] Allergies Active Allergy Reactions Criticality Noted Date [...] tablet by mouth every morning. 5 Active Active Problems Problem Noted Date Diagnosed Date Ankylosing spondylitis of multiple sites in spin e 12/30/2024 Encounters Date Type Department Care Team Description 01/27/2025 Telephone [facility] Rheumatology [address] [place] [address] [place] [address] Alexa Coulter MD insurance; Appointment (/); insurance (Insurance /) 01/22/2025 Documentation [facility] [address] [place] [id number] Jennifer Cobian, SIMONA 01/14/2025 Orders Only [facility] [place] [facility] [address] [place] [address], 10th Floor, [address] [place] [address] Carolina Reynoso MD Encounter for nonprocreative genetic counseling (Primary Dx) 01/09/2025 Orders Only [facility] Rheumatology [address] [place] [address] [place] [address] ProviderCornell MD 12/31/2024 Orders Only [facility] Rheumatology [address] [place] [address] [place] [address] ProviderCornell MD 12/30/2024 9:00 AM EDT Office Visit [facility] Rheumatology [address] [place] [address] [place] [address] Alexa Coulter MD Ankylosing spondylitis of multiple sites in spine (Primary Dx); Encounter for long-term (current) use of high-risk medication; Need for hepatitis C screening test; Need for hepatitis B screening test; Fibromyalgia; Hypermobility arthralgia 12/30/2024 Telephone [facility] Rheumatology [address] [place] [address] [place] [address] Alexa Coulter MD Medication Prior Authorization ([employer]) 12/05/2024 3:15 PM EDT - 12/05/2024 11:59 PM EDT Hospital Encounter [facility], X-Ray - [address] [address] Cecilio Shaffer CNP Discharge Disposition: Home or Self Care 12/05/2024 2:10 PM EDT Office Visit [facility] Care at [address] [address] Cecilio Shaffer CNP Left foot pain (Primary Dx) 11/20/2024 Transcribe Orders [facility] Rheumatology [address] [place] [address] [place] [address] Unknown, MD Lucy Ankylosing spondylitis of lumbosacral region (Primary Dx) 11/10/2024 Telephone [facility] Rheumatology [address] [place] [address] [place] [address] Unknown, Unknown, Referral from Last 3 Months [...] Description 02/23/2025 10:15 AM EST Office Visit [address] [place] [address] Alexa Coulter MD [address] [place] [address] Janeth Lewis, PT [address] [place] [address] 03/04/2025 10:45 AM EST Office Visit [address] [place] [address] Alexa Coulter MD [address] [place] [address] Janeth Lewis, PT [address] [place] [address] 03/09/2025 11:45 AM EST Office Visit [address] [place] [address] Alexa Coulter MD [address] [place] [address] Janeth Lewis, PT [address] [place] [address] 03/10/2025 11:00 AM EST Telemedicine [facility] [address] [place] [address] Leonora Sifuentes NP [address] [place] [address] [place] [address] 03/11/2025 11:30 AM EST Office Visit [facility] [address] [place] [address] Alexa Coulter MD [address] [place] [address] Janeth Lewis, PT [address] [place] [address] 03/16/2025 10:15 AM EST Office Visit [address] [place] [address] Alexa Coulter MD [address] [place] [address] Janeth Lewis, PT [address] [place] [address] 03/19/2025 10:00 AM EST Office Visit [address] [place] [address] Alexa Coulter MD [address] [place] [address] Janeth Lewis, PT [address] [place] [address] 03/24/2025 10:15 AM EST Office Visit [facility] [address] [place] [address] Alexa Coulter MD [address] [place] [address] Janeth Lewis, PT [address] [place] [address] 03/26/2025 10:00 AM EST Office Visit [address] [place] [address] Alexa Coulter MD [address] [facility], [address] [place] [address] [email or web address] Janeth Lewis, PT [address] [place] [address] [email or web address] 03/31/2025 9:00 AM EST Office Visit [facility] Rheumatology [address] [place] [address] Alexa Coulter MD [address] [facility], [address] [place] [address] [email or web address] Health Maintenance Due Date Last Done Comments Adult Td,Tdap Booster 1985 DEPRESSION SCREENING 1997 SMOKING Hx and SMOKELESS TOBACCO SCREENING 1998 HIV ONE-TIME SCREENING (18-65 YEARS) 11/10/2003 PAP SMEAR 2006 INFLUENZA VACCINE (#1) 2024 01/22/2024 COVID-19 VACCINE ( season) 2024 SCREENING FOR DIABETES 05/27/2027 05/27/2024 [...] Name Priority Date/Time Associated Diagnosis Comments OUTSIDE CT ABD/PELVIS REPORT ONLY Routine 01/05/2025 1:07 PM EDT OUTSIDE XR CHEST REPORT ONLY Routine 01/05/2025 1:07 PM EDT XR TOES 2 OR MORE VIEWS (LEFT) Urgent/patient waiting 12/05/2024 3:28 PM EDT Left foot pain OUTSIDE LAB Routine 11/27/2024 2:44 PM EDT from Last 3 Months Results * Outside XR??Chest Report Only (01/05/2025 1:07 PM EDT) Historical Provider MD LAU XR CHEST Final Res ult * Outside CT Abd/pelvis Report Only (01/05/2025 1:07 PM EDT) Historical Provider MD LAU CT ABD/PELVIS Final R esult * XR Toes 2 or More Views (Left) (12/05/2024 3:28 PM EDT) Anatomical Region Laterality Modality Foot Left Computed Radiogr aphy 12/05/2024 3:53 PM EDT Impressions 12/05/2024 3:54 PM EDT No acute osseous abnormality of the left great toe. Narrative 12/05/2024 3:54 PM EDT XR TOES 2 OR MORE VIEWS (LEFT) Referring clinician's provided indication for this examination in [facility]: Other Indication (Please use free text); Foreign body in the area of the MCP of the great toe COMPARISON: None FINDINGS: No acute fracture or dislocation. Joint spaces are overall unremarkable. Procedure Note Eileen Champagne MD, PhD - 12/05/2024 XR TOES 2 OR MORE VIEWS (LEFT) Referring clinician's provided indication for this examination in [facility]:Other Indication (Please use free text); Foreign body in the area of theMCP of the great toe COMPARISON: None FINDINGS: No acute fracture or dislocation. Joint spaces are overall unremarkable. IMPRESSION: No acute osseous abnormality of the left great toe. Tiffanny Sandra Deena SALES ENABLEMENT LEAD IMG XR LOWER EXTREMITY Final Result * Outside Lab (11/27/2024 2:44 PM EDT) us Historical Provider LAB BLOOD ORDERABLES Kaela l Result from Last 3 Months Insurance [employer] [facility] MEDICARE REPLACEMENT [facility] MEDICARE REPLACEMENT MEDICARE PART A & B [facility] MEDICARE REPLACEMENT [facility] MEDICARE REPLACEMENT MEDICARE PART A & B [facility] MEDIC[facility]PLACEMENT [facility] MEDICARE REPLACEMENT MEDICARE PART A & B [employer] [facility] MEDICARE REPLACEMENT [facility] MEDICARE REPLACEMENT MEDICARE PART A & B [employer] [facility] MEDICARE REPLACEMENT [facility] MEDICARE REPLACEMENT MEDICARE PART A & B [employer] [facility] MEDICARE REPLACEMENT [facility] MEDICARE REPLACEMENT MEDICARE PART A & B Care Teams Gun Tester Relationship Specialty Start Date End Date Carolina Reynoso MD [address] [place] [address] [email or web address] PCP - General Family Medicine 12/30/24 Additional Source Comments The information contained in this document represents components of the legal health record. It is not the complete legal health record.[facility]
== END ==
LOC: HO.CARD 11:28
PROVIDERS: PCP Family Medicine; Visit Provider Family Medicine
DX: R00.2 Palpitations (principal)
CPT/HCPCS: 93225

== ENCOUNTER → 2025-02-09 11:28 | Outpatient (BNV) | payer MEDICARE, SELFPAY | PROVIDERS: PCP Family Medicine; Visit Provider Internal Medicine | DX: R00.2 Palpitations (principal) | CPT/HCPCS: 93227 ==

== ENCOUNTER 2025-03-30 08:54 | Outpatient (AMB) | payer MEDICARE, MEDICAID, SELFPAY ==
--- NOTE | 2025-03-30 09:02 | A.OFFVIS_ITS ---
Intake Visit Reasons: Incomplete bladder emptying/Overflow (set(UA+PVR) Intake Note: New patient presents today for initial visit for incomplete bladder emptying and overflow incontinence Urology Medication:Estradiol, Oxybutynin Blood Thinner:None Antibiotic Allergies:None PVR:89ml Allergies No Known Allergies (No Known Allergies*) Allergy (Verified 03/30/25 09:04) Medication List - Last Reconciled 03/30/25 by Evi Thompson MD albuterol sulfate 90 mcg/actuation 90 mcg inhalation Q4H PRN atomoxetine 50 mg (2 x 25 mg) PO QAM bupropion HCl XL 300 mg PO DAILY estradiol 0.5 mg PO DAILY estradiol-levonorgestrel 0.045-0.015 mg/24 hr (Climara Pro) 1 patch topical QWEEK gabapentin 600 mg PO TID guanfacine ER 1 mg PO DAILY hydroxyzine HCl 50 mg PO Q6H PRN lamotrigine 100 mg PO BID lisdexamfetamine 20 mg PO QAM methocarbamol 750 mg PO BID multivitamin 1 tab PO DAILY omeprazole 20 mg PO DAILY oxybutynin chloride ER 15 mg PO DAILY prazosin 2 mg PO BEDTIME rosuvastatin 5 mg PO DAILY HPI Comments Details: 03/30/2025--Dorota is here as a new patient evaluation. [facility] Medical History Kidney stones Hyperlipidemia Kidney infection History of concussion Nerve pain IBS (irritable bowel syndrome) Overactive bladder Anemia Hypermobility syndrome Fibromyalgia GERD (gastroesophageal reflux disease) Ankylosing spondylitis Surgical History H/O sinus surgery H/O gastric sleeve H/O tubal ligation History of removal of both ovaries H/O: hysterectomy Social History Household Members: Other Household Members Other:: Poly-amorous relationships Patient Tobacco Use Status: Former Tobacco user Tobacco use type: Cigarette Substance Use Type: Marijuana Office Procedures Post Void Residual Post Residual Void Post Void Residual (PVR): 89 [id number] Void Residual by ultrasound Results AMB Urinalysis, Automated UA Leukoctes 0 Agnelica/uL Last Edit by Fara Mancuso on 03/30/25 13:55 UA Nitrite Negative Last Edit by Fara Mancuso on 03/30/25 13:55 UA Urobilinogen 0.2 mg/dL Last Edit by Fara Mancuso on 03/30/25 13:55 UA Protein 0 mg/dL Last Edit by Fara Mancuso on 03/30/25 13:55 UA pH 6.0 Last Edit by Fara Mancuso on 03/30/25 13:55 UA Blood 0 Tiago/uL Last Edit by Fara Mancuso on 03/30/25 13:55 UA Specific [place] 1.015 Last Edit by Fara Mancuso on 03/30/25 13:55 UA Ketone Negative Last Edit by Fara Mancuso on 03/30/25 13:55 UA Bilirubin 0 mg/dL Last Edit by Fara Mancuso on 03/30/25 13:55 UA Glucose 0 mg/dL Last Edit by Fara Mancuso on 03/30/25 13:55 Results Reviewed Results Reviewed: Date of Service: 01/05/25 Reason for Exam: RLQ pain CLINICAL HISTORY: RLQ pain CT abdomen and pelvis with contrast Comparison: CT/SR - CT ABDOMEN PELVIS WO IV CON - 05/28/24 16:21 EST Findings: No consolidation or effusion. The gallbladder and solid organs are within normal limits. No renal stones. Prior gastric surgery. Hepatomegaly, 23.1 cm. The appendix is not identified. Nonetheless, no pericecal inflammatory changes identified. Diverticulosis. Prior hysterectomy. The bones are intact. IMPRESSION: 1. No acute intraabdominal or pelvic pathology. 2. Diverticulosis. 3. Status post prior gastric surgery and hysterectomy. Assessment & Plan Assessment & Plan Orders: Orders AMB Urinalysis Automated Today N12 - Tubulo-interstitial nephritis, 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 chronic AMB Post Void Residual by ultrasound Today N12 - Tubulo-interstitial nephritis, 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 chronic Medications: New oxybutynin chloride ER 15 mg PO DAILY 30 tabs 7RF Coding CPT Codes Post Residual Void - PVR CPT Code: 99065-Dzue Void Residual by ultrasound ([id number])
== END 2025-03-30 09:59 | disposition home or self-care (01) ==
LOC: HO.HUSH 08:55
PROVIDERS: PCP Family Medicine; Visit Provider Urology
DX: N12 Tubulo-interstitial nephritis, 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 chronic (principal)